=== PATIENT | male | born 1960 | race Caucasian/White ===

== ENCOUNTER 2018-04-01 23:35 | Inpatient (IN) | payer BC, SELFPAY ==
[2018-04-01 23:39] VITALS: BP 142/81; PULSE 90; RESP 32; TEMP 37.3; O2SAT 81; BMI 24.8
--- NOTE | 2018-04-01 23:46 | ED.SOB ---
HPI - SOB/Dyspnea General Chief Complaint: Shortness of Breath/Dyspnea Stated Complaint: CANT BREATHE Time Seen by Provider: 04/01/18 23:46 Source: patient and family Mode of arrival: ambulatory Limitations: no limitations History of Present Illness 57-year-old male with history of interstitial lung disease presents with a chief complaint of gradually worsening shortness of breath over the course of the day. Any activity makes him feel quite short of breath. He denies any fever chills but admits to ongoing cough. He denies any chest pain or recent travel, history of blood clots or recent injury or surgery. Patient does not use oxygen at home. On his arrival he was satting 81% with any exertion MD Complaint: shortness of breath and cough Onset (ago): hour(s) Severity: severe Consistency/Duration: constant Relieving factors: nothing Exacerbating factors: movement and coughing Known history of: other (Interstitial lung disease) Associated symptoms: cough Treatment prior to arrival: none Related Data Home Medications Medication Instructions Recorded Confirmed albuterol sulfate 2 puff INHALATION Q4-6H PRN 04/01/18 04/01/18 Allergies Allergy/AdvReac Type Severity Reaction Status Date / Time No Known Drug Allergies Allergy Verified 04/01/18 23:41 Review of Systems Review of Systems All systems reviewed & are unremarkable except as noted in HPI and below Constitutional Denies chills, Denies fever(s), Denies lethargy and Denies weakness Eyes Denies change in vision, Denies eye discharge, Denies irritation and Denies loss of vision ENT Ears, Nose, Mouth, and Throat: Denies change in voice, Denies neck pain and Denies sore throat Cardiovascular Denies chest pain, Denies irregular heart rhythm, Denies lightheadedness, Denies palpitations, Reports dyspnea, Reports dyspnea on exertion and Denies orthopnea Respiratory Reports cough, Reports dyspnea, Reports dyspnea on exertion and Denies wheezing Gastrointestinal Gastrointestinal: Denies abdominal pain, Denies change in bowel habits, Denies diarrhea, Denies nausea and Denies vomiting Genitourinary Denies hematuria, Denies flank pain, Denies urinary incontinence and Denies urinary urgency Musculoskeletal Denies neck pain Integumentary/Breasts Denies pruritus, Denies erythema, Denies rash and Denies wounds Neurologic Denies confusion, Denies loss of vision and Denies weakness Psychiatric Denies anxiety, Denies confusion, Denies depression, Denies homicidal ideation and Denies suicidal ideation Endocrine Denies palpitations Hematologic/Lymphatic Denies easy bruising Allergic/Immunologic Denies wheezing PFSH Social History Smoking Status: Former smoker Exam Narrative Exam Narrative: 57-year-old male in significant respiratory distress, patient working very hard to breathe on arrival Initial Vital Signs Initial Vital Signs: Vital Signs Temperature 99.1 F 04/01/18 23:39 Pulse Rate 90 04/01/18 23:39 Respiratory Rate 32 H 04/01/18 23:39 Blood Pressure 142/81 H 04/01/18 23:39 Pulse Oximetry 81 L 04/01/18 23:39 Const General: cooperative, well developed and acute distress Nutritional Appearance: thin Orientation: alert, awake, oriented x3 and not confused HENMT Head: normocephalic and atraumatic Ears: external ears normal and TM's normal bilaterally Nose: external nose normal and No nasal discharge Face and sinus: sinuses nontender, face symmetric, no sinus tenderness and No dry mucous membranes Mouth: oral mucosae normal and moist mucous membranes Teeth and gingiva: dentition normal Throat: tonsils normal and uvula midline Eyes General: appearance normal, both eyes and all related structures Eyelids: eyelids normal Conjunctivae: conjunctivae normal Sclera: sclerae normal Pupils: PERRL EOM: EOM intact bilaterally Neck Neck: normal visual inspection, trachea midline, No lymphadenopathy, No midline deformity and No JVD Lymphatic: No lymphedema Chest Chest: normal inspection of the chest Resp Effort & Inspection: normal respiratory effort, able to speak in complete sentences, respiratory distress, retractions, tachypneic and no use of accessory muscles Auscultation: crackles, diminished lung sounds, no rales, rhonchi and no wheezes Cardio Rate: regular rate Rhythm: regular rhythm Heart Sounds: no click, no gallops, no murmurs and no rubs Pulses: normal peripheral pulses GI Inspection: non-distended Palpation: soft, no hepatosplenomegaly, No guarding, No pulsatile mass and No tender Auscultation: normal bowel sounds Back/Spine/Pelvis Back: No CVA tenderness Cervical Spine: cervical ROM normal and No pain with cervical ROM Thoracic/Lumbar Spine: thoracic and lumbar spine normal to inspection Skin General: no rashes or lesions noted, No jaundice and No petechiae Neuro General: alert, oriented x3, gait normal and no focal motor deficits Speech: speech normal Extrem General: full ROM, no clubbing, cyanosis or edema, no pedal edema and no calf tenderness Psych Appearance: well kempt Mental Status: mental status grossly normal Attitude: cooperative Thought Content: normal and suicidality Judgment: judgment good Course Orders Ordered: ED Orders 04/02/18 00:05 Complete Blood Count AUTO DIFF Stat Comprehensive Metabolic Panel Stat Lactate (Lactic Acid) Stat 04/02/18 00:11 Consult to Respiratory Therapy Evaluate & Treat XR chest 2V Stat EKG-12 Lead Stat 04/02/18 00:35 Arterial Blood Gas Stat 04/02/18 01:43 Blood Culture Stat Levofloxacin (Levaquin) 750 mg in 150 mls @ 100 mls/hr IV NOW ONE Stop: 04/02/18 02:08 Last Admin: 04/02/18 01:05 Dose: 100 mls/hr Vital Signs - 8 hr 04/01/18 23:39 04/01/18 23:53 04/02/18 00:14 Temperature 99.1 F Pulse Rate 90 98 H 98 H Respiratory Rate 32 H 32 H 32 H Blood Pressure 142/81 H Blood Pressure [Left Arm] 134/81 H 128/80 H Pulse Oximetry 81 L 97 96 04/02/18 00:49 04/02/18 01:09 Temperature Pulse Rate 89 90 Respiratory Rate 32 H 32 H Blood Pressure Blood Pressure [Left Arm] 131/86 H 135/78 H Pulse Oximetry 96 96 MDM - SOB/Dyspnea Differential Diagnosis Likely acute exacerbation of chronic obstructive airways disease, congestive heart failure, community acquired pneumonia, asthma with exacerbation and pulmonary embolism Lab Data Attestation: I reviewed the patient's lab results. Result diagrams: 04/02/18 00:05 04/02/18 00:05 Lab Results 04/02/18 04/02/18 04/02/18 Range/Units 00:05 00:05 00:05 WBC 16.7 H (4.5-11.0) X10^3/uL RBC 6.35 H (4.5-5.9) X10^6/uL Hgb 12.3 L (13.5-17.5) g/dL Hct 38.6 L (41-53) % MCV 60.7 L (80-100) fL MCH 19.4 L (26-34) PG MCHC 31.9 (30-36) % RDW 15.9 H (11.6-14.8) % Plt Count 175 (150-400) X10^3/uL Neut % (Auto) 73.2 (50-75) % Lymph % (Auto) 15.9 L (25-40) % Meeker % (Auto) 9.6 (3-14) % Eos % (Auto) 0.7 L (2-4) % Baso % (Auto) 0.6 (0-2) % Neut # (Auto) 85601 H (1092-6631) /uL RBC Morphology Not Reportable Polychromasia 1+ H Hypochromasia 2+ H Microcytosis 2+ H Target Cells 1+ H ABG pH (7.35-7.45) ABG pCO2 (35-45) mmHg ABG pO2 (80-105) mmHg ABG HCO3 (23-27) mmol/L ABG Total CO2 (23-27) mmol/L ABG O2 Saturation (95-100) % ABG Base Excess (-2-3) mmol/L FiO2 Sodium 140 (137-145) mmol/L Potassium 3.7 (3.4-5.1) mmol/L Chloride 103 (98-107) mmol/L Carbon Dioxide 27 (22-32) mmol/L BUN 14 (9-20) mg/dL Creatinine 0.70 (0.66-1.25) mg/dL Estimated GFR > 60.0 (>60) mL/min BUN/Creatinine Ratio 20.0 (6-22) Glucose 120 H (70-100) mg/dL Lactate 0.9 (0.7-2.1) mmol/L Calcium 8.7 (8.4-10.2) mg/dL Total Bilirubin 2.1 H (0.2-1.3) mg/dL AST 91 H (17-59) IU/L ALT 100 H (21-72) IU/L Alkaline Phosphatase 67 (38-126) U/L Total Protein 8.1 (6.3-8.2) g/dL Albumin 3.9 (3.5-5.0) g/dL Globulin 4.2 H (1.7-4.1) g/dL Albumin/Globulin Ratio 0.9 L (1.0-2.8) 04/02/18 04/02/18 Range/Units 00:05 00:35 WBC (4.5-11.0) X10^3/uL RBC (4.5-5.9) X10^6/uL Hgb (13.5-17.5) g/dL Hct (41-53) % MCV (80-100) fL MCH (26-34) PG MCHC (30-36) % RDW (11.6-14.8) % Plt Count (150-400) X10^3/uL Neut % (Auto) (50-75) % Lymph % (Auto) (25-40) % Meeker % (Auto) (3-14) % Eos % (Auto) (2-4) % Baso % (Auto) (0-2) % Neut # (Auto) (4575-9597) /uL RBC Morphology Polychromasia Hypochromasia Microcytosis Target Cells ABG pH 7.44 (7.35-7.45) ABG pCO2 37.0 (35-45) mmHg ABG pO2 63 L (80-105) mmHg ABG HCO3 25 (23-27) mmol/L ABG Total CO2 26 (23-27) mmol/L ABG O2 Saturation 93 L (95-100) % ABG Base Excess 1.0 (-2-3) mmol/L FiO2 21 Sodium (137-145) mmol/L Potassium (3.4-5.1) mmol/L Chloride (98-107) mmol/L Carbon Dioxide (22-32) mmol/L BUN (9-20) mg/dL Creatinine (0.66-1.25) mg/dL Estimated GFR (>60) mL/min BUN/Creatinine Ratio (6-22) Glucose (70-100) mg/dL Lactate Cancelled (0.7-2.1) mmol/L Calcium (8.4-10.2) mg/dL Total Bilirubin (0.2-1.3) mg/dL AST (17-59) IU/L ALT (21-72) IU/L Alkaline Phosphatase (38-126) U/L Total Protein (6.3-8.2) g/dL Albumin (3.5-5.0) g/dL Globulin (1.7-4.1) g/dL Albumin/Globulin Ratio (1.0-2.8) Imaging Data Chest x-ray: Attestation: I personally reviewed and interpreted this imaging study as follows: Radiologist's impression: R side infiltrate Discharge Plan Departure Prescriptions: No Action albuterol sulfate 90 mcg/actuation Hfa Aerosol Inhaler 2 puff INHALATION Q4-6H PRN (Reason: Wheezing) RF: 0
[2018-04-01 23:53] VITALS: BP 134/81; PULSE 98; RESP 32; O2SAT 97
[2018-04-02] VITALS (14 sets, daily range): BP systolic 119–135; BP diastolic 52–86; PULSE 74–98; RESP 18–32; TEMP 36.4–37.3; O2SAT 90–98; BMI 24.8
--- NOTE | 2018-04-02 00:11 | DI.RAD.S_ITS ---
PROCEDURE: XR CHEST 2V INDICATIONS: shortness of breath TECHNIQUE: 2 views of the chest were acquired. COMPARISON: None. FINDINGS: Surgical changes and devices: None. Lungs and pleura: No pleural effusions or pneumothorax. Widespread upper and lower lobe bilateral areas of consolidation, right probably greater than left. Mediastinum: Mediastinal contours are normal. Heart size is normal. Bones and chest wall: No suspicious bony abnormalities. Soft tissues appear unremarkable. IMPRESSION: Bilateral widespread upper lower lobe areas of patchy consolidation and groundglass opacities. Findings raise possibility of pulmonary edema, although cannot exclude multifocal pneumonia and recommend clinical correlation to exclude infection. Some of these opacities may represent chronic interstitial disease and are technically age-indeterminate in the absence of prior studies. Given the absence of prior studies, recommend continued radiographic surveillance after treatment to document resolution or improvement, or long-term stability to exclude underlying pulmonary nodule/abnormal soft tissue. Dictated by: Kraig Barrera M.D. on 04/02/2018 at 9:47 Approved by: Kraig Barrera M.D. on 04/02/2018 at 9:49
[2018-04-02 00:21] LABS: Add Manual Diff / Slide Review NO; Basophils Percent Auto 0.6 % (0-2); Eosinophils Percent Auto 0.7 % (2-4); Hematocrit 38.6 % (41-53); Hemoglobin 12.3 g/dL (13.5-17.5); Lymphocytes Percent Auto 15.9 % (25-40); Mean Corpuscular HGB Conc 31.9 % (30-36); Mean Corpuscular Hemoglobin 19.4 PG (26-34); Mean Corpuscular Volume 60.7 fL (80-100); Monocytes Percent Auto 9.6 % (3-14); Neutrophils Absolute Auto 12200 /uL (3000-5900); Neutrophils Percent Auto 73.2 % (50-75); Platelet Count 175 X10^3/uL (150-400); Red Blood Cell Count 6.35 X10^6/uL (4.5-5.9); Red Cell Distribution Width 15.9 % (11.6-14.8); White Blood Cell Count 16.7 X10^3/uL (4.5-11.0)
--- NOTE | 2018-04-02 00:22 | RT ---
ABG ORDERED. WEANED SLOWLY TO ROOM AIR. LAURA. WELL. SPO2 92-94%
[2018-04-02 00:30] LABS: Lactate (Lactic Acid) 0.9 mmol/L (0.7-2.1)
[2018-04-02 00:31] LABS: Alanine Aminotransferase 100 IU/L (21-72); Albumin 3.9 g/dL (3.5-5.0); Albumin Globulin Ratio 0.9 (1.0-2.8); Alkaline Phosphatase 67 U/L (38-126); Aspartate Aminotransferase 91 IU/L (17-59); Bilirubin Total 2.1 mg/dL (0.2-1.3); Blood Urea Nitrogen 14 mg/dL (9-20); Calcium 8.7 mg/dL (8.4-10.2); Carbon Dioxide 27 mmol/L (22-32); Chloride 103 mmol/L (98-107); Estimated Glomerular Filt Rate > 60.0 mL/min (>60); Globulin 4.2 g/dL (1.7-4.1); Glucose 120 mg/dL (70-100); HEMOLYSIS < 15 (0-50); Potassium 3.7 mmol/L (3.4-5.1); Sodium 140 mmol/L (137-145); Total Protein 8.1 g/dL (6.3-8.2)
[2018-04-02 00:41] LABS: Hypochromasia 2+; Microcytosis 2+; Polychromasia 1+; Target Cells 1+
[2018-04-02 00:43] LABS: Fractionated Inspired Oxygen 21; HCO3 ABG 25 mmol/L (23-27); Oxygen Saturation ABG 93 % (95-100); PO2 ABG 63 mmHg (80-105); TCO2 ABG 26 mmol/L (23-27); pH ABG 7.44 (7.35-7.45)
--- NOTE | 2018-04-02 00:43 | PC.NURSE ---
Pt refused to urinal at bedside. Pt insisted on ambulating to br
[2018-04-02] MEDS: levoFLOXacin 750 MG/150 ML PIGGYBACK 100 MG IV (01:05)
--- NOTE | 2018-04-02 03:34 | PC.ADMIT ---
Admission Note: Gatito arrived to floor via stretcher from ED. ambulated to bed. oriented to hospital room and procedures. on 2L nc. O2 saturation 97% pt does have a cough. pt stated that he didn't know he had pneumonia. wbc elevated. admitted pt, will report off to [facility]. SBA to BR- refuses urinal/bsc.
--- NOTE | 2018-04-02 09:52 | P.HP_ITS ---
History of Present Illness Date Patient Seen: 04/02/18 Time Patient Seen: 09:40 Chief complaint: CANT BREATHE Narrative: 57-year-old man with a history of pulmonary fibrosis without local primary care provider, recently relocated from [place] with his to live near her parents, reports 2 days of significantly increased shortness of breath and cough without fevers, chills, sputum production, hemoptysis, chest pain, abdominal pain or other complaints. He states he has trouble walking up stairs at work at baseline and has to typically stop to rest, though has not needed oxygen, and is not on other treatments. 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 He states to be otherwise healthy without previous medical problems. Patient History Medical History Interstitial lung disease (Acute) Surgical History S/P appendectomy (Acute) Family & Social History Family History: Reviewed 04/02/18 by Terrance Turcios MD Social History: household members spouse Prior Living Arrangements RV Safety & Behavioral: Feels Safe in Current Yes Environment Been Physically Hurt or No Threatened By a Person Suicidal Ideation Description None Suicide Plan Description No Plan Tobacco & Substance use: Smoking Status Former smoker alcohol intake frequency 0-2 drinks per day Substance Use Type marijuana Meds Home Medications Medication Instructions Recorded Confirmed Type albuterol sulfate 2 puff INHALATION Q4-6H PRN 04/01/18 04/01/18 History Allergies Allergy/AdvReac Type Severity Reaction Status Date / Time No Known Drug Allergies Allergy Verified 04/01/18 23:41 Review of Systems Review of Systems All systems reviewed & are unremarkable except as noted in HPI and below Exam Vital Signs (past 8 hours): - 04/02/18 02:11 04/02/18 03:21 04/02/18 03:39 Temperature 98.1 F Pulse Rate 81 81 Respiratory Rate 27 H 18 Blood Pressure 122/52 H Blood Pressure [Left Arm] 122/76 H Pulse Oximetry 98 97 04/02/18 07:45 Temperature 97.5 F L Pulse Rate 86 Respiratory Rate 20 Blood Pressure 131/84 H Blood Pressure [Left Arm] Pulse Oximetry 96 Oxygen Delivery Method Nasal Cannula Oxygen Flow Rate 2 Narrative Exam Narrative: General: Alert, pleasant male, appears older than stated age, with mild dyspnea with minimal exertion of speaking HEENT: Pupils equal round reactive, extraocular movements intact, mucous membranes pink and moist Neck: Supple Lungs: Diffuse crackles lower lung gonsalez bilaterally, right greater than left with scattered rhonchi on the right, no wheezing Cardiac: Regular rate rhythm without appreciable murmur Abdomen: Soft, nontender Extremities: Without edema, clubbing of all fingers noted Neurologic: Alert, oriented, no focal neurologic deficits Dermatologic: No rash or skin lesions Objective Imaging Chest x-ray: My impression: Increased interstitial markings, with dense right-sided infiltrate noted, pending radiologic over-read ECG: Sinus rhythm at 87 beats per minute, no ischemic changes Labs Result Diagrams: 04/02/18 00:05 04/02/18 00:05 Labs: Laboratory Results - last 24 hr 04/02/18 04/02/18 04/02/18 00:05 00:05 00:05 WBC 16.7 H RBC 6.35 H Hgb 12.3 L Hct 38.6 L MCV 60.7 L MCH 19.4 L MCHC 31.9 RDW 15.9 H Plt Count 175 Neut % (Auto) 73.2 Lymph % (Auto) 15.9 L Atkinson % (Auto) 9.6 Eos % (Auto) 0.7 L Baso % (Auto) 0.6 Neut # (Auto) 63007 H RBC Morphology Not Reportable Polychromasia 1+ H Hypochromasia 2+ H Microcytosis 2+ H Target Cells 1+ H ABG pH ABG pCO2 ABG pO2 ABG HCO3 ABG Total CO2 ABG O2 Saturation ABG Base Excess FiO2 Sodium 140 Potassium 3.7 Chloride 103 Carbon Dioxide 27 BUN 14 Creatinine 0.70 Estimated GFR > 60.0 BUN/Creatinine Ratio 20.0 Glucose 120 H Lactate 0.9 Calcium 8.7 Total Bilirubin 2.1 H AST 91 H ALT 100 H Alkaline Phosphatase 67 Total Protein 8.1 Albumin 3.9 Globulin 4.2 H Albumin/Globulin Ratio 0.9 L 04/02/18 04/02/18 00:05 00:35 WBC RBC Hgb Hct MCV MCH MCHC RDW Plt Count Neut % (Auto) Lymph % (Auto) Atkinson % (Auto) Eos % (Auto) Baso % (Auto) Neut # (Auto) RBC Morphology Polychromasia Hypochromasia Microcytosis Target Cells ABG pH 7.44 ABG pCO2 37.0 ABG pO2 63 L ABG HCO3 25 ABG Total CO2 26 ABG O2 Saturation 93 L ABG Base Excess 1.0 FiO2 21 Sodium Potassium Chloride Carbon Dioxide BUN Creatinine Estimated GFR BUN/Creatinine Ratio Glucose Lactate Cancelled Calcium Total Bilirubin AST ALT Alkaline Phosphatase Total Protein Albumin Globulin Albumin/Globulin Ratio Assessment & Plan (1) Interstitial lung disease: Current visit: Yes Status: Chronic Plan: Assessment/Plan Narrative: 1. Community-acquired pneumonia, presumed bacterial. Continue IV Levaquin and follow cultures. 2. Interstitial lung disease. Chronic with significant dyspnea with exertion and clubbing, though not requiring oxygen to date. 3. Acute respiratory failure due to 1., with contributing interstitial lung disease. 4. DVT prophylaxis: Treat with Lovenox. 5. Code status: Full code. 6. Disposition: The patient require inpatient care for at least 2 nights. Consult physical therapy
[2018-04-02] MEDS: ENOXAPARIN 40 MG/0.4 ML SYRINGE SUBCUT (11:39)
--- NOTE | 2018-04-02 14:30 | PT.IIE ---
Current Diagnoses Interstitial pulmonary disease, unspecified (04/02/18) Surgical History (Last Reviewed 04/02/18 @ 09:47 by Terrance Turcios MD) S/P appendectomy (Acute) Medical History (Last Reviewed 04/02/18 @ 09:47 by Terrance Turcios MD) Interstitial lung disease (Chronic) Physical Therapy Inpatient Evaluation/Re-Eval M1 PT/OT-IP Prior Functional Status Start: 04/02/18 16:29 Freq: Status: Active Protocol: Document 04/02/18 14:30 [facility] (Rec: 04/02/18 16:37 [facility] [id number]) Medical Review Prior Functional Status Medical History Reviewed Yes Diet/Fluid Consistency Regular Communication WNL Mobility and Gait indep. community ambulator without device, fatigues with flight of stairs. Activities of Daily Living and IADL's indep. Social History Household Members spouse Living Arrangements RV Number of Floors (Floors) One Floor Number of Stairs To Enter/Railing? 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 No home O2. M2 PT-IP Current Condition Start: 04/02/18 16:29 Freq: Status: Active Protocol: Document 04/02/18 14:30 [facility] (Rec: 04/02/18 16:37 [facility] [id number]) Physical Therapy Current Condition Current Condition Evaluation Date 04/02/18 Treatment Diagnosis Pneumonia, impaired activity tolerance Precautions Other Precautions O2 saturation M3 PT-IP Subjective Start: 04/02/18 16:29 Freq: Status: Active Protocol: Document 04/02/18 14:30 [facility] (Rec: 04/02/18 16:37 [facility] [id number]) Subjective Physical Therapy Visit Type Type Initial Evaluation Visit Start Time 14:15 Visit Stop Time 14:30 Total Visit Minutes 15 Number of ACCOUNT MANAGER RELIEF Visits 0 Physical Therapy Visit Comments Patient Comments Pt reports that he gets fatigued when doing the stairs at work, but this SOB is much worse than what his norm is. M4 PT-IP Mobility and Gait Start: 04/02/18 16:29 Freq: Status: Active Protocol: Document 04/02/18 14:30 [facility] (Rec: 04/02/18 16:37 [facility] [id number]) PT-Bed Mobility Assessment Supine to Sit Supine to Sit Independent Sit to Supine Sit to Supine Independent Scooting Scooting to Edge of Bed Independent Scooting Up and Down in Bed Independent PT-Transfer Assessment Sit to and From Stand Sit to and from Stand Independent Equipment Transfer Assistive Device None Transfers Transfer Destination Bed Transfer Technique Stand Step Pivot Transfer Ability Level of Assist Independent Comments Mobility Comments Refused gait belt. Gait Assessment Gait Gait Assistance Required: Independent Distance (Feet) (feet) 500 Assistive Devices Assistive Device None Gait Deviations General Gait Pattern Within Normal Limits Factors Limiting Gait Function Factors Limiting Gait Function Decreased Activity Tolerance Comments Gait Comments O2 saturation 87-92% on 3-L O2 during session. Stair Climbing Assessment Evaluation Level of Assist On Stairs Independent Devices Stair Climbing Assistive Devices None Technique/Endurance Stair Climbing Direction Ascend and Descend Number of Steps Climbed 3 Query Text: Stair Climbing Set # Repetitions (reps) 2 PT-Balance Assessment Sitting Balance and Reactions Static Sitting Balance Ability Normal Dynamic Sitting Balance Ability Normal Standing Balance and Reactions Static Standing Balance Ability Normal Dynamic Standing Balance Ability Normal M5 PT-IP Objective Assessments Start: 04/02/18 16:29 Freq: Status: Active Protocol: Document 04/02/18 14:30 [facility] (Rec: 04/02/18 16:37 [facility] [id number]) Orientation Orientation/Cognition Level of Alertness Alert Orientation Name Age Birthday Month Date Year Day of Week Place Situation Language Function Ability No Deficits Noted Safety Awareness Understands Safety Issues Memory Description No Deficits Noted Strength Upper Extremity Strength Assessment Within Functional Limits Lower Extremity Strength Assessment Within Functional Limits Coordination Assessment Gross Coordination Gross Coordination WNL Muscle Tone Muscle Tone WNL Yes M6 PT-IP Treatment Start: 04/02/18 16:29 Freq: Status: Active Protocol: Document 04/02/18 14:30 [facility] (Rec: 04/02/18 16:37 [facility] [id number]) Physical Therapy Treatment Education Education Provided Safety M7 PT-IP Assessment and Plan Start: 04/02/18 16:29 Freq: Status: Active Protocol: Document 04/02/18 14:30 [facility] (Rec: 04/02/18 16:37 [facility] [id number]) PT Summary Assessment and Plan Potential Rehabilitation Potential Excellent Status of Condition at Evaluation Stable Summary Impairments Activity Tolerance Progress Towards Goals Safe For Discharge Assessment Summary Pt required 3-L O2 during session, normally does not use any supplemental O2. Respiratory Therapy would be beneficial for pt for trial O2 saturation testing with ambulation when appropriate. Pt is indep. with all mobility , no loss of balance noted and no assistive device used. Pt is cleared to ambulate in hallway with assistance of O2 line and tank management. No further acute physical therapy needs, encourage pt to ambulate in hallway multiple times per day with O2 line and tank management assistance ( family and/or staff). Pt will be d/c at this time from physical therapy, as no skilled services are required for his mobility. Goals Other Goals Indep. with all mobility (just required assist with O2 line and tank management). Frequency of Treatment Frequency Of Treatment Discharge Recommendations To Nursing Amount of Assist Needed 1 Person Assist Discharge Recommendations PT Discharge Recommendations Home with Assistance
--- NOTE | 2018-04-02 14:54 | CM.DANOTE ---
DCP/Assessment: Reviewed chart. Patient is a 57yr old male admitted to [facility] with SOB. Primary payor is 1)[facility] Out of [facility]. Patient currently without PCP. Met with patient explained CM/SW role. Patient alert and oriented resting in bed with [address] at time of visit. Patient ambulated today Independently today with therapy. Patient reports that he resides with spouse in [place]. Patient works full-time at [employer] in [place]. Patient plans to d/c home with supportive spouse when medically stable. Currently patient uses no DME at baseline. Patient on 02 but does not anticipate needing that at time of d/c. Patient reports that he is fairly new to the area and has not yet obtained a PCP. Patient with h/o lung disease therefore, CHANDNI encouraged patient to obtain PCP right away. Pt. plans to ask Dr. 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 P: No additional needs or concerns at this time. Anticipate home when medically stable. 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 CHANDNI Batista Discharge Planning/Care Management CM Discharge Assessment Start: 04/02/18 14:51 Freq: Status: Active Protocol: Document 04/02/18 14:53 [facility] (Rec: 04/02/18 14:54 [facility] [id number]) Discharge Planning Assessment Assigned Residential Life Director CHANDNI/Theresa History Provided By Patient Has Patient been admitted in last 30 No days? Prior Living Arrangements RV Household Members spouse Type of transporation used prior to Drives own vehicle admit Independent with ADL's Yes Is patient alert and oriented? Yes Caregiver for Another No Discharge Plan Home Review Status In Process Next Review Type Continued Stay Review
[2018-04-02] MEDS: levoFLOXacin 250 MG TABLET 750 MG PO (20:46)
[2018-04-02] MEDS: ZOLPIDEM 5 MG TABLET PO (20:46)
[2018-04-03] VITALS (16 sets, daily range): BP systolic 108–124; BP diastolic 58–76; PULSE 63–86; RESP 17–19; TEMP 36.6–37.1; O2SAT 80–98
[2018-04-03 06:05] LABS: Add Manual Diff / Slide Review NO; Basophils Percent Auto 0.7 % (0-2); Eosinophils Percent Auto 4.1 % (2-4); Hematocrit 38.3 % (41-53); Hemoglobin 12.1 g/dL (13.5-17.5); Lymphocytes Percent Auto 22.1 % (25-40); Mean Corpuscular HGB Conc 31.6 % (30-36); Mean Corpuscular Hemoglobin 19.4 PG (26-34); Mean Corpuscular Volume 61.2 fL (80-100); Monocytes Percent Auto 14.2 % (3-14); Neutrophils Absolute Auto 6800 /uL (3000-5900); Neutrophils Percent Auto 58.9 % (50-75); Platelet Count 152 X10^3/uL (150-400); Red Blood Cell Count 6.26 X10^6/uL (4.5-5.9); White Blood Cell Count 11.5 X10^3/uL (4.5-11.0)
[2018-04-03 06:14] LABS: Alanine Aminotransferase 88 IU/L (21-72); Albumin 3.7 g/dL (3.5-5.0); Albumin Globulin Ratio 0.9 (1.0-2.8); Alkaline Phosphatase 60 U/L (38-126); Aspartate Aminotransferase 85 IU/L (17-59); BUN Creatinine Ratio 18.6 (6-22); Bilirubin Total 1.9 mg/dL (0.2-1.3); Blood Urea Nitrogen 13 mg/dL (9-20); Calcium 8.7 mg/dL (8.4-10.2); Carbon Dioxide 27 mmol/L (22-32); Chloride 103 mmol/L (98-107); Estimated Glomerular Filt Rate > 60.0 mL/min (>60); Globulin 3.9 g/dL (1.7-4.1); Glucose 101 mg/dL (70-100); HEMOLYSIS < 15 (0-50); Potassium 4.1 mmol/L (3.4-5.1); Sodium 139 mmol/L (137-145); Total Protein 7.6 g/dL (6.3-8.2)
[2018-04-03 06:31] LABS: Hypochromasia 2+; Microcytosis 2+; Polychromasia 1+
[2018-04-03 06:32] LABS: Target Cells 1+
[2018-04-03] MEDS: ENOXAPARIN 40 MG/0.4 ML SYRINGE SUBCUT (09:15)
--- NOTE | 2018-04-03 10:51 | P.PN_ITS ---
Subjective Date Patient Seen: 04/03/18 Time Patient Seen: 10:30 Interval history: Patient reports feeling better, with dyspnea on exertion, and oxygen saturations falling to 80% on room air with walking across the room. Exam Vital Signs (past 8 hours): - 04/03/18 04:00 04/03/18 07:00 04/03/18 07:47 Temperature 97.9 F 98 F Pulse Rate 70 86 Respiratory Rate 18 18 Blood Pressure 108/66 124/76 H Pulse Oximetry 95 93 92 04/03/18 09:15 04/03/18 09:20 04/03/18 09:30 Temperature Pulse Rate Respiratory Rate Blood Pressure Pulse Oximetry 80 L 88 L 92 04/03/18 09:34 Temperature Pulse Rate Respiratory Rate Blood Pressure Pulse Oximetry 80 L Fraction of Inspired Oxygen 21 Oxygen Delivery Method Room Air Oxygen Flow Rate 0 Narrative Exam Narrative: General: Alert, pleasant male, appears older than stated age, with mild dyspnea with minimal exertion of speaking HEENT: Pupils equal round reactive, extraocular movements intact, mucous membranes pink and moist Neck: Supple Lungs: Diffuse crackles lower lung gonsalez bilaterally, right greater than left with scattered rhonchi on the right, no wheezing Cardiac: Regular rate rhythm without appreciable murmur Abdomen: Soft, nontender Extremities: Without edema, clubbing of all fingers noted Neurologic: Alert, oriented, no focal neurologic deficits Dermatologic: No rash or skin lesions Objective Labs Result Diagrams: 04/03/18 05:48 04/03/18 05:48 Labs: Laboratory Results - last 24 hr 04/03/18 04/03/18 05:48 05:48 WBC 11.5 H RBC 6.26 H Hgb 12.1 L Hct 38.3 L MCV 61.2 L MCH 19.4 L MCHC 31.6 RDW 16.0 H Plt Count 152 Neut % (Auto) 58.9 Lymph % (Auto) 22.1 L Foster % (Auto) 14.2 H Eos % (Auto) 4.1 H Baso % (Auto) 0.7 Neut # (Auto) 6800 H RBC Morphology Not Reportable Polychromasia 1+ H Hypochromasia 2+ H Microcytosis 2+ H Target Cells 1+ H Sodium 139 Potassium 4.1 Chloride 103 Carbon Dioxide 27 BUN 13 Creatinine 0.70 Estimated GFR > 60.0 BUN/Creatinine Ratio 18.6 Glucose 101 H Calcium 8.7 Total Bilirubin 1.9 H AST 85 H ALT 88 H Alkaline Phosphatase 60 Total Protein 7.6 Albumin 3.7 Globulin 3.9 Albumin/Globulin Ratio 0.9 L Assessment & Plan Plan: Assessment/Plan Narrative: 1. Community-acquired pneumonia, presumed bacterial. Continue IV Levaquin and follow cultures. 2. Interstitial lung disease. Chronic with significant dyspnea with exertion and clubbing, though not requiring oxygen to date. 3. Acute hypoxic respiratory failure due to 1., with contributing interstitial lung disease. 4. Abnormal liver function test. He states a history of hepatitis as a youth, with history of IV drug use. Check hepatitis B and C serologies. 5. DVT prophylaxis: Treat with Lovenox. 6. Code status: Full code. 7. Disposition: The patient require inpatient care for at least 2 nights. Continue physical therapy. Possible discharge home with home oxygen tomorrow if improved.
--- NOTE | 2018-04-03 17:26 | PC.NURSE ---
Addendum entered by Anaid Calero R.N. 04/03/18 20:09: 2000- SpO2 98% 1L nc, removed O2, will recheck in 30min. Admin zolpidem 5mg for sleep. Provided Q-tip and lub gel for dry nares. Original Note: [id number]- 98% 2L nc, weaned down to 1 L with SpO2 97% nc. Denies SOB, pain, and nausea. LS LLL wheezy, RLL crackles and wheezy, RML/RUL wheezy. Using I.S. and coughing intermittently. Indep in room and BRP. Call light in reach.
[2018-04-03] MEDS: levoFLOXacin 250 MG TABLET 750 MG PO (19:59)
[2018-04-03] MEDS: ZOLPIDEM 5 MG TABLET PO (20:02)
[2018-04-04] VITALS: BP 111/74; PULSE 77; RESP 18; TEMP 36.7; O2SAT 92
[2018-04-04 05:00] VITALS: BP 108/74; PULSE 70; RESP 22; TEMP 36.7; O2SAT 92
[2018-04-04 07:41] VITALS: BP 117/80; PULSE 77; RESP 18; TEMP 36.5; O2SAT 93
[2018-04-04 08:55] VITALS: O2SAT 93
--- NOTE | 2018-04-04 09:22 | P.DS_ITS ---
History of Present Illness Date Patient Seen: 04/04/18 Time Patient Seen: 09:09 Chief complaint: CANT BREATHE Narrative: 57-year-old man with a history of pulmonary fibrosis without local primary care provider, recently relocated from [place] with his to live near her parents, reports 2 days of significantly increased shortness of breath and cough without fevers, chills, sputum production, hemoptysis, chest pain, abdominal pain or other complaints. He states he has trouble walking up stairs at work at baseline and has to typically stop to rest, though has not needed oxygen, and is not on other treatments. He had a marble setter while living in [place] and was prescribed an inhaler which she says does not help his breathing at all. He states to be otherwise healthy without previous medical problems. Discharge Providers Date of admission: 04/02/18 02:26 Consults: 04/02/18 00:11 Consult to Respiratory Therapy Evaluate & Treat Comment: Physician Instructions: Evaluate and treat 04/02/18 09:53 Consult to Physical Therapy Evaluate & Treat Comment: weakness Physician Instructions: Evaluate and Treat 04/04/18 08:45 Consult to Respiratory Therapy Evaluate & Treat Comment: RT to teach patient to use spacer Physician Instructions: Evaluate and treat 04/04/18 09:07 Consult to Respiratory Therapy Evaluate & Treat Comment: evaluate for home oxygen needs Physician Instructions: Evaluate and treat Discharge provider: DORIE Doyle Summary Discharge Diagnosis: 1. Acute community-acquired pneumonia, presumed bacterial 2. Interstitial lung disease. Chronic 3. Acute hypoxic respiratory failure due to 1., with contributing interstitial lung disease 4. Abnormal liver function test, history of hepatitis Hospital Course: This is a summary of a 2 day hospitalization for this 57-year- old patient who was admitted with complaints of shortness of breath dyspnea. White count admission was 16.7, and an ABG PO2 of 63. His saturations on admission were in the low 80s with any type of exertion. He was admitted to the hospital placed on oral Levaquin q.day. T-max during this hospitalization was 99.2. Over the course of 2 days he has clinically improved and desires to go home at this point in time. He is on room air and at rest his saturations are in the mid to high 90s, he can speak in full sentences and is not short of breath at rest. Blood cultures x2 show no growth after 48 hr. He has not required any bronchodilator therapy during this admission. His abnormal liver studies will need to be followed as an outpatient basis. He currently has no primary care provider but has been given several options for pursuing one. Will be discharged on additional 8 days for total of a ten-day course of oral Levaquin. Status at Discharge Functional status at discharge: independent ambulation Overall status at discharge: patient is progressing back to baseline Time Spent with Patient Greater than 30 minutes Exam Vital Signs (past 8 hours): - 04/04/18 05:00 04/04/18 07:41 Temperature 98.1 F 97.7 F Pulse Rate 70 77 Respiratory Rate 22 18 Blood Pressure 108/74 117/80 Pulse Oximetry 92 93 Fraction of Inspired Oxygen 21 Oxygen Delivery Method Room Air Oxygen Flow Rate 0 Const General: cooperative, comfortable, well developed and well groomed Nutritional Appearance: average body habitus and well nourished Orientation: alert, awake and oriented x3 HENMT Head: normal to inspection, normocephalic and atraumatic Eyes General: appearance normal, both eyes and all related structures Pupils: PERRL and pupil size (2.0) bilaterally Neck Neck: normal visual inspection, trachea midline and supple Other: No JVD or lymphadenopathy Chest Chest: normal inspection of the chest Resp Effort & Inspection: normal respiratory effort, able to speak in complete sentences and cough Other: Crackles in bases right greater than left. No wheezes appreciated. Cardio Rate: regular rate Rhythm: regular rhythm Heart Sounds: S1 normal, S2 normal and normal, physiologic split S2 Other: No murmurs rubs or clicks GI Inspection: normal to inspection Palpation: soft Auscultation: normoactive bowel sounds Other: No masses. Other: Unremarkable Back/Spine/Pelvis Other: Unremarkable Skin General: no rashes or lesions noted, dry skin and warm Neuro General: alert, awake and oriented x3 Cranial Nerves: PERRL Cognition: normal cognition Speech: speech normal Gait: normal gait Motor: muscle tone normal throughout Sensory Exam: no sensory deficits noted Extrem General: normal to inspection and no pedal edema Psych Appearance: grossly normal Mental Status: mental status grossly normal Mood: congruent mood Affect: normal affect Attitude: cooperative Thought Process: normal Thought Content: normal Judgment: judgment good Objective Labs Result Diagrams: 04/03/18 05:48 04/03/18 05:48 Labs: PROCEDURE: XR CHEST 2V INDICATIONS: shortness of breath TECHNIQUE: 2 views of the chest were acquired. COMPARISON: None. FINDINGS: Surgical changes and devices: None. Lungs and pleura: No pleural effusions or pneumothorax. Widespread upper and lower lobe bilateral areas of consolidation, right probably greater than left. Mediastinum: Mediastinal contours are normal. Heart size is normal. Bones and chest wall: No suspicious bony abnormalities. Soft tissues appear unremarkable. IMPRESSION: Bilateral widespread upper lower lobe areas of patchy consolidation and groundglass opacities. Findings raise possibility of pulmonary edema, although cannot exclude multifocal pneumonia and recommend clinical correlation to exclude infection. Some of these opacities may represent chronic interstitial disease and are technically age-indeterminate in the absence of prior studies. Given the absence of prior studies, recommend continued radiographic surveillance after treatment to document resolution or improvement, or long-term stability to exclude underlying pulmonary nodule/ abnormal soft tissue. Dictated by: Kraig Barrera M.D. on 04/02/2018 at 9:47 Approved by: Kraig Barrera M.D. on 04/02/2018 at 9:49 Discharge Plan Discharge Plan Patient Disposition: Home, Self-Care Discharge comment: Patient needs to establish a PCP. Provider Discharge Instructions Diet: Diet as Tolerated and Regular Activity: As tolerated Oxygen: May need supplemental oxygen during periods of exertion at home or at work. Wound Care Report to your healthcare provider any signs of infection, such as:: chills, fever, night sweats and increased pain Discharge Data Attending Provider: Rama Zimmerman Admit Date/Time: 04/02/18 02:26 Discharges patient from system. Discharge Date/Time: 04/04/18 11:35
--- NOTE | 2018-04-04 11:39 | PC.NURSE ---
discharge pt evaluated for O2 and d/c with O2 tank set to 4L O2 with activity. d/c instructions provided to pt and . notified to contact MD if any issues and pt aware to establish care with PCP. pt provided Rx for abx. pt states he took all belongings with him. left with RN escort and while wearing home O2.
[2018-04-09 05:46] LABS: Hepatitis A Antibody IgM NONREACTIVE; Hepatitis B Core Antibody IgM NONREACTIVE; Hepatitis B Surface Antigen NONREACTIVE; Hepatitis C Antibody REACTIVE
== END 2018-04-04 11:35 | disposition home or self-care (01) | DRG 193 ==
LOC: ED 04-02 00:07 → AC 04-02 02:27
PROVIDERS: Internal Medicine; Admitting Provider Internal Medicine; Emergency Provider Emergency Medicine; Visit Provider Internal Medicine
DX: J15.9 Unspecified bacterial pneumonia (principal); J96.01 Acute respiratory failure with hypoxia; J84.9 Interstitial pulmonary disease, unspecified; Z87.891 Personal history of nicotine dependence; R77.0 Abnormality of albumin
CPT/HCPCS: 36415; 36591; 36600; 71046; 80053; 80074; 82805; 83605; 85025; 87040; 93005; 94618; 94760; 96365; 96366; 97161; 99284; 99285; J1650; J1956

== ENCOUNTER 2018-08-06 12:47 | Emergency (ER) | payer BC, SELFPAY ==
[2018-04-02 02:38] VITALS: BMI 24.8
[2018-08-06 13:00] VITALS: BP 121/77; PULSE 61; RESP 15; O2SAT 96
[2018-08-06 13:03] VITALS: BP 131/80; PULSE 65; RESP 21; TEMP 36.5; O2SAT 92
--- NOTE | 2018-08-06 13:27 | ED_ITS ---
HPI - Dizziness General Chief Complaint: Syncope Stated Complaint: BALANCE ISSUES Time Seen by Provider: 08/06/18 13:05 Source: patient Mode of arrival: ambulatory Limitations: no limitations History of Present Illness HPI Narrative: Patient is a 57-year-old male who presents with dizziness. He said he bent over to tie his shoe he got dizzy and lightheaded. He had some trouble walking when he stood up felt like he had to hold onto things. He did not pass out. No chest pain or heart palpitations. He is supposed to wear oxygen while active due to pulmonary fibrosis however at that time he was not wearing oxygen. He denies any fever or cough. He had no focal deficits. He now is feeling much better and his symptoms have completely resolved. MD complaint: dizziness Description: lightheadedness and difficulty walking History of similar episodes: No Severity: moderate Relieving factors: nothing Exacerbating factors: position Associated symptoms: denies other symptoms Related Data Home Medications Medication Instructions Recorded Confirmed albuterol sulfate 2 puff INHALATION Q4-6H PRN 04/01/18 04/01/18 Allergies Allergy/AdvReac Type Severity Reaction Status Date / Time No Known Drug Allergies Allergy Verified 04/01/18 23:41 Review of Systems Review of Systems All systems reviewed & are unremarkable except as noted in HPI and below Constitutional Denies chills, Denies fever(s), Denies lethargy and Denies weakness Cardiovascular Denies chest pain, Denies irregular heart rhythm, Reports lightheadedness, Denies palpitations, Denies dyspnea, Denies dyspnea on exertion and Denies orthopnea Respiratory Denies cough, Denies dyspnea, Denies dyspnea on exertion and Denies wheezing Gastrointestinal Gastrointestinal: Denies abdominal pain, Denies change in bowel habits, Denies diarrhea, Denies nausea and Denies vomiting Musculoskeletal Denies back pain, Denies muscle weakness, Denies numbness and Denies tingling Integumentary/Breasts Denies pruritus, Denies erythema, Denies rash and Denies wounds Neurologic Denies numbness, Denies tingling and Denies weakness Endocrine Denies palpitations Allergic/Immunologic Denies wheezing [facility] Medical History Interstitial lung disease (Chronic) Surgical History S/P appendectomy (Acute) Social History household members: spouse Smoking Status: Former smoker Exam Initial Vital Signs Initial Vital Signs: Vital Signs Pulse Rate 61 08/06/18 13:00 Respiratory Rate 15 08/06/18 13:00 Blood Pressure 121/77 08/06/18 13:00 Pulse Oximetry 96 08/06/18 13:00 GENERAL: Appears older than stated age no acute distress nontoxic HEENT: Head atraumatic,EOMI, pupils reactive, face symmetric CARDIOVASCULAR: Regular rate and rhythm without murmurs, rubs or gallops. RESPIRATORY: Breath sounds equal bilaterally, no wheezes rales or rhonchi. ABDOMEN: Soft, nontender. Normoactive bowel sounds all 4 quadrants. No guarding or rebound. EXTREMITIES: Normal range of motion, no clubbing or edema. Neurovascularly intact NEUROLOGICAL: Alert and oriented x4.Normal gait and speech. Cranial nerves II through XII grossly intact. SKIN: Warm, dry, no laceration, no petechiae, no rashes or lesions. Scores NIH Stroke Scale Level of Conciousness: Alert, keenly responsive Ask month/age: Answers both questions correctly. Open/close eyes, close hand: Performs both tasks correctly Best gaze horizontal: Normal Visual gonsalez: No visual loss Facial palsy: Normal symetrical movement Left arm drift: No drift for full 10 sec Right arm drift: No drift for full 10 sec Left leg drift: No drift for full 10 sec Right leg drift: No drift for full 10 sec Limb ataxia: Absent Sensory on face/arms/legs: Normal, no sensory loss Best language: No aphasia, normal Dysarthria: Normal Extinction or inattention: No abnormality Total NIH Stroke scale score: 0 Course Orders Ordered: ED Orders 08/06/18 13:07 EKG-12 Lead Stat 08/06/18 13:35 Basic Metabolic Panel Stat Complete Blood Count AUTO DIFF Stat Discontinued Medications Sodium Chloride (Normal Saline 0.9%) 1,000 mls @ 1,000 mls/hr IV BOLUS ONE Stop: 08/06/18 14:21 Last Infusion: 08/06/18 14:29 Dose: 0 mls/hr Admin: 08/06/18 13:35 Dose: 1,000 mls/hr Vital Signs - 8 hr 08/06/18 13:00 08/06/18 13:03 08/06/18 14:00 Temperature 97.7 F Pulse Rate 61 65 Respiratory Rate 15 21 Blood Pressure 131/80 Blood Pressure [Right Arm] 121/77 134/71 Pulse Oximetry 96 92 08/06/18 14:30 Temperature Pulse Rate 56 L Respiratory Rate 16 Blood Pressure 134/71 Blood Pressure [Right Arm] Pulse Oximetry 94 MDM - Dizziness Lab Data Attestation: I reviewed the patient's lab results. Result diagrams: 08/06/18 13:35 08/06/18 13:35 Lab Results 08/06/18 08/06/18 Range/Units 13:35 13:35 WBC 9.8 (4.5-11.0) X10^3/uL RBC 6.36 H (4.5-5.9) X10^6/uL Hgb 12.5 L (13.5-17.5) g/dL Hct 39.0 L (41-53) % MCV 61.4 L (80-100) fL MCH 19.7 L (26-34) PG MCHC 32.1 (30-36) % RDW 16.2 H (11.6-14.8) % Plt Count 169 (150-400) X10^3/uL Neut % (Auto) 57.6 (50-75) % Lymph % (Auto) 30.7 (25-40) % Metcalfe % (Auto) 8.5 (3-14) % Eos % (Auto) 2.4 (2-4) % Baso % (Auto) 0.8 (0-2) % Neut # (Auto) 5600 (0740-7886) /uL RBC Morphology See below Hypochromasia 2+ H Anisocytosis 3+ H Target Cells 1+ H Ovalocytes 1+ H Sodium 140 (137-145) mmol/L Potassium 4.8 (3.4-5.1) mmol/L Chloride 105 (98-107) mmol/L Carbon Dioxide 26 (22-32) mmol/L BUN 17 (9-20) mg/dL Creatinine 0.70 (0.66-1.25) mg/dL Estimated GFR > 60.0 (>60) mL/min BUN/Creatinine Ratio 24.3 H (6-22) Glucose 100 (70-100) mg/dL Calcium 8.5 (8.4-10.2) mg/dL Urine Dip Bedside Urine Glucose Negative Bedside Urine Bilirubin - Negative Bedside Urine Ketone - Negative Urine Specific [place] 1.015 Bedside Urine Occult Blood - Negative Bedside Urine pH 6.0 Bedside Urine Protein - Negative Bedside Urine Urobilinogen - Negative Bedside Urine Nitrite - Negative Bedside Urine Leukocytes - Negative Esterase ECG Data Attestation: I personally reviewed and interpreted this ECG as follows: Prior ECG tracings: not available for review Interpretation: Normal sinus rhythm rate [address] changes and T-wave MDM Narrative Medical decision making narrative: Creatinine is elevated 1.9 previous 2.1. This seems relatively stable. Electrolytes and other blood work reassuring. Patient's symptoms have resolved Discharge Plan Departure Patient Disposition: Home Clinical Impression: Vertigo, Acute dehydration Discharge Date/Time: 08/06/18 14:30 Interventions: ED Discharge Assessment Last Done: 08/06/18 14:30 Instructions: DI for Vertigo Activity Restrictions/Additional Instructions: *You have been diagnosed with vertigo, dehydration *What to do: Symptoms today likely from position and slightly dehydrated. Recommend continuing to drink your daily water. WEAR OXYGEN RECOMMENDED *Continue to take medications as directed *Follow up with your primary care provider in 2-3 days *Return to ER if you should have persistent dizziness, lightheadedness chest any new, worsening or concerning symptoms Prescriptions: No Action albuterol sulfate 90 mcg/actuation Hfa Aerosol Inhaler 2 puff INHALATION Q4-6H PRN (Reason: Wheezing) RF: 0 Stand Alone Forms: Work/School Restrictions
[2018-08-06] MEDS: SODIUM CHLORIDE 0.9% 1,000 ML 1000 ML IV (13:35)
[2018-08-06 14:00] VITALS: BP 134/71
[2018-08-06 14:03] LABS: BUN Creatinine Ratio 24.3 (6-22); Blood Urea Nitrogen 17 mg/dL (9-20); Calcium 8.5 mg/dL (8.4-10.2); Carbon Dioxide 26 mmol/L (22-32); Chloride 105 mmol/L (98-107); Estimated Glomerular Filt Rate > 60.0 mL/min (>60); Glucose 100 mg/dL (70-100); Potassium 4.8 mmol/L (3.4-5.1); Sodium 140 mmol/L (137-145)
[2018-08-06 14:08] LABS: HEMOLYSIS 97 (0-50)
--- NOTE | 2018-08-06 14:08 | PC.NURSE ---
pt reports, episode of dizziness , with changed of position, onset yesterday, approx 11am. also felt right ear under water. asymptomatic at this time. pt cooperative with great sense of humor, skin warm dry pink, neuro fast exam negative.
[2018-08-06 14:10] LABS: Add Manual Diff / Slide Review NO; Basophils Percent Auto 0.8 % (0-2); Eosinophils Percent Auto 2.4 % (2-4); Hemoglobin 12.5 g/dL (13.5-17.5); Lymphocytes Percent Auto 30.7 % (25-40); Mean Corpuscular HGB Conc 32.1 % (30-36); Mean Corpuscular Hemoglobin 19.7 PG (26-34); Mean Corpuscular Volume 61.4 fL (80-100); Monocytes Percent Auto 8.5 % (3-14); Neutrophils Absolute Auto 5600 /uL (3000-5900); Neutrophils Percent Auto 57.6 % (50-75); Platelet Count 169 X10^3/uL (150-400); Red Blood Cell Count 6.36 X10^6/uL (4.5-5.9); Red Cell Distribution Width 16.2 % (11.6-14.8); White Blood Cell Count 9.8 X10^3/uL (4.5-11.0)
[2018-08-06 14:30] VITALS: BP 134/71; PULSE 56; RESP 16; O2SAT 94
[2018-08-06 14:49] LABS: Anisocytosis 3+
[2018-08-06 14:50] LABS: Hypochromasia 2+; Ovalocytes 1+; Target Cells 1+
== END 2018-08-06 14:30 | disposition home or self-care (01) ==
PROVIDERS: Emergency Provider Emergency Medicine
DX: E86.0 Dehydration (principal); R42 Dizziness and giddiness
CPT/HCPCS: 36591; 80048; 81003; 85025; 93005; 96360; 99283; 99284

== ENCOUNTER → 2018-11-08 09:18 | Outpatient (CLI) | payer OTHER, SELFPAY ==
[2018-04-02 02:38] VITALS: BMI 24.8
--- NOTE | 2018-11-08 | DI.RAD.S_ITS ---
PROCEDURE: XR CHEST 2V INDICATIONS: SHORTNESS OF BREATH! TECHNIQUE: 2 views of the chest were acquired. COMPARISON: [facility], CR, XR CHEST 2V, 04/01/2018, 23:50. FINDINGS: Surgical changes and devices: None. Lungs and pleura: Widespread ill-defined patchy consolidative and reticular opacities are seen. There are also groundglass opacities scattered in both lungs. No definite superimposed focal consolidation. No pleural effusions or pneumothorax. Mediastinum: Mediastinal contours are normal. Heart size is normal. Bones and chest wall: No suspicious bony abnormalities. Soft tissues appear unremarkable. IMPRESSION: Unchanged appearance of severe widespread bilateral ill-defined and groundglass opacities, probably reflecting chronic interstitial disease since no definite interval change since 04/01/18. No definite superimposed focal consolidation however limited study sensitivity given the advanced changes therefore please correlate clinically. Mild bronchopneumonia and or developing early pulmonary edema cannot be excluded. If there is persistent clinical diagnostic uncertainty, continued surveillance with short interval chest radiographs after treatment is recommended. Dictated by: Kraig Barrera M.D. on 11/08/2018 at 10:59 Approved by: Kraig Brarera M.D. on 11/08/2018 at 11:01
== END ==
PROVIDERS: PCP Physician Assistant; Visit Provider Physician Assistant
DX: R06.02 Shortness of breath (principal)
CPT/HCPCS: 71046

== ENCOUNTER → 2018-12-09 09:30 | Outpatient (CLI) | payer OTHER, SELFPAY ==
[2018-04-02 02:38] VITALS: BMI 24.8
[2018-12-09 10:12] LABS: Add Manual Diff / Slide Review NO; Basophils Absolute Auto 100 /uL (0-100); Eosinophils Absolute Auto 400 /uL (0-450); Eosinophils Percent Auto 4.5 % (2-4); Hematocrit 40.2 % (41-53); Hemoglobin 12.5 g/dL (13.5-17.5); Lymphocytes Absolute Auto 2500 /uL (1100-4500); Lymphocytes Percent Auto 25.4 % (25-40); Mean Corpuscular HGB Conc 31.2 % (30-36); Mean Corpuscular Hemoglobin 19.3 PG (26-34); Mean Corpuscular Volume 61.9 fL (80-100); Monocytes Absolute Auto 1000 /uL (0-900); Monocytes Percent Auto 10.1 % (3-14); Neutrophils Absolute Auto 5800 /uL (1500-7000); Platelet Count 178 X10^3/uL (150-400); Red Cell Distribution Width 16.7 % (11.6-14.8); White Blood Cell Count 9.8 X10^3/uL (4.5-11.0)
[2018-12-09 10:34] LABS: Anisocytosis 2+; Microcytosis 1+
[2018-12-09 11:25] LABS: Alanine Aminotransferase 133 IU/L (21-72); Albumin 4.1 g/dL (3.5-5.0); Alkaline Phosphatase 67 U/L (38-126); Aspartate Aminotransferase 111 IU/L (17-59); BUN Creatinine Ratio 18.6 (6-22); Bilirubin Total 1.5 mg/dL (0.2-1.3); Blood Urea Nitrogen 13 mg/dL (9-20); Calcium 8.9 mg/dL (8.4-10.2); Carbon Dioxide 29 mmol/L (22-32); Chloride 100 mmol/L (98-107); Cholesterol 128 mg/dL (140-199); Estimated Glomerular Filt Rate > 60.0 mL/min (>60); Globulin 4.1 g/dL (1.7-4.1); Glucose 88 mg/dL (70-100); HDL Cholesterol 43 mg/dL (40-60); HEMOLYSIS < 15 (0-50); LDL Cholesterol Calculated 71 mg/dL (<100); Potassium 4.2 mmol/L (3.4-5.1); Sodium 139 mmol/L (137-145); Total Protein 8.2 g/dL (6.3-8.2); Triglycerides 69 mg/dL (35-150)
== END ==
PROVIDERS: PCP Physician Assistant; Visit Provider Physician Assistant
DX: E78.2 Mixed hyperlipidemia (principal)
CPT/HCPCS: 36415; 80053; 80061; 85025

== ENCOUNTER → 2018-12-30 08:17 | Outpatient (CLI) | payer OTHER, SELFPAY ==
[2018-04-02 02:38] VITALS: BMI 24.8
[2018-12-30 10:29] LABS: Add Manual Diff / Slide Review NO; Basophils Absolute Auto 100 /uL (0-100); Basophils Percent Auto 0.7 % (0-2); Eosinophils Absolute Auto 200 /uL (0-450); Eosinophils Percent Auto 2.9 % (2-4); Hematocrit 38.3 % (41-53); Hemoglobin 12.1 g/dL (13.5-17.5); Lymphocytes Absolute Auto 2300 /uL (1100-4500); Lymphocytes Percent Auto 27.2 % (25-40); Mean Corpuscular HGB Conc 31.7 % (30-36); Mean Corpuscular Hemoglobin 19.6 PG (26-34); Mean Corpuscular Volume 61.9 fL (80-100); Monocytes Absolute Auto 900 /uL (0-900); Monocytes Percent Auto 10.2 % (3-14); Neutrophils Absolute Auto 4900 /uL (1500-7000); Platelet Count 157 X10^3/uL (150-400); Red Blood Cell Count 6.19 X10^6/uL (4.5-5.9); Red Cell Distribution Width 16.3 % (11.6-14.8); White Blood Cell Count 8.3 X10^3/uL (4.5-11.0)
[2018-12-30 11:34] LABS: HEMOLYSIS < 15 (0-50); Iron 199 ug/dL (49-181)
[2018-12-30 11:40] LABS: Alanine Aminotransferase 107 IU/L (21-72); Albumin 3.7 g/dL (3.5-5.0); Albumin Globulin Ratio 0.9 (1.0-2.8); Alkaline Phosphatase 66 U/L (38-126); Aspartate Aminotransferase 91 IU/L (17-59); BUN Creatinine Ratio 15.7 (6-22); Bilirubin Total 1.3 mg/dL (0.2-1.3); Blood Urea Nitrogen 11 mg/dL (9-20); Calcium 8.9 mg/dL (8.4-10.2); Carbon Dioxide 28 mmol/L (22-32); Chloride 101 mmol/L (98-107); Estimated Glomerular Filt Rate > 60.0 mL/min (>60); Gamma Glutamyl Transpeptidase 63 U/L (15-73); Globulin 3.9 g/dL (1.7-4.1); Glucose 83 mg/dL (70-100); HEMOLYSIS < 15 (0-50); Potassium 4.2 mmol/L (3.4-5.1); Sodium 138 mmol/L (137-145); Total Protein 7.6 g/dL (6.3-8.2)
[2018-12-30 11:46] LABS: Percent Iron Saturation 67 % (20-50); Total Iron Binding Capacity 297 ug/dL (261-462); Transferrin 202 mg/dL (206-381)
[2018-12-30 12:30] LABS: Hep C Virus Ab w/Reflex Quant REACTIVE s/c (NEGATIVE)
[2018-12-30 12:31] LABS: Microcytosis 2+
[2018-12-30 12:32] LABS: Anisocytosis 1+
[2018-12-30 12:33] LABS: Poikilocytosis 2+; Target Cells 1+
[2018-12-30 12:34] LABS: Hypochromasia 2+
[2018-12-30 12:46] LABS: Folate 12.2 ng/mL (2.76-20.0); Vitamin B12 500 pg/mL (239-931)
== END ==
PROVIDERS: PCP Physician Assistant; Visit Provider Physician Assistant
DX: R74.8 Abnormal levels of other serum enzymes (principal); D64.9 Anemia, unspecified
CPT/HCPCS: 36415; 80053; 82607; 82746; 82977; 83540; 83550; 85025; 86803; 87522

== ENCOUNTER → 2019-04-21 09:43 | Outpatient (CLI) | payer OTHER, SELFPAY ==
[2019-03-06 15:21] VITALS: BMI 29.7
== END ==
PROVIDERS: PCP Physician Assistant; Visit Provider Internal Medicine Pulmonary Disease
DX: J44.9 Chronic obstructive pulmonary disease, unspecified (principal)
CPT/HCPCS: 94618

== ENCOUNTER → 2019-08-03 14:30 | Outpatient (CLI) | payer OTHER, SELFPAY ==
[2019-03-06 15:21] VITALS: BMI 29.7
--- NOTE | 2019-08-03 | DI.RAD.S_ITS ---
PROCEDURE: XR CHEST 2V INDICATIONS: SOB TECHNIQUE: 2 views of the chest were acquired. COMPARISON: [facility], CR, XR CHEST 2V, 04/01/2018, 23:50. [facility], CR, XR CHEST 2V, 11/08/2018, 9:23. FINDINGS: Surgical changes and devices: None. Lungs and pleura: There are bilateral interstitial and airspace infiltrates consistent with pneumonia. Compared with the last exam lung 11/08/2018, there is minimal change. No pleural effusions or pneumothorax. Mediastinum: Mediastinal contours are normal. Heart size is normal. Bones and chest wall: No suspicious bony abnormalities. Soft tissues appear unremarkable. IMPRESSION: Bilateral chronic interstitial and airspace infiltrate consistent is pneumonia or pneumonitis. Dictated by: Gilmar Gottlieb M.D. on 08/03/2019 at 15:55 Approved by: Gilmar Gottlieb M.D. on 08/03/2019 at 15:57
== END ==
PROVIDERS: PCP Physician Assistant; Visit Provider Physician Assistant
DX: R06.02 Shortness of breath (principal)
CPT/HCPCS: 71046

== ENCOUNTER → 2019-08-09 15:05 | Outpatient (CLI) | payer OTHER, SELFPAY ==
[2019-03-06 15:21] VITALS: BMI 29.7
--- NOTE | 2019-08-09 | DI.RAD.S_ITS ---
PROCEDURE: XR SHOULDER RT MIN 2V INDICATIONS: ACUTE PAIN OF RIGHT SHOULDER TECHNIQUE: 3 views of the shoulder were acquired. COMPARISON: , CR, XR CHEST 2V, 08/03/2019, 14:33. FINDINGS: Bones: No fractures or dislocations. No suspicious bony lesions. Visualized ribs appear intact. There are mild degenerative changes of the right acromioclavicular joint. Soft tissues: No suspicious soft tissue calcifications. Diffuse hazy and reticular pulmonary opacities are again demonstrated, similar in appearance to comparison chest radiographs of 08/03/19. There is a more prominent focal opacity in the right perihilar region, with increased lucency at the lung apex. No right pneumothorax identified in the imaged portions of the right lung. IMPRESSION: 1. Mild degenerative changes of the right acromioclavicular joint. 2. Redemonstrated diffuse hazy and reticular pulmonary opacities, which may represent pneumonia/pneumonitis, chronic lung disease, or pulmonary edema. 3. Focal right perihilar pulmonary opacity concerning for potential perihilar mass/malignancy versus focal lung disease. A CT of the chest with contrast is recommended to exclude a true pulmonary mass. Dictated by: Damián Armenta M.D. on 08/09/2019 at 17:42 Approved by: Damián Armenta M.D. on 08/09/2019 at 17:58
== END ==
PROVIDERS: PCP Physician Assistant; Visit Provider Physician Assistant
DX: M25.511 Pain in right shoulder (principal)
CPT/HCPCS: 73030

== ENCOUNTER 2019-11-16 11:30 | Outpatient (RCR) | payer OTHER, MEDICAID, SELFPAY ==
[2018-04-02 02:38] VITALS: BMI 24.8
[2019-03-06 15:21] VITALS: BP 120/80; BP 126/82; RESP 16; BMI 29.7
--- NOTE | 2019-03-07 15:16 | PR.IEVALNOTE ---
Current Diagnoses Other specified interstitial pulmonary diseases (03/07/19) Past Medical History (Last Reviewed 08/06/18 @ 14:12 by Sylvia Curtis DO) Interstitial lung disease (Chronic) Provider Team Visit Care Team Role Provider Type Ernestina Holland PA-C Attending Provider Advanced Fire Inspector Primary Care Provider Specialty: Internal Medicine Address: [address] [place] [address], [facility] Email: Pulmonary Rehab Initial Evaluation [place] Pulmonary Rehab Inital Assessment Start: 03/06/19 15:20 Freq: Status: Active Protocol: Document 03/06/19 15:21 EAMON (Rec: 03/06/19 15:25 EAMON [id number]) [place] Exercise Assessment Dx: Ideopathic Pulmonary Fibrosis Comment COPD-emphysema Primary Language [facility] Resident Required No Hearing Ability Normal Visual Impairment No Limitations Visual Assist Glasses Assistive Devices None Comment Patient states that his dyspnea prevents him from any form of exercise, in addition, he is employed full-time and he is very fatigued after work. CO Vital Signs Nasal Cannula Yes Oxygen Flow Rate (L/min) 6 O2 Sat: 98 Comment: pt uses Smart Dose O2 delivery on 6Lpm Respiratory Rate (12-24 breaths/min) 16 Respiratory Effort Accessory Muscle Use Labored Respiratory Depth Normal Respiratory Pattern Accessory Muscle Use Assessment crackles bilateral left Inferior lobe and Right Inferior and Middle Right Arm Blood Pressure (90/60-140/90 mmHg) 120/80 Blood Pressure Method Manual Cuff/Auscultation Blood Pressure Position Sitting Left Arm Blood Pressure (90/60-140/90 mmHg) 126/82 Blood Pressure Method Manual Cuff/Auscultation Blood Pressure Position Sitting CO Six Minute Walk Test Oxygen Delivery Method Nasal Cannula Oxygen Flow Rate (L) (L/min) 6 Respiratory Rate (breaths/min) 18 Pulse Rate (beats/min) 73 O2 Saturation by Pulse Oximetry (%) 98 Pulse Rate (beats/min) 82 Ambulation Distance (feet) 150 O2 Saturation by Pulse Oximetry (%) 92 Pulse Rate (beats/min) 85 Ambulation Distance (feet) 200 O2 Saturation by Pulse Oximetry (%) 88 Pulse Rate (beats/min) 81 Ambulatory Distance (feet) 200 O2 Saturation by Pulse Oximetry (%) 87 Pulse Rate (beats/min) 79 Ambulation Distance (feet) 150 O2 Saturation by Pulse Oximetry (%) 88 Pulse Rate (beats/min) 80 Ambulation Distance (feet) 200 O2 Saturation by Pulse Oximetry (%) 88 PUlse Rate (beats/min) 81 Ambulation Distance (feet) 210 O2 Saturation by Pulse Oximetry (%) 88 Respiratory Rate (breaths/min) 16 Pulse Rate (beats/min) 60 O2 Saturation by Pulse Oximetry (%) 98 Activity Tolerance Fair Adverse Reactions Anxiety Desaturation Increased Shortness of Breath Distance 1010 Sylvia RPE Scale 13 Oriented to RPE Scale Yes Dyspnea 4 Oriented to Dyspnea Scale Yes CO Exercise Goals Exercise Goals progression of exercise training volume will result form increases in time, intensity and frequency. Initial emphasis will be on increasing time Exercise Goals demonstrate proper technique with pursed lip breathing demonstrate paced breathing ( breath sequencing) with ADL's, stairs, and strength training demonstrate increased tolerance for physical activities including domestic activities DASI Number and Comment 4.61 Short Term learn how to breathe effectively, learn anxiety reduction techniques Alf improve strength and stamina to qualify for Lung transplant surgery [place] Pulmonary Rehab Orientation Complete Complete Yes CO Nutrition Assessment PFT Date 02/01/19 Forced Vital Capacity (FVC) 2.52 55% Forced Exp. Volume/Forced Vital Cap 80 Ratio (FEV1/FVC Ratio) Forced Expiratory Volume in 1 sec. 2.02 55% Admit Height 172.72 cm Admit Weight 88.904 kg Admit Body Mass Index (BMI) 29.7 Additional Comment discussed weight loss strategies, patient to keep food log Additional Comment initial step for consideration for lung transplant surgery is improved BMI Weight Goal 175-180 BMI Goal 26-27 Liters Per Minute at Rest 3-4 Liters per Minute with ADL's 6-8 Liters per Minute with Sleep 3 Liters per Minute with Exercise 6+ Oxygen Intervention/Education discussed O2 titration to maintain SpO2 >= 88% discussed operation of on demand O2 supply regulators Tolerates Activity Poor Signs and Symptoms Activity Intolerance Dyspnea on Exertion Fatigue on Exertion Weakness on Exertion Daytime Naps No CO Education Pre-Test Score 79% Tobacco Use Former, Quit >6 Months Tobacco Product Used cigarettes, marijuana Total Years Used 30 Packs Per Day 1 Environmental/Occupational Exposure no known exposures Additional Comment using edible marijuana products for anxiety, needs to quit lung transplant qualification methamphetamine use Use Yes Type [place] Ice Tea Frequency 1x/week Concerns None Education Topics Breathing Retraining Discussed Education Requirements on Yes Intake CO Psychosocial Initial Assess HADS Score 11 HADS Score 11 Marital Status Referral Needed Yes Counselling Refused patient will consider seeking counseling Physician Comment Ready for Pulmonary Rehabilitation Depressed/Withdrawn Anxiou Resistive/Hostile
[2019-05-11 15:58] VITALS: BMI 26.6
--- NOTE | 2019-05-11 16:15 | PR.REVALNOTE ---
Current Diagnoses Other specified interstitial pulmonary diseases (05/11/19) Past Medical History (Last Reviewed 08/06/18 @ 14:12 by Sylvia Curtis DO) Interstitial lung disease (Chronic) Provider Team Visit Care Team Role Provider Type Ernestina Holland PA-C Attending Provider Advanced Gear Inspector Primary Care Provider Specialty: Internal Medicine Address: [address] [place] [address], [facility] Email: [email or web address] Pulmonary Rehab Re-Evaluation [place] Pulmonary Rehab. Re-Assessment Start: 03/06/19 15:20 Freq: Status: Active Protocol: Document 05/11/19 15:58 JWS (Rec: 05/11/19 16:15 EAMON [id number]) [place] Exercise Re-Assessment New Session Number 1-12 Type Treadmill BioDex METs (resistance level) 3.29TM, 2.81 Strdr % Improvement 22% TM 59% Strdr Interval Training No Shortness of Breath with Exercise Yes Desaturation with Exercise Yes Free Weight Yes: 4# 12r2s Band Level Yes: #4 Toward Target Goals improved functional capacity with improved endurance and strength participates in aerobic exercise 30-60 min 2x week at appropriate intensity -showing progress [place] Nutrition Re-Assessment Height 180.34 cm Weight 86.636 kg Current BMI (BMI) 26.6 Progress to Weight Goal Yes Patient Discussion Yes Goals Pt will continue to learn tips Hypoxia Re-Assessment supplemental oxygen has been titrated to 6-12 lpm depending on mode and intensity of exercise to keep SpO2=>88-90% [place] Education Re-Assessment Topics Normal Anatomy and Physiology Breathing Retraining Bronchial Hygiene Benefits of Exercise Goals Pt will Master PLB and Diaphragmatic Breathing Pt will Master Energy Conserving Techniques Pt will learn exercise safety Pt will continue ED topics until completion Additonal Comments Pt has entered pre-lung transplant work up optimize and maintain function status while continuing close monitoring of underlying disease [place] Psychosocial Re-Assessment Patient in Class Regularly Yes Interventions Pt attending class regularly Referral Needed Yes Referral Counseling Refused Goals Pt will continue to attend classes 3x wk Participate in social and educational discussion Received emotional support from family/friends
[2019-06-21 15:58] VITALS: BMI 29.3
--- NOTE | 2019-06-21 16:24 | PR.REVALNOTE ---
Current Diagnoses Other specified interstitial pulmonary diseases (06/21/19) Past Medical History (Last Reviewed 08/06/18 @ 14:12 by Sylvia Curtis DO) Interstitial lung disease (Chronic) Visit Care Team Role Provider Type Ernestina Holland PA-C Attending Provider Advanced Pocket Setter Primary Care Provider Specialty: Internal Medicine Address: [address] [place] [address], [facility] Email: [email or web address] Pulmonary Rehab Re-Evaluation [place] Pulmonary Rehab. Re-Assessment Start: 03/06/19 15:20 Freq: Status: Active Protocol: Document 05/11/19 15:58 EAMON (Rec: 05/11/19 16:15 EAMON [id number]) [place] Exercise Re-Assessment New Session Number 1-12 Type Treadmill,Trusightex METs (resistance level) 3.29TM, 2.81 Strdr % Improvement 22% TM 59% Strdr Interval Training No Shortness of Breath with Exercise Yes Desaturation with Exercise Yes Free Weight Yes: 4# 12r2s Band Level Yes: #4 Toward Target Goals improved functional capacity with improved endurance and strength participates in aerobic exercise 30-60 min 2x week at approproate intensity -showing progress [place] Nutrition Re-Assessment Height 180.34 cm Weight 86.636 kg Current BMI (BMI) 26.6 Progress to Weight Goal Yes Patient Discussion Yes Goals Pt will continue to learn tips Hypoxia Re-Assessment supplemental oxygen has been titrated to 6-12 lpm depending on mode and intensity of exercise to keep SpO2=>88-90% [place] Education Re-Assessment Topics Normal Anatomy and Physiology, Breathing Retraining,Bronchial Hygiene,Benefits of Exercise Goals Pt will Master PLB and Diaphragmatic Breating,Pt will Master Energy Conserving Techniques,Pt will learn exercise safety,Pt will continue ED topics until completion Additonal Comments Pt has entered pre-lung transplant work up optimize and maintain function status while continuing close monitoring of underlying disease [place] Psychosocial Re-Assessment Patient in Class Regularly Yes Interventions Pt attending class regularly Referral Needed Yes Referral Counseling Refused Goals Pt will continue to attend classes 3x wk,Participate in social and educational discussion,Received emotional support from family/friends Document 06/21/19 15:58 EAMON (Rec: 06/21/19 16:24 EAMON [id number]) [place] Exercise Re-Assessment New Session Number 13-20 Type Treadmill,DERRICK,Bike METs (resistance level) SRB 6.31,3.47 Stdr,3.4TM % Improvement 4.8%TM, 23% Stdr Interval Training No Shortness of Breath with Exercise Yes Desaturation with Exercise Yes Free Weight Yes: 4# 12r 2s Band Level Yes: #4 Intervention Demonstrates proper PLB technique-Goal met Demonstrates pacing and breath sequencing-showing progress Toward Target Goals increased participation in physical activities-showing progress improved functional capacity with increased endurance and stamina-showing progress increase in METs tolerance- showing progress participates in independent exercise- Goal not met [place] Nutrition Re-Assessment Height 172.72 cm Weight 87.543 kg Current BMI (BMI) 29.3 Progress to Weight Goal Yes Diabetes/Dietitian Dietitian Consult Patient Discussion Yes Goals Pt will continue focusing on weight loss,Pt will continue to learn tips Hypoxia Re-Assessment current supplemental O2 requirement with CVEX 8-12 lpm varies with exercise titrate supplemental O2 depending on mode of exercise- showing progress [place] Psychosocial Re-Assessment Patient in Class Regularly Yes Interventions Pt attending class regularly Goals Participate in social and educational discussion, Received emotional support from family/friends
--- NOTE | 2019-07-20 16:07 | PR.REVALNOTE ---
Current Diagnoses Other specified interstitial pulmonary diseases (07/20/19) Past Medical History (Last Reviewed 08/06/18 @ 14:12 by Sylvia Curtis DO) Interstitial lung disease (Chronic) Visit Care Team Role Provider Type Ernestina Holland PA-C Attending Provider Advanced Leather Scrubber Primary Care Provider Specialty: Internal Medicine Address: [address] [place] [address], [facility] Email: [email or web address] Pulmonary Rehab Re-Evaluation [place] Pulmonary Rehab. Re-Assessment Start: 03/06/19 15:20 Freq: Status: Active Protocol: Document 05/11/19 15:58 EAMON (Rec: 05/11/19 16:15 EAMON [id number]) [place] Exercise Re-Assessment New Session Number 1-12 Type Treadmill,[employer] METs (resistance level) 3.29TM, 2.81 Strdr % Improvement 22% TM 59% Strdr Interval Training No Shortness of Breath with Exercise Yes Desaturation with Exercise Yes Free Weight Yes: 4# 12r2s Band Level Yes: #4 Toward Target Goals improved functional capacity with improved endurance and strength participates in aerobic exercise 30-60 min 2x week at approproate intensity -showing progress [place] Nutrition Re-Assessment Height 180.34 cm Weight 86.636 kg Current BMI (BMI) 26.6 Progress to Weight Goal Yes Patient Discussion Yes Goals Pt will continue to learn tips Hypoxia Re-Assessment supplemental oxygen has been titrated to 6-12 lpm depending on mode and intensity of exercise to keep SpO2=>88-90% [place] Education Re-Assessment Topics Normal Anatomy and Physiology, Breathing Retraining,Bronchial Hygiene,Benefits of Exercise Goals Pt will Master PLB and Diaphragmatic Breating,Pt will Master Energy Conserving Techniques,Pt will learn exercise safety,Pt will continue ED topics until completion Additonal Comments Pt has entered pre-lung transplant work up optimize and maintain function status while continuing close monitoring of underlying disease [place] Psychosocial Re-Assessment Patient in Class Regularly Yes Interventions Pt attending class regularly Referral Needed Yes Referral Counceling Refused Goals Pt will continue to attend classes 3x wk,Participate in social and educational discussion,Received emotional support from family/friends Document 06/21/19 15:58 EAMON (Rec: 06/21/19 16:24 EAMON [email or web address]) [place] Exercise Re-Assessment New Session Number 13-20 Type Treadmill,DERRICK,Bike METs (resistance level) SRB 6.31,3.47 Stdr,3.4TM % Improvement 4.8%TM, 23% Stdr Interval Training No Shortness of Breath with Exercise Yes Desaturation with Exercise Yes Free Weight Yes: 4# 12r 2s Band Level Yes: #4 Intervention Demonstrates proper PLB technique-Goal met Demonstrates pacing and breath sequencing-showing progress Toward Target Goals increased participation in physical activites-showing progress improved functional capacity with increased endurance and stamina-showing progress increase in METs tolerance- showing progress participates in independent exercise- Goal not met [place] Nutrition Re-Assessment Height 172.72 cm Weight 87.543 kg Current BMI (BMI) 29.3 Progress to Weight Goal Yes Diabetes/Dietitian Dietitian Consult Patient Discussion Yes Goals Pt will continue focusing on weight loss,Pt will continue to learn tips Hypoxia Re-Assessment current supplemental O2 requirement with CVEX 8-12 lpm varies with exercise titrate supplemental O2 depending on mode of exercise- showing progress [place] Psychosocial Re-Assessment Patient in Class Regularly Yes Interventions Pt attending class regularly Goals Participate in social and educational discussion, Received emotional support from family/friends Document 07/20/19 15:53 EAMON (Rec: 07/20/19 16:07 Ketan [id number]) [place] Exercise Re-Assessment New Session Number 20-29 Type Treadmill,BioDex,Bike METs (resistance level) 3.44TM 3.47STRDR 6.31BIKE Interval Training No Shortness of Breath with Exercise Yes Desaturation with Exercise Yes Free Weight Yes: 5# 12R 2S Band Level Yes: #4 Toward Target Goals Demonstrates proper technique with paced breathing with ADL' s stairs, etc-showing progress Demonstrates proper PLB technique-goal met will continue to reinforce Exercise intensity as tolerated by dyspnea, leg discomfort, and cardiorespiratory status- showing progress [place] Nutrition Re-Assessment Hypoxia Re-Assessment current supplemental oxygen requirements during exercise 10-15 lpm varies according to exercise station oxygen titrates to keep SpO2 >=88-90% [place] Education Re-Assessment Topics Chronic Lung Disease, Description and Interpretation Medical Tests,Breathing Retraining,Medication,Benefits of Exercise Goals Pt will Master PLB and Diaphragmatic Breathing,Pt will Master Energy Conserving Techniques,Pt will learn exercise safety,Pt will continue ED topics until completion [place] Psychosocial Re-Assessment Patient in Class Regularly Yes Goals Participate in social and educational discussion, Received emotional support from family/friends
[2019-09-07 16:16] VITALS: BMI 28.8
--- NOTE | 2019-09-07 16:31 | PR.REVALNOTE ---
Current Diagnoses Other specified interstitial pulmonary diseases (09/07/19) Past Medical History (Last Reviewed 08/06/18 @ 14:12 by Sylvia Curtis DO) Interstitial lung disease (Chronic) Visit Care Team Role Provider Type Ernestina Holland PA-C Attending Provider Advanced Last Model Department Supervisor Primary Care Provider Specialty: Internal Medicine Address: [address] [place] [address], [id number] Email: Pulmonary Rehab Re-Evaluation [place] Pulmonary Rehab. Re-Assessment Start: 03/06/19 15:20 Freq: Status: Active Protocol: Document 05/11/19 15:58 EAMON (Rec: 05/11/19 16:15 EAMON [id number]) [place] Exercise Re-Assessment New Session Number 1-12 Type Treadmill,Kaleioex METs (resistance level) 3.29TM, 2.81 Strdr % Improvement 22% TM 59% Strdr Interval Training No Shortness of Breath with Exercise Yes Desaturation with Exercise Yes Free Weight Yes: 4# 12r2s Band Level Yes: #4 Toward Target Goals improved functional capacity with improved endurance and strength participates in aerobic exercise 30-60 min 2x week at approproate intensity -showing progress [place] Nutrition Re-Assessment Height 180.34 cm Weight 86.636 kg Current BMI (BMI) 26.6 Progress to Weight Goal Yes Patient Discussion Yes Goals Pt will continue to learn tips Hypoxia Re-Assessment supplemental oxygen has been titrated to 6-12 lpm depending on mode and intensity of exercise to keep SpO2=>88-90% [place] Education Re-Assessment Topics Normal Anatomy and Physiology, Breathing Retraining,Bronchial Hygiene,Benefits of Exercise Goals Pt will Master PLB and Diaphragmatic Breating,Pt will Master Energy Conserving Techniques,Pt will learn exercise safety,Pt will continue ED topics until completion Additonal Comments Pt has entered pre-lung transplant work up optimize and maintain function status while continuing close monitoring of underlying disease [place] Psychosocial Re-Assessment Patient in Class Regularly Yes Interventions Pt attending class regularly Referral Needed Yes Referral Counceling Refused Goals Pt will continue to attend classes 3x wk,Participate in social and educational discussion,Received emotional support from family/friends Document 06/21/19 15:58 EAMON (Rec: 06/21/19 16:24 EAMON [email or web address]) [place] Exercise Re-Assessment New Session Number 13-20 Type Treadmill,DERRICK,Bike METs (resistance level) SRB 6.31,3.47 Stdr,3.4TM % Improvement 4.8%TM, 23% Stdr Interval Training No Shortness of Breath with Exercise Yes Desaturation with Exercise Yes Free Weight Yes: 4# 12r 2s Band Level Yes: #4 Intervention Demonstrates proper PLB technique-Goal met Demonstrates pacing and breath sequencing-showing progress Toward Target Goals increased participation in physical activites-showing progress improved functional capacity with increased endurance and stamina-showing progress increase in METs tolerance- showing progress participates in independent exercise- Goal not met [place] Nutrition Re-Assessment Height 172.72 cm Weight 87.543 kg Current BMI (BMI) 29.3 Progress to Weight Goal Yes Diabetes/Dietitian Dietitian Consult Patient Discussion Yes Goals Pt will continue focusing on weight loss,Pt will continue to learn tips Hypoxia Re-Assessment current supplemental O2 requirement with CVEX 8-12 lpm varies with exercise titrate supplemental O2 depending on mode of exercise- showing progress KS Psychosocial Re-Assessment Patient in Class Regularly Yes Interventions Pt attending class regularly Goals Participate in social and educational discussion, Received emotional support from family/friends Document 07/20/19 15:53 EAMON (Rec: 07/20/19 16:07 Ketan [id number]) [place] Exercise Re-Assessment New Session Number 20-29 Type Treadmill,BioDex,Bike METs (resistance level) 3.44TM 3.47STRDR 6.31BIKE Interval Training No Shortness of Breath with Exercise Yes Desaturation with Exercise Yes Free Weight Yes: 5# 12R 2S Band Level Yes: #4 Toward Target Goals Demonstrates proper technique with paced breathing with ADL' s stairs, etc-showing progress Demonstrates proper PLB techique-goal met will continue to reinforce Exercise intensity as tolerated by dyspnea, leg discomfort, and cardiorespiratory status- showing progress [place] Nutrition Re-Assessment Hypoxia Re-Assessment current supplemental oxygen requirements during exercise 10-15 lpm varies according to exercise station oxygen titrates to keep SpO2 >=88-90% [place] Education Re-Assessment Topics Chronic Lung Disease, Description and Interpretation Medical Tests,Breathing Retraining,Medication,Benefits of Exercise Goals Pt will Master PLB and Diaphragmatic Breating,Pt will Master Energy Conserving Techniques,Pt will learn exercise safety,Pt will continue ED topics until completion [place] Psychosocial Re-Assessment Patient in Class Regularly Yes Goals Participate in social and educational discussion, Received emotional support from family/friends Document 09/07/19 16:16 EAMON (Rec: 09/07/19 16:22 EAMON [email or web address]) [place] Exercise Re-Assessment New Session Number 29-36 Type Treadmill,BioDex,Bike METs (resistance level) 3.0STRDR 2.81TM 8.11SRB % Improvement 0%STRDR 0%TM 28%STRDR Interval Training No Shortness of Breath with Exercise Yes Desaturation with Exercise No Free Weight Yes: 4# 12R 2S Band Level Yes: #4 BAND [place] Nutrition Re-Assessment Height 172.72 cm Weight 86.183 kg Current BMI (BMI) 28.8 Progress to Weight Goal Yes Goals Pt will continue to learn tips Hypoxia Re-Assessment Pt continues to use oxygen with exercise and titrates supplemental oxygen to keep SpO2 >=88% depending on activity. Pt is requiring increased liter flow to maintain SpO2 with disease progression [place] Education Re-Assessment Topics Normal Anatomy and Physiology, Chronic Lung Disease, Description and Interpretation Medical Tests,Breathing Retraining,Bronchial Hygiene, Medication,Benefits of Exercise,Activities of daily living/Leisure Activities, Eating Right,Irritant Avoidance/Prevention of Respiratory Infections,Coping with Chronic Lung Disease, Oxygen: How and Why Goals Pt will Master PLB and Diaphragmatic Breathing,Pt will Master Energy Conserving Techniques,Pt will learn exercise safety,Pt will continue ED topics until completion Additonal Comments Patient has entered the pre- transplant program at . Cardiopulmonary Rehab will continue to work with pt through this period to maintain strength and stamina for optimal outcome [place] Psychosocial Re-Assessment Patient in Class Regularly Yes Interventions Pt attending class regularly Referral Needed Yes Referral Referred to Counseling Additional Comment counseling provided by transplant program Goals Pt will continue to attend classes 3x wk,Participate in social and educational discussion,Received emotional support from family/friends Additional Comment Pt will continue while in pre- transplant workup
[2019-11-02 15:17] VITALS: BMI 28.8
--- NOTE | 2019-11-02 15:31 | PR.REVALNOTE ---
Current Diagnoses Other specified interstitial pulmonary diseases (11/02/19) Past Medical History (Last Reviewed 08/06/18 @ 14:12 by Sylvia Curtis DO) Interstitial lung disease (Chronic) Visit Care Team Role Provider Type Ernestina Holland PA-C Attending Provider Advanced Application Helper Primary Care Provider Specialty: Internal Medicine Address: [address] [place] [address], [facility] Email: [email or web address] Pulmonary Rehab Re-Evaluation [place] Pulmonary Rehab. Re-Assessment Start: 03/06/19 15:20 Freq: Status: Active Protocol: Document 05/11/19 15:58 EAMON (Rec: 05/11/19 16:15 EAMON [id number]) [place] Exercise Re-Assessment New Session Number 1-12 Type Treadmill,BioDex METs (resistance level) 3.29TM, 2.81 Strdr % Improvement 22% TM 59% Strdr Interval Training No Shortness of Breath with Exercise Yes Desaturation with Exercise Yes Free Weight Yes: 4# 12r2s Band Level Yes: #4 Toward Target Goals improved functional capacity with improved endurance and strength participates in aerobic exercise 30-60 min 2x week at appropriate intensity -showing progress [place] Nutrition Re-Assessment Height 180.34 cm Weight 86.636 kg Current BMI (BMI) 26.6 Progress to Weight Goal Yes Patient Discussion Yes Goals Pt will continue to learn tips Hypoxia Re-Assessment supplemental oxygen has been titrated to 6-12 lpm depending on mode and intensity of exercise to keep SpO2=>88-90% [place] Education Re-Assessment Topics Normal Anatomy and Physiology, Breathing Retraining,Bronchial Hygiene,Benefits of Exercise Goals Pt will Master PLB and Diaphragmatic Breathing,Pt will Master Energy Conserving Techniques,Pt will learn exercise safety,Pt will continue ED topics until completion Additonal Comments Pt has entered pre-lung transplant work up optimize and maintain function status while continuing close monitoring of underlying disease [place] Psychosocial Re-Assessment Patient in Class Regularly Yes Interventions Pt attending class regularly Referral Needed Yes Referral Counseling Refused Goals Pt will continue to attend classes 3x wk,Participate in social and educational discussion,Received emotional support from family/friends Document 06/21/19 15:58 EAMON (Rec: 06/21/19 16:24 EAMON [email or web address]) [place] Exercise Re-Assessment New Session Number 13-20 Type Treadmill,DERRICK,Bike METs (resistance level) SRB 6.31,3.47 Stdr,3.4TM % Improvement 4.8%TM, 23% Stdr Interval Training No Shortness of Breath with Exercise Yes Desaturation with Exercise Yes Free Weight Yes: 4# 12r 2s Band Level Yes: #4 Intervention Demonstrates proper PLB technique-Goal met Demonstrates pacing and breath sequencing-showing progress Toward Target Goals increased participation in physical activities-showing progress improved functional capacity with increased endurance and stamina-showing progress increase in METs tolerance- showing progress participates in independent exercise- Goal not met [place] Nutrition Re-Assessment Height 172.72 cm Weight 87.543 kg Current BMI (BMI) 29.3 Progress to Weight Goal Yes Diabetes/Dietitian Dietitian Consult Patient Discussion Yes Goals Pt will continue focusing on weight loss,Pt will continue to learn tips Hypoxia Re-Assessment current supplemental O2 requirement with CVEX 8-12 lpm varies with exercise titrate supplemental O2 depending on mode of exercise- showing progress [place] Psychosocial Re-Assessment Patient in Class Regularly Yes Interventions Pt attending class regularly Goals Participate in social and educational discussion, Received emotional support from family/friends Document 07/20/19 15:53 Ketan (Rec: 07/20/19 16:07 [facility] [id number]) [place] Exercise Re-Assessment New Session Number 20-29 Type Treadmill,BioDex,Bike METs (resistance level) 3.44TM 3.47STRDR 6.31BIKE Interval Training No Shortness of Breath with Exercise Yes Desaturation with Exercise Yes Free Weight Yes: 5# 12R 2S Band Level Yes: #4 Toward Target Goals Demonstrates proper technique with paced breathing with ADL' s stairs, etc-showing progress Demonstrates proper PLB technique-goal met will continue to reinforce Exercise intensity as tolerated by dyspnea, leg discomfort, and cardiorespiratory status- showing progress [place] Nutrition Re-Assessment Hypoxia Re-Assessment current supplemental oxygen requirements during exercise 10-15 lpm varies according to exercise station oxygen titrates to keep SpO2 >=88-90% [place] Education Re-Assessment Topics Chronic Lung Disease, Description and Interpretation Medical Tests,Breathing Retraining,Medication,Benefits of Exercise Goals Pt will Master PLB and Diaphragmatic Breating,Pt will Master Energy Conserving Techniques,Pt will learn exercise safety,Pt will continue ED topics until completion [place] Psychosocial Re-Assessment Patient in Class Regularly Yes Goals Participate in social and educational discussion, Received emotional support from family/friends Document 09/07/19 16:16 VADIMKetan (Rec: 09/07/19 16:22 VADIMKetan [id number]) [place] Exercise Re-Assessment New Session Number 29-36 Type Treadmill,BioDex,Bike METs (resistance level) 3.0STRDR 2.81TM 8.11SRB % Improvement 0%STRDR 0%TM 28%STRDR Interval Training No Shortness of Breath with Exercise Yes Desaturation with Exercise No Free Weight Yes: 4# 12R 2S Band Level Yes: #4 BAND [place] Nutrition Re-Assessment Height 172.72 cm Weight 86.183 kg Current BMI (BMI) 28.8 Progress to Weight Goal Yes Goals Pt will continue to learn tips Hypoxia Re-Assessment Pt continues to use oxygen with exercise and titrates supplemental oxygen to keep SpO2 >=88% depending on activity. Pt is requiring increased liter flow to maintain SpO2 with disease progression [place] Education Re-Assessment Topics Normal Anatomy and Physiology, Chronic Lung Disease, Description and Interpretation Medical Tests,Breathing Retraining,Bronchial Hygiene, Medication,Benefits of Exercise,Activities of daily living/Leisure Activities, Eating Right,Irritant Avoidance/Prevention of Respiratory Infections,Coping with Chronic Lung Disease, Oxygen: How and Why Goals Pt will Master PLB and Diaphragmatic Breathing,Pt will Master Energy Conserving Techniques,Pt will learn exercise safety,Pt will continue ED topics until completion Additonal Comments Patient has entered the pre- transplant program at . Cardiopulmonary Rehab will continue to work with pt through this period to maintain strength and stamina for optimal outcome [place] Psychosocial Re-Assessment Patient in Class Regularly Yes Interventions Pt attending class regularly Referral Needed Yes Referral Referred to Counseling Additional Comment counseling provided by transplant program Goals Pt will continue to attend classes 3x wk,Participate in social and educational discussion,Received emotional support from family/friends Additional Comment Pt will continue while in pre- transplant workup Document 11/02/19 15:17 VADIMKetan (Rec: 11/02/19 15:30 EAMON [id number]) [place] Exercise Re-Assessment New Session Number 36-44 Type DERRICK,Bike METs (resistance level) 10.48BIKE 3.0 STRDR % Improvement 29% BIKE 0%STRDR Interval Training No Shortness of Breath with Exercise Yes Desaturation with Exercise No: D/T over extending without titrating O2 to support CVEX Free Weight Yes: 4# 12r 2s Band Level Yes: #4 band [place] Nutrition Re-Assessment Height 172.72 cm Weight 86.183 kg Current BMI (BMI) 28.8 Progress to Weight Goal Yes Patient Discussion Yes: pt under care of chief inspector w/ [facility] transplant team Hypoxia Re-Assessment Pt continues to require increased liter to maitain SpO2 >=88% Pt showing progress with titration to maintain appropriate saturation [place] Education Re-Assessment Topics Normal Anatomy and Physiology, Chronic Lung Disease, Description and Interpretation Medical Tests,Breathing Retraining,Bronchial Hygiene, Medication,Benefits of Exercise,Activities of daily living/Leisure Activities, Eating Right,Irritant Avoidance/Prevention of Respiratory Infections, Metabolic Syndrome,Coping with Chronic Lung Disease,Oxygen: How and Why,Asthma Goals Pt will Master PLB and Diaphragmatic Breathing,Pt will Master Energy Conserving Techniques,Pt will learn exercise safety,Pt will continue ED topics until completion [place] Psychosocial Re-Assessment Patient in Class Regularly Yes Interventions Pt talked to about attending class more often Additional Comment Pt is no longer working and is being encouraged to attend 3x week to maintain fitness level Goals Pt will continue to attend classes 3x wk,Participate in social and educational discussion,Received emotional support from family/friends Additional Comments Pt is under care of transplant team for bilateral lung transplant
== END 2019-11-16 12:30 ==
LOC: PUL 11:30
PROVIDERS: PCP Physician Assistant; Visit Provider Physician Assistant
DX: J84.89 Other specified interstitial pulmonary diseases (principal)
CPT/HCPCS: G0237; G0238

== ENCOUNTER → 2020-08-05 08:19 | Outpatient (CLI) | payer OTHER, SELFPAY ==
[2019-03-06 15:21] VITALS: BMI 29.7
[2020-08-05 12:38] LABS: COVID19 -Nasal RAPID Negative (Negative)
== END ==
PROVIDERS: PCP Physician Assistant; Visit Provider Physician Assistant
DX: Z11.59 Encounter for screening for other viral diseases (principal)
CPT/HCPCS: 87635

== ENCOUNTER → 2020-08-22 10:53 | Outpatient (CLI) | payer OTHER, SELFPAY ==
[2019-03-06 15:21] VITALS: BMI 29.7
[2020-08-22 11:51] LABS: COVID19 -Nasal RAPID Negative (Negative)
== END ==
PROVIDERS: PCP Internal Medicine; Referring Provider Internal Medicine; Visit Provider Internal Medicine
DX: Z11.59 Encounter for screening for other viral diseases (principal)
CPT/HCPCS: 87635; C9803

== ENCOUNTER → 2020-08-23 09:08 | Outpatient (CLI) | payer OTHER, SELFPAY ==
[2019-03-06 15:21] VITALS: BMI 29.7
[2020-08-22 11:31] VITALS: BMI 29.7
--- NOTE | 2020-08-30 11:11 | PM.PFT.1 ---
Pulmonary Function Test Referral & Results Date Patient Seen: 08/23/20 Requesting provider: Terrance Turcios Indication: Lung transplant Results: The spirometry demonstrates an FVC of 2.43 L which is 51% of predicted. The FEV1 was measured at 1.68 L which is 46% of predicted. The FEV1/FVC ratio was 69 which is 91% of predicted. Following the administration of bronchodilator there was a 24% improvement in FEV1 and a 76% improvement in FEF 25-75%. Lung volumes show an SVC of 2.41 L which is 50% of predicted. The diffusing capacity was measured at 17.07 which is 52% of predicted. The maximum voluntary ventilation was reduced Interpretation: This study demonstrates moderately severe obstructive lung disease based on reduction FEV1 although FEV1/FVC ratio is normal. There was also evidence of significant benefit following bronchodilator as above There is also moderate restrictive lung disease based on reduction in lung volume/SVC The diffusing capacity is also moderately affected suggesting element of disease at the capillary alveolar level
== END ==
PROVIDERS: PCP Internal Medicine; Referring Provider Internal Medicine; Visit Provider Internal Medicine
DX: J98.8 Other specified respiratory disorders (principal); Z94.2 Lung transplant status; Z87.891 Personal history of nicotine dependence
CPT/HCPCS: 94060; 94726; 94729

== ENCOUNTER → 2020-09-09 09:13 | Outpatient (CLI) | payer OTHER, SELFPAY ==
[2020-08-22 11:31] VITALS: BMI 29.7
[2020-09-09 10:53] LABS: COVID19 -Nasal RAPID Negative (Negative)
== END ==
PROVIDERS: PCP Internal Medicine; Visit Provider Nurse Practitioner
DX: Z20.828 Contact with and (suspected) exposure to other viral communicable diseases (principal)
CPT/HCPCS: 87635

== ENCOUNTER → 2020-09-27 08:57 | Outpatient (CLI) | payer OTHER, SELFPAY ==
[2020-08-22 11:31] VITALS: BMI 29.7
--- NOTE | 2020-09-27 | DI.US.S_ITS ---
PROCEDURE: US RENAL COMPLETE INDICATIONS: RENAL CALCULI TECHNIQUE: Real-time scanning was performed of the kidneys and bladder, with image documentation. COMPARISON: [facility], CR, XR T AND L SPINE 2 TO 3 VIEWS, 09/27/2020, 9:32. FINDINGS: Kidneys: Kidneys are normal in size. Right kidney measures 10.4 cm long; left kidney measures 12.1 cm long. Right renal cortical thickness is 1.1 cm; left renal cortical thickness is 1.7 cm. Renal cortical echotexture is normal. No hydronephrosis. No suspicious solid mass lesions. Within the left mid kidney, there is a 1 cm stone seen. At the inferior pole of the left kidney, there is a 7 mm stone seen. Simple appearing left-sided kidney cysts are seen that measure up to 1.3 cm. Bladder: Pre-void bladder volume is 108 mL. Post-void residual is 49 mL. Pre-void images demonstrate no intraluminal masses or stones. On pre-void images, both ureteral jets are noted with color Doppler interrogation. (Of note, ureteral jets may not be detectable in up to 25% of cases due to insufficient differences in specific gravity between ureteral and bladder urine). Miscellaneous: No free pelvic fluid. Incidental note is made of a hypoechoic a vascular lesion adjacent to the spleen superior to the left kidney that measures 1.3 x 1.6 x 1.3 cm. IMPRESSION: Left-sided renal stones are seen. No hydronephrosis can be seen. Moderate postvoid residual, 49 cc. Likely 1.6 cm splenule. Although no specific imaging follow-up is recommended, attention should be paid to this focus on any future follow-up studies. Dictated by: Mike North M.D. on 09/27/2020 at 8:56 Approved by: Mike North M.D. on 09/27/2020 at 8:59
--- NOTE | 2020-09-27 | DI.RAD.S_ITS ---
PROCEDURE: XR T AND L SPINE 2 TO 3 VIEWS INDICATIONS: RIGHT SIDED LOW BACK PAIN TECHNIQUE: 2 views acquired of the thoracolumbar spine. COMPARISON: [facility], CR, XR CHEST 2V, 08/03/2019, 14:33. FINDINGS: Bones: No fracture. Multilevel degenerative endplate sclerosis and spurring. Diffuse facet arthropathy. Soft tissues: Scattered vascular calcifications seen in the aorta. Calcified right upper quadrant gallstones. Calcification projecting in the region of the left kidney could represent nephrolithiasis although technically nonspecific IMPRESSION: No fracture Scattered discogenic changes and facet arthropathy Additional chronic and incidental findings as above. Dictated by: Kraig Barrera M.D. on 09/27/2020 at 10:12 Approved by: Kraig Barrera M.D. on 09/27/2020 at 10:22
== END ==
PROVIDERS: PCP Internal Medicine; Referring Provider Internal Medicine; Visit Provider Internal Medicine
DX: N20.0 Calculus of kidney (principal); M54.5 Low back pain; M47.815 Spondylosis without myelopathy or radiculopathy, thoracolumbar region
CPT/HCPCS: 72082; 76770

== ENCOUNTER → 2020-11-09 09:14 | Outpatient (CLI) | payer OTHER, SELFPAY ==
[2020-08-22 11:31] VITALS: BMI 29.7
[2020-11-09 12:07] LABS: COVID19 -Nasal RAPID Negative (Negative)
== END ==
PROVIDERS: PCP Internal Medicine; Visit Provider Nurse Practitioner Family
DX: Z20.822 Contact with and (suspected) exposure to COVID-19 (principal)
CPT/HCPCS: 87635

== ENCOUNTER → 2020-11-27 10:54 | Outpatient (CLI) | payer OTHER, SELFPAY ==
[2020-08-22 11:31] VITALS: BMI 29.7
[2020-11-27 11:43] LABS: COVID19 -Nasal RAPID Negative (Negative)
== END ==
PROVIDERS: PCP Internal Medicine; Referring Provider Internal Medicine; Visit Provider Internal Medicine
DX: Z20.822 Contact with and (suspected) exposure to COVID-19 (principal)
CPT/HCPCS: 87635; C9803

== ENCOUNTER → 2020-11-28 09:07 | Outpatient (CLI) | payer OTHER, SELFPAY ==
[2020-08-22 11:31] VITALS: BMI 29.7
--- NOTE | 2020-12-05 11:24 | PM.PFT.1 ---
Pulmonary Function Test Referral & Results Date Patient Seen: 11/28/20 Requesting provider: Phan Valentin Results: The spirometry demonstrates an FVC of 2.86 L which is 60% of predicted. The FEV1 was measured at 1.90 L which is 52% of predicted. The FEV1/FVC ratio was 67 which is 87% of predicted. Interpretation: This study demonstrates reduced FEV1 which is suggestive of moderate obstructive lung disease although FEV1/FVC ratio is preserved. Compared to PFTs performed in August 2020, the above numbers are essentially unchanged
== END ==
PROVIDERS: PCP Internal Medicine; Referring Provider Internal Medicine Pulmonary Disease; Visit Provider Internal Medicine Pulmonary Disease
DX: Z94.2 Lung transplant status (principal)
CPT/HCPCS: 94010

== ENCOUNTER 2022-01-20 23:45 | Observation (INO) | payer OTHER, MEDICAID, SELFPAY ==
[2020-08-22 11:31] VITALS: BMI 29.7
[2022-01-20 23:56] VITALS: BP 166/81; PULSE 73; RESP 22; TEMP 37; O2SAT 99; BMI 28.7
[2022-01-21] VITALS (17 sets, daily range): BP systolic 105–130; BP diastolic 66–73; PULSE 69–84; RESP 16–18; TEMP 37.2–37.7; O2SAT 93–98; BMI 28.8
[2022-01-21] MEDS: ONDANSETRON 4 MG/2 ML INJ IV ×2 (00:24→01:17)
[2022-01-21 00:45] LABS: Alanine Aminotransferase 15 IU/L (<50); Albumin 4.7 g/dL (3.5-5.0); Albumin Globulin Ratio 1.6 (1.0-2.8); Alkaline Phosphatase 54 U/L (38-126); Aspartate Aminotransferase 34 IU/L (17-59); BUN Creatinine Ratio 26.9 (6-22); Bilirubin Total 1.4 mg/dL (0.2-1.3); Blood Urea Nitrogen 29 mg/dL (9-20); Carbon Dioxide 21 mmol/L (22-32); Chloride 104 mmol/L (98-107); Estimated Glomerular Filt Rate > 60 mL/min (>60); Globulin 2.9 g/dL (1.7-4.1); Glucose 150 mg/dL (80-110); HEMOLYSIS < 15 (0-50); Lipase 47 U/L (23-300); Potassium 3.4 mmol/L (3.4-5.1); Sodium 140 mmol/L (137-145); Total Protein 7.6 g/dL (6.3-8.2)
[2022-01-21 00:49] LABS: Hematocrit 34.7 % (41-53); Hemoglobin 10.9 g/dL (13.5-17.5); Mean Corpuscular HGB Conc 31.3 % (30-36); Mean Corpuscular Hemoglobin 18.4 PG (26-34); Mean Corpuscular Volume 58.6 fL (80-100); Platelet Count 153 X10^3/uL (150-400); Red Blood Cell Count 5.92 X10^6/uL (4.5-5.9); Red Cell Distribution Width 16.7 % (11.6-14.8); White Blood Cell Count 6.8 X10^3/uL (4.5-11.0)
[2022-01-21 00:52] LABS: Add Manual Diff / Slide Review YES
[2022-01-21 01:02] LABS: Lactate (Lactic Acid) 2.3 mmol/L (0.7-2.1)
--- NOTE | 2022-01-21 01:12 | DI.CT.S_ITS ---
PROCEDURE: CT ABDOMEN PELVIS W CON INDICATIONS: abd pain, vomiting TECHNIQUE: After the administration of IV contrast, axial sections were acquired from the lung bases to the pubic symphysis. Coronal and sagittal reformats were performed. For radiation dose reduction, the following was used: automated exposure control, adjustment of mA and/or kV according to patient size. COMPARISON: None. FINDINGS: Image quality: Excellent. Lung bases: There is mild scarring and atelectasis in the lung bases. Heart: Heart size is mildly enlarged. ABDOMEN: Liver: The liver appears nodular in contour suggestive of cirrhosis. Gallbladder: The gallbladder is distended with 2 dependent calcified gallstones. No associated gallbladder wall thickening or pericholecystic fat stranding. Biliary ducts: No biliary ductal dilatation. Pancreas: There are 3 small cystic lesions adjacent to the pancreatic tail, with the largest measuring up to 1.8 x 1.9 cm on series 2, image 30. Smaller adjacent oval lesions measure up to 1.8 x 0.8 cm and 1.2 x 1.1 cm. Spleen: Normal in size. Adrenal Glands: No adrenal nodules. Kidneys and Ureters: No hydronephrosis. A few left renal cysts are demonstrated. There are 2 nonobstructing stones within the left kidney, with the largest stone measuring up to 1 cm in dimension and demonstrating attenuation values of approximately 600-700 Hounsfield units. A smaller cyst in the inferior pole measures up to 0.6 cm with similar attenuation values. The ureters are nondistended. Stomach and Bowel: Postsurgical changes are demonstrated consistent with prior partial small bowel resection in the right lower quadrant. There is a patulous appearance of the small bowel adjacent to the anastomosis in the right lower quadrant. A few segments of mild small bowel wall thickening are demonstrated throughout the small bowel suggestive of nonspecific enteritis. There is also mild fluid distention within multiple small bowel loops with air-fluid levels. Air-fluid levels are also demonstrated within the ascending and transverse colon. The findings are suggestive of an ileus without definite obstruction. Colonic diverticulosis is present without acute diverticulitis. Peritoneum: There is a small amount of intraperitoneal free fluid. No free air. Ventral Wall: There are 3 fat-containing ventral abdominal hernias. No evidence of bowel herniation. Abdominal Nodes: No retroperitoneal or mesenteric adenopathy by size criteria. Vessels: Aorta and inferior vena cava are normal in size. PELVIS: Pelvic Organs: Unremarkable. Bladder: Unremarkable. Pelvic Nodes: No enlarged lymph nodes. Miscellaneous: No inguinal hernias are seen. Bones: Visualized osseous structures demonstrate no suspicious focal lesions. IMPRESSION: 1. Scattered segments of mild small bowel wall thickening compatible with a nonspecific infectious or inflammatory enteritis including possible inflammatory bowel disease. 2. Mild fluid distention with scattered air-fluid levels within multiple small bowel loops as well as within the ascending and transverse colon. The findings are suggestive of a gastroenteritis or ileus. No focal transition point to suggest obstruction. 3. Small amount of intra-abdominal free fluid. Findings are nonspecific and likely reactive. 3. Small clustered cystic lesions along the pancreatic tail. The findings are nonspecific but are suggestive of cystic pancreatic lesions such as mucinous cystic neoplasms or side branch IPMNs. The differential also includes areas of omental infarct. 4. Cholelithiasis without definite CT evidence of cholecystitis. Dictated by: Conner Knott M.D. on 01/21/2022 at 1:55 Approved by: Conner Knott M.D. on 01/21/2022 at 2:06
[2022-01-21 01:16] LABS: Anisocytosis 2+; Neutrophils Absolute Manual 5372 /uL (3000-5900); Total Cells Counted 100
[2022-01-21 01:17] LABS: Poikilocytosis 2+; Target Cells 1+; Tear Drop Cells 1+
[2022-01-21] MEDS: MORPHINE 4 MG/ML INJ IV (01:17)
[2022-01-21 01:18] LABS: Acanthocytes 1+; Hypochromasia 2+
--- NOTE | 2022-01-21 01:24 | ED.ABDPAIN ---
HPI - Abdominal Pain General Chief Complaint: Abdominal Pain Stated Complaint: abd pains, throwing up Time Seen by Provider: 01/20/22 23:48 Source: patient Mode of arrival: Ambulatory Limitations: no limitations History of Present Illness HPI narrative: This is a 61-year-old male who comes in with complaint of acute onset of lower abdominal pain about 3:00 p.m. this afternoon patient shortly afterwards developed nausea and vomiting. He states he has not had a bowel movement since yesterday. States he has not been passing gas. He denies fevers or chills. Denies any chest pain or shortness of breath. Patient denies any back or flank pain. He states he has been urinating. He denies any testicular pain. He has a history significant for double lung transplant for idiopathic pulmonary fibrosis. He did not take his anti rejection medications this evening because he was vomiting but has not missed any other doses. He denies any other daily medications. No known drug allergies. Former smoker, occasional alcohol, denies illicit but has THC in his chart. Related Data Home Medications Medication Instructions Recorded Confirmed albuterol sulfate 90 mcg/actuation 2 puff INHALATION Q4-6H PRN 04/01/18 04/01/18 aerosol inhaler Allergies Allergy/AdvReac Type Severity Reaction Status Date / Time No Known Drug Allergies Allergy Verified 04/01/18 23:41 Review of Systems Review of Systems ROS Unobtainable: All systems reviewed & are unremarkable except as noted in HPI and below Patient History Medical History (Updated 01/21/22 @ 03:22 by Ml Zabala DO) Interstitial lung disease Surgical History S/P appendectomy Social History household members: spouse Smoking Status: Former smoker Tobacco: How many years used: 30 Smoking Status: Former smoker alcohol intake frequency: holidays/special occasions only Substance Use Type: marijuana Exam Narrative Exam Narrative: GENERAL: Alert and oriented x three, elderly male in moderate distress. HEENT: Head normocephalic, atraumatic, EOMI, pupils reactive, face symmetric, moist mucous membranes NECK: Supple, full range of motion CARDIOVASCULAR: Regular rate and rhythm without murmurs, rubs or gallops. RESPIRATORY: Breath sounds equal bilaterally, no wheezes rales or rhonchi. ABDOMEN: Soft, tender, mildly distended. Hypoactive bowel sounds all 4 quadrants. No guarding or rebound, rigidity, no mass : No CVA tenderness EXTREMITIES: Normal range of motion, no clubbing or edema. Neurovascularly intact NEUROLOGICAL: Cranial nerves II through XII grossly intact. Moving all extremities SKIN: Warm, dry, no petechiae, no rashes or lesions. Initial Vital Signs Initial Vital Signs: Vital Signs Temperature 98.6 F 01/20/22 23:56 Pulse Rate 73 01/20/22 23:56 Respiratory Rate 22 01/20/22 23:56 Blood Pressure 166/81 H 01/20/22 23:56 Pulse Oximetry 99 01/20/22 23:56 Course Orders Ordered: ED Orders 01/20/22 23:59 Complete Blood Count AUTO DIFF Stat Comprehensive Metabolic Panel Stat Lipase Stat EKG-12 Lead Stat 01/21/22 00:21 Blood Culture Stat Lactate (Lactic Acid) Stat 01/21/22 01:12 CT abdomen pelvis w con Stat Sodium Chloride (Normal Saline 0.9%) 2,721.54 mls @ 907.18 mls/hr 30 ml/kg infuse over 3 hr (2721.54 ml) IV NOW ONE Stop: 01/21/22 04:25 Last Admin: 01/21/22 01:33 Dose: 907.18 mls/hr Documented by: MYRIAM Lactated Ringer's (Lactated Ringers) 1,000 mls @ 75 mls/hr IV CONT AAKASH Morphine Sulfate (Morphine 2 Mg/Ml Inj) 2 mg IV Q3H PRN PRN Reason: Breakthrough pain only (8-10) Naloxone HCl (Naloxone 0.4 Mg/Ml Vial) 0.2 mg IV Q2MIN PRN PRN Reason: Opiate Reversal Ondansetron HCl (Ondansetron 4 Mg/2 Ml Inj) 4 mg IV Q6HR PRN PRN Reason: Nausea And Vomiting Discontinued Medications Piperacillin Sod/Tazobactam (Sod 4.5 gm/ Sodium Chloride) 100 mls @ 200 mls/hr IV NOW ONE Stop: 01/21/22 02:13 Last Infusion: 01/21/22 03:13 Dose: 0 mls/hr Documented by: Admin: 01/21/22 02:32 Dose: 200 mls/hr Documented by: MYRIAM Morphine Sulfate (Morphine 4 Mg/Ml Inj) 4 mg IV NOW ONE Stop: 01/21/22 01:13 Last Admin: 01/21/22 01:17 Dose: 4 mg Documented by: MYRIAM Morphine Sulfate (Morphine 2 Mg/Ml Inj) 2 mg IV Q4H PRN PRN Reason: Breakthrough pain only (8-10) Ondansetron HCl (Ondansetron 4 Mg/2 Ml Inj) 4 mg IV NOW ONE Stop: 01/21/22 00:02 Last Admin: 01/21/22 00:24 Dose: 4 mg Documented by: MYRIAM Ondansetron HCl (Ondansetron 4 Mg/2 Ml Inj) 4 mg IV NOW ONE Stop: 01/21/22 01:13 Last Admin: 01/21/22 01:17 Dose: 4 mg Documented by: MYRIAM Reevaluation(s) Reevaluation #1: Patient updated on findings, plan for observation/admission for ileus vs early bowel obstruction. Time: 02:20 Consultations Consultation #1: GARFIELD Barrera, accepts for ileus vs sbo but with concern for infection in setting of patient with prior lung transplant for admission but asks that we consult with general surgery. Time: 02:21 Consultation #2: Dr. Dorado with general surgery. Will see patient later this morning. Agrees with current plan. Can hold of on NG tube unless actively vomiting. Time: 02:25 Vital Signs Vital signs: Vital Signs - 8 hr 01/20/22 23:56 01/21/22 01:55 01/21/22 02:00 Temperature 98.6 F Pulse Rate 73 74 74 Respiratory Rate 22 Blood Pressure 166/81 H Pulse Oximetry 99 96 97 01/21/22 02:30 Temperature Pulse Rate 76 Respiratory Rate Blood Pressure Pulse Oximetry 98 MDM - Abdominal Pain Lab Data Result diagrams: 01/21/22 00:21 01/21/22 00:21 Labs: Lab Results 01/21/22 01/21/22 01/21/22 Range/Units 00:21 00:21 00:21 WBC 6.8 (4.5-11.0) X10^3/uL RBC 5.92 H (4.5-5.9) X10^6/uL Hgb 10.9 L (13.5-17.5) g/dL Hct 34.7 L (41-53) % MCV 58.6 L (80-100) fL MCH 18.4 L (26-34) PG MCHC 31.3 (30-36) % RDW 16.7 H (11.6-14.8) % Plt Count 153 (150-400) X10^3/uL Neut % (Auto) Not Reportable Lymph % (Auto) Not Reportable [place] % (Auto) Not Reportable Eos % (Auto) Not Reportable Baso % (Auto) Not Reportable Lymph # (Auto) Not Reportable [place] # (Auto) Not Reportable Baso # (Auto) Not Reportable Total Counted 100 Seg Neutrophils % 71.0 H (38-70) % Band Neutrophils % 8.0 H (3-7) % Lymphocytes % (Manual) 13.0 L (25-45) % Monocytes % (Manual) 8.0 (2-11) % Neutrophils # (Manual) 5372 (4190-1940) /uL RBC Morphology See below Hypochromasia 2+ H Poikilocytosis 2+ H Anisocytosis 2+ H Target Cells 1+ H Tear Drop Cells 1+ H Acanthocytes (Spur) 1+ Sodium 140 (137-145) mmol/L Potassium 3.4 (3.4-5.1) mmol/L Chloride 104 (98-107) mmol/L Carbon Dioxide 21 L (22-32) mmol/L BUN 29 H (9-20) mg/dL Creatinine 1.08 (0.66-1.25) mg/dL Estimated GFR > 60 (>60) mL/min BUN/Creatinine Ratio 26.9 H (6-22) Glucose 150 H (80-110) mg/dL Lactate 2.3 H (0.7-2.1) mmol/L Calcium 9.0 (8.4-10.2) mg/dL Total Bilirubin 1.4 H (0.2-1.3) mg/dL AST 34 (17-59) IU/L ALT 15 (<50) IU/L Alkaline Phosphatase 54 (38-126) U/L Total Protein 7.6 (6.3-8.2) g/dL Albumin 4.7 (3.5-5.0) g/dL Globulin 2.9 (1.7-4.1) g/dL Albumin/Globulin Ratio 1.6 (1.0-2.8) Lipase 47 (23-300) U/L Imaging Data CT scan - abdomen/pelvis: Radiologist's Impression: [address] [address] [address] Scan Report Signed Patient: Gatito Randolph MR#: [id number] : 1960 Acct:[id number] Age/Sex: 61 / M Date of Service: 01/21/22 Loc: ED Accession Number: [id number] ?? Procedure: CT abdomen pelvis w con Ordering Provider: Ml Zabala D.O. PROCEDURE:? CT ABDOMEN PELVIS W CON ? INDICATIONS:? abd pain, vomiting ? TECHNIQUE:? After the administration of IV contrast, axial sections were acquired from the lung bases to the pubic symphysis.? Coronal and sagittal reformats were performed.? For radiation dose reduction, the following was used:? automated exposure control, adjustment of mA and/or kV according to patient size. ? COMPARISON:? None. ? FINDINGS:? Image quality:? Excellent.? ? Lung bases:? There is mild scarring and atelectasis in the lung bases.? ? Heart:? Heart size is mildly enlarged. ? ? ABDOMEN: Liver:? The liver appears nodular in contour suggestive of cirrhosis. Gallbladder:? The gallbladder is distended with 2 dependent calcified gallstones.? No associated gallbladder wall thickening or pericholecystic fat stranding.? Biliary ducts:? No biliary ductal dilatation.? ? Pancreas:? There are 3 small cystic lesions adjacent to the pancreatic tail, with the largest measuring up to 1.8 x 1.9 cm on series 2, image 30. Smaller adjacent oval lesions measure up to 1.8 x 0.8 cm and 1.2 x 1.1 cm. Spleen:? Normal in size.? ? Adrenal Glands:? No adrenal nodules.? ? Kidneys and Ureters:? No hydronephrosis.? A few left renal cysts are demonstrated.? There are 2 nonobstructing stones within the left kidney, with the largest stone measuring up to 1 cm in dimension and demonstrating attenuation values of approximately 600-700 Hounsfield units.? A smaller cyst in the inferior pole measures up to 0.6 cm with similar attenuation values.? The ureters are nondistended. ? Stomach and Bowel:? Postsurgical changes are demonstrated consistent with prior partial small bowel resection in the right lower quadrant.? There is a patulous appearance of the small bowel adjacent to the anastomosis in the right lower quadrant.? A few segments of mild small bowel wall thickening are demonstrated throughout the small bowel suggestive of nonspecific enteritis.? There is also mild fluid distention within multiple small bowel loops with air-fluid levels.? Air-fluid levels are also demonstrated within the ascending and transverse colon.? The findings are suggestive of an ileus without definite obstruction.? Colonic diverticulosis is present without acute diverticulitis. Peritoneum:? There is a small amount of intraperitoneal free fluid.? No free air.? ? Ventral Wall: ? There are 3 fat-containing ventral abdominal hernias.? No evidence of bowel herniation. Abdominal Nodes:? No retroperitoneal or mesenteric adenopathy by size criteria.? Vessels:? Aorta and inferior vena cava are normal in size.? ? PELVIS: Pelvic Organs:? Unremarkable.? ? Bladder:? Unremarkable.? ? Pelvic Nodes: No enlarged lymph nodes.? Miscellaneous: No inguinal hernias are seen. ? ? ? Bones:? Visualized osseous structures demonstrate no suspicious focal lesions. ? IMPRESSION:? ? 1. Scattered segments of mild small bowel wall thickening compatible with a nonspecific infectious or inflammatory enteritis including possible inflammatory bowel disease. ? 2. Mild fluid distention with scattered air-fluid levels within multiple small bowel loops as well as within the ascending and transverse colon.? The findings are suggestive of a gastroenteritis or ileus.? No focal transition point to suggest obstruction. ? 3. Small amount of intra-abdominal free fluid.? Findings are nonspecific and likely reactive. ? 3. Small clustered cystic lesions along the pancreatic tail.? The findings are nonspecific but are suggestive of cystic pancreatic lesions such as mucinous cystic neoplasms or side branch IPMNs.? The differential also includes areas of omental infarct. ? 4. Cholelithiasis without definite CT evidence of cholecystitis.? ? ? Dictated by: Conner Knott M.D. on 01/21/2022 at 1:55 ? ? Approved by: Conner Knott M.D. on 01/21/2022 at 2:06?? MDM Narrative Medical decision making narrative: This is a 61-year-old male who comes to the emergency department with acute onset of lower abdominal pain vomiting and describes no flatus or bowel movements for the past 24 hours. Patient's labs showed normal white count but leftward shift with 8% bandemia, anemia, elevated lactate at 2.3. Patient's renal function is appropriate CO2 is 21, glucose 150 with otherwise normal electrolytes. Bilirubin 1.4, normal AST ALT and lipase. Blood cultures were obtained as well as COVID swab which is negative. CT imaging was obtained and shows possible ileus verses early small-bowel obstruction but no focal transition point, changes consisting possible enteritis and multiple loops with air-fluid levels. Patient was covered with antibiotics. General surgery consultation and will see patient and a 30 cc/kilos fluid bolus. Patient admitted to medicine. Discharge Plan Departure Patient Disposition: Admitted As Inpatient Clinical Impression: Ileus, Bandemia Admit Date/Time: 01/21/22 02:34 Admit Provider: Sanna Barrera
[2022-01-21] MEDS: SODIUM CHLORIDE 0.9% 2,721.54 ML 907.18 ML IV (01:33)
[2022-01-21] MEDS: PIPERACILLIN/TAZO 4.5 GM in SODIUM CHLORIDE 0.9% 100 ML 200 ML IV (02:32)
[2022-01-21 02:48] LABS: Reflexed Lactate in 2 Hours Y
[2022-01-21 03:07] LABS: Lactate 2HR (Lactic Acid Rflx) 1.2 mmol/L (0.7-2.1)
--- NOTE | 2022-01-21 03:11 | P.HP_ITS ---
History of Present Illness History of Present Illness Date Patient Seen: 01/21/22 Time Patient Seen: 04:09 Chief complaint: abd pain, throwing up, ileus vs bowel obstruction Narrative: Gatito Daley is a 61 y.o. male status post double lung transplant and a prior history of a ruptured colon presented today with nausea, dry heaves and productive vomiting initially on presentation to the ED. He has not had a bowel movement for the past 24 hours. States due to a portion of his colon being removed, he normally has fecal urgency about 30 minutes after each meal. He complains of abdominal cramping in his lower abdomen. Denies fever, sweats, or chills, shortness of breath, chest pain, dysurea, or diarrhea. He does take antirejection medications for the double lung transplant and receives his care at the [facility]. CT of the abdomen and pelvis reported post surgical changes of a prior small bowel resection in the right lower quadrant. Also noted mild fluid distension with air-fluid levels within multiple small bowel loops, suspect ileus or enteritis. He is afebrile, blood pressure 130/68, heart rate 84, respiratory rate 22, oxygen saturation 97% room air he weighs 90.7 kg with a BMI of 297. He does not have a white count, platelet count is 153, he is mildly anemic with a hemoglobin hematocrit of 10.934.7 respectively, he does have 8% bands and has the abnormal manual smear, bicarb was 21, BUN 29, normal creatinine, glucose 150 , lactate initially was 2.3 and it is now 1.4, lipase 47, COVID-19 PCR is negative. Patient History Medical History (Updated 01/21/22 @ 04:16 by DORIE Juarez) Interstitial lung disease Ruptured appendix Short gut syndrome Surgical History (Updated 01/21/22 @ 04:33 by DORIE Juarez) History of transplantation, lung S/P appendectomy Family & Social History Family History (Updated 01/21/22 @ 04:26 by DORIE Juarez) Mother Head injury due to trauma Father Medical history unknown Brother Lung disease Sister Lung disease Social History: household members spouse Safety & Behavioral: Feels Safe in Current Yes Environment Tobacco & Substance use: Smoking Status Former smoker alcohol intake frequency holiday/special occasion Substance Use Type marijuana Meds Home Medications and Allergies Home Medications Medication Instructions Recorded Confirmed Type albuterol sulfate 90 mcg/actuation 2 puff INHALATION Q4-6H PRN 04/01/18 04/01/18 History aerosol inhaler Allergies Allergy/AdvReac Type Severity Reaction Status Date / Time No Known Drug Allergies Allergy Verified 04/01/18 23:41 Review of Systems Review of Systems ROS: Yes All systems reviewed with the patient and are negative except as otherwise documented Exam Vital Signs (past 8 hours): - 01/20/22 23:56 01/21/22 01:55 01/21/22 02:00 Temperature 98.6 F Pulse Rate 73 74 74 Respiratory Rate 22 Blood Pressure 166/81 H Pulse Oximetry 99 96 97 01/21/22 02:30 01/21/22 02:35 01/21/22 02:36 Temperature Pulse Rate 76 77 77 Respiratory Rate Blood Pressure 129/66 127/67 Pulse Oximetry 98 98 98 Oxygen Delivery Method Room Air Narrative Exam Narrative: Gen: Alert, oriented, well-developed 61 y.o. male, asleep when I entered the room HEENT: normocephalic, atraumatic, conjunctiva clear, sclera non-icteric, oral mucosa pink and moist Neck: supple, full ROM, no JVD, trachea is midline Resp: Lungs CTA, non-labored breathing CV: RRR, no murmur or rubs Abd: distended but soft, hypoactive BTs Skin: no lesions or rashes, dry and intact Neuro: Alert and oriented X 4 w/no focal deficits. Speech clear and coherent. Extremities: moves all 4 extremities, is ambulatory, negative Donna?s sign Psyche: normal mood and affect. Objective Labs Result Diagrams: 01/21/22 00:21 01/21/22 00:21 Labs: Laboratory Results - last 24 hr 01/21/22 01/21/22 01/21/22 00:21 00:21 00:21 WBC 6.8 RBC 5.92 H Hgb 10.9 L Hct 34.7 L MCV 58.6 L MCH 18.4 L MCHC 31.3 RDW 16.7 H Plt Count 153 Neut % (Auto) Not Reportable Lymph % (Auto) Not Reportable [place] % (Auto) Not Reportable Eos % (Auto) Not Reportable Baso % (Auto) Not Reportable Lymph # (Auto) Not Reportable [place] # (Auto) Not Reportable Baso # (Auto) Not Reportable Total Counted 100 Seg Neutrophils % 71.0 H Band Neutrophils % 8.0 H Lymphocytes % (Manual) 13.0 L Monocytes % (Manual) 8.0 Neutrophils # (Manual) 5372 RBC Morphology See below Hypochromasia 2+ H Poikilocytosis 2+ H Anisocytosis 2+ H Target Cells 1+ H Tear Drop Cells 1+ H Acanthocytes (Spur) 1+ Sodium 140 Potassium 3.4 Chloride 104 Carbon Dioxide 21 L BUN 29 H Creatinine 1.08 Estimated GFR > 60 BUN/Creatinine Ratio 26.9 H Glucose 150 H Lactate 2.3 H Calcium 9.0 Total Bilirubin 1.4 H AST 34 ALT 15 Alkaline Phosphatase 54 Total Protein 7.6 Albumin 4.7 Globulin 2.9 Albumin/Globulin Ratio 1.6 Lipase 47 01/21/22 02:47 WBC RBC Hgb Hct MCV MCH MCHC RDW Plt Count Neut % (Auto) Lymph % (Auto) [place] % (Auto) Eos % (Auto) Baso % (Auto) Lymph # (Auto) [place] # (Auto) Baso # (Auto) Total Counted Seg Neutrophils % Band Neutrophils % Lymphocytes % (Manual) Monocytes % (Manual) Neutrophils # (Manual) RBC Morphology Hypochromasia Poikilocytosis Anisocytosis Target Cells Tear Drop Cells Acanthocytes (Spur) Sodium Potassium Chloride Carbon Dioxide BUN Creatinine Estimated GFR BUN/Creatinine Ratio Glucose Lactate 1.2 Calcium Total Bilirubin AST ALT Alkaline Phosphatase Total Protein Albumin Globulin Albumin/Globulin Ratio Lipase Assessment & Plan Assessment & Plan narrative: Gatito Daley is admitted for a suspected ileus versus small bowel obstruction. 1. Ileus versus small bowel obstruction * He is NPO * Pain and nausea control * Consult with General Surgery 2. History of a double lung transplant on antirejectin medications * He takes tacrimilus and mycophenolate, but do not know doses. His will be contacted to bring in his medications * Records from requested VTE Prophylaxis: Wells risk score 0 X Bilateral SCDs Pharmacological VTE prevention contraindicated if he is to undergo surgery Patient is admitted to the inpatient service due to the severity of disease, risks of further disease progression and this stay is expected to exceed 2 midnights. FEN: IV fluids: LR at 75 ml/hour, diet: NPO, labs: CBC, C/BMP, liver enzymes, Mag, PT/INR Consultants Dr. Dorado, General Surgery, care and involvement in the patient?s care is appreciated. Dispo: unknown at this time Code status: Full Code as discussed with the patient who identifies his , Yue as his surrogate and POA. [X] I have utilized all available immediate resources to obtain, update, or review of the patient's current medications COVID-19 COVID-19 status: Negative Result date/Date tested (Pos, Neg/Pending): 01/21/22 Scores Wells' Criteria for PE Clinical signs and symptoms of DVT: No PE is #1 Dx or equally likely: No Heart rate > 100: No Immobilization at least 3 days or surg in previous 4 weeks: No History of PE or DVT: No Hemoptysis: No Malignancy w/Treatment within 6 months or palliative: No Wells' PE Score total: 0 Quality VTE Deep Vein Thrombosis/Pulmonary Embolism Present on Admission: No MIPS - Admit I confirm the patient?s Advance Care Plan is present, Code status is documented, Surrogate decision maker is in patient?s record [If Yes, STOP here]: Yes MIPS - DC The patient has current or prior documentation of left ventricular ejection fraction (LVEF) less than 40%, or moderate or severely depressed left ventr icular systolic function.: No
[2022-01-21 03:20] LABS: COVID19 -Nasal RAPID Negative (Negative)
[2022-01-21] MEDS: MORPHINE 2 MG/ML INJ IV (04:12)
[2022-01-21] MEDS: LACTATED RINGERS 1,000 ML 75 ML IV (05:12)
[2022-01-21 06:04] LABS: Hematocrit 29.2 % (41-53); Hemoglobin 9.4 g/dL (13.5-17.5); Mean Corpuscular HGB Conc 32.2 % (30-36); Mean Corpuscular Hemoglobin 18.6 PG (26-34); Mean Corpuscular Volume 57.9 fL (80-100); Platelet Count 134 X10^3/uL (150-400); Red Blood Cell Count 5.04 X10^6/uL (4.5-5.9); Red Cell Distribution Width 16.5 % (11.6-14.8); White Blood Cell Count 6.2 X10^3/uL (4.5-11.0)
[2022-01-21 06:05] LABS: Add Manual Diff / Slide Review YES
[2022-01-21 06:07] LABS: BUN Creatinine Ratio 26.7 (6-22); Blood Urea Nitrogen 24 mg/dL (9-20); Calcium 7.4 mg/dL (8.4-10.2); Carbon Dioxide 25 mmol/L (22-32); Chloride 111 mmol/L (98-107); Estimated Glomerular Filt Rate > 60 mL/min (>60); Glucose 122 mg/dL (80-110); HEMOLYSIS < 15 (0-50); Magnesium 1.5 mg/dL (1.6-2.3); Potassium 3.9 mmol/L (3.4-5.1); Sodium 141 mmol/L (137-145)
[2022-01-21 06:37] LABS: Neutrophils Absolute Manual 4712 /uL (3000-5900); Total Cells Counted 100
[2022-01-21 06:42] LABS: Hypochromasia 2+
[2022-01-21 06:43] LABS: Acanthocytes 1+; Anisocytosis 1+; Microcytosis 2+; Schistocytes 1+
[2022-01-21 06:44] LABS: Poikilocytosis 2+; Tear Drop Cells 1+
--- NOTE | 2022-01-21 07:37 | PC.NURSE ---
Pt took home dose of tacrolimus, mycophenalate and prednisone. Pt's antirejection medications.
--- NOTE | 2022-01-21 10:42 | PC.NURSE ---
Pt arrived on stretcher from ED at 0810. A&Ox4, no c/o pain, no c/o N/V. VSS, lung sounds cta, CMS intact. Bowel sounds present, pt states he is passing gas. Pt oriented to room and call light. Will continue to monitor.
--- NOTE | 2022-01-21 13:31 | CM.DANOTE ---
Patient is a 61 yo male who was admitted on 01/21/22 today for Possible Ileus. Pt has [employer]ISON [employer] and [employer] for insurance and his PCP is Dr. Turcios. EMR was reviewed. Per MD, pt admitted for possible ileus vs SBO but symptoms seem to have resolved and asymptomatic now and advancing diet and seems to be tolerating diet and likely d/c home today with no needs. Pt resides with spouse and is independent at baseline and drives and was last admitted in 2018. No bedside assessment completed at this time due to triage needs and no identified barriers to discharge. Plan: SW to follow for likely pt d/c to home today if remains stable and continues to tolerate diet and any further identified discharge planning needs, especially if pt remains admitted. CHANDNI Pinto Discharge Planning/Care Management Advanced directive, confirm from FAMILY Start: 01/21/22 10:26 Freq: Q24H Status: Active Protocol: Document 01/21/22 10:26 KL (Rec: 01/21/22 10:39 KL [id number]) Advance Directive, confirm on record Time 10:39 Person contacted patient Copy received No CM Discharge Assessment Start: 01/21/22 13:29 Freq: Status: Active Protocol: Document 01/21/22 13:29 BF (Rec: 01/21/22 13:30 BF [id number]) Discharge Planning Assessment Assigned Enrollment Management Director CHANDNI Dubois DPOA/Assigned Designee Name spouse Yue Advance Directives? No Advance Directives on File No History Provided By Patient,Medical Record Has Patient been admitted in last 30 No days? Prior Living Arrangements Mobile home Household Members spouse Type of transporation used prior to Drives own vehicle admit Independent with ADL's Yes Is patient alert and oriented? Yes Caregiver for Another No Barriers to Discharge No Discharge Plan Home Transportation Arrangement spouse Referrals Initiated None needed Whiteboard Updated in Patient Room with Yes name and ext. # of Enrollment Management Director Review Status In Process Please Provide Date Initial DC 01/21/22 Assessment Was Performed Next Review Type Continued Stay Review
--- NOTE | 2022-01-21 14:17 | PM.DS.1 ---
History of Present Illness History of Present Illness Date Patient Seen: 01/21/22 Time Patient Seen: 14:24 Chief complaint: abd pain, throwing up, ileus vs bowel obstruction Narrative: Per DORIE Juarez: Gatito Jones is a 61 y.o. male status post double lung transplant and a prior history of a ruptured colon presented today with nausea, dry heaves and productive vomiting initially on presentation to the ED. He has not had a bowel movement for the past 24 hours. States due to a portion of his colon being removed, he normally has fecal urgency about 30 minutes after each meal. He complains of abdominal cramping in his lower abdomen. Denies fever, sweats, or chills, shortness of breath, chest pain, dysurea, or diarrhea.? He does take antirejection medications for the double lung transplant and receives his care at the [facility]. CT of the abdomen and pelvis reported post surgical changes of a prior small bowel resection in the right lower quadrant. Also noted mild fluid distension with air-fluid levels within multiple small bowel loops, suspect ileus or enteritis.? He is afebrile, blood pressure 130/68, heart rate 84, respiratory rate 22, oxygen saturation 97% room air he weighs 90.7 kg with a BMI of 297.? He does not have a white count, platelet count is 153, he is mildly anemic with a hemoglobin hematocrit of 10.934.7 respectively, he does have 8% bands and has the abnormal manual smear, bicarb was 21, BUN 29, normal creatinine, glucose 150, lactate initially was 2.3 and it is now 1.4, lipase 47, COVID-19 PCR is negative. Discharge Providers Provider Date of admission: 01/21/22 02:34 Discharge Date: 01/21/22 Primary care physician: Terrance Turcios MD Consults: 01/21/22 02:59 Consult to Physician Routine Comment: Consulting Provider: Javier Dorado Reason for consultation: Ileus vs obstruction Has provider been notified: Yes Discharge provider: Ori Torres DO Summary Hospital Course Discharge Diagnosis: 1. Abdominal pain, ileus, acute, present on admission 2. History of a double lung transplant on antirejection medication 3. mild intermittent asthma, chronic 4. HLD 5. History of COVID-19 infection Hospital Course: This is a 61 year old male who has a history of lung transplantation who was admitted with abrupt onset of abdominal pain after CT imaging showed probable ileus.Shortly after arrival to the hospital floor, the patient had complete resolution of his symptoms and his diet was quickly advanced and he tolerated this without nausea or pain. He was passing gas but did not have a bowel movement prior to discharge. Given marked improvement, he was discharged home the same day of admission after observation. General surgery was initially consulted, but given quick and marked improvement consultation was not needed. Exam Vital Signs (past 8 hours): - 01/21/22 06:30 01/21/22 07:31 01/21/22 08:50 Temperature 99.9 F H Pulse Rate 78 79 Respiratory Rate 16 18 Blood Pressure 117/69 Pulse Oximetry 93 98 01/21/22 08:53 01/21/22 12:10 Temperature 98.9 F Pulse Rate 69 Respiratory Rate 18 Blood Pressure 121/73 Pulse Oximetry 98 97 Oxygen Delivery Method Room Air Oxygen Flow Rate 0 Narrative Exam Narrative: Gen: Alert, oriented, well-developed male in no acute distress HEENT: normocephalic, atraumatic, conjunctiva clear, sclera non-icteric, oral mucosa pink and moist Neck: supple, full ROM, no JVD, trachea is midline Resp: Lungs CTA b/l, non-labored breathing CV: RRR, no murmur or rubs Abd: S NT ND Skin: no lesions or rashes, dry and intact Neuro: Alert and oriented X 4 w/no focal deficits. Speech clear and coherent. Extremities: no edema or joint effusions Psyche: normal mood and affect. Objective Labs Result Diagrams: 01/21/22 05:50 01/21/22 05:50 Labs: Laboratory Results - last 24 hr 01/21/22 01/21/22 01/21/22 00:21 00:21 00:21 WBC 6.8 RBC 5.92 H Hgb 10.9 L Hct 34.7 L MCV 58.6 L MCH 18.4 L MCHC 31.3 RDW 16.7 H Plt Count 153 Neut % (Auto) Not Reportable Lymph % (Auto) Not Reportable [place] % (Auto) Not Reportable Eos % (Auto) Not Reportable Baso % (Auto) Not Reportable Lymph # (Auto) Not Reportable [place] # (Auto) Not Reportable Baso # (Auto) Not Reportable Total Counted 100 Seg Neutrophils % 71.0 H Band Neutrophils % 8.0 H Lymphocytes % (Manual) 13.0 L Monocytes % (Manual) 8.0 Neutrophils # (Manual) 5372 RBC Morphology See below Hypochromasia 2+ H Poikilocytosis 2+ H Anisocytosis 2+ H Microcytosis Target Cells 1+ H Tear Drop Cells 1+ H Acanthocytes (Spur) 1+ Schistocytes Sodium 140 Potassium 3.4 Chloride 104 Carbon Dioxide 21 L BUN 29 H Creatinine 1.08 Estimated GFR > 60 BUN/Creatinine Ratio 26.9 H Glucose 150 H Lactate 2.3 H Calcium 9.0 Magnesium Total Bilirubin 1.4 H AST 34 ALT 15 Alkaline Phosphatase 54 Total Protein 7.6 Albumin 4.7 Globulin 2.9 Albumin/Globulin Ratio 1.6 Lipase 47 SARS-CoV-2 (PCR) 01/21/22 01/21/22 01/21/22 02:47 02:52 05:50 WBC 6.2 RBC 5.04 Hgb 9.4 L Hct 29.2 L MCV 57.9 L MCH 18.6 L MCHC 32.2 RDW 16.5 H Plt Count 134 L Neut % (Auto) Not Reportable Lymph % (Auto) Not Reportable [place] % (Auto) Not Reportable Eos % (Auto) Not Reportable Baso % (Auto) Not Reportable Lymph # (Auto) Not Reportable [place] # (Auto) Not Reportable Baso # (Auto) Not Reportable Total Counted 100 Seg Neutrophils % 63.0 Band Neutrophils % 13.0 H Lymphocytes % (Manual) 16.0 L Monocytes % (Manual) 8.0 Neutrophils # (Manual) 4712 RBC Morphology See below Hypochromasia 2+ H Poikilocytosis 2+ H Anisocytosis 1+ H Microcytosis 2+ H Target Cells Tear Drop Cells 1+ H Acanthocytes (Spur) 1+ Schistocytes 1+ H Sodium Potassium Chloride Carbon Dioxide BUN Creatinine Estimated GFR BUN/Creatinine Ratio Glucose Lactate 1.2 Calcium Magnesium Total Bilirubin AST ALT Alkaline Phosphatase Total Protein Albumin Globulin Albumin/Globulin Ratio Lipase SARS-CoV-2 (PCR) Negative 01/21/22 05:50 WBC RBC Hgb Hct MCV MCH MCHC RDW Plt Count Neut % (Auto) Lymph % (Auto) [place] % (Auto) Eos % (Auto) Baso % (Auto) Lymph # (Auto) [place] # (Auto) Baso # (Auto) Total Counted Seg Neutrophils % Band Neutrophils % Lymphocytes % (Manual) Monocytes % (Manual) Neutrophils # (Manual) RBC Morphology Hypochromasia Poikilocytosis Anisocytosis Microcytosis Target Cells Tear Drop Cells Acanthocytes (Spur) Schistocytes Sodium 141 Potassium 3.9 Chloride 111 H Carbon Dioxide 25 BUN 24 H Creatinine 0.90 Estimated GFR > 60 BUN/Creatinine Ratio 26.7 H Glucose 122 H Lactate Calcium 7.4 L Magnesium 1.5 L Total Bilirubin AST ALT Alkaline Phosphatase Total Protein Albumin Globulin Albumin/Globulin Ratio Lipase SARS-CoV-2 (PCR) [facility] Medical History (Updated 01/21/22 @ 04:16 by DORIE Juarez) Interstitial lung disease Ruptured appendix Short gut syndrome Surgical History (Updated 01/21/22 @ 04:33 by DORIE Juarez) History of transplantation, lung S/P appendectomy Family History (Updated 01/21/22 @ 04:26 by DORIE Juarez) Mother Head injury due to trauma Father Medical history unknown Brother Lung disease Sister Lung disease Social History household members: spouse Smoking Status: Former smoker Tobacco: How many years used: 30 Discharge Plan Discharge Plan Patient Disposition: Home Provider Discharge Comment: You were admitted to the hospital with an ileus. This quickly resolved on its own. Please do not hesitate to return for evaluation if symptoms return as if this happens again it may not resolve on its own. Discharge orders & Medications Prescriptions: Continued albuterol sulfate 90 mcg/actuation Hfa Aerosol Inhaler 2 puff INHALATION Q4-6H PRN (Reason: Wheezing) 0RF prednisone 5 mg Tablet 5 mg PO DAILY 0RF Follow up/Referrals: Terrance Turcios MD [Primary Care Provider] - Diet/Activity/Treatments Diet: Diet as Tolerated Activity: As tolerated Discharge Data Primary Care Provider: Terrance Turcios V Attending Provider: Sanna Barrera VTE Deep Vein Thrombosis/Pulmonary Embolism Present on Admission: No
--- NOTE | 2022-01-21 15:27 | PC.NURSE ---
Pt discharged at 1450, escorted off floor in wheelchair, accompanied by hospital staff. IV removed, discharge teaching complete including importance of following up with PCP and what to do if symptoms worsen. Questions and concerns answered. Pt left floor with all belongings.
== END 2022-01-21 15:00 | disposition home or self-care (01) ==
LOC: ED 01-21 02:21 → AC 01-21 03:16
PROVIDERS: Admitting Provider Nurse Practitioner Family; Emergency Provider Emergency Medicine; PCP Internal Medicine; Referring Provider Emergency Medicine; Visit Provider Nurse Practitioner Family
DX: R10.30 Lower abdominal pain, unspecified (principal); R11.2 Nausea with vomiting, unspecified; Z94.2 Lung transplant status; E78.5 Hyperlipidemia, unspecified; J45.20 Mild intermittent asthma, uncomplicated; Z86.16 Personal history of COVID-19; Z20.822 Contact with and (suspected) exposure to COVID-19
CPT/HCPCS: 36415; 74177; 80048; 80053; 81003; 83605; 83690; 83735; 85007; 85025; 87040; 87635; 96361; 96365; 96375; 96376; 99284; C9803; G0378; J2270; J2405; J2543; Q9967

== ENCOUNTER → 2022-05-05 10:36 | Outpatient (CLI) | payer MEDICARE, MEDICAID, SELFPAY ==
[2022-01-21 09:00] VITALS: BMI 28.8
--- NOTE | 2022-05-05 | DI.RAD.S_ITS ---
PROCEDURE: XR SHOULDER RT MIN 2V INDICATIONS: Pain in right shoulder TECHNIQUE: 3 views of the shoulder were acquired. COMPARISON: [facility], , XR SHOULDER RT MIN 2V, 08/09/2019, 15:07. FINDINGS: Bones: Mild glenohumeral and moderate acromioclavicular osteoarthritic changes characterized by joint space narrowing with marginal osteophytosis. No fractures or dislocations. No suspicious bony lesions. Visualized ribs appear intact. Soft tissues: No suspicious soft tissue calcifications. IMPRESSION: Mild glenohumeral and moderate acromioclavicular degenerative changes. Findings not significantly changed from comparison study Dictated by: Giancarlo Rodriguez M.D. on 05/05/2022 at 13:44 Approved by: Giancarlo Rodriguez M.D. on 05/05/2022 at 13:45
== END ==
PROVIDERS: PCP Internal Medicine; Referring Provider Internal Medicine; Visit Provider Internal Medicine
DX: M25.511 Pain in right shoulder (principal)
CPT/HCPCS: 73030

== ENCOUNTER 2023-02-06 14:30 | Inpatient (IN) | payer MEDICARE, SELFPAY ==
[2022-01-21 09:00] VITALS: BMI 28.8
[2023-02-06] VITALS (23 sets, daily range): BP systolic 118–144; BP diastolic 62–77; PULSE 80–93; RESP 18–37; TEMP 37.7–38.4; O2SAT 94–98; BMI 28.7
--- NOTE | 2023-02-06 14:41 | ED_ITS ---
HPI - General Adult General Chief complaint: Shortness of Breath/Dyspnea Stated complaint: double lung transplant recipient/post covid/SOB Time Seen by Provider: 02/06/23 14:40 History of Present Illness HPI narrative: 62-year-old male non smoker with history of double lung transplant in 2019 secondary to interstitial lung disease on multiple anti rejection medications, recently had COVID presents with his in the chief complaint of central abdominal pain over the past few days decreased bowel movements, nausea, poor appetite and no flatus. Over that time line he has become short of breath but denies any specific pattern to his shortness of breath. It is not profound, he denies any worsening with exertion or lying flat. He is had low-grade fever but denies any chills. He denies any dysuria, frequency or urgency. Related Data Home Medications Medication Instructions Recorded Confirmed prednisone 5 mg tablet 5 mg PO QAM 01/21/22 02/06/23 atorvastatin 20 mg tablet 20 mg PO DAILY 02/06/23 02/06/23 multivitamin 1 tab PO DAILY 02/06/23 02/06/23 mycophenolate mofetil 500 mg tablet 1,000 mg PO BID 02/06/23 02/06/23 sulfamethoxazole 400 1 tab PO BEDTIME 02/06/23 02/06/23 mg-trimethoprim 80 mg tablet tacrolimus 0.5 mg capsule, 0.5 mg PO BID 02/06/23 02/06/23 immediate-release tacrolimus 1 mg capsule, 2 mg PO BID 02/06/23 02/06/23 immediate-release zolpidem 10 mg tablet 15 mg PO BEDTIME PRN Insomnia 02/06/23 02/06/23 Allergies Allergy/AdvReac Type Severity Reaction Status Date / Time No Known Drug Allergies Allergy Verified 02/06/23 14:41 Review of Systems Review of Systems Narrative: GENERAL: See HPI HEENT: Denies sinus pain, ear pain, sore throat, difficulty swallowing, dizziness. RESPIRATORY: see HPI CARDIOVASCULAR: Denies chest pain, palpitations, orthopnea, edema, GASTROINTESTINAL: see HPI : Denies dysuria, frequency, incontinence, hematuria, urinary retention. MUSCULOSKELETAL: denies weakness, joint pain, or bony pain SKIN: Denies rash, skin lesions, or other NEUROLOGIC: Denies weakness, headache, numbness, change in speech, confusion, seizures, incoordination. PSYCHIATRIC: No concerning psychosocial issues. 12 point review of systems is negative except for those stated above Patient History Medical History Interstitial lung disease Ruptured appendix Short gut syndrome Surgical History History of transplantation, lung S/P appendectomy Family History Mother Head injury due to trauma Father Medical history unknown Brother Lung disease Sister Lung disease Social History household members: spouse Smoking Status: Former smoker Tobacco: How many years used: 30 alcohol intake: current Smoking Status: Former smoker alcohol intake frequency: holidays/special occasions only Substance Use Type: marijuana Exam Narrative Exam Narrative: GENERAL: [62] year old patient appears stated age. Well-developed patient, in mild distress. HEAD: Atraumatic. Normocephalic. EYES: Pupils equal round and reactive. Extraocular motions intact. No scleral icterus. No injection or drainage. ENT: Nose without bleeding, purulent drainage. Throat without erythema, tonsillar hypertrophy or exudate. Airway patent. NECK: Trachea midline. Non tender CARDIOVASCULAR: Regular rate and rhythm without murmurs, gallops, or rubs. RESPIRATORY: Clear to auscultation. Breath sounds equal bilaterally. No wheezes, rales, or rhonchi. GASTROINTESTINAL: Abdomen soft, non-tender, nondistended. EXTREMITIES: No edema or joint tenderness. BACK: Nontender without deformity or crepitance. No flank tenderness. NEURO: AOx3. SKIN: No rash or erythema of visible areas Initial Vital Signs Initial Vital Signs: Vital Signs Pulse Rate 90 02/06/23 14:41 Respiratory Rate 29 H 02/06/23 14:41 Pulse Oximetry 96 02/06/23 14:41 Course Orders Ordered: Acetaminophen (Acetaminophen 325 Mg Tablet) 650 mg PO Q6H PRN PRN Reason: Fever/Mild Pain (1-3) Last Admin: 02/07/23 04:18 Dose: 650 mg Documented By: Admin: 02/06/23 20:47 Dose: 650 mg Documented By: MONA Atorvastatin Calcium (Atorvastatin 20 Mg Tablet) 20 mg PO DAILY AAKASH Enoxaparin Sodium (Enoxaparin 40 Mg/0.4 Ml Syringe) 40 mg SUBCUT DAILY [facility] Ceftriaxone Sodium 1,000 mg/ (Sodium Chloride) 100 mls @ 200 mls/hr IV Q24H [facility] Azithromycin 500 mg/ Dextrose 250 mls @ 250 mls/hr IV Q24H [facility] Mycophenolate Mofetil (Mycophenolate Mofetil 500 Mg Tablet) 1,000 mg PO BID [facility] Naloxone HCl (Naloxone 0.4 Mg/Ml Vial) 0.2 mg IV Q2MIN PRN PRN Reason: Opiate Reversal Non-Formulary Medication (Sulfamethoxazole-Trimethoprim) 1 tab PO BEDTIME [facility] Ondansetron HCl (Ondansetron 4 Mg/2 Ml Inj) 4 mg IV Q8HR PRN PRN Reason: Nausea And Vomiting Last Admin: 02/06/23 20:47 Dose: 4 mg Documented By: MONA Prednisone (Prednisone 5 Mg Tablet) 5 mg PO DAILY [facility] Last Admin: 02/06/23 22:32 Dose: 5 mg Documented By: NILESH Tacrolimus (Tacrolimus 0.5 Mg Capsule) 2 mg PO BID [facility] Tacrolimus (Tacrolimus 0.5 Mg Capsule) 0.5 mg PO BID AAKASH Discontinued Medications Ceftriaxone Sodium 2,000 mg/ (Sodium Chloride) 100 mls @ 200 mls/hr IV NOW ONE Stop: 02/06/23 17:09 Last Infusion: 02/06/23 18:07 Dose: 0 mls/hr Documented By: Admin: 02/06/23 17:33 Dose: 200 mls/hr Documented By: NR Azithromycin 500 mg/ Dextrose 250 mls @ 250 mls/hr IV NOW ONE Stop: 02/06/23 17:09 Last Infusion: 02/06/23 20:20 Dose: 0 mls/hr Documented By: Admin: 02/06/23 18:35 Dose: 250 mls/hr Documented By: JEROME Remdesivir 200 mg/ Sodium (Chloride) 250 mls @ 250 mls/hr IV NOW ONE Stop: 02/06/23 19:22 Last Admin: 02/06/23 20:45 Dose: Not Given Documented By: RL Consultations Consultation #1: 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 Recommends admission here at our facility and is comfortable with the combination of Rocephin and azithromycin. He does recommend treating with remdesivir as he is still posi tive for COVID and was symptomatic 2 weeks ago and it is unclear if this is a continuation of COVID or bacterial superinfection. He recommends sending tacrolimus trough level in the morning and a CMV PCR if possible Consultation #2: Hospitalist Dr. Torres happy to accept this patient, recommends inpatient status. Vital Signs Vital signs: Vital Signs - 8 hr 02/06/23 14:43 02/06/23 14:41 02/06/23 15:00 Temperature 100.0 F H Pulse Rate 93 H 90 Respiratory Rate 22 29 H Blood Pressure 139/72 134/68 Pulse Oximetry 97 96 Oxygen Delivery Method Room Air 02/06/23 15:00 02/06/23 15:30 02/06/23 15:30 Temperature Pulse Rate 87 86 Respiratory Rate 28 H 26 H Blood Pressure 138/73 Pulse Oximetry 95 96 Oxygen Delivery Method 02/06/23 15:59 02/06/23 15:59 02/06/23 16:00 Temperature Pulse Rate 84 Respiratory Rate 28 H Blood Pressure 129/70 137/70 Pulse Oximetry 96 Oxygen Delivery Method 02/06/23 16:00 Temperature Pulse Rate 82 Respiratory Rate 33 H Blood Pressure Pulse Oximetry 98 Oxygen Delivery Method Room Air Medical Decision Making Lab Data 02/07/23 04:28 02/07/23 04:28 Labs: Lab Results 02/06/23 02/06/23 02/06/23 Range/Units 14:55 14:55 14:55 WBC 5.1 (4.5-11.0) X10^3/uL RBC 4.37 L (4.5-5.9) X10^6/uL Hgb 8.2 L (13.5-17.5) g/dL Hct 25.3 L (41-53) % MCV 58.0 L (80-100) fL MCH 18.8 L (26-34) PG MCHC 32.4 (30-36) % RDW 16.1 H (11.6-14.8) % Plt Count 97 L (150-400) X10^3/uL Neut % (Auto) 78.5 H (50-75) % Lymph % (Auto) 5.3 L (25-40) % [place] % (Auto) 15.5 H (3-14) % Eos % (Auto) 0.2 L (2-4) % Baso % (Auto) 0.5 (0-2) % Neut # (Auto) 4000 (7641-2236) /uL Lymph # (Auto) 300 L (9902-7931) /uL [place] # (Auto) 800 (0-900) /uL Eos # (Auto) 0 (0-450) /uL Baso # (Auto) 0 (0-100) /uL Platelet Estimate Decreased on smear RBC Morphology See below Polychromasia 1+ H Hypochromasia 1+ H Microcytosis 3+ H Schistocytes 2+ H PT 15.2 H (10.1-12.7) SECONDS INR 1.3 (0.9-1.3) D-Dimer (<500) ng/ml Sodium 134 L (137-145) mmol/L Potassium 3.9 (3.4-5.1) mmol/L Chloride 100 (98-107) mmol/L Carbon Dioxide 27 (22-32) mmol/L BUN 29 H (9-20) mg/dL Creatinine 1.14 (0.66-1.25) mg/dL Estimated GFR > 60 (>60) mL/min BUN/Creatinine Ratio 25.4 H (6-22) Glucose 123 H (80-110) mg/dL Lactate (0.7-2.1) mmol/L Calcium 9.1 (8.4-10.2) mg/dL Total Bilirubin 1.9 H (0.2-1.3) mg/dL AST 32 (17-59) IU/L ALT 19 (<50) IU/L Alkaline Phosphatase 37 L (38-126) U/L Troponin I 0.013 (0.01-0.034) ng/mL NT-Pro-B Natriuret Pep 2080 H (<125) pg/mL Total Protein 6.9 (6.3-8.2) g/dL Albumin 4.3 (3.5-5.0) g/dL Globulin 2.6 (1.7-4.1) g/dL Albumin/Globulin Ratio 1.7 (1.0-2.8) Chlamy pneumoniae PCR (Not Detect) Adenovirus (PCR) (Not Detect) B. pertussis DNA (PCR) (Not Detecte) B.parapertussis DNA PCR (Not Detecte) Coronavirus OC43 (PCR) (Not Detect) Coronavirus HKU1 (PCR) (Not Detect) Coronavirus 229E (PCR) (Not Detect) SARS-CoV-2 (PCR) (Not Detecte) Coronavirus NL63 (PCR) (Not Detect) Human Metapneumovir PCR (Not Detect) Influenza Type A (PCR) (Not Detect) Influenza Type B (PCR) (Not Detect) M. pneumoniae (PCR) (Not Detect) Parainfluenza 1 (PCR) (Not Detect) Parainfluenza 2 (PCR) (Not Detect) Parainfluenza 3 (PCR) (Not Detect) Parainfluenza 4 (PCR) (Not Detect) RSV (PCR) (Not Detect) Entero/Rhino (PCR) (Not Detect) 02/06/23 02/06/23 02/06/23 Range/Units 14:55 14:55 15:00 WBC (4.5-11.0) X10^3/uL RBC (4.5-5.9) X10^6/uL Hgb (13.5-17.5) g/dL Hct (41-53) % MCV (80-100) fL MCH (26-34) PG MCHC (30-36) % RDW (11.6-14.8) % Plt Count (150-400) X10^3/uL Neut % (Auto) (50-75) % Lymph % (Auto) (25-40) % [place] % (Auto) (3-14) % Eos % (Auto) (2-4) % Baso % (Auto) (0-2) % Neut # (Auto) (3625-9363) /uL Lymph # (Auto) (8463-5738) /uL [place] # (Auto) (0-900) /uL Eos # (Auto) (0-450) /uL Baso # (Auto) (0-100) /uL Platelet Estimate RBC Morphology Polychromasia Hypochromasia Microcytosis Schistocytes PT (10.1-12.7) SECONDS INR (0.9-1.3) D-Dimer 347 (<500) ng/ml Sodium (137-145) mmol/L Potassium (3.4-5.1) mmol/L Chloride (98-107) mmol/L Carbon Dioxide (22-32) mmol/L BUN (9-20) mg/dL Creatinine (0.66-1.25) mg/dL Estimated GFR (>60) mL/min BUN/Creatinine Ratio (6-22) Glucose (80-110) mg/dL Lactate 0.9 (0.7-2.1) mmol/L Calcium (8.4-10.2) mg/dL Total Bilirubin (0.2-1.3) mg/dL AST (17-59) IU/L ALT (<50) IU/L Alkaline Phosphatase (38-126) U/L Troponin I (0.01-0.034) ng/mL NT-Pro-B Natriuret Pep (<125) pg/mL Total Protein (6.3-8.2) g/dL Albumin (3.5-5.0) g/dL Globulin (1.7-4.1) g/dL Albumin/Globulin Ratio (1.0-2.8) Chlamy pneumoniae PCR Not detected (Not Detect) Adenovirus (PCR) Not detected (Not Detect) B. pertussis DNA (PCR) Not detected (Not Detecte) B.parapertussis DNA PCR Not detected (Not Detecte) Coronavirus OC43 (PCR) Not detected (Not Detect) Coronavirus HKU1 (PCR) Not detected (Not Detect) Coronavirus 229E (PCR) Not detected (Not Detect) SARS-CoV-2 (PCR) Detected H (Not Detecte) Coronavirus NL63 (PCR) Not detected (Not Detect) Human Metapneumovir PCR Not detected (Not Detect) Influenza Type A (PCR) Not detected (Not Detect) Influenza Type B (PCR) Not detected (Not Detect) M. pneumoniae (PCR) Not detected (Not Detect) Parainfluenza 1 (PCR) Not detected (Not Detect) Parainfluenza 2 (PCR) Not detected (Not Detect) Parainfluenza 3 (PCR) Not detected (Not Detect) Parainfluenza 4 (PCR) Not detected (Not Detect) RSV (PCR) Not detected (Not Detect) Entero/Rhino (PCR) Not detected (Not Detect) MDM Narrative Medical decision making narrative: 62-year-old high-risk patient presents with shortness of breath and abdominal pain. Thankfully the imaging of his abdomen is largely unremarkable. CT of his chest demonstrates right lower lobe pneumonia. Labs reviewed and addressed as needed. Imaging noted. Please see the details of my consultation with [facility] pulmonary transplant and their recommendations. Additionally, I have spoken with Dr. Torres who will admit to his service. Recommends inpatient status Critical Care Time Critical Care Time Critical Care Time: Yes Total Critical Care Time: 30 Attestation: The high probability of a clinically significant, sudden or life threatening deterioration of the [CV] system(s) required my full and direct attention, intervention and personal management. The aggregate critical care time was [30] minutes. This time is in addition to time spent performing reported procedures but includes the following: [x] Data Review and interpretation [x] Patient assessment and monitoring of vital signs [x] Documentation [x] Medication orders and management Discharge Plan Departure Patient Disposition: Admitted As Inpatient Clinical Impression: Right lower lobe pneumonia, Acquired immunocompromised state, COVID-19 Admit Date/Time: 02/06/23 18:27 Admit Provider: Ori Torres
--- NOTE | 2023-02-06 14:42 | DI.RAD.S_ITS ---
PROCEDURE: XR CHEST 1V INDICATIONS: Shortness of breath TECHNIQUE: One view of the chest was acquired. COMPARISON: [facility], CR, XR CHEST 2V, 08/03/2019, 14:33. FINDINGS: Surgical changes and devices: None. Lungs and pleura: Lungs are clear. No pleural effusions or pneumothorax. Mediastinum: Mediastinal contours appear normal. Heart size is normal. Bones and chest wall: No suspicious bony lesions. Overlying soft tissues appear unremarkable. IMPRESSION: No acute process. Dictated by: Kiki Batista M.D. on 02/06/2023 at 14:13 Approved by: Kiki Batista M.D. on 02/06/2023 at 14:13
[2023-02-06 15:11] LABS: INR 1.3 (0.9-1.3); Prothrombin Time 15.2 SECONDS (10.1-12.7)
[2023-02-06 15:12] LABS: Add Manual Diff / Slide Review NO; Basophils Absolute Auto 0 /uL (0-100); Basophils Percent Auto 0.5 % (0-2); Eosinophils Absolute Auto 0 /uL (0-450); Eosinophils Percent Auto 0.2 % (2-4); Hematocrit 25.3 % (41-53); Hemoglobin 8.2 g/dL (13.5-17.5); Lymphocytes Absolute Auto 300 /uL (1100-4500); Lymphocytes Percent Auto 5.3 % (25-40); Mean Corpuscular HGB Conc 32.4 % (30-36); Mean Corpuscular Hemoglobin 18.8 PG (26-34); Monocytes Absolute Auto 800 /uL (0-900); Monocytes Percent Auto 15.5 % (3-14); Neutrophils Absolute Auto 4000 /uL (1500-7000); Neutrophils Percent Auto 78.5 % (50-75); Platelet Count 97 X10^3/uL (150-400); Red Blood Cell Count 4.37 X10^6/uL (4.5-5.9); Red Cell Distribution Width 16.1 % (11.6-14.8); White Blood Cell Count 5.1 X10^3/uL (4.5-11.0)
[2023-02-06 15:15] LABS: Lactate (Lactic Acid) 0.9 mmol/L (0.7-2.1)
[2023-02-06 15:16] LABS: Alanine Aminotransferase 19 IU/L (<50); Albumin 4.3 g/dL (3.5-5.0); Albumin Globulin Ratio 1.7 (1.0-2.8); Alkaline Phosphatase 37 U/L (38-126); Aspartate Aminotransferase 32 IU/L (17-59); BUN Creatinine Ratio 25.4 (6-22); Bilirubin Total 1.9 mg/dL (0.2-1.3); Blood Urea Nitrogen 29 mg/dL (9-20); Calcium 9.1 mg/dL (8.4-10.2); Carbon Dioxide 27 mmol/L (22-32); Chloride 100 mmol/L (98-107); Estimated Glomerular Filt Rate > 60 mL/min (>60); Globulin 2.6 g/dL (1.7-4.1); Glucose 123 mg/dL (80-110); HEMOLYSIS < 15 (0-50); Potassium 3.9 mmol/L (3.4-5.1); Sodium 134 mmol/L (137-145); Total Protein 6.9 g/dL (6.3-8.2)
[2023-02-06 15:28] LABS: NT-proBNP (BNP-Adult 18+) 2080 pg/mL (<125); Troponin I 0.013 ng/mL (0.01-0.034)
[2023-02-06 15:31] LABS: D Dimer 347 ng/ml (<500)
--- NOTE | 2023-02-06 15:41 | DI.CT.S_ITS ---
PROCEDURE: CT CHEST ABD PEL W CON INDICATIONS: abd pain, nausea, no BM, SOB, lung transplant TECHNIQUE: After the administration of intravenous contrast, 5 mm thick sections acquired from the lung apices to the symphysis. 2.5 mm thick coronal and sagittal reformats were acquired. Additional 7 mm thick coronal maximum intensity projection (MIP) reformats acquired through the lungs. Optional 10-minute delayed imaging may be performed from the kidneys to the bladder. For radiation dose reduction, the following was used: automated exposure control, adjustment of mA and/or kV according to patient size. COMPARISON: None. FINDINGS: Image quality: Excellent. CHEST: Lungs: There is moderate airspace opacity within the right lower lobe. Superimposed rounded focus of opacity within the right medial lung base measuring 33 mm. Scarring within the left medial lung base and lateral lingula. No acute airspace opacities. No pneumothorax . Small loculated right pleural effusion.. Central and peripheral airways appear patent and normal in caliber. Mediastinum: No mediastinal hematomas. Heart size is normal. Calcification of the coronary vasculature. No pericardial effusion. Thoracic aorta and pulmonary arteries demonstrate normal size and enhancement. No mediastinal or hilar adenopathy. Esophagus is normal in caliber. No hiatal hernia. Chest wall: No rib fractures. No subcutaneous emphysema. No axillary or supraclavicular adenopathy. Thyroid gland is within normal limits. ABDOMEN: Solid organs: Liver is normal in size and enhancement, without lacerations. Gallbladder demonstrates multiple calculi within its lumen without evidence of wall thickening.. Biliary system is non-dilated. Pancreas enhances normally, without transection. Spleen is normal in size and enhancement, without lacerations. No adrenal hematomas. Both kidneys enhance normally, without hydronephrosis or lacerations. Multiple nonobstructing calcifications within the left interpolar and inferior pole kidney measuring roughly 11 mm maximum within the left interpolar kidney. Peritoneum and bowel: Limited evaluation secondary to omission of oral contrast. No free fluid or air. Unenhanced bowel loops demonstrate normal wall thickness . Fluid-filled small bowel loops within the left hemiabdomen and pelvis. Nodes and vessels: No retroperitoneal or mesenteric adenopathy. Aorta and inferior vena cava are normal in size and enhancement. Miscellaneous: 17 mm fat containing umbilical hernia with mild internal fat stranding. PELVIS: Genitourinary: Bladder wall thickness is normal. Miscellaneous: No inguinal hernias or adenopathy. Bones: Pelvic ring and hip joints appear intact. No vertebral compression fractures. IMPRESSION: 1. Right lower lobe pneumonia. Small adjacent loculated right pleural effusion. Secondary to rounded density within the right lower lobe, follow-up chest CT with intravenous contrast in 1 month is recommended to ensure resolution, and to exclude underlying malignancy. 2. Cholelithiasis. 3. Nonobstructing left renal calculi. 4. Small fat containing umbilical hernia which contains internal fat stranding which may indicate incarceration. Clinical correlation recommended. 5. Mildly distended fluid-filled small bowel loops which could indicate gastroenteritis. 6. Coronary artery disease. Dictated by: Kiki Batista M.D. on 02/06/2023 at 15:07 Approved by: Kiki Batista M.D. on 02/06/2023 at 15:10
[2023-02-06 15:54] LABS: Hypochromasia 1+
[2023-02-06 15:55] LABS: Microcytosis 3+; Platelet Estimate Decreased on smear; Polychromasia 1+; Schistocytes 2+
[2023-02-06 16:12] LABS: Adenovirus Not Detected (Not Detect); B. parapertussis Not Detected (Not Detecte); Bordetella pertussis Not Detected (Not Detecte); Chlamydophila pneumoniae Not Detected (Not Detect); Coronavirus 229E Not Detected (Not Detect); Coronavirus HKU1 Not Detected (Not Detect); Coronavirus NL 63 Not Detected (Not Detect); Coronavirus OC43 Not Detected (Not Detect); Human Metapneumovirus Not Detected (Not Detect); Human Rhinovirus/Enterovirus Not Detected (Not Detect); Influenza A Not Detected (Not Detect); Influenza B Not Detected (Not Detect); Mycoplasma pneumoniae Not Detected (Not Detect); Parainfluenza Virus 1 Not Detected (Not Detect); Parainfluenza Virus 2 Not Detected (Not Detect); Parainfluenza Virus 3 Not Detected (Not Detect); Parainfluenza Virus 4 Not Detected (Not Detect); Respiratory Syncytial Virus Not Detected (Not Detect); SARS- CoV-2 Detected (Not Detecte)
[2023-02-06] MEDS: cefTRIAXone 2,000 MG in SODIUM CHLORIDE 0.9% 100 ML 200 MG IV (17:33)
[2023-02-06] MEDS: AZITHROMYCIN 500 MG in DEXTROSE 5% IN WATER 250 ML 250 MG IV (18:35)
[2023-02-06] MEDS: ONDANSETRON 4 MG/2 ML INJ IV (20:47)
[2023-02-06] MEDS: ACETAMINOPHEN 325 MG TABLET 650 MG PO (20:47)
[2023-02-06] MEDS: predniSONE 5 MG TABLET PO (22:32)
[2023-02-07] VITALS (8 sets, daily range): BP systolic 105–126; BP diastolic 51–71; PULSE 73–77; RESP 16–20; TEMP 36.6–37.7; O2SAT 95–98
[2023-02-07] MEDS: ACETAMINOPHEN 325 MG TABLET 650 MG PO ×2 (04:18→10:54)
[2023-02-07 05:26] LABS: Hematocrit 25.4 % (41-53); Hemoglobin 8.3 g/dL (13.5-17.5); Mean Corpuscular HGB Conc 32.7 % (30-36); Mean Corpuscular Hemoglobin 18.8 PG (26-34); Mean Corpuscular Volume 57.4 fL (80-100); Red Blood Cell Count 4.42 X10^6/uL (4.5-5.9); White Blood Cell Count 3.9 X10^3/uL (4.5-11.0)
[2023-02-07 05:29] LABS: BUN Creatinine Ratio 23.1 (6-22); Blood Urea Nitrogen 24 mg/dL (9-20); Calcium 8.2 mg/dL (8.4-10.2); Carbon Dioxide 27 mmol/L (22-32); Chloride 100 mmol/L (98-107); Estimated Glomerular Filt Rate > 60 mL/min (>60); Glucose 114 mg/dL (80-110); HEMOLYSIS < 15 (0-50); Potassium 4.1 mmol/L (3.4-5.1); Sodium 134 mmol/L (137-145)
[2023-02-07 05:30] LABS: Add Manual Diff / Slide Review YES
--- NOTE | 2023-02-07 05:38 | PM.HP.1 ---
History of Present Illness History of Present Illness Date Patient Seen: 02/06/23 Time Patient Seen: 23:30 Chief complaint: double lung transplant recipient/post covid/SOB Narrative: Mr. Randolph is a 62M with PMH ILD s/p bilateral lung transplant, recently diagnosed COVID infection who presents to the hospital with abdominal pain, and nausea. He actually has also noted some shortness of breath, and possibly he has fevers. He has not noted exacerbating factors. No chest pain. No vomiting. In the ED workup was done, vitals notable for temp 100.0, heart rate 90s, respiratory rate 20s, blood pressure 130s/70s, sats 97% on room air. Labs reviewed by me and notable for WBC 5.1, hgb 8.2, plts 97. Na 134, creatinine 1.14. Bili 1.9. BNP 2080. Lactate 0.9. COVID positive. Chest xray reviewed by me and notable for no acute process. CT chest reviewed by me and notable for right lower lobe pneumonia with small loculate right pleural effusion, and rounded density. CT abdomen noted for gallstones, left renal stone, umbilical hernia with internal fat stranding, slightly distended small bowel loops. His transplant team was notified and said he could be admitted here for treatment of pneumonia. He was ordered for antibiotics and admitted for further treatment. FORMERLY [facility] Medical History Interstitial lung disease Ruptured appendix Short gut syndrome Surgical History History of transplantation, lung S/P appendectomy Family History Mother Head injury due to trauma Father Medical history unknown Brother Lung disease Sister Lung disease Social History household members: spouse Smoking Status: Former smoker Tobacco: How many years used: 30 alcohol intake: current Meds Home Medications and Allergies Home Medications Medication Instructions Recorded Confirmed Type prednisone 5 mg tablet 5 mg PO QAM 01/21/22 02/06/23 History atorvastatin 20 mg tablet 20 mg PO DAILY 02/06/23 02/06/23 History multivitamin 1 tab PO DAILY 02/06/23 02/06/23 History mycophenolate mofetil 500 mg tablet 1,000 mg PO BID 02/06/23 02/06/23 History sulfamethoxazole 400 1 tab PO BEDTIME 02/06/23 02/06/23 History mg-trimethoprim 80 mg tablet tacrolimus 0.5 mg capsule, 0.5 mg PO BID 02/06/23 02/06/23 History immediate-release tacrolimus 1 mg capsule, 2 mg PO BID 02/06/23 02/06/23 History immediate-release zolpidem 10 mg tablet 15 mg PO BEDTIME PRN Insomnia 02/06/23 02/06/23 History Allergies Allergy/AdvReac Type Severity Reaction Status Date / Time No Known Drug Allergies Allergy Verified 02/06/23 14:41 Review of Systems Review of Systems Narrative: 14 systems reviewed and negative aside from what is noted in HPI Exam Vital Signs (past 8 hours): - 02/06/23 22:15 02/07/23 01:00 02/06/23 22:45 Temperature 99.8 F H Pulse Rate 85 Respiratory Rate 18 Blood Pressure 125/68 Pulse Oximetry 95 95 Oxygen Delivery Method Room Air Room Air Oxygen Flow Rate 0 02/07/23 02:00 02/07/23 04:18 Temperature 99.8 F H 99.9 F H Pulse Rate 76 Respiratory Rate 20 Blood Pressure 126/66 Pulse Oximetry 95 Oxygen Delivery Method Oxygen Flow Rate Oxygen Delivery Method Room Air Oxygen Flow Rate 0 Narrative Exam Narrative: GEN: no acute distress CV: regular rate and rhythm PULM: coarse breath sounds on right ABD: soft, nontender EXT: warm and well perfused Objective Labs 02/07/23 04:28 02/06/23 14:55 Labs: Laboratory Results - last 24 hr 02/06/23 02/06/23 02/06/23 14:55 14:55 14:55 WBC 5.1 RBC 4.37 L Hgb 8.2 L Hct 25.3 L MCV 58.0 L MCH 18.8 L MCHC 32.4 RDW 16.1 H Plt Count 97 L Neut % (Auto) 78.5 H Lymph % (Auto) 5.3 L [place] % (Auto) 15.5 H Eos % (Auto) 0.2 L Baso % (Auto) 0.5 Neut # (Auto) 4000 Lymph # (Auto) 300 L [place] # (Auto) 800 Eos # (Auto) 0 Baso # (Auto) 0 Platelet Estimate Decreased on smear RBC Morphology See below Polychromasia 1+ H Hypochromasia 1+ H Microcytosis 3+ H Schistocytes 2+ H PT 15.2 H INR 1.3 D-Dimer Sodium 134 L Potassium 3.9 Chloride 100 Carbon Dioxide 27 BUN 29 H Creatinine 1.14 Estimated GFR > 60 BUN/Creatinine Ratio 25.4 H Glucose 123 H Lactate Calcium 9.1 Total Bilirubin 1.9 H AST 32 ALT 19 Alkaline Phosphatase 37 L Troponin I 0.013 NT-Pro-B Natriuret Pep 2080 H Total Protein 6.9 Albumin 4.3 Globulin 2.6 Albumin/Globulin Ratio 1.7 Chlamy pneumoniae PCR Adenovirus (PCR) B. pertussis DNA (PCR) B.parapertussis DNA PCR Coronavirus OC43 (PCR) Coronavirus HKU1 (PCR) Coronavirus 229E (PCR) SARS-CoV-2 (PCR) Coronavirus NL63 (PCR) Human Metapneumovir PCR Influenza Type A (PCR) Influenza Type B (PCR) M. pneumoniae (PCR) Parainfluenza 1 (PCR) Parainfluenza 2 (PCR) Parainfluenza 3 (PCR) Parainfluenza 4 (PCR) RSV (PCR) Entero/Rhino (PCR) 02/06/23 02/06/23 02/06/23 14:55 14:55 15:00 WBC RBC Hgb Hct MCV MCH MCHC RDW Plt Count Neut % (Auto) Lymph % (Auto) [place] % (Auto) Eos % (Auto) Baso % (Auto) Neut # (Auto) Lymph # (Auto) [place] # (Auto) Eos # (Auto) Baso # (Auto) Platelet Estimate RBC Morphology Polychromasia Hypochromasia Microcytosis Schistocytes PT INR D-Dimer 347 Sodium Potassium Chloride Carbon Dioxide BUN Creatinine Estimated GFR BUN/Creatinine Ratio Glucose Lactate 0.9 Calcium Total Bilirubin AST ALT Alkaline Phosphatase Troponin I NT-Pro-B Natriuret Pep Total Protein Albumin Globulin Albumin/Globulin Ratio Chlamy pneumoniae PCR Not detected Adenovirus (PCR) Not detected B. pertussis DNA (PCR) Not detected B.parapertussis DNA PCR Not detected Coronavirus OC43 (PCR) Not detected Coronavirus HKU1 (PCR) Not detected Coronavirus 229E (PCR) Not detected SARS-CoV-2 (PCR) Detected H Coronavirus NL63 (PCR) Not detected Human Metapneumovir PCR Not detected Influenza Type A (PCR) Not detected Influenza Type B (PCR) Not detected M. pneumoniae (PCR) Not detected Parainfluenza 1 (PCR) Not detected Parainfluenza 2 (PCR) Not detected Parainfluenza 3 (PCR) Not detected Parainfluenza 4 (PCR) Not detected RSV (PCR) Not detected Entero/Rhino (PCR) Not detected 02/07/23 04:28 WBC 3.9 L RBC 4.42 L Hgb 8.3 L Hct 25.4 L MCV 57.4 L MCH 18.8 L MCHC 32.7 RDW 16.0 H Plt Count Neut % (Auto) Not Reportable Lymph % (Auto) Not Reportable [place] % (Auto) Not Reportable Eos % (Auto) Not Reportable Baso % (Auto) Not Reportable Neut # (Auto) Lymph # (Auto) Not Reportable [place] # (Auto) Not Reportable Eos # (Auto) Baso # (Auto) Not Reportable Platelet Estimate RBC Morphology Polychromasia Hypochromasia Microcytosis Schistocytes PT INR D-Dimer Sodium Potassium Chloride Carbon Dioxide BUN Creatinine Estimated GFR BUN/Creatinine Ratio Glucose Lactate Calcium Total Bilirubin AST ALT Alkaline Phosphatase Troponin I NT-Pro-B Natriuret Pep Total Protein Albumin Globulin Albumin/Globulin Ratio Chlamy pneumoniae PCR Adenovirus (PCR) B. pertussis DNA (PCR) B.parapertussis DNA PCR Coronavirus OC43 (PCR) Coronavirus HKU1 (PCR) Coronavirus 229E (PCR) SARS-CoV-2 (PCR) Coronavirus NL63 (PCR) Human Metapneumovir PCR Influenza Type A (PCR) Influenza Type B (PCR) M. pneumoniae (PCR) Parainfluenza 1 (PCR) Parainfluenza 2 (PCR) Parainfluenza 3 (PCR) Parainfluenza 4 (PCR) RSV (PCR) Entero/Rhino (PCR) Assessment & Plan Assessment & Plan narrative: 1. Acute pneumonia -suspect bacterial pneumonia, superimposed on recent COVID infection -not currently on oxygen, will hold off on remdesivir for COVID -continue home dose of steroids -ordered for ceftriaxone, azithromycin -CT imaging shows loculate pleural effusion, too small to tap, may need surgical referral if not improving -CT also noted rounded density with follow up CT recommended in one month 2. History of lung transplant, ILD -continue tacro, MMF, prednisone -continue bactrim for prophylaxis -receives care at 3. Abdominal discomfort -appears improved -order for stool studies if has diarrhea -CT abdomen notes: --gallstones, doubt this as source of pain --nonobstructing kidney stone, unlikely source of pain --question of incarcerated hernia, patient does not clinically appear to have incacerated hernia and symptoms are improved, but low threshold to consult surgery if continues to have abdominal complaints 4. Thrombocytopenia -chronic -no indication for transfusion currently -trend daily 5. Anemia -chronic -trend daily -transfusion for hemogobin <7 I have discussed plan of care with ED physician and bedside nurse. I have reviewed labs, imaging. CODE: Full Proxy: Yuesinai Randolph, [facility] - Meds 'Current medications' to include all prescriptions, [id number] products, herbals, cannabis/cannabidiol products, and vitamin/mineral/dietary (nutritional) supplements. I have utilized all available resources to obtain, update, or review the patient?s current medications. [If Yes, STOP here]: Yes
[2023-02-07 06:44] LABS: Neutrophils Absolute Manual 2769 /uL (3000-5900); Total Cells Counted 100
[2023-02-07 06:45] LABS: Anisocytosis 1+; Microcytosis 3+; Platelet Estimate Decr; Poikilocytosis 1+; Schistocytes 1+
[2023-02-07 06:48] LABS: Hypochromasia 1+
[2023-02-07 07:17] LABS: Platelet Count 112 X10^3/uL (150-400)
--- NOTE | 2023-02-07 09:30 | P.DS_ITS ---
History of Present Illness History of Present Illness Date Patient Seen: 02/07/23 Time Patient Seen: 09:31 Chief complaint: double lung transplant recipient/post covid/SOB Narrative: Mr. Randolph is a 62M with PMH ILD s/p bilateral lung transplant, recently diagnosed COVID infection who presents to the hospital with abdominal pain, and nausea. He actually has also noted some shortness of breath, and possibly he has fevers. He has not noted exacerbating factors. No chest pain. No vomiting. In the ED workup was done, vitals notable for temp 100.0, heart rate 90s, respiratory rate 20s, blood pressure 130s/70s, sats 97% on room air. Labs reviewed by me and notable for WBC 5.1, hgb 8.2, plts 97. Na 134, creatinine 1.14. Bili 1.9. BNP 2080. Lactate 0.9. COVID positive. Chest xray reviewed by me and notable for no acute process. CT chest reviewed by me and notable for right lower lobe pneumonia with small loculate right pleural effusion, and rounded density. CT abdomen noted for gallstones, left renal stone, umbilical hernia with internal fat stranding, slightly distended small bowel loops. His transplant team was notified and said he could be admitted here for treatment of pneumonia. He was ordered for antibiotics and admitted for further treatment. Discharge Providers Provider Date of admission: 02/06/23 18:27 Discharge Date: 02/07/23 Primary care physician: Edgardo Olmedo MD Discharge provider: Ori Torres DO Summary Hospital Course Discharge Diagnosis: 1. Acute bacterial pneumonia 2. History of lung transplant, ILD 3. Umbilical hernia 4. Thrombocytopenia 5. Anemia Hospital Course: Mr. Randolph is a 62M with PMH ILD s/p bilateral lung transplant, recently di agnosed COVID infection who presents to the hospital with abdominal pain, and nausea. He actually has also noted some shortness of breath, and possibly he has fevers. He further reported now bowel movements for the past [address] showed question of incarcerated hernia, but had resolution of abdominal pain, nausea, and had a bowel movement shortly after admission. CT scan also showed possible loculated pleural effusion and a rounded density with probable pneumonia as well. He was started on ceftriaxone and azithromycin and admitted for further management. His home transplant medications were ordered to continue. The following day, patient had no complaints and felt well and he improved much more quickly than expected. He was not hypoxic or short of breath though did report a cough. For possible pneumonia he was discharged on one week of cefpodoxime and azithromycin. Given clinical improvement, lack of abdominal symptoms, as well as current COVID and pneumonia, hernia repair was not recommended. This was discussed with the patient and he will attempt to reach out to his surgical team to see if they recommend a general surgeon at for repair. No other changes to his home medications are reocmmended at the time of discharge, he should resume his bactrim prophylaxis once antibiotic treatments are completed. He should follow up with his transplant team as well given his pleural effusion, though no interventions recommended at this time due to his well appearance. Time Spent with Patient Time spent: Greater than 30 minutes Exam Vital Signs (past 8 hours): - 02/07/23 02:00 02/07/23 04:18 02/07/23 06:00 Temperature 99.8 F H 99.9 F H 98.8 F Pulse Rate 76 74 Respiratory Rate 20 16 Blood Pressure 126/66 105/51 L Pulse Oximetry 95 96 Oxygen Delivery Method 02/07/23 05:00 02/07/23 08:04 Temperature 98.1 F Pulse Rate 77 Respiratory Rate 17 Blood Pressure 110/60 Pulse Oximetry 95 97 Oxygen Delivery Method Room Air Oxygen Delivery Method Room Air Oxygen Flow Rate 0 Narrative Exam Narrative: GEN: no acute distress CV: regular rate and rhythm PULM: coarse breath sounds on right ABD: soft, nontender, easily reducible umbilical / incisional hernia with well healed midline scar. EXT: warm and well perfused Objective Labs 02/07/23 04:28 02/07/23 04:28 Labs: Laboratory Results - last 24 hr 02/06/23 02/06/23 02/06/23 14:55 14:55 14:55 WBC 5.1 RBC 4.37 L Hgb 8.2 L Hct 25.3 L MCV 58.0 L MCH 18.8 L MCHC 32.4 RDW 16.1 H Plt Count 97 L Neut % (Auto) 78.5 H Lymph % (Auto) 5.3 L [place] % (Auto) 15.5 H Eos % (Auto) 0.2 L Baso % (Auto) 0.5 Neut # (Auto) 4000 Lymph # (Auto) 300 L [place] # (Auto) 800 Eos # (Auto) 0 Baso # (Auto) 0 Total Counted Seg Neutrophils % Band Neutrophils % Lymphocytes % (Manual) Monocytes % (Manual) Neutrophils # (Manual) Platelet Estimate Decreased on smear RBC Morphology See below Polychromasia 1+ H Hypochromasia 1+ H Poikilocytosis Anisocytosis Microcytosis 3+ H Schistocytes 2+ H PT 15.2 H INR 1.3 D-Dimer Sodium 134 L Potassium 3.9 Chloride 100 Carbon Dioxide 27 BUN 29 H Creatinine 1.14 Estimated GFR > 60 BUN/Creatinine Ratio 25.4 H Glucose 123 H Lactate Calcium 9.1 Total Bilirubin 1.9 H AST 32 ALT 19 Alkaline Phosphatase 37 L Troponin I 0.013 NT-Pro-B Natriuret Pep 2080 H Total Protein 6.9 Albumin 4.3 Globulin 2.6 Albumin/Globulin Ratio 1.7 Chlamy pneumoniae PCR Adenovirus (PCR) B. pertussis DNA (PCR) B.parapertussis DNA PCR C. difficile Tox (PCR) Coronavirus OC43 (PCR) Coronavirus HKU1 (PCR) Coronavirus 229E (PCR) SARS-CoV-2 (PCR) Coronavirus NL63 (PCR) Human Metapneumovir PCR Influenza Type A (PCR) Influenza Type B (PCR) M. pneumoniae (PCR) Parainfluenza 1 (PCR) Parainfluenza 2 (PCR) Parainfluenza 3 (PCR) Parainfluenza 4 (PCR) RSV (PCR) Entero/Rhino (PCR) 02/06/23 02/06/23 02/06/23 14:55 14:55 15:00 WBC RBC Hgb Hct MCV MCH MCHC RDW Plt Count Neut % (Auto) Lymph % (Auto) [place] % (Auto) Eos % (Auto) Baso % (Auto) Neut # (Auto) Lymph # (Auto) [place] # (Auto) Eos # (Auto) Baso # (Auto) Total Counted Seg Neutrophils % Band Neutrophils % Lymphocytes % (Manual) Monocytes % (Manual) Neutrophils # (Manual) Platelet Estimate RBC Morphology Polychromasia Hypochromasia Poikilocytosis Anisocytosis Microcytosis Schistocytes PT INR D-Dimer 347 Sodium Potassium Chloride Carbon Dioxide BUN Creatinine Estimated GFR BUN/Creatinine Ratio Glucose Lactate 0.9 Calcium Total Bilirubin AST ALT Alkaline Phosphatase Troponin I NT-Pro-B Natriuret Pep Total Protein Albumin Globulin Albumin/Globulin Ratio Chlamy pneumoniae PCR Not detected Adenovirus (PCR) Not detected B. pertussis DNA (PCR) Not detected B.parapertussis DNA PCR Not detected C. difficile Tox (PCR) Coronavirus OC43 (PCR) Not detected Coronavirus HKU1 (PCR) Not detected Coronavirus 229E (PCR) Not detected SARS-CoV-2 (PCR) Detected H Coronavirus NL63 (PCR) Not detected Human Metapneumovir PCR Not detected Influenza Type A (PCR) Not detected Influenza Type B (PCR) Not detected M. pneumoniae (PCR) Not detected Parainfluenza 1 (PCR) Not detected Parainfluenza 2 (PCR) Not detected Parainfluenza 3 (PCR) Not detected Parainfluenza 4 (PCR) Not detected RSV (PCR) Not detected Entero/Rhino (PCR) Not detected 02/07/23 02/07/23 02/07/23 04:28 04:28 08:44 WBC 3.9 L RBC 4.42 L Hgb 8.3 L Hct 25.4 L MCV 57.4 L MCH 18.8 L MCHC 32.7 RDW 16.0 H Plt Count 112 L Neut % (Auto) Not Reportable Lymph % (Auto) Not Reportable [place] % (Auto) Not Reportable Eos % (Auto) Not Reportable Baso % (Auto) Not Reportable Neut # (Auto) Lymph # (Auto) Not Reportable [place] # (Auto) Not Reportable Eos # (Auto) Baso # (Auto) Not Reportable Total Counted 100 Seg Neutrophils % 64.0 Band Neutrophils % 7.0 Lymphocytes % (Manual) 9.0 L Monocytes % (Manual) 20.0 H Neutrophils # (Manual) 2769 L Platelet Estimate Decr RBC Morphology See below Polychromasia Hypochromasia 1+ H Poikilocytosis 1+ H Anisocytosis 1+ H Microcytosis 3+ H Schistocytes 1+ H PT INR D-Dimer Sodium 134 L Potassium 4.1 Chloride 100 Carbon Dioxide 27 BUN 24 H Creatinine 1.04 Estimated GFR > 60 BUN/Creatinine Ratio 23.1 H Glucose 114 H Lactate Calcium 8.2 L Total Bilirubin AST ALT Alkaline Phosphatase Troponin I NT-Pro-B Natriuret Pep Total Protein Albumin Globulin Albumin/Globulin Ratio Chlamy pneumoniae PCR Adenovirus (PCR) B. pertussis DNA (PCR) B.parapertussis DNA PCR C. difficile Tox (PCR) Cancelled Coronavirus OC43 (PCR) Coronavirus HKU1 (PCR) Coronavirus 229E (PCR) SARS-CoV-2 (PCR) Coronavirus NL63 (PCR) Human Metapneumovir PCR Influenza Type A (PCR) Influenza Type B (PCR) M. pneumoniae (PCR) Parainfluenza 1 (PCR) Parainfluenza 2 (PCR) Parainfluenza 3 (PCR) Parainfluenza 4 (PCR) RSV (PCR) Entero/Rhino (PCR) [facility] [place] Medical History Interstitial lung disease Ruptured appendix Short gut syndrome Surgical History History of transplantation, lung S/P appendectomy Family History Mother Head injury due to trauma Father Medical history unknown Brother Lung disease Sister Lung disease Social History household members: spouse Smoking Status: Former smoker Tobacco: How many years used: 30 alcohol intake: current Discharge Plan Discharge Plan Patient Disposition: Home Provider Discharge Comment: You were admitted to the hospital with abdominal pain. On imaging you were noted to have an umbilical hernia with fat stuck inside, this may have been causing your symptoms. Since this resolved, and you continue to test positive for COVID and had a pneumonia on imaging as well no interventions are recommended at this time, but you should follow up with a general surgeon to see about possible hernia repair given presentation. No changes to your home medications are recommended. For the pneumonia please continue 1 week of antibiotics at home. Discharge orders & Medications Prescriptions: New cefpodoxime 100 mg tablet 200 mg PO Q12H 7 Days Qty: 28 0RF Rx Instructions: must administer with a meal/food azithromycin 500 mg tablet 500 mg PO DAILY 7 Days Qty: 7 0RF Continued prednisone 5 mg Tablet 5 mg PO QAM multivitamin Tablet 1 tab PO DAILY Rx Instructions: takes at 12 noon atorvastatin 20 mg tablet 20 mg PO DAILY Rx Instructions: takes at 5:30pm sulfamethoxazole-trimethoprim 400-80 mg tablet 1 tab PO BEDTIME mycophenolate mofetil 500 mg tablet 1,000 mg PO BID zolpidem 10 mg tablet 15 mg PO BEDTIME PRN (Reason: Insomnia) tacrolimus 1 mg capsule 2 mg PO BID tacrolimus 0.5 mg capsule 0.5 mg PO BID Follow up/Referrals: Edgardo Olmedo MD [Primary Care Provider] - Diet/Activity/Treatments Diet: Diet as Tolerated Activity: As tolerated Visit Report/Discharge Packet Instructions: Abdominal Hernia, Azithromycin, Cefpodoxime Stand Alone Forms: Patient Portal/API, Stroke Signs & Symptoms Discharge Data Primary Care Provider: Edgardo Olmedo Discharges patient from system. Discharge Date/Time: 02/07/23 14:33
[2023-02-07] MEDS: guaiFENesin Solution 100 MG/5 ML UDC 200 MG PO (12:38)
--- NOTE | 2023-02-07 13:46 | CM.DANOTE ---
Patient is a 62 yo male who was admitted on 02/06/23 for SOB/COVID. Pt has MCR for insurance and his PCP is Dr. Edgardo Olmedo. EMR was reviewed. Per MD, pt with hx of bilateral lung transplant and recently had COVID and admitted for pneumonia, abd pain, and getting IV-Abx. Per MD, pt has made improvements and on room air and initially tested COVID+ 2 weeks ago and progress with IV-Abx and likely has hernia. Due to pt's current pneumonia and COVID, plan is to d/c home on oral abx with outpt f/u with pt's [facility] surgeons for possible outpt hernia repair after discharge. Pt last admission was in January 2022 about a year ago and pt was able to safely d/c home with spouse. Pt lives in an in [place] with his spouse and is independent with ADLs at baseline and spouse is supportive and assists as needed. Pt does not anticipate any needs and comfortable with outpt f/u with his established [facility] team. Plan: SW to follow for plan of likely d/c home today via spouse POV and outpt f/u and any further identified discharge planning needs. CHANDNI Pinto Discharge Planning/Care Management Advanced directive, confirm from FAMILY Start: 02/07/23 01:53 Freq: Q24H Status: Active Protocol: Document 02/07/23 01:53 MW (Rec: 02/07/23 01:55 MW [id number]) Advance Directive, confirm on record Time 01:55 Person contacted pt Copy received No CM Discharge Assessment Start: 02/07/23 13:44 Freq: Status: Active Protocol: Document 02/07/23 13:45 BF (Rec: 02/07/23 13:46 BF [id number]) Discharge Planning Assessment Assigned Driver License Reviewing Officer CHANDNI Dubois DPOA/Assigned Designee Name spouse Yue Contact Information [phone] Advance Directives? No Advance Directives on File No History Provided By Patient,Medical Record Has Patient been admitted in last 30 No days? Prior Living Arrangements Apartment/Condo Household Members spouse Type of transporation used prior to Drives own vehicle admit Independent with ADL's Yes Is patient alert and oriented? Yes Caregiver for Another No Comment Established with [facility] transplant team Barriers to Discharge No Discharge Plan Home Transportation Arrangement spouse Referrals Initiated None needed Review Status In Process Please Provide Date Initial DC 02/07/23 Assessment Was Performed Next Review Type Continued Stay Review
== END 2023-02-07 14:33 | disposition home or self-care (01) | DRG 177 ==
LOC: ED 18:27 → AC 18:28
PROVIDERS: Internal Medicine; Admitting Provider Internal Medicine; Emergency Provider Emergency Medicine; PCP Internal Medicine; Referring Provider Emergency Medicine; Visit Provider Internal Medicine
DX: U07.1 COVID-19 (principal); J12.82 Pneumonia due to coronavirus disease 2019; J90 Pleural effusion, not elsewhere classified; Z94.2 Lung transplant status; D84.821 Immunodeficiency due to drugs; D69.6 Thrombocytopenia, unspecified; K42.9 Umbilical hernia without obstruction or gangrene; Z87.891 Personal history of nicotine dependence; Z79.621 Long term (current) use of calcineurin inhibitor
CPT/HCPCS: 36415; 71045; 71260; 74177; 80048; 80053; 83605; 83880; 84484; 85007; 85025; 85379; 85610; 87040; 87045; 87633; 87899; 93005; 96365; 96366; 96367; 96375; 99284; 99291; J0696; J2405; Q9967

== ENCOUNTER 2023-03-18 05:49 | Emergency (ER) | payer MEDICARE, SELFPAY ==
[2023-02-10 16:57] VITALS: BMI 28.7
[2023-03-18 05:55] VITALS: BP 150/70; PULSE 78; RESP 17; TEMP 36.7; O2SAT 99; BMI 29.4
--- NOTE | 2023-03-18 06:08 | ED.EYEPROB ---
HPI - Eye Problem General Chief complaint: Eye Problems Stated complaint: blood in left eye Time Seen by Provider: 03/18/23 05:50 Source: patient Mode of arrival: Ambulatory History of Present Illness HPI Narrative: 62-year-old male former smoker with history of atrial fibrillation on Eliquis presents with his in the chief complaint of blood in his left eye. He states that he went to bed in a normal state of health and awoke with a rather impressive amount of blood covering the ?entire white part of his left eye ?. He denies any specific trauma or injury but states that he was at work yesterday and thought he felt a metal flake strike his eye but he did not have any significant pain and certainly no bleeding at the time. 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 He has minimal pain and denies any significant vision change. His tetanus is at least 10 years old. He does not use contacts. Related Data Home Medications Medication Instructions Recorded Confirmed prednisone 5 mg tablet 5 mg PO QAM 01/21/22 02/25/23 multivitamin 1 tab PO DAILY 02/06/23 02/25/23 mycophenolate mofetil 500 mg tablet 1,000 mg PO BID 02/06/23 02/25/23 sulfamethoxazole 400 1 tab PO BEDTIME 02/06/23 02/25/23 mg-trimethoprim 80 mg tablet tacrolimus 0.5 mg capsule, 0.5 mg PO BID 02/06/23 02/25/23 immediate-release tacrolimus 1 mg capsule, 2 mg PO BID 02/06/23 02/25/23 immediate-release azithromycin 250 mg tablet 250 mg PO DAILY 02/25/23 02/25/23 Previous Rx's Medication Instructions Recorded apixaban 5 mg tablet (Eliquis) 5 mg PO BID #180 tabs 02/25/23 atorvastatin 20 mg tablet 20 mg PO DAILY #90 tabs 02/25/23 methocarbamol 750 mg tablet 750 mg PO TID PRN back pain #30 02/25/23 tabs metoprolol succinate 25 mg 25 mg PO DAILY #90 tabs 02/25/23 tablet,extended release 24 hr zolpidem 10 mg tablet 15 mg PO BEDTIME PRN Insomnia #30 03/05/23 tabs Allergies Allergy/AdvReac Type Severity Reaction Status Date / Time tramadol AdvReac Intermediate dysphoria Verified 02/25/23 16:57 Review of Systems Review of Systems Narrative: GENERAL: Denies chills, fatigue, malaise, fever, sweats. HEENT: See HPI RESPIRATORY: Denies dyspnea, cough, wheezing, hemoptysis, sputum. CARDIOVASCULAR: Denies chest pain, palpitations, orthopnea, edema, GASTROINTESTINAL: Denies nausea, vomiting, abdominal pain, diarrhea, constipation, melena. : Denies dysuria, frequency, incontinence, hematuria, urinary retention. MUSCULOSKELETAL: denies weakness, joint pain, or bony pain SKIN: Denies rash, skin lesions, or other NEUROLOGIC: Denies weakness, headache, numbness, change in speech, confusion, seizures, incoordination. PSYCHIATRIC: No concerning psychosocial issues. 12 point review of systems is negative except for those stated above Patient History Medical History Anxiety Chicken pox Chronic anticoagulation Chronic insomnia Chronic low back pain Colon polyps Depression, major, recurrent Generalized anxiety disorder Hearing loss Hepatitis C (~2019) Herpes History of colonic polyps History of lung cancer History of nonmelanoma skin cancer History of pulmonary fibrosis Immunosuppression due to drug therapy Impaired fasting glucose Lung cancer Measles Mixed hyperlipidemia Mumps Pancreatic mass Paroxysmal atrial fibrillation Polio Primary osteoarthritis involving multiple joints Rubella Ruptured appendix Skin cancer Substance abuse Umbilical hernia without mention of obstruction or gangrene Venous (peripheral) insufficiency Wears glasses Surgical History Anesthesia History of colonoscopy History of knee surgery (~2009) History of rhinoplasty (~1981) History of transplantation, lung S/P appendectomy Family History Mother Head injury due to trauma Father Medical history unknown Brother Lung disease Sister Lung disease 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 Well-developed patient, in mild distress. HEAD: Atraumatic. Normocephalic. EYES: Pupils equal round and reactive. Extraocular motions intact. Left eye with impressive subconjunctival hemorrhage resulting in some swelling. There is no hyphema. Visual acuity OS 20/30, OD 20/30, OU 20/25. Left eye viewed with slit lamp, no obvious foreign body. Upper lid everted and no foreign body noted. No fluorescein uptake when viewed with UV. ENT: Nose without bleeding, purulent drainage. Throat without erythema, tonsillar hypertrophy or exudate. Airway patent. NECK: Trachea midline. Non tender CARDIOVASCULAR: Regular rate and rhythm without murmurs, gallops, or rubs. RESPIRATORY: Clear to auscultation. Breath sounds equal bilaterally. No wheezes, rales, or rhonchi. GASTROINTESTINAL: Abdomen soft, non-tender, nondistended. EXTREMITIES: No edema or joint tenderness. BACK: Nontender without deformity or crepitance. No flank tenderness. NEURO: AOx3. SKIN: No rash or erythema of visible areas Initial Vital Signs Initial Vital Signs: Vital Signs Temperature 98.1 F 03/18/23 05:55 Pulse Rate 78 03/18/23 05:55 Respiratory Rate 17 03/18/23 05:55 Blood Pressure 150/70 H 03/18/23 05:55 Pulse Oximetry 99 03/18/23 05:55 Oxygen Delivery Method Room Air 03/18/23 05:55 Course Orders Ordered: Discontinued Medications Diphtheria/Tetanus/Acell Pertussis (Tet,Diph,Pertuss(Acell),Vac/Pf 0.5 Ml Syringe) 0.5 ml IM .ONCE ONE Stop: 03/18/23 06:43 Last Admin: 03/18/23 06:45 Dose: 0.5 ml Documented By: CE Fluorescein Sodium (Fluorescein 1 Mg Strip) 1 mg EYE-LEFT NOW ONE Stop: 03/18/23 06:03 Last Admin: 03/18/23 06:49 Dose: 1 mg Documented By: CE Proparacaine HCl (Proparacaine 0.5% Ophth Rosaura) 1 drops EYE-LEFT NOW ONE Stop: 03/18/23 06:03 Last Admin: 03/18/23 06:49 Dose: 1 drop Documented By: CE Vital Signs Vital signs: Vital Signs - 8 hr 03/18/23 05:55 Temperature 98.1 F Pulse Rate 78 Respiratory Rate 17 Blood Pressure 150/70 H Pulse Oximetry 99 Oxygen Delivery Method Room Air MDM - Eye Problem MDM Narrative Medical decision making narrative: [62] year old patient presents with left eye subconjunctival hemorrhage Multiple etiologies for patient's symptoms considered including, but not limited to: [Subconjunctival hemorrhage with corneal abrasion versus foreign body versus hyphema versus globe rupture versus other] Prior Charts reviewed in our EMR Primary Historian: patient Patient's history and physical exam are reassuring. He questions the possibility of an eye injury yesterday but there is no evidence of foreign body or corneal abrasion. His vision is unaffected and acuity is noted as above. Tetanus is updated. Due to increased risk secondary to anticoagulation patient is encouraged to follow closely with local ophthalmology. Note has been transmitted to their office. Findings and discharge diagnosis discussed with patient/family followed by verbalization of understanding Return precautions discussed with patient/family whom verbalize understanding of diagnosis and plan Discharge Plan Departure Patient Disposition: Home Clinical Impression: Subconjunctival hemorrhage of left eye Instructions: DI for Subconjunctival Hemorrhage Activity Restrictions/Additional Instructions: *You have been diagnosed with [left eye subconjunctival hemorrhage. As we discussed your visual acuity is unaffected, there is no evidence of corneal abrasion, obvious foreign body or other abnormality that requires a specific or immediate intervention.] *What to do: *Please continue to take your regular medications as directed. *Please follow up with Dr. Tyler or Dr. Cerrato at [facility] today. You may call for an appointment or even just present to their office. Let them know you were seen in the Emergency Department and that we ask that you be seen in follow up. We will electronically transmit a record of today's note *Return to Emergency Department if you should have any new, worsening or concerning symptoms, such as [fever greater than 101 F, shaking chills, worsening pain, persistent vomiting or other bothersome symptoms] Prescriptions: No Action zolpidem 10 mg tablet 15 mg PO BEDTIME PRN (Reason: Insomnia) Qty: 30 1RF azithromycin 250 mg tablet 250 mg PO DAILY Rx Instructions: start on day 2 of therapy metoprolol succinate 25 mg tablet extended release 24 hr 25 mg PO DAILY Qty: 90 3RF Eliquis 5 mg tablet 5 mg PO BID Qty: 180 3RF atorvastatin 20 mg tablet 20 mg PO DAILY Qty: 90 3RF Rx Instructions: takes at 5:30pm methocarbamol 750 mg tablet 750 mg PO TID PRN (Reason: back pain) Qty: 30 3RF prednisone 5 mg Tablet 5 mg PO QAM multivitamin Tablet 1 tab PO DAILY Rx Instructions: takes at 12 noon sulfamethoxazole-trimethoprim 400-80 mg tablet 1 tab PO BEDTIME mycophenolate mofetil 500 mg tablet 1,000 mg PO BID tacrolimus 1 mg capsule 2 mg PO BID tacrolimus 0.5 mg capsule 0.5 mg PO BID Referrals: Vin Tyler MD [Physician] - Terrance Turcios MD [Primary Care Provider] - Stand Alone Forms: Patient Portal/API
[2023-03-18] MEDS: TET,DIPH,PERTUSS(ACELL),VAC/PF 0.5 ML SYRINGE IM (06:45)
[2023-03-18] MEDS: FLUORESCEIN 1 MG STRIP EYE-LEFT (06:49)
[2023-03-18] MEDS: PROPARACAINE 0.5% OPHTH SOL 1 DROPS EYE-LEFT (06:49)
== END 2023-03-18 06:52 | disposition home or self-care (01) ==
PROVIDERS: Emergency Provider Emergency Medicine; PCP Internal Medicine
DX: H11.32 Conjunctival hemorrhage, left eye (principal); Z79.01 Long term (current) use of anticoagulants; Z23 Encounter for immunization
CPT/HCPCS: 90471; 99283; 90715

== ENCOUNTER → 2023-06-09 11:28 | Outpatient (CLI) | payer OTHER, SELFPAY ==
[2023-02-10 16:57] VITALS: BMI 28.7
[2023-06-09 13:05] LABS: Hematocrit 30.5 % (41-53); Hemoglobin 9.8 g/dL (13.5-17.5); Mean Corpuscular HGB Conc 32.1 % (30-36); Mean Corpuscular Volume 59.2 fL (80-100); Platelet Count 156 X10^3/uL (150-400); Red Blood Cell Count 5.15 X10^6/uL (4.5-5.9); Red Cell Distribution Width 16.5 % (11.6-14.8); White Blood Cell Count 4.5 X10^3/uL (4.5-11.0)
[2023-06-09 13:07] LABS: HEMOLYSIS < 15 (0-50); Iron 103 ug/dL (49-181)
[2023-06-09 13:18] LABS: Alanine Aminotransferase 18 IU/L (<50); Albumin 4.6 g/dL (3.5-5.0); Albumin Globulin Ratio 1.7 (1.0-2.8); Alkaline Phosphatase 42 U/L (38-126); Aspartate Aminotransferase 32 IU/L (17-59); BUN Creatinine Ratio 21.3 (6-22); Bilirubin Total 1.3 mg/dL (0.2-1.3); Blood Urea Nitrogen 27 mg/dL (9-20); Calcium 9.9 mg/dL (8.4-10.2); Carbon Dioxide 29 mmol/L (22-32); Chloride 101 mmol/L (98-107); Estimated Glomerular Filt Rate > 60 mL/min (>60); Globulin 2.7 g/dL (1.7-4.1); Glucose 102 mg/dL (80-110); HEMOLYSIS < 15 (0-50); Percent Iron Saturation 32 % (20-50); Sodium 139 mmol/L (137-145); Total Iron Binding Capacity 318 ug/dL (261-462); Total Protein 7.3 g/dL (6.3-8.2); Transferrin 206 mg/dL (206-381)
[2023-06-09 13:43] LABS: Ferritin 179 ng/mL (18-464)
[2023-06-09 13:58] LABS: Vitamin B12 986 pg/mL (239-931)
== END ==
PROVIDERS: PCP Internal Medicine; Referring Provider Internal Medicine; Visit Provider Internal Medicine
DX: D50.9 Iron deficiency anemia, unspecified (principal); I48.0 Paroxysmal atrial fibrillation
CPT/HCPCS: 36415; 80053; 82607; 82728; 83540; 83550; 85027

== ENCOUNTER → 2023-08-30 07:51 | Outpatient (CLI) | payer OTHER, SELFPAY ==
[2023-02-10 16:57] VITALS: BMI 28.7
--- NOTE | 2023-08-30 07:55 | DI.CT.S_ITS ---
PROCEDURE: CT CHEST W CON INDICATIONS: Lung cancer TECHNIQUE: After the administration of intravenous contrast, 5 mm thick sections acquired from the pulmonary apices to the posterior costophrenic angles. 1 mm axial lung, 5 mm thick coronal and sagittal reformats and 7 mm axial MIP were acquired. For radiation dose reduction, the following was used: automated exposure control, adjustment of mA and/or kV according to patient size. COMPARISON: [facility], CT, CT CHEST ABD PEL W CON, 02/06/2023, 15:46. FINDINGS: Image quality: Diagnostic. Lungs and pleura: Significant interval improvement in the appearance of the right lower lobe. Basilar consolidation has resolved. There is minimal posterior medial right pleural thickening with calcifications, possibly indicating the presence of a chronic hemothorax or fibrothorax. This is unchanged. No suspicious pulmonary nodules. Left lung is clear. Central and peripheral airways are patent and normal in caliber. Mediastinum: Heart size is normal. No pericardial effusion. No mediastinal or hilar adenopathy by size criteria. Thoracic aorta and central pulmonary arteries are normal in size. Esophagus is normal in caliber. No hiatal hernia. Bones and chest wall: No suspicious bony lesions. No vertebral body compression fractures. No axillary or supraclavicular adenopathy by size criteria. The history abdominal process he 6-she she species cephalic the pole Upper Abdomen: There are large calcified gallstones in the gallbladder. No gallbladder wall thickening. IMPRESSION: 1. Resolution of right basilar pneumonia. No acute pulmonary process. No pulmonary findings suspicious for malignancy. 2. Cholelithiasis. Dictated by: Wyatt Serrano M.D. on 08/30/2023 at 13:55 Approved by: Wyatt Serrano M.D. on 08/30/2023 at 14:09
[2023-08-30 08:30] LABS: Estimated Glomerular Filt Rate > 60 mL/min (>60)
== END ==
PROVIDERS: Radiology Diagnostic Radiology; PCP Internal Medicine; Referring Provider Internal Medicine Hematology & Oncology; Visit Provider Internal Medicine Hematology & Oncology
DX: C34.90 Malignant neoplasm of unspecified part of unspecified bronchus or lung (principal); K80.20 Calculus of gallbladder without cholecystitis without obstruction
CPT/HCPCS: 36415; 71260; 82565; Q9967

== ENCOUNTER 2024-05-27 22:53 | Emergency (ER) | payer OTHER, SELFPAY ==
[2023-02-10 16:57] VITALS: BMI 28.7
[2024-05-27 22:55] VITALS: BP 135/83; PULSE 116; RESP 18; TEMP 37; O2SAT 97; BMI 27.2
--- NOTE | 2024-05-27 22:59 | DI.RAD.S_ITS ---
PROCEDURE: XR CHEST 1V INDICATIONS: Shortness of breath TECHNIQUE: One view of the chest was acquired. COMPARISON: [facility], CR, XR CHEST 1V, 02/06/2023, 14:58. FINDINGS: Surgical changes and devices: Mediastinal clips and wires. Lungs and pleura: Mild bibasilar streaky opacities favored to represent atelectasis.. No pleural effusions or pneumothorax. Mediastinum: Mediastinal contours appear normal. Heart size is normal. Bones and chest wall: No suspicious bony lesions. Overlying soft tissues appear unremarkable. IMPRESSION: Mild bibasilar streaky opacities favored to represent atelectasis. No dense focal airspace consolidation. Approved by: Lesvia Alvarez M.D.,Ph.D. on 05/28/2024 at 0:00
--- NOTE | 2024-05-27 23:09 | EKG_ITS ---
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
[2024-05-27 23:11] VITALS: PULSE 145; RESP 28
[2024-05-27 23:23] LABS: Add Manual Diff / Slide Review NO; Basophils Absolute Auto 100 /uL (0-100); Basophils Percent Auto 0.9 % (0-2); Eosinophils Absolute Auto 100 /uL (0-450); Eosinophils Percent Auto 1.4 % (2-4); Hematocrit 32.6 % (41-53); Hemoglobin 10.4 g/dL (13.5-17.5); Lymphocytes Absolute Auto 1700 /uL (1100-4500); Lymphocytes Percent Auto 30.3 % (25-40); Mean Corpuscular HGB Conc 31.9 % (30-36); Mean Corpuscular Hemoglobin 18.9 PG (26-34); Mean Corpuscular Volume 59.2 fL (80-100); Monocytes Absolute Auto 1100 /uL (0-900); Neutrophils Absolute Auto 2700 /uL (1500-7000); Neutrophils Percent Auto 48.4 % (50-75); Platelet Count 116 X10^3/uL (150-400); Red Blood Cell Count 5.51 X10^6/uL (4.5-5.9); Red Cell Distribution Width 16.9 % (11.6-14.8); White Blood Cell Count 5.6 X10^3/uL (4.5-11.0)
--- NOTE | 2024-05-27 23:23 | PC.NURSE ---
Pt sitting up in bed, moaning intermittently. Reports sharp stabbing pain with inspiration. VSS. Pt is in AFlutter.
[2024-05-27 23:24] LABS: INR 1.2 (0.9-1.3); Prothrombin Time 13.2 SECONDS (9.4-12.5)
[2024-05-27 23:30] VITALS: BP 144/92; PULSE 118; RESP 32; O2SAT 99
[2024-05-27 23:31] LABS: Alanine Aminotransferase 15 IU/L (<50); Albumin 4.4 g/dL (3.5-5.0); Albumin Globulin Ratio 1.8 (1.0-2.8); Alkaline Phosphatase 40 U/L (38-126); Aspartate Aminotransferase 34 IU/L (17-59); Bilirubin Total 1.4 mg/dL (0.2-1.3); Blood Urea Nitrogen 31 mg/dL (9-20); Calcium 9.4 mg/dL (8.4-10.2); Carbon Dioxide 22 mmol/L (22-32); Chloride 104 mmol/L (98-107); Estimated Glomerular Filt Rate > 60 mL/min (>60); Globulin 2.4 g/dL (1.7-4.1); Glucose 115 mg/dL (80-110); HEMOLYSIS < 15 (0-50); Potassium 4.1 mmol/L (3.4-5.1); Sodium 135 mmol/L (137-145); Total Protein 6.8 g/dL (6.3-8.2)
--- NOTE | 2024-05-27 23:39 | ED_ITS ---
HPI - SOB/Dyspnea General Chief Complaint: Shortness of Breath/Dyspnea Stated Complaint: SOB, had lung transplant Time Seen by Provider: 05/27/24 23:39 Source: patient and family Mode of arrival: Ambulatory History of Present Illness HPI Narrative: Patient is a 63-year-old male history of by lateral lung transplant secondary to lung cancer pulmonary fibrosis paroxysmal atrial fibrillation not on anticoagulation pancreatic mass presenting today with a variety of symptoms. He is reporting increasing shortness of breath it sounds as though it started around 2 or 3 this afternoon. He denies any fluttering or chest pain. He thinks his shortness of breath is due to left lower quadrant pain in his abdomen. He gets sharp shooting pain in the abdomen and then he feels like he can not breathe. He denies any significant swelling denies fever although he did develop a temperature here in the ED 100.5. And he is noted to be in atrial flutter with heart rate in the 140s. He has no sore throat nausea vomiting. Related Data Home Medications Medication Instructions Recorded Confirmed prednisone 5 mg tablet 5 mg PO QAM 01/21/22 04/12/24 mycophenolate mofetil 500 mg tablet 1,000 mg PO BID 02/06/23 04/12/24 sulfamethoxazole 400 1 tab PO BEDTIME 02/06/23 04/12/24 mg-trimethoprim 80 mg tablet tacrolimus 0.5 mg capsule, 0.5 mg PO BID 02/06/23 04/12/24 immediate-release tacrolimus 1 mg capsule, 2 mg PO BID 02/06/23 04/12/24 immediate-release azithromycin 250 mg tablet 250 mg PO DAILY 02/25/23 04/12/24 cefpodoxime 100 mg tablet 100 mg PO BID 06/09/23 04/12/24 Previous Rx's Medication Instructions Recorded zolpidem 10 mg tablet 15 mg (1.5 x 10 mg) PO BEDTIME PRN 09/08/23 Insomnia #30 tabs atorvastatin 20 mg tablet 20 mg PO DAILY #90 tabs 12/16/23 ketoconazole 2 % topical cream 1 applic topical DAILY #30 grams 04/12/24 diltiazem HCl 120 mg 120 mg PO QAM #30 caps 05/28/24 capsule,extended release 24 hr, controlled (DILT-XR) Allergies Allergy/AdvReac Type Severity Reaction Status Date / Time tramadol AdvReac Intermediate dysphoria Verified 05/27/24 22:55 Patient History Medical History (Updated 05/28/24 @ 02:15 by Sylvia Curtis DO) Laceration of ring finger History of substance abuse Microcytic anemia BPPV (benign paroxysmal positional vertigo) Wears glasses Hearing loss Anxiety Rubella Polio Mumps Measles Herpes Chicken pox Hepatitis C (~2019) Colon polyps Skin cancer Lung cancer History of nonmelanoma skin cancer Chronic low back pain Chronic anticoagulation Paroxysmal atrial fibrillation Pancreatic mass Umbilical hernia without mention of obstruction or gangrene Venous (peripheral) insufficiency Chronic insomnia History of colonic polyps Generalized anxiety disorder Primary osteoarthritis involving multiple joints Impaired fasting glucose Mixed hyperlipidemia Immunosuppression due to drug therapy History of lung cancer History of pulmonary fibrosis Ruptured appendix Surgical History Anesthesia History of knee surgery (~2009) History of rhinoplasty (~1981) History of colonoscopy History of transplantation, lung S/P appendectomy Family History Mother Head injury due to trauma Father Medical history unknown Brother Lung disease Sister Lung disease 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), 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: spouse Smoking Status: Former smoker Tobacco: How many years used: 30 alcohol intake: current Smoking Status: Former smoker tobacco type: cigarettes alcohol intake frequency: holidays/special occasions only Substance Use Type: does not use Exam Initial Vital Signs Initial Vital Signs: Vital Signs Temperature 98.6 F 05/27/24 22:55 Pulse Rate 116 H 05/27/24 22:55 Respiratory Rate 18 05/27/24 22:55 Blood Pressure 135/83 05/27/24 22:55 Pulse Oximetry 97 05/27/24 22:55 Oxygen Delivery Method Room Air 05/27/24 22:55 GENERAL: Alert chronically ill 63-year-old male HEENT: Head atraumatic,EOMI, pupils reactive, face symmetric, moist mucous membranes CARDIOVASCULAR: Irregularly irregular no murmurs RESPIRATORY: Breath sounds equal bilaterally, no wheezes rales or rhonchi. ABDOMEN: Soft, mild tenderness left lower quadrant no guarding or rebound normal bowel sounds he is noted have multiple scar EXTREMITIES: Normal range of motion, no clubbing or edema. Neurovascularly intact NEUROLOGICAL: Alert and oriented x4.Normal gait and speech. Cranial nerves II through XII grossly intact. SKIN: Warm, dry, no laceration, no petechiae, no rashes or lesions. Course Orders Ordered: ED Orders 05/27/24 22:59 XR chest 1V Stat EKG-12 Lead Stat Measure peak expiratory flow ONCE RT Consult Eval and Treat NOW 05/27/24 23:10 Complete Blood Count AUTO DIFF Stat Comprehensive Metabolic Panel Stat Lactate (Lactic Acid) Stat NT-proBNP (BNP-Adult 18+) Stat Prothrombin Time INR Stat Troponin I Stat 05/28/24 00:34 CT chest abd pel w con Stat Procalcitonin Stat 05/28/24 00:40 Respiratory Panel (Film Array) Stat 05/28/24 01:01 Blood Culture Stat 05/28/24 02:14 UA Complete [Urinalysis and Microscopic] Stat Discontinued Medications Aspirin (Aspirin Ec 81 Mg Tablet) 81 mg PO NOW ONE Stop: 05/28/24 02:09 Last Admin: 05/28/24 02:23 Dose: 81 mg Documented By: Diltiazem HCl (Diltiazem 25 Mg/5 Ml Sdv) 10 mg IV NOW ONE Stop: 05/27/24 23:40 Last Admin: 05/27/24 23:47 Dose: 10 mg Documented By: Diltiazem HCl (Diltiazem Cd 120 Mg Cap) 120 mg PO NOW ONE Stop: 05/28/24 02:09 Last Admin: 05/28/24 02:23 Dose: 120 mg Documented By: Furosemide (Furosemide 40 Mg/4 Ml Vial) 20 mg IV NOW ONE Stop: 05/28/24 00:13 Last Admin: 05/28/24 00:28 Dose: 20 mg Documented By: Acetaminophen (Ofirmev) 1,000 mg in 100 mls @ 400 mls/hr IV NOW ONE Stop: 05/28/24 00:50 Last Infusion: 05/28/24 01:17 Dose: Infused Documented By: Admin: 05/28/24 00:45 Dose: 400 mls/hr Documented By: Vital Signs Vital signs: Vital Signs - 8 hr 05/27/24 22:55 05/27/24 23:11 05/27/24 23:30 Temperature 98.6 F Pulse Rate 116 H 145 H Respiratory Rate 18 28 H Blood Pressure 135/83 144/92 H Pulse Oximetry 97 Oxygen Delivery Method Room Air 05/27/24 23:30 05/27/24 23:47 05/27/24 23:51 Temperature Pulse Rate 118 H 144 H Respiratory Rate 32 H Blood Pressure 147/92 H 120/67 Pulse Oximetry 99 Oxygen Delivery Method 05/27/24 23:51 05/28/24 00:00 05/28/24 00:00 Temperature Pulse Rate 101 H 112 H Respiratory Rate 32 H 30 H Blood Pressure 132/81 Pulse Oximetry 98 98 Oxygen Delivery Method 05/28/24 00:10 05/28/24 00:10 05/28/24 00:20 Temperature Pulse Rate 110 H Respiratory Rate 30 H Blood Pressure 143/75 H 134/75 Pulse Oximetry 98 Oxygen Delivery Method 05/28/24 00:20 05/28/24 00:30 05/28/24 00:30 Temperature 100.5 F H Pulse Rate 104 H 101 H Respiratory Rate 30 H 21 Blood Pressure 133/91 H Pulse Oximetry 99 99 Oxygen Delivery Method 05/28/24 00:40 05/28/24 00:40 05/28/24 00:50 Temperature Pulse Rate 103 H 111 H Respiratory Rate 31 H 35 H Blood Pressure 132/88 Pulse Oximetry 99 99 Oxygen Delivery Method 05/28/24 00:50 05/28/24 01:00 05/28/24 01:01 Temperature Pulse Rate 99 H Respiratory Rate 31 H Blood Pressure 138/80 132/81 Pulse Oximetry 99 Oxygen Delivery Method 05/28/24 01:01 05/28/24 01:26 05/28/24 01:26 Temperature Pulse Rate 93 H 116 H Respiratory Rate 29 H 29 H Blood Pressure 141/73 H Pulse Oximetry 100 99 Oxygen Delivery Method 05/28/24 01:30 05/28/24 01:30 05/28/24 01:40 Temperature Pulse Rate 108 H Respiratory Rate 30 H Blood Pressure 118/72 132/77 Pulse Oximetry 100 Oxygen Delivery Method 05/28/24 01:40 05/28/24 01:50 05/28/24 01:50 Temperature Pulse Rate 108 H 106 H Respiratory Rate 29 H 29 H Blood Pressure 118/69 Pulse Oximetry 100 100 Oxygen Delivery Method 05/28/24 02:00 05/28/24 02:00 05/28/24 02:10 Temperature Pulse Rate 105 H Respiratory Rate 30 H Blood Pressure 128/78 139/98 H Pulse Oximetry 100 Oxygen Delivery Method 05/28/24 02:10 05/28/24 02:20 05/28/24 02:20 Temperature Pulse Rate 109 H 108 H Respiratory Rate 30 H 31 H Blood Pressure 135/78 Pulse Oximetry 100 100 Oxygen Delivery Method MDM - SOB/Dyspnea Lab Data 05/27/24 23:10 05/27/24 23:10 Labs: Lab Results 05/27/24 05/28/24 Range/Units 23:10 00:40 WBC 5.6 (4.5-11.0) X10^3/uL RBC 5.51 (4.5-5.9) X10^6/uL Hgb 10.4 L (13.5-17.5) g/dL Hct 32.6 L (41-53) % MCV 59.2 L (80-100) fL MCH 18.9 L (26-34) PG MCHC 31.9 (30-36) % RDW 16.9 H (11.6-14.8) % Plt Count 116 L (150-400) X10^3/uL Neut % (Auto) 48.4 L (50-75) % Lymph % (Auto) 30.3 (25-40) % Dixon % (Auto) 19.0 H (3-14) % Eos % (Auto) 1.4 L (2-4) % Baso % (Auto) 0.9 (0-2) % Neut # (Auto) 2700 (9382-9132) /uL Lymph # (Auto) 1700 (1481-7551) /uL Dixon # (Auto) 1100 H (0-900) /uL Eos # (Auto) 100 (0-450) /uL Baso # (Auto) 100 (0-100) /uL Platelet Estimate Decreased on smear RBC Morphology See below Anisocytosis 1+ H Microcytosis 1+ H PT 13.2 H (9.4-12.5) SECONDS INR 1.2 (0.9-1.3) Sodium 135 L (137-145) mmol/L Potassium 4.1 (3.4-5.1) mmol/L Chloride 104 (98-107) mmol/L Carbon Dioxide 22 (22-32) mmol/L BUN 31 H (9-20) mg/dL Creatinine 1.15 (0.66-1.25) mg/dL Estimated GFR > 60 (>60) mL/min BUN/Creatinine Ratio 27.0 H (6-22) Glucose 115 H (80-110) mg/dL Lactate 1.0 (0.7-2.1) mmol/L Calcium 9.4 (8.4-10.2) mg/dL Total Bilirubin 1.4 H (0.2-1.3) mg/dL AST 34 (17-59) IU/L ALT 15 (<50) IU/L Alkaline Phosphatase 40 (38-126) U/L Troponin I < 0.012 (0.01-0.034) ng/mL NT-Pro-B Natriuret Pep 3150 H (<125) pg/mL Total Protein 6.8 (6.3-8.2) g/dL Albumin 4.4 (3.5-5.0) g/dL Globulin 2.4 (1.7-4.1) g/dL Albumin/Globulin Ratio 1.8 (1.0-2.8) Procalcitonin 0.068 (<0.5) ng/mL Chlamy pneumoniae PCR Not detected (Not Detect) Adenovirus (PCR) Not detected (Not Detect) B.parapertussis DNA PCR Not detected (Not Detecte) Coronavirus OC43 (PCR) Not detected (Not Detect) Coronavirus HKU1 (PCR) Not detected (Not Detect) Coronavirus 229E (PCR) Not detected (Not Detect) SARS-CoV-2 (PCR) Not detected (Not Detecte) Coronavirus NL63 (PCR) Not detected (Not Detect) Human Metapneumovir PCR Not detected (Not Detect) Influenza Type A (PCR) Not detected (Not Detect) Influenza Type B (PCR) Not detected (Not Detect) M. pneumoniae (PCR) Not detected (Not Detect) Parainfluenza 1 (PCR) Not detected (Not Detect) Parainfluenza 2 (PCR) Not detected (Not Detect) Parainfluenza 3 (PCR) Not detected (Not Detect) Parainfluenza 4 (PCR) Not detected (Not Detect) RSV (PCR) Not detected (Not Detect) Entero/Rhino (PCR) Not detected (Not Detect) Urine Dip Bedside Urine Glucose Negative Bedside Urine Bilirubin - Negative Bedside Urine Ketone - Negative Urine Specific [place] 1.01 Bedside Urine Occult Blood - Negative Bedside Urine pH 6.0 Bedside Urine Protein - Negative Bedside Urine Urobilinogen - Negative Bedside Urine Nitrite - Negative Bedside Urine Leukocytes - Negative Esterase Imaging Data Chest x-ray: Radiologist's Impression: PROCEDURE: XR CHEST 1V INDICATIONS: Shortness of breath TECHNIQUE: One view of the chest was acquired. COMPARISON: [facility], CR, XR CHEST 1V, 02/06/2023, 14:58. FINDINGS: Surgical changes and devices: Mediastinal clips and wires. Lungs and pleura: Mild bibasilar streaky opacities favored to represent atelectasis.. No pleural effusions or pneumothorax. Mediastinum: Mediastinal contours appear normal. Heart size is normal. Bones and chest wall: No suspicious bony lesions. Overlying soft tissues appear unremarkable. IMPRESSION: Mild bibasilar streaky opacities favored to represent atelectasis. No dense focal airspace consolidation. Approved by: Lesvia Alvarez M.D.,Ph.D. on 05/28/2024 at 0:00 CT scan - abdomen/pelvis: Radiologist's Impression: PROCEDURE: CT CHEST ABD PEL W CON INDICATIONS: short of breath, left lower quad pain TECHNIQUE: After the administration of intravenous contrast, 5 mm thick sections acquired from the lung apices to the symphysis. 5 mm coronal and sagittal reformats were performed, with additional 7 mm MIP reformats through the lungs. For radiation dose reduction, the following was used: automated exposure control, adjustment of mA and/or kV according to patient size. COMPARISON: [facility], CT, CT CHEST ABD PEL W CON, 02/06/2023, 15:46. FINDINGS: Image quality: Diagnostic. CHEST: Lower Neck: No enlarged lymph nodes. Thyroid: No thyroid nodules which require sonographic follow up, per consensus guidelines. Axillae: No enlarged lymph nodes. Chest Wall: Unremarkable. Lungs and Pleura: No pneumothorax. Small left pleural effusion with subjacent atelectasis. Heart: Heart size is normal. No pericardial effusion. Thoracic Vessels: The aorta and pulmonary arteries demonstrate normal size. Mediastinum and Umu: No enlarged lymph nodes. Esophagus: No wall thickening. No hiatal hernia. ABDOMEN: Liver: No solid mass. Gallbladder: Cholelithiasis without wall thickening or pericholecystic fluid. Biliary ducts: No biliary dilation. Pancreas: No ductal dilation. Spleen: Size is within normal limits. Adrenal Glands: No adrenal nodules. Kidneys and Ureters: 2 nonobstructing calculi in the left kidney measuring up to 9 millimeters in the superior pole (HU 623). No hydronephrosis. No solid mass. No complex renal cystic lesion which requires follow up. Stomach and Bowel: Normal colonic caliber, without significant wall thickening. Scattered colonic diverticulosis without acute inflammation. Peritoneum: No abnormal intraperitoneal fluid. No free air. Ventral Wall: Multiple (at least 3) fat containing periumbilical hernia. Abdominal Nodes: No retroperitoneal or mesenteric adenopathy by size criteria. Vessels: Aorta and inferior vena cava are normal in size. Aorto bi iliac atherosclerotic calcifications. PELVIS: Pelvic Organs: Unremarkable. Bladder: No bladder wall thickening, accounting for underdistention. Pelvic Nodes: No enlarged lymph nodes. Miscellaneous: No inguinal hernias are seen. Bones: No aggressive osseous abnormality. IMPRESSION: Small left pleural effusion with subjacent atelectasis. Cholelithiasis without CT evidence of acute cholecystitis. Non-obstructing left renal calculi. No hydroureteronephrosis. Approved by: Lesvia Alvarez M.D.,Ph.D. on 05/28/2024 at 1:53 ECG Data Attestation: I personally reviewed and interpreted this ECG as follows: Interpretation: Atrial flutter rate 118 no ischemia previous EKG in 2022 showed a sinus rhythm as to the other EKGs in 2018 MDM Narrative Medical decision making narrative: [facility] CC: Shortness of breath Complicating co-morbidities: Lung transplant, paroxysmal atrial fibrillation Medical records reviewed: Prior ED visits Differential considered: Atrial flutter with RVR congestive heart failure pneumonia pulmonary Exam documented above, pertinent findings include: Chronically ill 63 year no significant conversational dyspnea or tachypnea. He does have your regular heart rate. He does not appear significantly fluid overloaded he has no pitting edema. He has no right upper quadrant pain some mild left lower quadrant pain but not an acute abdomen and no peritoneal sign Lab Test results independently reviewed as above. Pertinent findings: WBC 5.6 hemoglobin 10.4 hematocrit 32.6 platelets 116, INR 1.2, sodium 135 potassium 4.1 chloride 104 carbon dioxide 22 BUN 31 creatinine 1.1 glucose 115, T bili 1.4 AST 34 ALT 15, BNP is 3150 previously 2080 troponin negative Independently reviewed EKG as above atrial flutter Imaging studies independently reviewed: Chest x-ray mild bibasilar streaky opacities most likely atelectasis CT chest abdomen pelvis small left pleural effusion, cholelithiasis without acute cholecystitis left renal calculi Consultations: [ ] Treatments: Lasix aspirin diltiazem Re-evaluations: Patient responded to 10 mg of diltiazem pretty quickly is heart rate slowed did remain controlled and till the end towards discharge when he did receive p.o. medication Discussion: Patient 63-year-old male presenting today with increasing shortness of breath. He is found to be in a flutter with RVR heart rate in the 140s. His heart rate did respond well to Cardizem and he no longer feels short of breath. He denies absolutely any chest pain or palpitations. Patient does have a history of paroxysmal atrial fibrillation he has not on anticoagulation. I do not think patient is a candidate for cardioversion. However he did respond to diltiazem. I discussed at length with him about anticoagulation risks and benefits. He is quite adamant that he does not want anticoagulation he understands risk of stroke. He is given aspirin he is agreeable to take aspirin and rate controlling medication. While patient is in the ED does develop a fever of 100.5. No source of infection is found. He does have cholelithiasis without evidence of cholecystitis she is very mild elevation of bilirubin 1.4 normal liver enzymes. He also has no right upper quadrant pain. Urinalysis is negative viral panel is negative. Not having cough. No evidence of pneumonia on CT. Blood cultures are pending At this time I do not think need for antibiotics though he is immunocompromised with his rejection medication he has not neutropenic. At this time patient is feeling much better he has urinated a number of times and would like to go. Discharge Plan Departure Patient Disposition: Home Clinical Impression: Atrial flutter, Fever Instructions: DI for Atrial Flutter Activity Restrictions/Additional Instructions: *You have been diagnosed with atrial flutter, fever *What to do: At this time I do not have cause of your fever. Please follow closely with your transplant team. At this time no need for antibiotics. Atrial flutter does put you at risk for stroke. It is recommended that you get on anticoagulation such as Eliquis. Please discuss this with your physicians. Until then please be sure to take aspirin daily *Continue to take medications as directed Aspirin 81 mg daily Diltiazem 120 mg daily *Follow up with your primary care provider in 2-3 days or call [phone] *Return to ER if you should have increasing shortness of breath ongoing fever abdominal pain palpitations dizziness passing out or any new, worsening or concerning symptoms Prescriptions: New diltiazem HCl [DILT-XR] 120 mg capsule,ext.rel 24h degradable 120 mg PO QAM Qty: 30 0RF No Action atorvastatin 20 mg tablet 20 mg PO DAILY Qty: 90 3RF Rx Instructions: takes at 5:30pm azithromycin 250 mg tablet 250 mg PO DAILY Rx Instructions: start on day 2 of therapy cefpodoxime 100 mg tablet 100 mg PO BID Patient Comments: TAKE 2 TABLETS BY MOUTH EVERY 12 HOURS WITH FOOD FOR 7 DAYS zolpidem 10 mg tablet 15 mg PO BEDTIME PRN (Reason: Insomnia) Qty: 30 5RF ketoconazole 2 % cream 1 applic topical DAILY Qty: 30 0RF prednisone 5 mg Tablet 5 mg PO QAM sulfamethoxazole-trimethoprim 400-80 mg tablet 1 tab PO BEDTIME mycophenolate mofetil 500 mg tablet 1,000 mg PO BID tacrolimus 1 mg capsule 2 mg PO BID tacrolimus 0.5 mg capsule 0.5 mg PO BID Referrals: Ely Bob DO [Primary Care Provider] - Stand Alone Forms: Patient Portal/API
[2024-05-27 23:43] LABS: NT-proBNP (BNP-Adult 18+) 3150 pg/mL (<125); Troponin I < 0.012 ng/mL (0.01-0.034)
[2024-05-27 23:46] LABS: Anisocytosis 1+; Microcytosis 1+; Platelet Estimate Decreased on smear
[2024-05-27 23:47] VITALS: BP 147/92; PULSE 144
[2024-05-27] MEDS: dilTIAZem 25 MG/5 ML SDV 10 MG IV (23:47)
[2024-05-27 23:51] VITALS: BP 120/67; PULSE 101; RESP 32; O2SAT 98
[2024-05-28] VITALS (15 sets, daily range): BP systolic 118–143; BP diastolic 69–98; PULSE 93–116; RESP 21–35; TEMP 38.1; O2SAT 98–100
[2024-05-28] MEDS: FUROSEMIDE 40 MG/4 ML VIAL 20 MG IV (00:28)
--- NOTE | 2024-05-28 00:34 | DI.CT.S_ITS ---
PROCEDURE: CT CHEST ABD PEL W CON INDICATIONS: short of breath, left lower quad pain TECHNIQUE: After the administration of intravenous contrast, 5 mm thick sections acquired from the lung apices to the symphysis. 5 mm coronal and sagittal reformats were performed, with additional 7 mm MIP reformats through the lungs. For radiation dose reduction, the following was used: automated exposure control, adjustment of mA and/or kV according to patient size. COMPARISON: [facility], CT, CT CHEST ABD PEL W CON, 02/06/2023, 15:46. FINDINGS: Image quality: Diagnostic. CHEST: Lower Neck: No enlarged lymph nodes. Thyroid: No thyroid nodules which require sonographic follow up, per consensus guidelines. Axillae: No enlarged lymph nodes. Chest Wall: Unremarkable. Lungs and Pleura: No pneumothorax. Small left pleural effusion with subjacent atelectasis. Heart: Heart size is normal. No pericardial effusion. Thoracic Vessels: The aorta and pulmonary arteries demonstrate normal size. Mediastinum and Umu: No enlarged lymph nodes. Esophagus: No wall thickening. No hiatal hernia. ABDOMEN: Liver: No solid mass. Gallbladder: Cholelithiasis without wall thickening or pericholecystic fluid. Biliary ducts: No biliary dilation. Pancreas: No ductal dilation. Spleen: Size is within normal limits. Adrenal Glands: No adrenal nodules. Kidneys and Ureters: 2 nonobstructing calculi in the left kidney measuring up to 9 millimeters in the superior pole (HU 623). No hydronephrosis. No solid mass. No complex renal cystic lesion which requires follow up. Stomach and Bowel: Normal colonic caliber, without significant wall thickening. Scattered colonic diverticulosis without acute inflammation. Peritoneum: No abnormal intraperitoneal fluid. No free air. Ventral Wall: Multiple (at least 3) fat containing periumbilical hernia. Abdominal Nodes: No retroperitoneal or mesenteric adenopathy by size criteria. Vessels: Aorta and inferior vena cava are normal in size. Aorto bi iliac atherosclerotic calcifications. PELVIS: Pelvic Organs: Unremarkable. Bladder: No bladder wall thickening, accounting for underdistention. Pelvic Nodes: No enlarged lymph nodes. Miscellaneous: No inguinal hernias are seen. Bones: No aggressive osseous abnormality. IMPRESSION: Small left pleural effusion with subjacent atelectasis. Cholelithiasis without CT evidence of acute cholecystitis. Non-obstructing left renal calculi. No hydroureteronephrosis. Approved by: Lesvia Alvarez M.D.,Ph.D. on 05/28/2024 at 1:53
[2024-05-28] MEDS: ACETAMINOPHEN IV 1,000 MG/100 ML VIAL 400 MG IV (00:45)
[2024-05-28 01:12] LABS: Procalcitonin 0.068 ng/mL (<0.5)
[2024-05-28 01:35] LABS: Adenovirus Not Detected (Not Detect); B. parapertussis Not Detected (Not Detecte); Bordetella pertussis Not Detected (Not Detect); Chlamydophila pneumoniae Not Detected (Not Detect); Coronavirus 229E Not Detected (Not Detect); Coronavirus HKU1 Not Detected (Not Detect); Coronavirus NL 63 Not Detected (Not Detect); Coronavirus OC43 Not Detected (Not Detect); Human Metapneumovirus Not Detected (Not Detect); Human Rhinovirus/Enterovirus Not Detected (Not Detect); Influenza A Not Detected (Not Detect); Influenza B Not Detected (Not Detect); Mycoplasma pneumoniae Not Detected (Not Detect); Parainfluenza Virus 1 Not Detected (Not Detect); Parainfluenza Virus 2 Not Detected (Not Detect); Parainfluenza Virus 3 Not Detected (Not Detect); Parainfluenza Virus 4 Not Detected (Not Detect); Respiratory Syncytial Virus Not Detected (Not Detect); SARS- CoV-2 Not Detected (Not Detecte)
[2024-05-28] MEDS: ASPIRIN EC 81 MG TABLET PO (02:23)
[2024-05-28] MEDS: dilTIAZem CD 120 MG CAP PO (02:23)
== END 2024-05-28 02:31 | disposition home or self-care (01) ==
PROVIDERS: Emergency Provider Emergency Medicine; PCP Family Medicine
DX: I48.92 Unspecified atrial flutter (principal); I48.0 Paroxysmal atrial fibrillation; Z79.01 Long term (current) use of anticoagulants; R10.32 Left lower quadrant pain; R50.9 Fever, unspecified; Z11.52 Encounter for screening for COVID-19; Z94.2 Lung transplant status; Z85.118 Personal history of other malignant neoplasm of bronchus and lung; Z87.09 Personal history of other diseases of the respiratory system
CPT/HCPCS: 36415; 71045; 71260; 74177; 80053; 81003; 83605; 83880; 84145; 84484; 85025; 85610; 87040; 87633; 93005; 96365; 96375; 99284; J0136; J1940; Q9967

== ENCOUNTER 2024-09-06 07:32 | Day surgery (SDC) | payer MEDICARE, SELFPAY ==
[2023-02-10 16:57] VITALS: BMI 28.7
--- NOTE | 2024-09-06 | PATH_ITS ---
[facility] Accession Number: [id number] No. of containers..02 Tissue . 01 Material submitted: . PART A: colon - ASCENDING COLON POLYP PART B: colon - TRANSVERSE COLON POLYP . 01 Diagnosis: Part A: ASCENDING COLON POLYP: Tubular adenoma. . Part B: TRANSVERSE COLON POLYP: Tubular adenoma. [facility] 09/08/2024 1539 Local . 01 Electronically signed: . Conner Noel MD, Pathologist NPI- [id number] . 01 Gross description: . A. Received in formalin with two patient identifiers and polyp ascending colon, are two pascal soft tissue fragments, 0.4 to 0.6 cm in greatest dimension, submitted in A1. . B. Received in formalin with two patient identifiers and polyp transverse colon, is a single pascal soft tissue fragment, 0.6 cm in greatest dimension, submitted in B1. ([id number]) /MRV 09/08/2024 1539 Local . 01 Pathologist provided ICD-10: D12.2, D12.3 . 01 CPT . 790452, 984250 Specimen Comment: A courtesy copy of this report has been sent to [facility] Pathology Performed at: [address] [address], [place], [place] [id number] MD Conner Noel MD Phone: [phone]
[2024-09-06 08:25] VITALS: BP 137/85; PULSE 113; RESP 16; TEMP 37.1; O2SAT 97
--- NOTE | 2024-09-06 09:02 | P.HP_ITS ---
History of Present Illness History of Present Illness Date Patient Seen: 09/06/24 Time Patient Seen: 09:02 Date of Onset of Symptoms: 09/06/24 Chief complaint: SDC Narrative: 64-year-old white male had a colonoscopy with 3 polyps performed in 2019, 1 of them per the report was 20 mm in size in the ascending colon. No symptoms. [facility] Medical History Laceration of ring finger History of substance abuse Microcytic anemia BPPV (benign paroxysmal positional vertigo) Wears glasses Hearing loss Anxiety Rubella Polio Mumps Measles Herpes Chicken pox Hepatitis C (~2019) Colon polyps Skin cancer Lung cancer History of nonmelanoma skin cancer Chronic low back pain Chronic anticoagulation Paroxysmal atrial fibrillation Pancreatic mass Umbilical hernia without mention of obstruction or gangrene Venous (peripheral) insufficiency Chronic insomnia History of colonic polyps Generalized anxiety disorder Primary osteoarthritis involving multiple joints Impaired fasting glucose Mixed hyperlipidemia Immunosuppression due to drug therapy History of lung cancer History of pulmonary fibrosis Ruptured appendix Surgical History Anesthesia History of knee surgery (~2009) History of rhinoplasty (~1981) History of colonoscopy History of transplantation, lung S/P appendectomy Family History Mother Head injury due to trauma Father Medical history unknown Brother Lung disease Sister Lung disease 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), 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: spouse Smoking Status: Former smoker Tobacco: How many years used: 30 alcohol intake: current Meds Home Medications and Allergies Home Medications Medication Instructions Recorded Confirmed Type prednisone 5 mg tablet 5 mg PO QAM 01/21/22 09/06/24 History mycophenolate mofetil 500 mg tablet 1,000 mg PO BID 02/06/23 09/06/24 History sulfamethoxazole 400 1 tab PO BEDTIME 02/06/23 09/06/24 History mg-trimethoprim 80 mg tablet tacrolimus 0.5 mg capsule, 0.5 mg PO BID 02/06/23 09/06/24 History immediate-release tacrolimus 1 mg capsule, 2 mg PO BID 02/06/23 09/06/24 History immediate-release azithromycin 250 mg tablet 250 mg PO DAILY 02/25/23 09/06/24 History atorvastatin 20 mg tablet 20 mg PO DAILY #90 tabs 12/16/23 09/06/24 Rx ketoconazole 2 % topical cream 1 applic topical DAILY #30 grams 04/12/24 08/09/24 Rx zolpidem 10 mg tablet 15 mg (1.5 x 10 mg) PO BEDTIME PRN 06/26/24 09/06/24 Rx Insomnia #30 tabs sodium,potassium,mag sulfates 17.5 See Rx Instructions PO .COMPLEX 08/10/24 Rx gram-3.13 gram-1.6 gram oral soln #354 mL (Suprep Bowel Prep Kit) Allergies Allergy/AdvReac Type Severity Reaction Status Date / Time tramadol AdvReac Intermediate dysphoria Verified 08/09/24 10:46 Review of Systems Review of Systems ROS: Yes All systems reviewed with the patient and are negative except as otherwise documented Exam Vital Signs (past 8 hours): - 09/06/24 08:25 Temperature 98.7 F Pulse Rate 113 H Respiratory Rate 16 Blood Pressure 137/85 Pulse Oximetry 97 Oxygen Delivery Method Room Air Oxygen Delivery Method Room Air Narrative Exam Narrative: Gen: NAD, sitting comfortably in bed, appears well HEENT: Sclera are anicteric, head is normocephalic and atraumatic, trachea is midline. CV: RRR, no JVD Resp: clear to auscultation bilaterally, equal chest wall movement bilaterally Abd: soft, nontender, normoactive bowel sounds Ext: no edema, full range of motion Neuro: Cranial nerves II-XII grossly intact, no focal deficits Skin: No erythema or ecchymosis Assessment & Plan Assessment and plan (1) History of colonic polyps: Status: Acute Assessment & Plan narrative: Patient presents for initial screening colonoscopy Risks, benefits, alternatives to colonoscopy explained, including but not limited to bowel perforation or other serious complication requiring surgery at less than 1 in 5000 colonoscopies, abdominal pain, cramping or bleeding and less than 1% of colonoscopies, and the chances that we find a diagnosis that would require further intervention of about 2%. Patient agrees to proceed. Time-Based Coding :: [TOTAL MINUTES] spent with patient and on the chart (including review of chart, obtaining history, exam, reviewing outside data, placing orders, documenting exam and treatment plan, and counseling patient) on [DATE].
--- NOTE | 2024-09-06 09:35 | PM.OP.COLON ---
Operative Date/Time/Diagnoses Date of procedure: 09/06/24 Time of procedure: 09:35 Pre-op diagnosis: Personal history of colon polyps Post-op diagnosis: same (Ascending colon polyp, transverse colon polyp) Procedure & Clinicians Study performed: Colonoscopy with cold snare polypectomy x2 Same procedure as scheduled: Yes Indications: Personal history of polyps Surgeon: Javier Chopra Procedure Notes SCOAP/Timeout: Performed Procedure in detail: Time-out was performed. Mac was induced. Patient was placed in left lateral decubitus position. The perineum was inspected without any gross abnormality. Lubricated pediatric colonoscope was inserted and advanced to the cecum. The terminal ileum was intubated. The colonoscope was withdrawn slowly inspecting the circumference of the colon. Cold snare polypectomy was performed in the ascending colon on a 12 mm polyp, and the transverse colon on an 8 mm polyp. Both were retrieved completely. Very small polyps may have been missed, prep quality was adequate. Retroflexed view of the rectum showed small, non prolapsed nonbleeding internal hemorrhoids. The scope was withdrawn the patient was taken to PACU in good condition. Scope withdrawal time: 8 Sedation minutes: 13 Findings: polyp(s) Specimen(s): other (1. Ascending colon polyp 2. Transverse colon polyp) Complications: none Impression: Benign-appearing adenomatous polyps Post-procedure Recommendations: Colonoscopy in 3 years Follow up: as needed Disposition: PACU
[2024-09-06 09:38] VITALS: BP 108/79; PULSE 107; RESP 20; TEMP 37; O2SAT 97
[2024-09-06 09:43] VITALS: BP 93/60; PULSE 91; RESP 20; O2SAT 98
[2024-09-06 09:50] VITALS: BP 91/67; PULSE 109; RESP 21; O2SAT 99
[2024-09-06 10:01] VITALS: BP 115/59; PULSE 110; RESP 18; O2SAT 120
== END 2024-09-06 10:07 | disposition home or self-care (01) ==
PROVIDERS: PCP Family Medicine; Referring Provider Surgery; Visit Provider Surgery
PROC: 0DJD8ZZ Inspection of Lower Intestinal Tract, Via Natural or Artificial Opening Endoscopic (ICD-10-PCS; CPT 45378; principal; 2024-09-06 09:00)
DX: Z12.11 Encounter for screening for malignant neoplasm of colon (principal); Z86.0100 Personal history of colon polyps, unspecified; D12.3 Benign neoplasm of transverse colon; D12.2 Benign neoplasm of ascending colon
CPT/HCPCS: 45385; J2704

== ENCOUNTER → 2024-10-04 07:56 | Outpatient (CLI) | payer MEDICARE, SELFPAY ==
[2023-02-10 16:57] VITALS: BMI 28.7
--- NOTE | 2024-10-04 07:58 | DI.ECHO.S_ITS ---
[place] [facility]---------+ [facility] : : [address] : : [place] : : [id number] : : Phone: [phone] Echocardiogram Report + + :Name: BALDOMERO PERRY Study Date: 10/04/2024 Height: 70 in : :Hospital ReadingLocation: Weight: 200 lb : : Gender: Male BSA: 2.1 m2 : :: 1960 Age: 64 yrs BP: 137/91 mmHg: :Reason For Study: MALIGNANT NEOPLASM OF LUNG/ HEART FAILURE : :Ordering Physician: MIGUEALNGEL, : :KUSUM Performed By: Jackie Marie : :Referring: KUSUM MEANS : + + Interpretation Summary Afib wtih controlled rate. Normal LV size and mild LVH; normal wall motion and LV systolic function. EF is 55-60%. Severe LA enlargement; otherwise normal chamber sizes. Aortic sclerosis with mild associated aortic regurgitation. Otherwise no significant valvular abnormalities. No prior echo available for comparison. Procedure: A two-dimensional transthoracic echocardiogram with color flow and Doppler was performed. The study quality was technically adequate. There is no prior echocardiogram noted for this patient. The patient was in atrial fibrillation with heart rates between 56-115 bpm during the exam. Left Ventricle: The left ventricle is normal in size. Left ventricular wall thickness is mildly increased. The ejection fraction is estimated to be 55- 60%. Diastolic function could not be accurately assessed due to atrial fibrillation. Right Ventricle: The right ventricle is mildly dilated. The right ventricular systolic function is normal. Atria: The left atrium is severely dilated. Right atrial size is normal. There is no Doppler evidence for an interatrial shunt. Mitral Valve: The mitral valve chordae are thickened and/or calcified. The mitral valve leaflets appear mildly thickened, but open well. There is mild mitral regurgitation. Aortic Valve: The aortic valve is trileaflet. The aortic valve is mildly calcified. There is mild aortic valve sclerosis. There is no aortic valve stenosis. The peak aortic velocity is 1.8 m/sec. The aortic valve mean gradient is 7 mmHg. The calculated aortic valve area is 2.2 cm2. There is mild to moderate aortic regurgitation. Tricuspid Valve: The tricuspid valve leaflets are thin and pliable. No tricuspid regurgitation. Pulmonary artery pressures cannot be estimated because of the lack of a measurable TR jet velocity. Pulmonic Valve: The pulmonic valve leaflets are thin and pliable; valve motion is normal. There is mild pulmonic regurgitation. Great Vessels: The aortic root is normal size. The dimensions of the ascending aorta are normal. The IVC is of normal diameter and collapses greater than 50% with a sniff. This suggests a low right atrial pressure of 3 mm Hg. Pericardium/ Pleura There is no pericardial effusion. There is no pleural effusion. MMode/2D Measurements & Calculations LVIDd: 4.9 cm LVOT diam: 2.3 cm LVIDs: 3.3 cm Ao root diam: 3.7 cm FS: 31.9 % asc Aorta Diam: 3.5 cm IVSd: 1.0 cm Ao Arch Diam (Prox Trans): 3.2 cm LVPWd: 1.1 cm LV anderson. diameter/BSA (cm/m^2): 2.3 LV sys. diameter/BSA (cm/m^2): 1.6 LA A2 area: 26.3 cm2 RA long axis: 5.8 cm LA A4 area: 30.6 cm2 RA area: 20.8 cm2 LA length (vol): 6.8 cm RA vol: 63.3 ml LA vol: 99.7 ml RA : 30.3 ml/m2 LA vol index: 47.8 ml/m2 IVC diam: 1.6 cm RVD1 (basal): 4.3 cm RVD2 (mid): 3.0 cm TAPSE: 1.9 cm Doppler Measurements & Calculations Ao V2 max: 181.7 cm/sec LVOT Max Willy: 93.4 cm/sec Ao V2 mean: 120.8 cm/sec LV V1 max P.5 mmHg Ao max P.0 mmHg LV V1 VTI: 15.2 cm Ao mean P.1 mmHg DIPIKA(I,D): 2.2 cm2 Ao V2 VTI: 28.8 cm DIPIKA(V,D): 2.2 cm2 sev ratio: 0.53 DIPIKA indexed to BSA (cm^2/m^2): 1.1 AI P1/2t: 593.2 msec AI dec slope: 228.2 cm/sec2 MV E max willy: 88.0 cm/sec PA V2 max: 72.5 cm/sec MV A max willy: 1.4 cm/sec PA V2 mean: 52.7 cm/sec MV E/A: 60.7 PA mean P.2 mmHg Med Peak E' Willy: 10.5 cm/sec PA pr(Accel): 39.6 mmHg E/E' med: 8.3 Lat Peak E' Willy: 17.1 cm/sec E/E' lat: 5.1 E/e' average: 6.7 MV dec time: 0.13 sec SV(LVOT): 63.7 ml Electronically signed by: Alka Lopez M.D. on Judy Physician:10/05/2024 03:22 AM
--- NOTE | 2024-10-04 08:07 | DI.CT.S_ITS ---
PROCEDURE: CT CHEST WO CON INDICATIONS: Malignant neoplasm of lung/heart failure TECHNIQUE: Noncontrast 5 mm thick sections acquired from the pulmonary apices to the posterior costophrenic angles. 1 mm lung window, 5 mm thick coronal and sagittal and 7 mm axial MIP reformats were then acquired. For radiation dose reduction, the following was used: automated exposure control, adjustment of mA and/or kV according to patient size. COMPARISON: [facility], CT, CT ABDOMEN PELVIS W CON, 01/21/2022, 1:24. [facility], CT, CT CHEST ABD PEL W CON, 05/28/2024, 0:44. [facility], CT, CT CHEST W CON, 08/30/2023, 8:58. FINDINGS: Image quality: Diagnostic. Lower Neck: No enlarged lymph nodes. Thyroid: No thyroid nodules which require sonographic follow up, per consensus guidelines. Axillae: No enlarged lymph nodes. Chest Wall: Unremarkable. Bones: Lower sternum wire. No suspicious osseous lesion. Lungs and Pleura: Minuscule pleural fluid. Mild calcified pleural plaque at the right lung base, unchanged. No pneumothorax. No consolidation. No mass or significant pulmonary nodules. No bronchiectasis. Central airways are clear. Prior lung transplants. Heart: Heart size is normal. No pericardial effusion. Thoracic Vessels: Ascending aorta measures 3.8 cm, (34), unchanged. Mediastinum and Umu: No enlarged lymph nodes. Esophagus: No wall thickening. No hiatal hernia. Upper Abdomen: Gallstones. No free fluid. IMPRESSION: 1. Minuscule pleural fluid. No acute airspace opacity. 2. Mild calcified pleural plaque at the right lower thorax, unchanged. 3. No mass or adenopathy. Dictated by: Leonid Goncalves M.D. on 10/04/2024 at 8:32 Approved by: Leonid Goncalves M.D. on 10/04/2024 at 9:10
== END ==
PROVIDERS: PCP Family Medicine; Referring Provider Family Medicine; Visit Provider Family Medicine
DX: I08.0 Rheumatic disorders of both mitral and aortic valves (principal); C34.90 Malignant neoplasm of unspecified part of unspecified bronchus or lung; I48.91 Unspecified atrial fibrillation; I25.10 Atherosclerotic heart disease of native coronary artery without angina pectoris; E78.2 Mixed hyperlipidemia; I50.9 Heart failure, unspecified; Z94.2 Lung transplant status; Z79.01 Long term (current) use of anticoagulants
CPT/HCPCS: 71250; 93306

== ENCOUNTER → 2024-11-09 08:51 | Outpatient (CLI) | payer MEDICARE, SELFPAY ==
[2023-02-10 16:57] VITALS: BMI 28.7
== END ==
PROVIDERS: PCP Family Medicine; Visit Provider Urology
DX: R35.1 Nocturia (principal); N40.1 Benign prostatic hyperplasia with lower urinary tract symptoms
CPT/HCPCS: 51798; 81002; 87086; 99214

== ENCOUNTER 2024-12-28 12:33 | Emergency (ER) | payer MEDICARE, SELFPAY ==
[2024-11-29 10:59] VITALS: BMI 28.7
[2024-12-28 12:37] VITALS: BP 145/83; PULSE 107; RESP 14; TEMP 37; O2SAT 99; BMI 27.9
--- NOTE | 2024-12-28 12:50 | EKG_ITS ---
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
[2024-12-28 13:34] LABS: Add Manual Diff / Slide Review NO; Basophils Absolute Auto 0 /uL (0-100); Basophils Percent Auto 0.7 % (0-2); Eosinophils Absolute Auto 100 /uL (0-450); Eosinophils Percent Auto 2.8 % (2-4); Hematocrit 28.6 % (41-53); Lymphocytes Absolute Auto 1000 /uL (1100-4500); Lymphocytes Percent Auto 24.3 % (25-40); Mean Corpuscular HGB Conc 31.5 % (30-36); Mean Corpuscular Volume 60.3 fL (80-100); Monocytes Absolute Auto 700 /uL (0-900); Monocytes Percent Auto 16.9 % (3-14); Neutrophils Absolute Auto 2200 /uL (1500-7000); Neutrophils Percent Auto 55.3 % (50-75); Platelet Count 134 X10^3/uL (150-400); Red Blood Cell Count 4.74 X10^6/uL (4.5-5.9); Red Cell Distribution Width 17.2 % (11.6-14.8); White Blood Cell Count 3.9 X10^3/uL (4.5-11.0)
[2024-12-28 13:46] LABS: Alanine Aminotransferase 19 IU/L (<50); Albumin 4.3 g/dL (3.5-5.0); Alkaline Phosphatase 35 U/L (38-126); Aspartate Aminotransferase 33 IU/L (17-59); BUN Creatinine Ratio 26.3 (6-22); Bilirubin Total 1.5 mg/dL (0.2-1.3); Blood Urea Nitrogen 42 mg/dL (9-20); Calcium 9.1 mg/dL (8.4-10.2); Carbon Dioxide 24 mmol/L (22-32); Chloride 105 mmol/L (98-107); Estimated Glomerular Filt Rate 48 mL/min (>60); Globulin 2.1 g/dL (1.7-4.1); Glucose 104 mg/dL (80-110); HEMOLYSIS < 15 (0-50); Hypochromasia 1+; Lipase 232 U/L (23-300); Potassium 3.9 mmol/L (3.4-5.1); Sodium 138 mmol/L (137-145); Total Protein 6.4 g/dL (6.3-8.2)
[2024-12-28 13:47] LABS: Anisocytosis 2+; Microcytosis 1+; Tear Drop Cells 1+
[2024-12-28 13:48] LABS: Schistocytes 1+
--- NOTE | 2024-12-28 14:50 | DI.CT.S_ITS ---
PROCEDURE: CT ABDOMEN PELVIS WO CON INDICATIONS: abd pain TECHNIQUE: Axial sections were acquired from the lung bases to the pubic symphysis. Coronal and sagittal reformats were performed. For radiation dose reduction, the following was used: automated exposure control, adjustment of mA and/or kV according to patient size. COMPARISON: [facility], CT, CT CHEST ABD PEL W CON, 05/28/2024, 0:44. FINDINGS: Image quality: Diagnostic. Lower Chest: Sternotomy wires. Cardiomegaly. Calcified pleural plaques of the right lung base. Trace pleural effusions. URINARY: Kidneys and ureters: 9 mm calculus at the interpolar region of the left kidney (990 Hounsfield units) 9 mm calculus at the inferior pole of the left kidney (1200 Hounsfield units). 4 mm calculus at the interpolar region of the left kidney. No right renal calculus. No ureteral calculus or hydronephrosis. Bladder: Normal wall thickness. No stones. ABDOMEN: Liver: No contour-deforming solid mass. Gallbladder: Moderately sized calcified gallstones. Trace pericholecystic fluid. Gallbladder is nondilated. Biliary ducts: No biliary dilation. Pancreas: No ductal dilation. Spleen: Size is within normal limits. Adrenal Glands: No adrenal nodules. Stomach and Bowel: Few scattered diverticula are seen in the colon without focal inflammatory changes. Status post appendectomy. Surgical anastomosis is seen in the right lower quadrant. Small bowel loops are nondilated. Peritoneum: No abnormal intraperitoneal fluid. No free air. Ventral Wall: Small to moderate fat containing periumbilical hernia and distal fat containing supraumbilical hernias.. Abdominal Nodes: No enlarged retroperitoneal or mesenteric lymph nodes. Vessels: Aorta and inferior vena cava are normal in size. Moderate to severe aortic atherosclerotic calcifications. PELVIS: Pelvic Organs: Unremarkable. Pelvic Nodes: Unremarkable. Miscellaneous: Small fat containing left inguinal hernia.. Bones: Unremarkable. IMPRESSION: 1. Multiple nonobstructing left renal calculi. No hydronephrosis or ureteral calculus. 2. Cholelithiasis with mild pericholecystic fat stranding. Recommend correlation to exclude acute cholecystitis. Gallbladder ultrasound could be performed for further evaluation if indicated clinically. Approved by: Jhoan Dotson M.D. on 12/28/2024 at 15:26
--- NOTE | 2024-12-28 16:19 | ED.ABDPAIN ---
HPI - Abdominal Pain General Chief Complaint: Abdominal Pain Stated Complaint: r/o ruptured hernia Time Seen by Provider: 12/28/24 14:50 Mode of arrival: Ambulatory Related Data Home Medications Medication Instructions Recorded Confirmed prednisone 5 mg tablet 5 mg PO QAM 01/21/22 12/22/24 mycophenolate mofetil 500 mg tablet 1,000 mg PO BID 02/06/23 12/22/24 tacrolimus 0.5 mg capsule, 0.5 mg PO BID 02/06/23 12/22/24 immediate-release tacrolimus 1 mg capsule, 2 mg PO BID 02/06/23 12/22/24 immediate-release azithromycin 250 mg tablet 250 mg PO DAILY 02/25/23 12/22/24 Previous Rx's Medication Instructions Recorded atorvastatin 20 mg tablet 20 mg PO DAILY #90 tabs 12/16/23 lorazepam 0.5 mg tablet 0.5 mg PO ONCE PRN claustrophobia 09/27/24 #1 tab tamsulosin 0.4 mg capsule 0.8 mg (2 x 0.4 mg) PO DAILY #180 11/09/24 caps metoprolol tartrate 25 mg tablet 25 mg PO BID #60 tabs 12/05/24 zolpidem 10 mg tablet 15 mg (1.5 x 10 mg) PO BEDTIME PRN 12/27/24 Insomnia #30 tabs Allergies Allergy/AdvReac Type Severity Reaction Status Date / Time sildenafil AdvReac Severe Palpitation Verified 12/22/24 06:51 s tramadol AdvReac Intermediate dysphoria Verified 12/22/24 06:51 Patient History Medical History Laceration of ring finger History of substance abuse Microcytic anemia BPPV (benign paroxysmal positional vertigo) Wears glasses Hearing loss Anxiety Rubella Polio Mumps Measles Herpes Chicken pox Hepatitis C (~2019) Colon polyps Skin cancer Lung cancer History of nonmelanoma skin cancer Chronic low back pain Chronic anticoagulation Paroxysmal atrial fibrillation Pancreatic mass Umbilical hernia without mention of obstruction or gangrene Venous (peripheral) insufficiency Chronic insomnia History of colonic polyps Generalized anxiety disorder Primary osteoarthritis involving multiple joints Impaired fasting glucose Mixed hyperlipidemia Immunosuppression due to drug therapy History of lung cancer History of pulmonary fibrosis Ruptured appendix Surgical History Anesthesia History of knee surgery (~2009) History of rhinoplasty (~1981) History of colonoscopy History of transplantation, lung S/P appendectomy Family History Mother Head injury due to trauma Father Medical history unknown Brother Lung disease Sister Lung disease 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 HEAD: Atraumatic. Normocephalic. EYES: Pupils equal round and reactive. Extraocular motions intact. No scleral icterus. No injection or drainage. ENT: Nose without bleeding, purulent drainage. Throat without erythema, tonsillar hypertrophy or exudate. Airway patent. NECK: Trachea midline. Non tender CARDIOVASCULAR: Regular rate and rhythm without murmurs, gallops, or rubs. RESPIRATORY: Clear to auscultation. Breath sounds equal bilaterally. No wheezes, rales, or rhonchi. GASTROINTESTINAL: Abdomen soft, non-tender, nondistended. EXTREMITIES: No edema or joint tenderness. BACK: Nontender without deformity or crepitance. No flank tenderness. NEURO: AOx3. Motor functions grossly nonfocal SKIN: No rash or erythema of visible areas Initial Vital Signs Initial Vital Signs: Vital Signs Temperature 98.6 F 12/28/24 12:37 Pulse Rate 107 H 12/28/24 12:37 Respiratory Rate 14 12/28/24 12:37 Blood Pressure 145/83 H 12/28/24 12:37 Pulse Oximetry 99 12/28/24 12:37 Oxygen Delivery Method Room Air 12/28/24 12:37 Course Orders Ordered: ED Orders 12/28/24 12:40 EKG-12 Lead Stat 12/28/24 13:15 Complete Blood Count AUTO DIFF Stat Comprehensive Metabolic Panel Stat Lipase Stat 12/28/24 14:50 CT abdomen pelvis wo con Stat Ondansetron HCl (Ondansetron 4 Mg/2 Ml Inj) 4 mg IV NOW PRN PRN Reason: Nausea And Vomiting Ondansetron HCl (Ondansetron 4 Mg Odt) 4 mg PO NOW PRN PRN Reason: Nausea And Vomiting Vital Signs Vital signs: Vital Signs - 8 hr 12/28/24 12:37 Temperature 98.6 F Pulse Rate 107 H Respiratory Rate 14 Blood Pressure 145/83 H Pulse Oximetry 99 Oxygen Delivery Method Room Air MDM - Abdominal Pain Lab Data Attestation: I reviewed the patient's lab results. Lab results narrative: White blood cell count 3900, hemoglobin 9.0, platelets 134,000. BUN 42 with creatinine 1.6. Glucose 104. Remainder of basic metabolic panel unremarkable. T bili 1.5, transaminases normal, alkaline phosphatase slight elevation. Lipase 232 normal. 12/28/24 13:15 12/28/24 13:15 Labs: Lab Results 12/28/24 Range/Units 13:15 WBC 3.9 L (4.5-11.0) X10^3/uL RBC 4.74 (4.5-5.9) X10^6/uL Hgb 9.0 L (13.5-17.5) g/dL Hct 28.6 L (41-53) % MCV 60.3 L (80-100) fL MCH 19.0 L (26-34) PG MCHC 31.5 (30-36) % RDW 17.2 H (11.6-14.8) % Plt Count 134 L (150-400) X10^3/uL Neut % (Auto) 55.3 (50-75) % Lymph % (Auto) 24.3 L (25-40) % [place] % (Auto) 16.9 H (3-14) % Eos % (Auto) 2.8 (2-4) % Baso % (Auto) 0.7 (0-2) % Neut # (Auto) 2200 (1552-5398) /uL Lymph # (Auto) 1000 L (8421-1898) /uL [place] # (Auto) 700 (0-900) /uL Eos # (Auto) 100 (0-450) /uL Baso # (Auto) 0 (0-100) /uL RBC Morphology Not Reportable Hypochromasia 1+ H Anisocytosis 2+ H Microcytosis 1+ H Tear Drop Cells 1+ H Schistocytes 1+ H Sodium 138 (137-145) mmol/L Potassium 3.9 (3.4-5.1) mmol/L Chloride 105 (98-107) mmol/L Carbon Dioxide 24 (22-32) mmol/L BUN 42 H (9-20) mg/dL Creatinine 1.60 H (0.66-1.25) mg/dL Estimated GFR 48 L (>60) mL/min BUN/Creatinine Ratio 26.3 H (6-22) Glucose 104 (80-110) mg/dL Calcium 9.1 (8.4-10.2) mg/dL Total Bilirubin 1.5 H (0.2-1.3) mg/dL AST 33 (17-59) IU/L ALT 19 (<50) IU/L Alkaline Phosphatase 35 L (38-126) U/L Total Protein 6.4 (6.3-8.2) g/dL Albumin 4.3 (3.5-5.0) g/dL Globulin 2.1 (1.7-4.1) g/dL Albumin/Globulin Ratio 2.0 (1.0-2.8) Lipase 232 (23-300) U/L Point of care testing: Urine Dip Bedside Urine Glucose Negative Bedside Urine Bilirubin - Negative Bedside Urine Ketone - Negative Urine Specific [place] 1.020 Bedside Urine Occult Blood - Negative Bedside Urine pH 6.0 Bedside Urine Protein - Negative Bedside Urine Urobilinogen - Negative Bedside Urine Nitrite - Negative Bedside Urine Leukocytes - Negative Esterase Discharge Plan Departure Prescriptions: No Action atorvastatin 20 mg tablet 20 mg PO DAILY Qty: 90 3RF Rx Instructions: takes at 5:30pm lorazepam 0.5 mg tablet 0.5 mg PO ONCE PRN (Reason: claustrophobia) Qty: 1 0RF zolpidem 10 mg tablet 15 mg PO BEDTIME PRN (Reason: Insomnia) Qty: 30 5RF azithromycin 250 mg tablet 250 mg PO DAILY Rx Instructions: start on day 2 of therapy metoprolol tartrate 25 mg tablet 25 mg PO BID Qty: 60 3RF prednisone 5 mg Tablet 5 mg PO QAM mycophenolate mofetil 500 mg tablet 1,000 mg PO BID tacrolimus 1 mg capsule 2 mg PO BID tacrolimus 0.5 mg capsule 0.5 mg PO BID tamsulosin 0.4 mg capsule 0.8 mg PO DAILY Qty: 180 3RF Referrals: Ely Bob DO [Primary Care Provider] -
[2024-12-28] MEDS: SODIUM CHLORIDE 0.9% 1,000 ML 1000 ML IV (16:27)
--- NOTE | 2024-12-28 17:10 | PC.NURSE ---
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 needs to go.... this is crap... I need to get out of here... I've been here for hours and no one has seen me! Tried to reassure the patient that we are a busy ED and we are trying to see patients as quickly as feasible. Multiple times patient came out saying he needs to go. I tried to tell patient to please be patient ... I need to get out of here 10 minutes ago! Get this thing out of me! pointing to the IV in his arm. Patient said he needed a note to say he could go back to work. I said let me get a nurse to help. Patient walked out saying I'm just going to blast this place from here to [facility] online. I tried to ask patient about where he worked and get him reasons to stay. Patient kept reiterating it's crap, when talking about work and life. Patient then said he was going to take out his IV. That's when I got KMI Carrion to help.
--- NOTE | 2024-12-28 18:39 | ED_ITS ---
HPI - Abdominal Pain General Chief Complaint: Abdominal Pain Stated Complaint: r/o ruptured hernia Time Seen by Provider: 12/28/24 14:50 Mode of arrival: Ambulatory History of Present Illness HPI narrative: Patient was triaged and placed in room during multiple other emergencies in the department, including a code, labs were sent, CT abdomen and pelvis was obtained, patient apparently eloped before being seen by any provider. CT report looks like it is suspicious for possible acute cholecystitis changes. Copy of the CT report provided to the ED charge nurse to try to contact the patient to be seen for further evaluation. Related Data Home Medications Medication Instructions Recorded Confirmed prednisone 5 mg tablet 5 mg PO QAM 01/21/22 12/22/24 mycophenolate mofetil 500 mg tablet 1,000 mg PO BID 02/06/23 12/22/24 tacrolimus 0.5 mg capsule, 0.5 mg PO BID 02/06/23 12/22/24 immediate-release tacrolimus 1 mg capsule, 2 mg PO BID 02/06/23 12/22/24 immediate-release azithromycin 250 mg tablet 250 mg PO DAILY 02/25/23 12/22/24 Previous Rx's Medication Instructions Recorded atorvastatin 20 mg tablet 20 mg PO DAILY #90 tabs 12/16/23 lorazepam 0.5 mg tablet 0.5 mg PO ONCE PRN claustrophobia 09/27/24 #1 tab tamsulosin 0.4 mg capsule 0.8 mg (2 x 0.4 mg) PO DAILY #180 11/09/24 caps metoprolol tartrate 25 mg tablet 25 mg PO BID #60 tabs 12/05/24 zolpidem 10 mg tablet 15 mg (1.5 x 10 mg) PO BEDTIME PRN 12/27/24 Insomnia #30 tabs Allergies Allergy/AdvReac Type Severity Reaction Status Date / Time sildenafil AdvReac Severe Palpitation Verified 12/22/24 06:51 s tramadol AdvReac Intermediate dysphoria Verified 12/22/24 06:51 Patient History Medical History Laceration of ring finger History of substance abuse Microcytic anemia BPPV (benign paroxysmal positional vertigo) Wears glasses Hearing loss Anxiety Rubella Polio Mumps Measles Herpes Chicken pox Hepatitis C (~2019) Colon polyps Skin cancer Lung cancer History of nonmelanoma skin cancer Chronic low back pain Chronic anticoagulation Paroxysmal atrial fibrillation Pancreatic mass Umbilical hernia without mention of obstruction or gangrene Venous (peripheral) insufficiency Chronic insomnia History of colonic polyps Generalized anxiety disorder Primary osteoarthritis involving multiple joints Impaired fasting glucose Mixed hyperlipidemia Immunosuppression due to drug therapy History of lung cancer History of pulmonary fibrosis Ruptured appendix Surgical History Anesthesia History of knee surgery (~2009) History of rhinoplasty (~1981) History of colonoscopy History of transplantation, lung S/P appendectomy Family History Mother Head injury due to trauma Father Medical history unknown Brother Lung disease Sister Lung disease 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), 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 household members: spouse Tobacco: How many years used: 30 alcohol intake: former Type(s) of exercise: none Smoking Status: Unknown if ever smoked tobacco type: cigarettes alcohol intake frequency: holidays/special occasions only Exam Initial Vital Signs Initial Vital Signs: Vital Signs Temperature 98.6 F 12/28/24 12:37 Pulse Rate 107 H 12/28/24 12:37 Respiratory Rate 14 12/28/24 12:37 Blood Pressure 145/83 H 12/28/24 12:37 Pulse Oximetry 99 12/28/24 12:37 Oxygen Delivery Method Room Air 12/28/24 12:37 Course Orders Ordered: ED Orders 12/28/24 12:40 EKG-12 Lead Stat 12/28/24 13:15 Complete Blood Count AUTO DIFF Stat Comprehensive Metabolic Panel Stat Lipase Stat 12/28/24 14:50 CT abdomen pelvis wo con Stat Discontinued Medications Sodium Chloride (Normal Saline 0.9%) 1,000 mls @ 1,000 mls/hr IV BOLUS ONE Stop: 12/28/24 17:21 Last Infusion: 12/28/24 16:27 Dose: 1,000 mls/hr Documented By: Admin: 12/28/24 16:27 Dose: 1,000 mls/hr Documented By: KENNY Ondansetron HCl (Ondansetron 4 Mg/2 Ml Inj) 4 mg IV NOW PRN PRN Reason: Nausea And Vomiting Ondansetron HCl (Ondansetron 4 Mg Odt) 4 mg PO NOW PRN PRN Reason: Nausea And Vomiting Vital Signs Vital signs: Vital Signs - 8 hr 12/28/24 12:37 Temperature 98.6 F Pulse Rate 107 H Respiratory Rate 14 Blood Pressure 145/83 H Pulse Oximetry 99 Oxygen Delivery Method Room Air MDM - Abdominal Pain Lab Data 12/28/24 13:15 12/28/24 13:15 Labs: Lab Results 12/28/24 Range/Units 13:15 WBC 3.9 L (4.5-11.0) X10^3/uL RBC 4.74 (4.5-5.9) X10^6/uL Hgb 9.0 L (13.5-17.5) g/dL Hct 28.6 L (41-53) % MCV 60.3 L (80-100) fL MCH 19.0 L (26-34) PG MCHC 31.5 (30-36) % RDW 17.2 H (11.6-14.8) % Plt Count 134 L (150-400) X10^3/uL Neut % (Auto) 55.3 (50-75) % Lymph % (Auto) 24.3 L (25-40) % [place] % (Auto) 16.9 H (3-14) % Eos % (Auto) 2.8 (2-4) % Baso % (Auto) 0.7 (0-2) % Neut # (Auto) 2200 (1310-8542) /uL Lymph # (Auto) 1000 L (4331-2271) /uL [place] # (Auto) 700 (0-900) /uL Eos # (Auto) 100 (0-450) /uL Baso # (Auto) 0 (0-100) /uL RBC Morphology Not Reportable Hypochromasia 1+ H Anisocytosis 2+ H Microcytosis 1+ H Tear Drop Cells 1+ H Schistocytes 1+ H Sodium 138 (137-145) mmol/L Potassium 3.9 (3.4-5.1) mmol/L Chloride 105 (98-107) mmol/L Carbon Dioxide 24 (22-32) mmol/L BUN 42 H (9-20) mg/dL Creatinine 1.60 H (0.66-1.25) mg/dL Estimated GFR 48 L (>60) mL/min BUN/Creatinine Ratio 26.3 H (6-22) Glucose 104 (80-110) mg/dL Calcium 9.1 (8.4-10.2) mg/dL Total Bilirubin 1.5 H (0.2-1.3) mg/dL AST 33 (17-59) IU/L ALT 19 (<50) IU/L Alkaline Phosphatase 35 L (38-126) U/L Total Protein 6.4 (6.3-8.2) g/dL Albumin 4.3 (3.5-5.0) g/dL Globulin 2.1 (1.7-4.1) g/dL Albumin/Globulin Ratio 2.0 (1.0-2.8) Lipase 232 (23-300) U/L Point of care testing: Urine Dip Bedside Urine Glucose Negative Bedside Urine Bilirubin - Negative Bedside Urine Ketone - Negative Urine Specific Robbins 1.020 Bedside Urine Occult Blood - Negative Bedside Urine pH 6.0 Bedside Urine Protein - Negative Bedside Urine Urobilinogen - Negative Bedside Urine Nitrite - Negative Bedside Urine Leukocytes - Negative Esterase Discharge Plan Departure Patient Disposition: Left Without Being Seen Clinical Impression: Patient left before evaluation by physician Prescriptions: No Action atorvastatin 20 mg tablet 20 mg PO DAILY Qty: 90 3RF Rx Instructions: takes at 5:30pm lorazepam 0.5 mg tablet 0.5 mg PO ONCE PRN (Reason: claustrophobia) Qty: 1 0RF zolpidem 10 mg tablet 15 mg PO BEDTIME PRN (Reason: Insomnia) Qty: 30 5RF azithromycin 250 mg tablet 250 mg PO DAILY Rx Instructions: start on day 2 of therapy metoprolol tartrate 25 mg tablet 25 mg PO BID Qty: 60 3RF prednisone 5 mg Tablet 5 mg PO QAM mycophenolate mofetil 500 mg tablet 1,000 mg PO BID tacrolimus 1 mg capsule 2 mg PO BID tacrolimus 0.5 mg capsule 0.5 mg PO BID tamsulosin 0.4 mg capsule 0.8 mg PO DAILY Qty: 180 3RF
--- NOTE | 2024-12-28 18:58 | PC.NURSE ---
Dr. Klein asked me to call patient and ask him to come back reagrding his acute cholecystitis results. He suggested that patient come back in to be evaluated. Pt states he will return to the ER after he finishes his meal. Dr. Klein aware. He is going to notify dr. Santana.
== END 2024-12-28 17:11 | disposition left against medical advice (07) ==
PROVIDERS: Emergency Provider Emergency Medicine; PCP Family Medicine
CPT/HCPCS: 36415; 74176; 80053; 81003; 83690; 85025; 93005

== ENCOUNTER 2024-12-28 19:18 | Observation (INO) | payer MEDICARE, SELFPAY ==
[2024-11-29 10:59] VITALS: BMI 28.7
--- NOTE | 2024-12-28 19:45 | DI.US.S_ITS ---
PROCEDURE: US ABDOMEN LIMITED INDICATIONS: Right upper quadrant, CT showing possible cholecystitis TECHNIQUE: Real-time scanning was performed of the abdominal and retroperitoneal organs, with image documentation. COMPARISON: None. FINDINGS: Liver: Liver is normal in size and homogeneous in echotexture. Gallbladder: Multiple nonmobile stones are noted in dependent portion of gallbladder lumen with through acoustic shadowing. There is suggestion of gallbladder wall thickening. No definite pericholecystic fluid. No definite sonographic James sign. Biliary ducts: Intrahepatic bile ducts are non-dilated. Extrahepatic bile duct is not well seen due to overlying bowel gas and shadowing through the gallbladder. Pancreas: Visualized portions of the pancreas are sonographically normal. Miscellaneous: No free abdominal fluid. IMPRESSION: 1. Cholelithiasis with gallbladder wall thickening. Finding is concerning for developing acute cholecystitis. 2. No gross intrahepatic biliary ductal dilatation. Common bile duct is not well seen due to shadowing from overlying gallstones. Dictated by: Rohit Vasquez M.D. on 12/28/2024 at 21:41 Approved by: Rohit Vasquez M.D. on 12/28/2024 at 21:42
[2024-12-28 19:50] VITALS: BP 148/79; PULSE 112; RESP 16; TEMP 37.4; O2SAT 99; BMI 27.9
[2024-12-28 23:28] VITALS: PULSE 90; RESP 18; O2SAT 98
[2024-12-28 23:29] VITALS: BP 146/87; PULSE 95; O2SAT 97
[2024-12-28 23:30] VITALS: BP 138/91; PULSE 96; RESP 16; O2SAT 98
[2024-12-28 23:42] LABS: Hematocrit 30.4 % (41-53); Hemoglobin 9.6 g/dL (13.5-17.5); Mean Corpuscular HGB Conc 31.6 % (30-36); Mean Corpuscular Hemoglobin 18.8 PG (26-34); Mean Corpuscular Volume 59.6 fL (80-100); Platelet Count 149 X10^3/uL (150-400); Red Cell Distribution Width 17.2 % (11.6-14.8); White Blood Cell Count 3.4 X10^3/uL (4.5-11.0)
[2024-12-28 23:47] LABS: Alanine Aminotransferase 20 IU/L (<50); Albumin 4.6 g/dL (3.5-5.0); Albumin Globulin Ratio 1.9 (1.0-2.8); Alkaline Phosphatase 39 U/L (38-126); Aspartate Aminotransferase 34 IU/L (17-59); BUN Creatinine Ratio 27.2 (6-22); Bilirubin Total 1.5 mg/dL (0.2-1.3); Blood Urea Nitrogen 37 mg/dL (9-20); Calcium 9.6 mg/dL (8.4-10.2); Carbon Dioxide 26 mmol/L (22-32); Chloride 104 mmol/L (98-107); Estimated Glomerular Filt Rate 58 mL/min (>60); Globulin 2.4 g/dL (1.7-4.1); Glucose 139 mg/dL (80-110); HEMOLYSIS < 15 (0-50); Potassium 4.4 mmol/L (3.4-5.1); Sodium 139 mmol/L (137-145)
[2024-12-28 23:48] LABS: Lactate (Lactic Acid) 0.9 mmol/L (0.7-2.1); Lipase 39 U/L (23-300); Magnesium 1.4 mg/dL (1.6-2.3)
[2024-12-28 23:55] LABS: Add Manual Diff / Slide Review YES
[2024-12-29] VITALS (15 sets, daily range): BP systolic 124–147; BP diastolic 67–93; PULSE 81–120; RESP 14–18; TEMP 35.9–36.6; O2SAT 96–99; BMI 28.0
--- NOTE | 2024-12-29 | PATH_ITS ---
[facility] Accession Number: [id number] No. of containers..01 Tissue . 01 Material submitted: . gallbladder - GALLBLADDER . 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 Benign, reactive lymph node of cystic duct. Negative for dysplasia and malignancy. [facility] 01/01/2025 1528 Local . 01 Electronically signed: . Aj Schwartz MD, Pathologist NPI- [id number] . 01 Gross description: . Received in formalin with two identifiers and gallbladder, is an intact gallbladder 9.1 x 4.7 x 2.8 cm. The cystic duct margin is inked blue, and a pascal lymph node candidate is identifed 0.8 cm in greatest dimension. The lumen contains multiple black faceted calculi up to 1.5 cm in greatest dimension admixed with dark green viscous bile. The mucosa is green and velvety with no yellow areas of discoloration, polyps, or lesions identified. The naranjo average 0.[address] Crossing Guard sections to include the cystic duct margin, intact lymph candidate, and full thickness sections are submitted in cassette A1. ([id number]) /THEODORE 12/30/2024 2147 Local . 01 Pathologist provided ICD-10: K80.10 . 01 CPT . 797035 Specimen Comment: A courtesy copy of this report has been sent to [facility] Performed at: [address] [address], [place], [place] [id number] MD Conner Noel MD Phone: [phone]
--- NOTE | 2024-12-29 | DI.RAD.S_ITS ---
PROCEDURE: XR CHOLANGIOGRAM OPERATIVE INDICATIONS: CHOL COMPARISON: [facility], US, US ABDOMEN LIMITED, 12/28/2024, 20:42. FINDINGS: Biliary ducts: The surgeon injected contrast into the biliary ducts after cannulation of the cystic duct stump. Visualized intra- and extrahepatic bile ducts are normal in caliber, without strictures. No intraluminal filling defects to suggest retained ductal stones or sludge. No evidence for iatrogenic ductal injury. At time of imaging the gallbladder appears in place containing large internal gallstones. Duodenum: Contrast flows promptly through the sphincter of Oddi into the duodenum, which appears normal in caliber. IMPRESSION: Normal single-view operative cholangiogram with gallbladder remaining at time of imaging (single-view) containing moderately large gallstones as was seen on ultrasound imaging 1 day ago. Dictated by: Brian Kaplan M.D. on 12/29/2024 at 16:18 Approved by: Brian Kaplan M.D. on 12/29/2024 at 16:20
--- NOTE | 2024-12-29 00:05 | ED_ITS ---
HPI - Recheck/Abnormal Lab/Rx General Chief Complaint: Recheck/Abnormal Lab/Rx Stated Complaint: called to return by Dr Klein Time Seen by Provider: 12/28/24 19:45 Source: patient Mode of arrival: Ambulatory History of Present Illness HPI narrative: 64-year-old male with a past medical history of lateral lung transplant secondary to lung cancer on tacrolimus steroids, pulmonary fibrosis, paroxysmal AFib not on any anticoagulation due to the fact that patient states that he refuses to take this, hyperlipidemia, pancreatic mass, comes into the ED from home for evaluation of abdominal pain nausea and vomiting ongoing persistent for the past few days, patient states that he reached out to his primary care doctor and we instructed come into the ED for further evaluation treatment. He states that symptoms do get worse with eating, otherwise not complaining of any headache visual disturbances chest pain shortness breath fever chills or any other GI/ symptoms time. Patient was seen here earlier today but left before being seen he did have a CT scan that showed abnormalities and was called by previous provider to come in. Related Data Home Medications Medication Instructions Recorded Confirmed prednisone 5 mg tablet 5 mg PO QAM 01/21/22 12/22/24 mycophenolate mofetil 500 mg tablet 1,000 mg PO BID 02/06/23 12/22/24 tacrolimus 0.5 mg capsule, 0.5 mg PO BID 02/06/23 12/22/24 immediate-release tacrolimus 1 mg capsule, 2 mg PO BID 02/06/23 12/22/24 immediate-release azithromycin 250 mg tablet 250 mg PO DAILY 02/25/23 12/22/24 Previous Rx's Medication Instructions Recorded atorvastatin 20 mg tablet 20 mg PO DAILY #90 tabs 12/16/23 lorazepam 0.5 mg tablet 0.5 mg PO ONCE PRN claustrophobia 09/27/24 #1 tab tamsulosin 0.4 mg capsule 0.8 mg (2 x 0.4 mg) PO DAILY #180 11/09/24 caps metoprolol tartrate 25 mg tablet 25 mg PO BID #60 tabs 12/05/24 zolpidem 10 mg tablet 15 mg (1.5 x 10 mg) PO BEDTIME PRN 12/27/24 Insomnia #30 tabs Allergies Allergy/AdvReac Type Severity Reaction Status Date / Time sildenafil AdvReac Severe Palpitation Verified 12/22/24 06:51 s tramadol AdvReac Intermediate dysphoria Verified 12/22/24 06:51 Review of Systems Review of Systems Narrative: General: Denies fever, chills, weight loss HEENT: Denies headache, eye drainage, eye irritation, head trauma, sore throat, voice change Cardiovascular: Denies any chest pain, palpitations, tachycardia Respiratory: Denies any shortness of breath, cough, wheeze, stridor GI/: Positive abdominal pain, nausea, vomiting, Denies diarrhea, bright red blood per rectum, melanotic stools, urinary frequency, urinary retention, dysuria, hematuria MSK: Denies any joint pain, muscle pains, swelling Skin: Denies any rashes, lesions, discoloration Neuro: Denies any headache, lightheadedness, dizziness, fainting, weakness Psych: Denies SI/HI Patient History Medical History Laceration of ring finger History of substance abuse Microcytic anemia BPPV (benign paroxysmal positional vertigo) Wears glasses Hearing loss Anxiety Rubella Polio Mumps Measles Herpes Chicken pox Hepatitis C (~2019) Colon polyps Skin cancer Lung cancer History of nonmelanoma skin cancer Chronic low back pain Chronic anticoagulation Paroxysmal atrial fibrillation Pancreatic mass Umbilical hernia without mention of obstruction or gangrene Venous (peripheral) insufficiency Chronic insomnia History of colonic polyps Generalized anxiety disorder Primary osteoarthritis involving multiple joints Impaired fasting glucose Mixed hyperlipidemia Immunosuppression due to drug therapy History of lung cancer History of pulmonary fibrosis Ruptured appendix Surgical History Anesthesia History of knee surgery (~2009) History of rhinoplasty (~1981) History of colonoscopy History of transplantation, lung S/P appendectomy Family History Mother Head injury due to trauma Father Medical history unknown Brother Lung disease Sister Lung disease 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), 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 household members: spouse Tobacco: How many years used: 30 alcohol intake: former Type(s) of exercise: none tobacco type: cigarettes alcohol intake frequency: holidays/special occasions only Exam Narrative Exam Narrative: General: Cooperative, well-developed, not in acute distress HEENT: Normocephalic, atraumatic, PERRLA, normal sclera, eyelids normal Neck: Active full range of motion, atraumatic Chest: Normal to inspection, negative crepitus, no overlying erythema ecchymosis Respiratory: Normal respiratory effort, not in acute respiratory distress, clear to auscultation bilaterally negative cough, wheeze, tachypnea, rhonchi, rales Cardiology: Regular rate rhythm negative gallop, murmur, rubs GI/: Mild tenderness to palpation diffusely, worse to the upper abdomen, soft, non rigid, normal to inspection, exam deferred MSK: Full active range of motion in all 4 extremities, atraumatic, no tenderness to palpation of any bony prominences Skin: No rashes or lesions noted Neuro: Alert awake oriented x3, moves all 4 extremities spontaneously, cranial nerves intact, able to answer all questions appropriately follows commands appropriately Psych: Cooperative, negative suicidal or homicidal ideations Initial Vital Signs Initial Vital Signs: Vital Signs Temperature 99.4 F 12/28/24 19:50 Pulse Rate 112 H 12/28/24 19:50 Respiratory Rate 16 12/28/24 19:50 Blood Pressure 148/79 H 12/28/24 19:50 Pulse Oximetry 99 12/28/24 19:50 Oxygen Delivery Method Room Air 12/28/24 19:50 Course Orders Ordered: ED Orders 12/28/24 19:45 US abdomen limited Stat 12/28/24 23:25 CBC Auto Diff [Complete Blood Count AUTO DIFF] Stat CMP [Comprehensive Metabolic Panel] Stat Lactate (Lactic Acid) Stat Lipase Stat MAG [Magnesium] Stat Sodium Chloride (Normal Saline 0.9%) 1,000 mls @ 1,000 mls/hr IV BOLUS ONE Stop: 12/29/24 01:06 Last Admin: 12/29/24 00:15 Dose: 1,000 mls/hr Discontinued Medications Magnesium Sulfate (Magnesium Sulfate) 2 gm in 50 mls @ 150 mls/hr IV NOW ONE Stop: 12/29/24 00:26 Last Admin: 12/29/24 00:16 Dose: 150 mls/hr Piperacillin Sod/Tazobactam (Sod 4.5 gm/ Sodium Chloride) 100 mls @ 200 mls/hr IV NOW ONE Stop: 12/29/24 00:08 Vital Signs Vital signs: Vital Signs - 8 hr 12/28/24 19:50 12/28/24 23:28 12/28/24 23:29 Temperature 99.4 F Pulse Rate 112 H 90 Respiratory Rate 16 18 Blood Pressure 148/79 H 146/87 H Pulse Oximetry 99 98 Oxygen Delivery Method Room Air Room Air 12/28/24 23:29 12/28/24 23:30 12/28/24 23:30 Temperature Pulse Rate 95 H 96 H Respiratory Rate 16 Blood Pressure 138/91 H Pulse Oximetry 97 98 Oxygen Delivery Method Room Air MDM - Recheck/Abnormal Lab/Rx Differential Diagnosis Differential diagnosis: Likely other (Acute cholecystitis, electrolyte abnormality) Lab Data 12/28/24 23:25 12/28/24 23:25 Labs: Lab Results 12/28/24 Range/Units 23:25 WBC 3.4 L (4.5-11.0) X10^3/uL RBC 5.10 (4.5-5.9) X10^6/uL Hgb 9.6 L (13.5-17.5) g/dL Hct 30.4 L (41-53) % MCV 59.6 L (80-100) fL MCH 18.8 L (26-34) PG MCHC 31.6 (30-36) % RDW 17.2 H (11.6-14.8) % Plt Count 149 L (150-400) X10^3/uL Neut % (Auto) Not Reportable Lymph % (Auto) Not Reportable [place] % (Auto) Not Reportable Eos % (Auto) Not Reportable Baso % (Auto) Not Reportable Lymph # (Auto) Not Reportable [place] # (Auto) Not Reportable Baso # (Auto) Not Reportable Total Counted 100 Seg Neutrophils % 64.0 (38-70) % Lymphocytes % (Manual) 22.0 L (25-45) % Monocytes % (Manual) 12.0 H (2-11) % Eosinophils % (Manual) 1.0 L (2-4) % Basophils % (Manual) 1.0 (0-1) % Neutrophils # (Manual) 2176 L (2093-2371) /uL RBC Morphology See below Hypochromasia 2+ H Anisocytosis 1+ H Target Cells 1+ H Schistocytes 2+ H Sodium 139 (137-145) mmol/L Potassium 4.4 (3.4-5.1) mmol/L Chloride 104 (98-107) mmol/L Carbon Dioxide 26 (22-32) mmol/L BUN 37 H (9-20) mg/dL Creatinine 1.36 H (0.66-1.25) mg/dL Estimated GFR 58 L (>60) mL/min BUN/Creatinine Ratio 27.2 H (6-22) Glucose 139 H (80-110) mg/dL Lactate 0.9 (0.7-2.1) mmol/L Calcium 9.6 (8.4-10.2) mg/dL Magnesium 1.4 L (1.6-2.3) mg/dL Total Bilirubin 1.5 H (0.2-1.3) mg/dL AST 34 (17-59) IU/L ALT 20 (<50) IU/L Alkaline Phosphatase 39 (38-126) U/L Total Protein 7.0 (6.3-8.2) g/dL Albumin 4.6 (3.5-5.0) g/dL Globulin 2.4 (1.7-4.1) g/dL Albumin/Globulin Ratio 1.9 (1.0-2.8) Lipase 39 D (23-300) U/L Imaging Data CT scan - abdomen/pelvis: Radiologist's Impression: [place] [address] CT Scan Report Signed Patient: Gatito Randolph MR#: [id number] : 1960 Acct:[id number] Age/Sex: 64 / M Date of Service: 12/28/24 Loc: ED Accession Number: [id number] Procedure: CT abdomen pelvis wo con Ordering Provider: Ceasar Klein MD PROCEDURE: CT ABDOMEN PELVIS WO CON INDICATIONS: abd pain TECHNIQUE: Axial sections were acquired from the lung bases to the pubic symphysis. Coronal and sagittal reformats were performed. For radiation dose reduction, the following was used: automated exposure control, adjustment of mA and/or kV according to patient size. COMPARISON: [facility], CT, CT CHEST ABD PEL W CON, 05/28/2024, 0:44. FINDINGS: Image quality: Diagnostic. Lower Chest: Sternotomy wires. Cardiomegaly. Calcified pleural plaques of the right lung base. Trace pleural effusions. URINARY: Kidneys and ureters: 9 mm calculus at the interpolar region of the left kidney (990 Hounsfield units) 9 mm calculus at the inferior pole of the left kidney (1200 Hounsfield units). 4 mm calculus at the interpolar region of the left kidney. No right renal calculus. No ureteral calculus or hydronephrosis. Bladder: Normal wall thickness. No stones. ABDOMEN: Liver: No contour-deforming solid mass. Gallbladder: Moderately sized calcified gallstones. Trace pericholecystic fluid. Gallbladder is nondilated. Biliary ducts: No biliary dilation. Pancreas: No ductal dilation. Spleen: Size is within normal limits. Adrenal Glands: No adrenal nodules. Stomach and Bowel: Few scattered diverticula are seen in the colon without focal inflammatory changes. Status post appendectomy. Surgical anastomosis is seen in the right lower quadrant. Small bowel loops are nondilated. Peritoneum: No abnormal intraperitoneal fluid. No free air. Ventral Wall: Small to moderate fat containing periumbilical hernia and distal fat containing supraumbilical hernias.. Abdominal Nodes: No enlarged retroperitoneal or mesenteric lymph nodes. Vessels: Aorta and inferior vena cava are normal in size. Moderate to severe aortic atherosclerotic calcifications. PELVIS: Pelvic Organs: Unremarkable. Pelvic Nodes: Unremarkable. Miscellaneous: Small fat containing left inguinal hernia.. Bones: Unremarkable. IMPRESSION: 1. Multiple nonobstructing left renal calculi. No hydronephrosis or ureteral calculus. 2. Cholelithiasis with mild pericholecystic fat stranding. Recommend correlation to exclude acute cholecystitis. Gallbladder ultrasound could be performed for further evaluation if indicated clinically. US - abdomen: Radiologist's Impression: [place] [address] Ultrasound Report Signed Patient: Gatito Randolph MR#: [id number] : 1960 Acct:[id number] Age/Sex: 64 / M Date of Service: 12/28/24 Loc: ED Accession Number: [id number] Procedure: US abdomen limited Ordering Provider: Ori Santana D.O. PROCEDURE: US ABDOMEN LIMITED INDICATIONS: Right upper quadrant, CT showing possible cholecystitis TECHNIQUE: Real-time scanning was performed of the abdominal and retroperitoneal organs, with image documentation. COMPARISON: None. FINDINGS: Liver: Liver is normal in size and homogeneous in echotexture. Gallbladder: Multiple nonmobile stones are noted in dependent portion of gallbladder lumen with through acoustic shadowing. There is suggestion of gallbladder wall thickening. No definite pericholecystic fluid. No definite sonographic James sign. Biliary ducts: Intrahepatic bile ducts are non-dilated. Extrahepatic bile duct is not well seen due to overlying bowel gas and shadowing through the gallbladder. Pancreas: Visualized portions of the pancreas are sonographically normal. Miscellaneous: No free abdominal fluid. IMPRESSION: 1. Cholelithiasis with gallbladder wall thickening. Finding is concerning for developing acute cholecystitis. 2. No gross intrahepatic biliary ductal dilatation. Common bile duct is not well seen due to shadowing from overlying gallstones. MDM Narrative Medical decision making narrative: Patient is a 64-year-old male history of by lateral lung transplant secondary to lung cancer on tacrolimus pulmonary fibrosis paroxysmal atrial fibrillation not on anticoagulation (due to the fact that he states that he refuses to take it) pancreatic mass presents for abdominal pain nausea and vomiting on going and persistent for the past week, was told by PCP to come to ER for evaluation. Patient was here earlier today but was unable to be seen given high acuity of other patients, however he did have a CT scan done that showed possible acute cholecystitis therefore he was called to return. Here patient had repeat lab work and an ultrasound showing acute cholecystitis, IV Zosyn fluids are ordered. Patient lab work is at baseline given history of lung transplant on tacrolimus and steroids. 0004: Discussed case with Dr. Chopra of general surgery, states patient should be admitted however given patient complexity with history of lung transplant on immunosuppressive is requesting admission to hospitalist with consult, states keep patient NPO at this time. The patient's management plan was discussed Dr. Beach, who agrees to admit the patient to their service and assumes care of this patient at this time. Full admission orders will be placed by the primary team. Discharge Plan Departure Patient Disposition: Admitted as Observation Clinical Impression: Acute cholecystitis Prescriptions: No Action atorvastatin 20 mg tablet 20 mg PO DAILY Qty: 90 3RF Rx Instructions: takes at 5:30pm lorazepam 0.5 mg tablet 0.5 mg PO ONCE PRN (Reason: claustrophobia) Qty: 1 0RF zolpidem 10 mg tablet 15 mg PO BEDTIME PRN (Reason: Insomnia) Qty: 30 5RF azithromycin 250 mg tablet 250 mg PO DAILY Rx Instructions: start on day 2 of therapy metoprolol tartrate 25 mg tablet 25 mg PO BID Qty: 60 3RF prednisone 5 mg Tablet 5 mg PO QAM mycophenolate mofetil 500 mg tablet 1,000 mg PO BID tacrolimus 1 mg capsule 2 mg PO BID tacrolimus 0.5 mg capsule 0.5 mg PO BID tamsulosin 0.4 mg capsule 0.8 mg PO DAILY Qty: 180 3RF Referrals: Ely Bob DO [Primary Care Provider] -
[2024-12-29] MEDS: SODIUM CHLORIDE 0.9% 1,000 ML 1000 ML IV (00:15)
[2024-12-29] MEDS: MAGNESIUM SULFATE 2 GM/50 ML PIGGYBACK IV (00:16)
[2024-12-29 00:19] LABS: Anisocytosis 1+; Hypochromasia 2+; Neutrophils Absolute Manual 2176 /uL (3000-5900); Schistocytes 2+; Target Cells 1+; Total Cells Counted 100
--- NOTE | 2024-12-29 00:20 | PC.NURSE ---
Pt ambulatory to restroom without difficulty or assistance.
[2024-12-29] MEDS: PIPERACILLIN/TAZO 4.5 GM in SODIUM CHLORIDE 0.9% 100 ML IV ×3 (00:56→12:08)
--- NOTE | 2024-12-29 00:59 | PC.NURSE ---
Ambulatory to restroom without difficulty or assistance. Currently speaking with hospitalist via video phone. ED stretcher removed from room and inpatient hospital bed placed at this time.
--- NOTE | 2024-12-29 01:07 | PM.HP.1 ---
History of Present Illness History of Present Illness Chief complaint: called to return by Dr Klein Narrative: A 64M with PMH of lung cancer s/p bilateral lung transplant in 2019 with transplant follow up at and on steroids, Cellcept, tacrolimus, pulmonary fibrosis, PAF not on anti-coagulation, hyperlipidemia, sent to ED by PCP for evaluation of abdominal pain, nausea, and vomiting x few days without other symptoms. CT showed gallstones with possible acute cholecystitis confirmed by CT. Surgery requested hospitalist admission with them as consult for possible cholecystectomy. Patient has controlled pain with no other symptoms. On RA oxygen breathing fairly normally. [facility] Medical History Laceration of ring finger History of substance abuse Microcytic anemia BPPV (benign paroxysmal positional vertigo) Wears glasses Hearing loss Anxiety Rubella Polio Mumps Measles Herpes Chicken pox Hepatitis C (~2019) Colon polyps Skin cancer Lung cancer History of nonmelanoma skin cancer Chronic low back pain Chronic anticoagulation Paroxysmal atrial fibrillation Pancreatic mass Umbilical hernia without mention of obstruction or gangrene Venous (peripheral) insufficiency Chronic insomnia History of colonic polyps Generalized anxiety disorder Primary osteoarthritis involving multiple joints Impaired fasting glucose Mixed hyperlipidemia Immunosuppression due to drug therapy History of lung cancer History of pulmonary fibrosis Ruptured appendix Surgical History Anesthesia History of knee surgery (~2009) History of rhinoplasty (~1981) History of colonoscopy History of transplantation, lung S/P appendectomy Family History Mother Head injury due to trauma Father Medical history unknown Brother Lung disease Sister Lung disease 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), 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 household members: spouse Tobacco: How many years used: 30 alcohol intake: former Type(s) of exercise: none Meds Home Medications and Allergies Home Medications Medication Instructions Recorded Confirmed Type prednisone 5 mg tablet 5 mg PO QAM 01/21/22 12/22/24 History mycophenolate mofetil 500 mg tablet 1,000 mg PO BID 02/06/23 12/22/24 History tacrolimus 0.5 mg capsule, 0.5 mg PO BID 02/06/23 12/22/24 History immediate-release tacrolimus 1 mg capsule, 2 mg PO BID 02/06/23 12/22/24 History immediate-release azithromycin 250 mg tablet 250 mg PO DAILY 02/25/23 12/22/24 History atorvastatin 20 mg tablet 20 mg PO DAILY #90 tabs 12/16/23 12/22/24 Rx lorazepam 0.5 mg tablet 0.5 mg PO ONCE PRN claustrophobia 09/27/24 12/22/24 Rx #1 tab tamsulosin 0.4 mg capsule 0.8 mg (2 x 0.4 mg) PO DAILY #180 11/09/24 12/22/24 Rx caps metoprolol tartrate 25 mg tablet 25 mg PO BID #60 tabs 12/05/24 12/22/24 Rx zolpidem 10 mg tablet 15 mg (1.5 x 10 mg) PO BEDTIME PRN 12/27/24 Rx Insomnia #30 tabs Allergies Allergy/AdvReac Type Severity Reaction Status Date / Time sildenafil AdvReac Severe Palpitation Verified 12/22/24 06:51 s tramadol AdvReac Intermediate dysphoria Verified 12/22/24 06:51 Review of Systems Review of Systems Narrative: As per HPI, rest of 10-system review negative. Exam Vital Signs (past 8 hours): - 12/28/24 19:50 12/28/24 23:28 12/28/24 23:29 Temperature 99.4 F Pulse Rate 112 H 90 Respiratory Rate 16 18 Blood Pressure 148/79 H 146/87 H Pulse Oximetry 99 98 Oxygen Delivery Method Room Air Room Air 12/28/24 23:29 12/28/24 23:30 12/28/24 23:30 Temperature Pulse Rate 95 H 96 H Respiratory Rate 16 Blood Pressure 138/91 H Pulse Oximetry 97 98 Oxygen Delivery Method Room Air Oxygen Delivery Method Room Air Narrative Exam Narrative: Exam performed by telemedicine, video, digital stethoscope with help of RN. Const Other: AA, NAD, pleasant, calm, appropriate, ambulatory, WDWN HENMT Other: NC/AT, nares patent, OP clear Eyes Other: aniceteric, non-injected, good eye contact Neck Other: FROM Resp Other: CTA-B Cardio Other: RRR GI Other: S/NT/ND/+BS Skin Other: no rashes/lesions noted Neuro Other: normal speech, ambulation, movements Extrem Other: no edema BLE Psych Other: normal mood, appropriate affect Objective Imaging CT scan - abdomen: Radiologist's impression: 1. Multiple nonobstructing left renal calculi. No hydronephrosis or ureteral calculus. 2. Cholelithiasis with mild pericholecystic fat stranding. Recommend correlation to exclude acute cholecystitis. Gallbladder ultrasound could be performed for further evaluation if indicated clinically. US - abdomen: Radiologist's impression: 1. Cholelithiasis with gallbladder wall thickening. Finding is concerning for developing acute cholecystitis. 2. No gross intrahepatic biliary ductal dilatation. Common bile duct is not well seen due to shadowing from overlying gallstones. Labs 12/28/24 23:25 12/28/24 23:25 Labs: Laboratory Results - last 24 hr 12/28/24 23:25 WBC 3.4 L RBC 5.10 Hgb 9.6 L Hct 30.4 L MCV 59.6 L MCH 18.8 L MCHC 31.6 RDW 17.2 H Plt Count 149 L Neut % (Auto) Not Reportable Lymph % (Auto) Not Reportable [place] % (Auto) Not Reportable Eos % (Auto) Not Reportable Baso % (Auto) Not Reportable Lymph # (Auto) Not Reportable [place] # (Auto) Not Reportable Baso # (Auto) Not Reportable Total Counted 100 Seg Neutrophils % 64.0 Lymphocytes % (Manual) 22.0 L Monocytes % (Manual) 12.0 H Eosinophils % (Manual) 1.0 L Basophils % (Manual) 1.0 Neutrophils # (Manual) 2176 L RBC Morphology See below Hypochromasia 2+ H Anisocytosis 1+ H Target Cells 1+ H Schistocytes 2+ H Sodium 139 Potassium 4.4 Chloride 104 Carbon Dioxide 26 BUN 37 H Creatinine 1.36 H Estimated GFR 58 L BUN/Creatinine Ratio 27.2 H Glucose 139 H Lactate 0.9 Calcium 9.6 Magnesium 1.4 L Total Bilirubin 1.5 H AST 34 ALT 20 Alkaline Phosphatase 39 Total Protein 7.0 Albumin 4.6 Globulin 2.4 Albumin/Globulin Ratio 1.9 Lipase 39 D Assessment & Plan Assessment and plan (1) Acute cholecystitis: Status: Acute (2) BPH loc w urin obs/LUTS: Status: Acute (3) History of transplantation, lung: Problem details: 2020 Status: Acute (4) Paroxysmal atrial fibrillation: Status: Acute (5) Mixed hyperlipidemia: Status: Acute (6) History of pulmonary fibrosis: Status: Acute (7) History of lung cancer: Status: Acute (8) Immunosuppression due to drug therapy: Status: Acute Assessment & Plan narrative: 1. Acute cholecystitis with cholelithiasis without sepsis, POA 2. h/o lung cancer and pulmonary fibrosis s/p lung transplant on chronic immunosuppressive therapy 3. PAF not on anti-coagulation 4. HTN, hyperlipidemia 5. BPH Plan: 1. Admit observation, med-surg 2. NPO 3. Surgery to see for formal consult and evaluation 4. Check Cellcept and tacrolimus levels 5. Day team to obtain records from PCP and transplant doctor's office 6. Day team to notify transplant service of admission, cholecystitis, and obtain guidance for librado-operative care 7. Continue BB 8. Continue prednisone, tacrolimus, mycophenolate 9. Closely monitor vitals and labs 10. Once transplant team notified and recommendations obtained, can do formal preoperative evaluation and risk assessment. 11. Empiric Zosyn Code: Full DVT prophylaxis: SCDs Diet/FEN: NPO. hold on IV fluids for now unless prolonged period of NPO status Dispo: home once primary issue addressed and condition stable. Time-Based Coding :: [TOTAL MINUTES] spent with patient and on the chart (including review of chart, obtaining history, exam, reviewing outside data, placing orders, documenting exam and treatment plan, and counseling patient) on [DATE].
[2024-12-29 06:21] LABS: INR 1.2 (0.9-1.3); Prothrombin Time 13.7 SECONDS (9.4-12.5)
[2024-12-29 06:24] LABS: PTT Partial Thromboplastin Tim 32 SECONDS (25.1-36.5)
[2024-12-29 06:26] LABS: Hematocrit 28.9 % (41-53); Hemoglobin 9.2 g/dL (13.5-17.5); Mean Corpuscular Hemoglobin 19.2 PG (26-34); Mean Corpuscular Volume 59.8 fL (80-100); Platelet Count 152 X10^3/uL (150-400); Red Blood Cell Count 4.82 X10^6/uL (4.5-5.9); Red Cell Distribution Width 16.9 % (11.6-14.8); White Blood Cell Count 3.2 X10^3/uL (4.5-11.0)
[2024-12-29 06:27] LABS: BUN Creatinine Ratio 26.2 (6-22); Blood Urea Nitrogen 32 mg/dL (9-20); Calcium 8.9 mg/dL (8.4-10.2); Carbon Dioxide 23 mmol/L (22-32); Chloride 107 mmol/L (98-107); Estimated Glomerular Filt Rate > 60 mL/min (>60); Glucose 98 mg/dL (80-110); HEMOLYSIS < 15 (0-50); Magnesium 1.7 mg/dL (1.6-2.3); Potassium 4.1 mmol/L (3.4-5.1); Sodium 138 mmol/L (137-145)
[2024-12-29 06:28] LABS: Add Manual Diff / Slide Review YES
[2024-12-29 06:53] LABS: Neutrophils Absolute Manual 1536 /uL (3000-5900); Total Cells Counted 100
[2024-12-29 06:54] LABS: Anisocytosis 2+; Hypochromasia 2+; Microcytosis 2+; Ovalocytes 1+; Schistocytes 2+; Target Cells 1+; Tear Drop Cells 1+
[2024-12-29] MEDS: TAMSULOSIN 0.4 MG CAPSULE 0.8 MG PO (08:46)
[2024-12-29] MEDS: TACROLIMUS 0.5 MG CAPSULE 2 MG PO ×2 (08:46→20:09)
[2024-12-29] MEDS: predniSONE 5 MG TABLET PO (08:46)
[2024-12-29] MEDS: MYCOPHENOLATE MOFETIL 500 MG TABLET 1000 MG PO ×2 (08:46→20:09)
--- NOTE | 2024-12-29 09:13 | PM.PN.1 ---
Subjective Subjective Date Patient Seen: 12/29/24 Interval history: Chief complaint: Right upper quadrant pain nausea vomiting with signs of acute cholecystitis in a patient status post lung transplant on immunosuppression History of present illness: A 64M with PMH of lung cancer s/p bilateral lung transplant in 2019 with transplant follow up at and on steroids, Cellcept, tacrolimus, pulmonary fibrosis, PAF not on anti-coagulation, hyperlipidemia, sent to ED by PCP for evaluation of abdominal pain, nausea, and vomiting x few days without other symptoms. CT showed gallstones with possible acute cholecystitis confirmed by CT. Surgery requested hospitalist admission with them as consult for possible cholecystectomy. Patient has controlled pain with no other symptoms. On RA oxygen breathing fairly normally. Hospital course: 12/29: No fevers chills overnight no systemic symptom Review of systems: No fever or chills No chest pains No shortness a breath No cough Objective: Physical exam: Alert and cheerful No acute distress HEENT unremarkable Heart rate and rhythm regular no murmurs Lungs clear to bases Abdomen right upper quadrant tenderness with palpation Extremities no edema Neuro nonfocal Assessment and plan: Highly suspected acute cholecystitis in a patient status post lung transplant on immunosuppression: Benefits of surgery outweigh risks risks are not prohibitive recommend proceeding Blood cultures and IV Zosyn Consult with General surgery Reach out to transplant team for recommendations Continue all immunosuppressant NPO except meds Gentle IV fluids Paroxysmal atrial fibrillation not on anticoagulation Continue beta-scotty DVT prophylaxis SCDs Code status: Full code Exam Vital Signs (past 8 hours): - 12/29/24 01:23 12/29/24 01:23 12/29/24 03:05 Temperature 97.8 F Pulse Rate 88 88 Respiratory Rate 18 18 Blood Pressure 131/88 144/82 H Pulse Oximetry 97 98 Oxygen Delivery Method Room Air Oxygen Flow Rate 0 12/29/24 08:00 Temperature 96.9 F L Pulse Rate 81 Respiratory Rate 15 Blood Pressure 135/86 Pulse Oximetry 98 Oxygen Delivery Method Oxygen Flow Rate 0 Oxygen Delivery Method Room Air Oxygen Flow Rate 0 Objective Labs 12/29/24 05:45 12/29/24 05:45 Labs: Laboratory Results - last 24 hr 12/28/24 12/29/24 23:25 05:45 WBC 3.4 L 3.2 L RBC 5.10 4.82 Hgb 9.6 L 9.2 L Hct 30.4 L 28.9 L MCV 59.6 L 59.8 L MCH 18.8 L 19.2 L MCHC 31.6 32.0 RDW 17.2 H 16.9 H Plt Count 149 L 152 Neut % (Auto) Not Reportable Not Reportable Lymph % (Auto) Not Reportable Not Reportable [place] % (Auto) Not Reportable Not Reportable Eos % (Auto) Not Reportable Not Reportable Baso % (Auto) Not Reportable Not Reportable Lymph # (Auto) Not Reportable Not Reportable [place] # (Auto) Not Reportable Not Reportable Baso # (Auto) Not Reportable Not Reportable Total Counted 100 100 Seg Neutrophils % 64.0 48.0 Lymphocytes % (Manual) 22.0 L 34.0 Monocytes % (Manual) 12.0 H 16.0 H Eosinophils % (Manual) 1.0 L 1.0 L Basophils % (Manual) 1.0 1.0 Neutrophils # (Manual) 2176 L 1536 L RBC Morphology See below See below Hypochromasia 2+ H 2+ H Anisocytosis 1+ H 2+ H Microcytosis 2+ H Target Cells 1+ H 1+ H Tear Drop Cells 1+ H Ovalocytes 1+ H Schistocytes 2+ H 2+ H PT 13.7 H INR 1.2 APTT 32 Sodium 139 138 Potassium 4.4 4.1 Chloride 104 107 Carbon Dioxide 26 23 BUN 37 H 32 H Creatinine 1.36 H 1.22 Estimated GFR 58 L > 60 BUN/Creatinine Ratio 27.2 H 26.2 H Glucose 139 H 98 Lactate 0.9 Calcium 9.6 8.9 Magnesium 1.4 L 1.7 Total Bilirubin 1.5 H AST 34 ALT 20 Alkaline Phosphatase 39 Total Protein 7.0 Albumin 4.6 Globulin 2.4 Albumin/Globulin Ratio 1.9 Lipase 39 D [facility] Medical History Laceration of ring finger History of substance abuse Microcytic anemia BPPV (benign paroxysmal positional vertigo) Wears glasses Hearing loss Anxiety Rubella Polio Mumps Measles Herpes Chicken pox Hepatitis C (~2019) Colon polyps Skin cancer Lung cancer History of nonmelanoma skin cancer Chronic low back pain Chronic anticoagulation Paroxysmal atrial fibrillation Pancreatic mass Umbilical hernia without mention of obstruction or gangrene Venous (peripheral) insufficiency Chronic insomnia History of colonic polyps Generalized anxiety disorder Primary osteoarthritis involving multiple joints Impaired fasting glucose Mixed hyperlipidemia Immunosuppression due to drug therapy History of lung cancer History of pulmonary fibrosis Ruptured appendix Surgical History Anesthesia History of knee surgery (~2009) History of rhinoplasty (~1981) History of colonoscopy History of transplantation, lung S/P appendectomy Family History Mother Head injury due to trauma Father Medical history unknown Brother Lung disease Sister Lung disease 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
--- NOTE | 2024-12-29 09:23 | PM.CN.IH.1 ---
History of Present Illness Consult details Date Patient Seen: 12/29/24 Time Patient Seen: 09:23 Chief complaint: called to return by Dr Klein Reason for consult: Acute cholecystitis Requesting provider: Javier Chopra Narrative: This 64-year-old white male a known history of gallstones who has had intermittent symptoms over years, but have been persistent over the last 2 weeks. He presented to the ER where a CT scan was performed which showed cholelithiasis with gallbladder wall thickening. His bilirubin is elevated, but it is at the same level for a few years. He had a lung transplant 5 years ago, on immunosuppressants. His performance status is very good. He had a colonoscopy performed here in July without any issues. Meds Home Medications and Allergies Home Medications Medication Instructions Recorded Confirmed Type prednisone 5 mg tablet 5 mg PO QAM 01/21/22 12/29/24 History mycophenolate mofetil 500 mg tablet 1,000 mg PO BID 02/06/23 12/29/24 History tacrolimus 0.5 mg capsule, 0.5 mg PO BID 02/06/23 12/29/24 History immediate-release tacrolimus 1 mg capsule, 2 mg PO BID 02/06/23 12/29/24 History immediate-release azithromycin 250 mg tablet 250 mg PO DAILY 02/25/23 12/29/24 History atorvastatin 20 mg tablet 20 mg PO DAILY #90 tabs 12/16/23 12/29/24 Rx tamsulosin 0.4 mg capsule 0.8 mg (2 x 0.4 mg) PO DAILY #180 11/09/24 12/29/24 Rx caps metoprolol tartrate 25 mg tablet 25 mg PO BID #60 tabs 12/05/24 12/29/24 Rx zolpidem 10 mg tablet 15 mg (1.5 x 10 mg) PO BEDTIME PRN 12/27/24 12/29/24 Rx Insomnia #30 tabs Allergies Allergy/AdvReac Type Severity Reaction Status Date / Time sildenafil AdvReac Severe Palpitation Verified 12/22/24 06:51 s tramadol AdvReac Intermediate dysphoria Verified 12/22/24 06:51 Exam Vital Signs (past 8 hours): - 12/29/24 03:05 12/29/24 08:00 Temperature 97.8 F 96.9 F L Pulse Rate 88 81 Respiratory Rate 18 15 Blood Pressure 144/82 H 135/86 Pulse Oximetry 98 98 Oxygen Flow Rate 0 0 Oxygen Delivery Method Room Air Oxygen Flow Rate 0 Narrative Exam Narrative: Gen: NAD, sitting comfortably in bed, appears well HEENT: Sclera are anicteric, head is normocephalic and atraumatic, trachea is midline. CV: RRR, no JVD Resp: clear to auscultation bilaterally, equal chest wall movement bilaterally Abd: soft, nontender, normoactive bowel sounds Ext: no edema, full range of motion Neuro: Cranial nerves II-XII grossly intact, no focal deficits Skin: No erythema or ecchymosis Objective Labs 12/29/24 05:45 12/29/24 05:45 Labs: Laboratory Results - last 24 hr 12/28/24 12/29/24 23:25 05:45 WBC 3.4 L 3.2 L RBC 5.10 4.82 Hgb 9.6 L 9.2 L Hct 30.4 L 28.9 L MCV 59.6 L 59.8 L MCH 18.8 L 19.2 L MCHC 31.6 32.0 RDW 17.2 H 16.9 H Plt Count 149 L 152 Neut % (Auto) Not Reportable Not Reportable Lymph % (Auto) Not Reportable Not Reportable [place] % (Auto) Not Reportable Not Reportable Eos % (Auto) Not Reportable Not Reportable Baso % (Auto) Not Reportable Not Reportable Lymph # (Auto) Not Reportable Not Reportable [place] # (Auto) Not Reportable Not Reportable Baso # (Auto) Not Reportable Not Reportable Total Counted 100 100 Seg Neutrophils % 64.0 48.0 Lymphocytes % (Manual) 22.0 L 34.0 Monocytes % (Manual) 12.0 H 16.0 H Eosinophils % (Manual) 1.0 L 1.0 L Basophils % (Manual) 1.0 1.0 Neutrophils # (Manual) 2176 L 1536 L RBC Morphology See below See below Hypochromasia 2+ H 2+ H Anisocytosis 1+ H 2+ H Microcytosis 2+ H Target Cells 1+ H 1+ H Tear Drop Cells 1+ H Ovalocytes 1+ H Schistocytes 2+ H 2+ H PT 13.7 H INR 1.2 APTT 32 Sodium 139 138 Potassium 4.4 4.1 Chloride 104 107 Carbon Dioxide 26 23 BUN 37 H 32 H Creatinine 1.36 H 1.22 Estimated GFR 58 L > 60 BUN/Creatinine Ratio 27.2 H 26.2 H Glucose 139 H 98 Lactate 0.9 Calcium 9.6 8.9 Magnesium 1.4 L 1.7 Total Bilirubin 1.5 H AST 34 ALT 20 Alkaline Phosphatase 39 Total Protein 7.0 Albumin 4.6 Globulin 2.4 Albumin/Globulin Ratio 1.9 Lipase 39 D PFSH Medical History Laceration of ring finger History of substance abuse Microcytic anemia BPPV (benign paroxysmal positional vertigo) Wears glasses Hearing loss Anxiety Rubella Polio Mumps Measles Herpes Chicken pox Hepatitis C (~2019) Colon polyps Skin cancer Lung cancer History of nonmelanoma skin cancer Chronic low back pain Chronic anticoagulation Paroxysmal atrial fibrillation Pancreatic mass Umbilical hernia without mention of obstruction or gangrene Venous (peripheral) insufficiency Chronic insomnia History of colonic polyps Generalized anxiety disorder Primary osteoarthritis involving multiple joints Impaired fasting glucose Mixed hyperlipidemia Immunosuppression due to drug therapy History of lung cancer History of pulmonary fibrosis Ruptured appendix Surgical History Anesthesia History of knee surgery (~2009) History of rhinoplasty (~1981) History of colonoscopy History of transplantation, lung S/P appendectomy Family History Mother Head injury due to trauma Father Medical history unknown Brother Lung disease Sister Lung disease 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 Risks of nonoperative management including jaundice, pancreatitis and worsening cholecystitis were all explained to the patient. Risks of surgery include bleeding, infection, bile leaks, retained stones, need for ERCP, incisional hernia, injury to related structures, failure to relieve symptoms and worsening reflux were all explained to the patient. Patient agrees to proceed with laparoscopic cholecystectomy with cholangiography. Increased risk of poor wound healing due to immunosuppression. Time-Based Coding :: [TOTAL MINUTES] spent with patient and on the chart (including review of chart, obtaining history, exam, reviewing outside data, placing orders, documenting exam and treatment plan, and counseling patient) on [DATE]. PROFEE Charge Codes Inpatient or Observation consultation: [id number]
--- NOTE | 2024-12-29 11:57 | CM.DANOTE ---
DCP Assessment Note: Pt is a 64yo male, resident of [place], is admitted for acute cholecystitis. Pt lives in a house with his , Yue. Pt's Primary Care Provider is Dr. Ely Garcia and insurance is [employer]. Reviewed chart and discussed with multidisciplinary team pt's medical status and initial discharge needs. Per RN, pt is scheduled for surgery today, 12/29 at 1215. Plan: Pending recommendations post-surgery for evolving plan of care, anticipating dc home when medically cleared with spouse. CM team will follow closely for coordination of discharge plans. ANABELL Gallego Discharge Planning/Care Management CM Discharge Assessment Start: 12/29/24 11:55 Freq: Status: Active Protocol: Document 12/29/24 11:55 MW (Rec: 12/29/24 11:57 MW [id number]) Discharge Planning Assessment Assigned Electrical Prospector CHANDNI Damian DPOA/Assigned Designee Name Frankie Turner Contact Information [phone] Advance Directives? No Advance Directives on File No History Provided By Patient,Medical Record Has Patient been admitted in last 30 No days? Prior Living Arrangements House Comment [place] Household Members spouse Type of transporation used prior to Drives own vehicle admit Independent with ADL's Yes Is patient alert and oriented? Yes Caregiver for Another No Discharge Plan Home Transportation Arrangement spouse Additional Comment Pending results post-surgery. Review Status In Process Please Provide Date Initial DC 12/29/24 Assessment Was Performed Next Review Type Continued Stay Review
[2024-12-29] MEDS: METOPROLOL IR 25 MG TABLET PO ×2 (12:04→20:08)
[2024-12-29] MEDS: LACTATED RINGERS 1,000 ML 100 ML IV (12:52)
--- NOTE | 2024-12-29 13:37 | PC.NURSE ---
Patient transported via bed to pre-op area at approximately 1225 pm
--- NOTE | 2024-12-29 14:51 | SUR.HOLD ---
UPPER AND LOWER DENTURES REMOVED AND PLACED IN DENTURE CUP. PLACED IN RECOVERY ROOM AWAITING PT'S TRANSFER TO 217
--- NOTE | 2024-12-29 15:00 | SUR.OPER ---
Supine on padded OR bed, head on pillow, safety belt at thigh, right arm padded and tucked at side. Left arm secured on padded arm board <90 degrees abduction. Legs uncrossed. Padded footboard in place. Tape over blanket to secure lower legs.
[2024-12-29] MEDS: BUPIVACAINE 0.5% W/ EPI (PF) 30 ML VIAL INJ (15:04)
[2024-12-29] MEDS: iopamidoL 30 ML VIAL INJ (15:05)
--- NOTE | 2024-12-29 16:09 | PM.OP.1 ---
Operative Date/Time/Diagnoses Date of procedure: 12/29/24 Time of procedure: 16:09 Pre-op diagnosis: Acute cholecystitis Post-op diagnosis: same Procedure & Clinicians Procedure: Laparoscopic cholecystectomy with intraoperative cholangiography Same procedure as scheduled: Yes Indications: Acute cholecystitis Surgeon: Javier Chopra Click Yes if Unassisted: Yes Anesthesia Type: General Operative Notes Findings: Normal cholangiography Closure Type: primary Specimen(s): other (Gallbladder) Estimated Blood Loss (mL): 50 Procedure in detail: Consent was obtained. Patient was brought into the operating room suite. Patient was placed in the supine position with the arms out. General anesthesia was induced. Time-out was performed. The abdomen was prepped and draped in the usual fashion. Total of 30 mL of 0.5% Marcaine were infiltrated in all trocar sites. 5 mm optical trocar was placed in the left upper quadrant. Pneumoperitoneum was achieved. The abdomen was inspected. Abnormalities noted included adhesions to the gallbladder. 11 mm trocar placed in superior to the umbilicus, as he had extensive adhesions from prior open appendectomy through a lower midline incision. Two additional 5 mm trocars were placed in the right upper quadrant. The gallbladder was grasped, retracted laterally and cephalad. The medial and lateral attachments of the gallbladder were opened revealing a critical view of the single cystic duct and single cystic artery. The artery was doubly clipped and divided. The duct was clipped at the junction of the infundibulum. A cystic ductotomy was made through which a cholangiogram was performed. Cholangiogram showed prompt emptying into the duodenal with bilateral intrahepatic ductal filling and no evidence of strictures or stones. Thus completed the cholangiography and the catheter was removed. Three clips were then applied to the cystic duct stump. Bovie electrocautery was used to remove the gallbladder from the liver bed. Hemostasis was achieved. The gallbladder was placed in an endo-pouch and brought out through the umbilical trocar. The umbilical trocar was closed with an 0 Vicryl on a Enrike-Efrain suture Passer. Pneumoperitoneum was relieved. Skin was closed with 4-0 Monocryl and Dermabond. Patient tolerated procedure well was transferred to PACU in stable condition for anticipated same-day discharge. Complications: none Post-operative Condition: stable Disposition: PACU Plan for aftercare: hospital stay
[2024-12-29] MEDS: MORPHINE 4 MG/ML INJ IV (18:37)
[2024-12-29] MEDS: ATORVASTATIN 20 MG TABLET PO (18:40)
--- NOTE | 2024-12-29 18:43 | PC.NURSE ---
Patient returns from PACU this afternoon at 1650. VSS, HR tachy per baseline. X4 lap sites sealed with dermabond MARGARET CASTRO. He is able to tolerate dinner well. C/o 9/10 to abdomen this evening, medicated with PRN morphine. Continuous monitoring.
[2024-12-29] MEDS: OXYCODONE IR 5 MG TABLET PO (20:09)
[2024-12-29] MEDS: ACETAMINOPHEN 325 MG TABLET 650 MG PO (20:10)
[2024-12-30 04:00] VITALS: BP 118/81; PULSE 99; RESP 17; TEMP 36.2; O2SAT 99
[2024-12-30] MEDS: ACETAMINOPHEN 325 MG TABLET 650 MG PO (07:41)
[2024-12-30] MEDS: OXYCODONE IR 5 MG TABLET PO (07:42)
[2024-12-30 08:00] VITALS: BP 114/85; PULSE 86; RESP 19; TEMP 36.3; O2SAT 98
--- NOTE | 2024-12-30 08:07 | PM.DS.1 ---
History of Present Illness History of Present Illness Date Patient Seen: 12/30/24 Chief complaint: Right upper quadrant pain acute cholecystitis Narrative: Chief complaint: Right upper quadrant pain nausea vomiting with signs of acute cholecystitis in a patient status post lung transplant on immunosuppression History of present illness: A 64M with PMH of lung cancer s/p bilateral lung transplant in 2019 with transplant follow up at and on steroids, Cellcept, tacrolimus, pulmonary fibrosis, PAF not on anti-coagulation, hyperlipidemia, sent to ED by PCP for evaluation of abdominal pain, nausea, and vomiting x few days without other symptoms. CT showed gallstones with possible acute cholecystitis confirmed by CT. Surgery requested hospitalist admission with them as consult for possible cholecystectomy. Patient has controlled pain with no other symptoms. On RA oxygen breathing fairly normally. Hospital course: 12/29: No fevers chills overnight no systemic symptom Underwent laparoscopic cholecystectomy by Dr. Chopra No perioperative or postoperative complications patient tolerating regular diet postoperatively 12/30: Patient having no complications, minor surgical soreness tolerating diet Review of systems: No fever or chills No chest pains No shortness a breath No cough No nausea vomiting No diarrhea No focal weakness Objective: Physical exam: Alert and cheerful No acute distress HEENT unremarkable Heart rate and rhythm regular no murmurs Lungs clear to bases Abdomen nondistended bowel sounds present Extremities no edema Neuro nonfocal Assessment and plan: Highly suspected acute cholecystitis in a patient status post lung transplant on immunosuppression: Underwent laparoscopic cholecystectomy without complications perioperatively or postoperatively Continue immunosuppressants Discharge if okay with surgery Paroxysmal atrial fibrillation not on anticoagulation Continue beta-scotty Code status:Full code Discharge Providers Provider Date of admission: 12/29/24 00:42 Discharge Date: 12/30/24 Primary care physician: Ely Bob DO Discharge provider: Brian Argueta MD Exam Vital Signs (past 8 hours): - 12/30/24 04:00 Temperature 97.1 F L Pulse Rate 99 H Respiratory Rate 17 Blood Pressure 118/81 Pulse Oximetry 99 Oxygen Delivery Method Room Air Oxygen Flow Rate 0 Objective Labs 12/29/24 05:45 12/29/24 05:45 [facility] Medical History Laceration of ring finger History of substance abuse Microcytic anemia BPPV (benign paroxysmal positional vertigo) Wears glasses Hearing loss Anxiety Rubella Polio Mumps Measles Herpes Chicken pox Hepatitis C (~2019) Colon polyps Skin cancer Lung cancer History of nonmelanoma skin cancer Chronic low back pain Chronic anticoagulation Paroxysmal atrial fibrillation Pancreatic mass Umbilical hernia without mention of obstruction or gangrene Venous (peripheral) insufficiency Chronic insomnia History of colonic polyps Generalized anxiety disorder Primary osteoarthritis involving multiple joints Impaired fasting glucose Mixed hyperlipidemia Immunosuppression due to drug therapy History of lung cancer History of pulmonary fibrosis Ruptured appendix Surgical History Anesthesia History of knee surgery (~2009) History of rhinoplasty (~1981) History of colonoscopy History of transplantation, lung S/P appendectomy Family History Mother Head injury due to trauma Father Medical history unknown Brother Lung disease Sister Lung disease 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), 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 household members: spouse Smoking Status: Current every day smoker Tobacco: How many years used: 30 alcohol intake: former Type(s) of exercise: none Discharge Plan Discharge Plan Patient Disposition: Home Discharge orders & Medications Prescriptions: New oxycodone 5 mg Tablet 5 mg PO Q4HR PRN (Reason: Pain, Moderate (4-6)) Qty: 12 0RF tizanidine 2 mg capsule 2 mg PO Q8H PRN (Reason: muscle spasticity, pain) Qty: 90 0RF oxycodone 10 mg tablet 10 mg PO Q8H PRN (Reason: pain) Qty: 7 0RF Continued atorvastatin 20 mg tablet 20 mg PO DAILY Qty: 90 3RF Rx Instructions: takes at 5:30pm zolpidem 10 mg tablet 15 mg PO BEDTIME PRN (Reason: Insomnia) Qty: 30 5RF azithromycin 250 mg tablet 250 mg PO DAILY Rx Instructions: start on day 2 of therapy metoprolol tartrate 25 mg tablet 25 mg PO BID Qty: 60 3RF prednisone 5 mg Tablet 5 mg PO QAM mycophenolate mofetil 500 mg tablet 1,000 mg PO BID tacrolimus 1 mg capsule 2 mg PO BID tacrolimus 0.5 mg capsule 0.5 mg PO BID tamsulosin 0.4 mg capsule 0.8 mg PO DAILY Qty: 180 3RF Follow up/Referrals: Ely Bob DO [Primary Care Provider] - Diet/Activity/Treatments Diet: Regular Activity: No lifting, pushing, or pulling over 20 pounds for 2 weeks Cold/Heat Therapy: Apply heat or ice, 20 minutes on/20 minutes off to the abdomen Other treatments: Take Acetaminophen 500 mg (Tylenol Extra Strength) every 4 hours Skin/Wound/Dressing Care Skin care: You may shower, but no soaking in tubs or pools for 2 weeks Report to your healthcare provider any signs of infection, such as:: chills, fever, night sweats, increased pain, unusual drainage and unusual redness Dressing: Glue will dry and fall off in 2-3 weeks Other wound treatment: You may place Lidocaine patches around the incisions, but not directly over the incision. You may cut the lidocaine patches. Visit Report/Discharge Packet Instructions: DI for Laparoscopy, DI for Prescription Opioid Use, DI for Laparoscopic Cholecystectomy, [facility]: Wound Care Stand Alone Forms: Patient Portal/API, Stroke Signs & Symptoms, Surgery Discharge Discharge Data Primary Care Provider: Ely Bob Attending Provider: [place] Admit Date/Time: 12/29/24 00:42
[2024-12-30] MEDS: MORPHINE 4 MG/ML INJ IV (08:48)
[2024-12-30] MEDS: AZITHROMYCIN 250 MG TABLET PO (08:52)
[2024-12-30] MEDS: METOPROLOL IR 25 MG TABLET PO (08:52)
[2024-12-30] MEDS: MYCOPHENOLATE MOFETIL 500 MG TABLET 1000 MG PO (08:52)
[2024-12-30] MEDS: TAMSULOSIN 0.4 MG CAPSULE 0.8 MG PO (08:52)
[2024-12-30] MEDS: predniSONE 5 MG TABLET PO (08:52)
[2024-12-30] MEDS: TACROLIMUS 0.5 MG CAPSULE 2 MG PO (08:54)
--- NOTE | 2024-12-30 10:13 | PM.PNPO.1 ---
Subjective Subjective Date Patient Seen: 12/30/24 Time Patient Seen: 10:13 Interval history: Patient feels well. Discussed his lower pain tolerance from his experience with lung transplant -- he insists on taking 10 mg percocet. I explained the nausea and constipation concerns, and reassured him that he will feel better tomorrow than he does today. Exam Vital Signs (past 8 hours): - 12/30/24 04:00 12/30/24 08:00 Temperature 97.1 F L 97.4 F L Pulse Rate 99 H 86 Respiratory Rate 17 19 Blood Pressure 118/81 114/85 Pulse Oximetry 99 98 Oxygen Delivery Method Room Air Oxygen Flow Rate 0 Narrative Exam Narrative: incisions are clean, dry, intact Const General: comfortable Objective Labs 12/29/24 05:45 12/29/24 05:45 [facility] Medical History Laceration of ring finger History of substance abuse Microcytic anemia BPPV (benign paroxysmal positional vertigo) Wears glasses Hearing loss Anxiety Rubella Polio Mumps Measles Herpes Chicken pox Hepatitis C (~2019) Colon polyps Skin cancer Lung cancer History of nonmelanoma skin cancer Chronic low back pain Chronic anticoagulation Paroxysmal atrial fibrillation Pancreatic mass Umbilical hernia without mention of obstruction or gangrene Venous (peripheral) insufficiency Chronic insomnia History of colonic polyps Generalized anxiety disorder Primary osteoarthritis involving multiple joints Impaired fasting glucose Mixed hyperlipidemia Immunosuppression due to drug therapy History of lung cancer History of pulmonary fibrosis Ruptured appendix Surgical History Anesthesia History of knee surgery (~2009) History of rhinoplasty (~1981) History of colonoscopy History of transplantation, lung S/P appendectomy Family History Mother Head injury due to trauma Father Medical history unknown Brother Lung disease Sister Lung disease 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), 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 household members: spouse Smoking Status: Current every day smoker Tobacco: How many years used: 30 alcohol intake: former Type(s) of exercise: none Assessment & Plan Post-op Postoperative Procedures: Procedures Operation Date: 12/29/24 14:00 Actual Procedure Side Surgeon p Laparoscopic Cholecystectomy with IOC Javier Chopra MD Postoperative day: 1 Postoperative status: doing well Postoperative plan: discharge
[2024-12-30 11:00] VITALS: BP 125/82; PULSE 103; RESP 20; TEMP 36.1; O2SAT 96
[2024-12-30] MEDS: OXYCODONE IR 10 MG TABLET PO (11:54)
[2024-12-30 12:00] VITALS: BP 118/81; PULSE 117; RESP 18; TEMP 36.4; O2SAT 98
[2024-12-30 12:10] LABS: Tacrolimus 19.8 ng/mL (5.0-20.0)
--- NOTE | 2024-12-30 13:48 | PC.NURSE ---
Day shift: Left unit via WC at approx 1345. PCT Branden took him out. Pt's Spouse outside waiting and will drive him home. Has all personal belongings. Paperwork signed and all questions answered. New MD scripts sent to Pt's pharmacy electronic. Pain well controlled today per MAR.
== END 2024-12-30 13:51 | disposition home or self-care (01) ==
LOC: ED 12-29 00:42 → AC 12-29 00:43
PROVIDERS: Surgery; Admitting Provider Internal Medicine; Emergency Provider Student in an Organized Health Care Education/Training Program; PCP Family Medicine; Referring Provider Student in an Organized Health Care Education/Training Program; Visit Provider Internal Medicine
PROC: 0FT44ZZ Resection of Gallbladder, Percutaneous Endoscopic Approach (ICD-10-PCS; CPT 47563; principal; 2024-12-29 14:00)
DX: K81.0 Acute cholecystitis (principal); K82.8 Other specified diseases of gallbladder; I48.0 Paroxysmal atrial fibrillation; N40.1 Benign prostatic hyperplasia with lower urinary tract symptoms; Z94.2 Lung transplant status; D84.821 Immunodeficiency due to drugs; Z79.899 Other long term (current) drug therapy; Z87.09 Personal history of other diseases of the respiratory system; Z85.118 Personal history of other malignant neoplasm of bronchus and lung; Z87.891 Personal history of nicotine dependence
CPT/HCPCS: 47563; 36415; 74176; 74300; 76705; 80048; 80053; 80180; 80197; 81003; 83605; 83690; 83735; 85007; 85025; 85610; 85730; 93005; 96365; 96366; 96367; 96375; 96376; 99284; G0378; J1100; J2250; J2270; J2405; J2543; J2704; J3010; J3475; J3490; J7507; Q9967

== ENCOUNTER 2025-01-10 15:48 | Observation (INO) | payer MEDICARE, SELFPAY ==
[2025-01-09 10:01] VITALS: BMI 28.0
[2025-01-10] VITALS (14 sets, daily range): BP systolic 116–145; BP diastolic 59–83; PULSE 67–114; RESP 16–24; TEMP 36.2–37.2; O2SAT 95–100; BMI 27.9; BMI 25.0
--- NOTE | 2025-01-10 15:58 | EKG_ITS ---
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
[2025-01-10 16:34] LABS: Hematocrit 32.1 % (41-53); Hemoglobin 10.1 g/dL (13.5-17.5); Mean Corpuscular HGB Conc 31.3 % (30-36); Mean Corpuscular Hemoglobin 18.8 PG (26-34); Mean Corpuscular Volume 60.2 fL (80-100); Platelet Count 160 X10^3/uL (150-400); Red Blood Cell Count 5.34 X10^6/uL (4.5-5.9); Red Cell Distribution Width 17.4 % (11.6-14.8); White Blood Cell Count 4.2 X10^3/uL (4.5-11.0)
[2025-01-10 16:35] LABS: Add Manual Diff / Slide Review YES
[2025-01-10] MEDS: MORPHINE 2 MG/ML INJ IV (16:37)
[2025-01-10 16:40] LABS: Alanine Aminotransferase 28 IU/L (<50); Albumin 4.6 g/dL (3.5-5.0); Albumin Globulin Ratio 1.8 (1.0-2.8); Alkaline Phosphatase 63 U/L (38-126); Aspartate Aminotransferase 43 IU/L (17-59); BUN Creatinine Ratio 24.9 (6-22); Bilirubin Total 1.9 mg/dL (0.2-1.3); Blood Urea Nitrogen 43 mg/dL (9-20); Calcium 9.6 mg/dL (8.4-10.2); Carbon Dioxide 21 mmol/L (22-32); Chloride 102 mmol/L (98-107); Estimated Glomerular Filt Rate 44 mL/min (>60); Globulin 2.5 g/dL (1.7-4.1); Glucose 145 mg/dL (70-99); HEMOLYSIS < 15 (0-50); Lipase 30 U/L (23-300); Sodium 135 mmol/L (137-145); Total Protein 7.1 g/dL (6.3-8.2)
[2025-01-10] MEDS: ONDANSETRON 4 MG/2 ML INJ IV (16:42)
--- NOTE | 2025-01-10 16:43 | ED.ABDPAIN ---
HPI - Abdominal Pain <Leo Dexter MD - Last Filed: 02/16/25 00:09> General Chief Complaint: Abdominal Pain Stated Complaint: shoulder pain.s/p gallbladder removal Time Seen by Provider: 01/10/25 16:14 Mode of arrival: Ambulatory History of Present Illness HPI narrative: Patient is a male with a history of atrial fibrillation and recent cholecystectomy performed approximately 10 days ago at [facility], presenting with persistent abdominal pain and new onset right shoulder pain. The abdominal pain has been ongoing since the surgery and worsens significantly after eating or drinking, with associated symptoms of regurgitation. He denies fever, chills, vomiting, hematemesis, chest pain, shortness of breath, or any trauma to the shoulder. He reports bruising over the surgical site but attributes it to the procedure. The shoulder pain began after the surgery and is exacerbated by certain positions, such as lying on the shoulder or prolonged sitting. He describes the abdominal pain as intermittent but increasingly frequent, with a severe episode today prompting his visit to the hospital. Pertinent ROS: Positive for abdominal pain, regurgitation, and bruising over the surgical site. Negative for fever, chills, vomiting, hematemesis, chest pain, shortness of breath, and trauma to the shoulder. Medications: Metoprolol. Past Medical History: Atrial fibrillation. Surgical History: Cholecystectomy 10 days ago. Related Data Home Medications Medication Instructions Recorded Confirmed prednisone 5 mg tablet 5 mg PO QAM 01/21/22 01/12/25 mycophenolate mofetil 500 mg tablet 1,000 mg PO BID Lung transplant 02/06/23 01/12/25 tacrolimus 0.5 mg capsule, 0.5 mg PO BID 02/06/23 01/12/25 immediate-release tacrolimus 1 mg capsule, 2 mg PO BID 02/06/23 01/12/25 immediate-release sulfamethoxazole 400 1 tab PO DAILY 01/05/25 01/12/25 mg-trimethoprim 80 mg tablet tamsulosin 0.4 mg capsule 0.8 mg PO BID BPH 01/10/25 01/12/25 Previous Rx's Medication Instructions Recorded atorvastatin 20 mg tablet 20 mg PO DAILY #90 tabs 12/16/23 zolpidem 10 mg tablet 15 mg (1.5 x 10 mg) PO BEDTIME PRN 12/27/24 Insomnia #30 tabs oxycodone 10 mg tablet 10 mg PO Q8H PRN pain #7 tabs 12/30/24 tizanidine 2 mg capsule 2 mg PO Q8H PRN muscle spasticity, 12/30/24 pain #90 caps metoprolol succinate 50 mg 50 mg PO DAILY #30 tabs 01/12/25 tablet,extended release 24 hr Allergies Allergy/AdvReac Type Severity Reaction Status Date / Time sildenafil AdvReac Severe Palpitation Verified 01/12/25 10:57 s tramadol AdvReac Intermediate dysphoria Verified 01/12/25 10:57 Review of Systems <Leo Dexter MD - Last Filed: 02/16/25 00:09> Review of Systems ROS Unobtainable: All systems reviewed & are unremarkable except as noted in HPI and below Patient History <Leo Dexter MD - Last Filed: 02/16/25 00:09> Medical History Laceration of ring finger History of substance abuse Microcytic anemia BPPV (benign paroxysmal positional vertigo) Wears glasses Hearing loss Anxiety Rubella Polio Mumps Measles Herpes Chicken pox Hepatitis C (~2019) Colon polyps Skin cancer Lung cancer History of nonmelanoma skin cancer Chronic low back pain Chronic anticoagulation Paroxysmal atrial fibrillation Pancreatic mass Umbilical hernia without mention of obstruction or gangrene Venous (peripheral) insufficiency Chronic insomnia History of colonic polyps Generalized anxiety disorder Primary osteoarthritis involving multiple joints Impaired fasting glucose Mixed hyperlipidemia Immunosuppression due to drug therapy History of lung cancer History of pulmonary fibrosis Ruptured appendix Surgical History Anesthesia History of knee surgery (~2009) History of rhinoplasty (~1981) History of colonoscopy History of transplantation, lung S/P appendectomy Family History Mother Head injury due to trauma Father Medical history unknown Brother Lung disease Sister Lung disease 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), 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 Well-nourished. Skin: Good turgor, bruising and ecchymosis overlying surgical incision sites. No rash or unusual lesions. Head: Normocephalic, atraumatic. HEENT: Conjunctiva clear, EOM intact, PERRL, mucous membranes moist. Neck: Supple, normal range of motion. Heart: Regular rate and rhythm, no murmur, gallop, or rubs. Lungs: Clear to auscultation bilaterally. No rales, rhonchi, or wheezes. Abdomen: Soft, non-distended, with tenderness to palpation in the right upper quadrant and epigastric region. Well-healing surgical scars noted, with bruising and ecchymosis overlying the incision sites. Back: Spine normal without deformity or tenderness, no CVA tenderness. Extremities: No deformities or edema. Peripheral pulses intact. Neurologic: CN 2-12 normal. Normal sensation and motor exam. Psychiatric: Oriented ?3, normal mood and affect. Initial Vital Signs Initial Vital Signs: Vital Signs Temperature 99 F 01/10/25 15:52 Pulse Rate 114 H 01/10/25 15:52 Respiratory Rate 20 01/10/25 15:52 Blood Pressure 142/80 H 01/10/25 15:52 Pulse Oximetry 99 01/10/25 15:52 Oxygen Delivery Method Room Air 01/10/25 15:52 <Flaquito Martin DO - Last Filed: 01/10/25 19:17> Initial Vital Signs Initial Vital Signs: Vital Signs Temperature 99 F 01/10/25 15:52 Pulse Rate 114 H 01/10/25 15:52 Respiratory Rate 20 01/10/25 15:52 Blood Pressure 142/80 H 01/10/25 15:52 Pulse Oximetry 99 01/10/25 15:52 Oxygen Delivery Method Room Air 01/10/25 15:52 Course <Leo Dexter MD - Last Filed: 02/16/25 00:09> Orders Ordered: Discontinued Medications Acetaminophen (Acetaminophen 325 Mg Tablet) 650 mg PO Q6H PRN PRN Reason: Fever/Mild Pain (1-3) Hydrocodone Bitart/Acetaminophen (Hydrocodone/Acet 5/325 Tablet) 1 tab PO Q4H PRN PRN Reason: Pain, Moderate (4-6) Last Admin: 01/10/25 22:55 Dose: 1 tab Documented By: JOVON Hydrocodone Bitart/Acetaminophen (Hydrocodone/Acet 5/325 Tablet) 2 tab PO Q4H PRN PRN Reason: Pain, Severe (7-10) Atorvastatin Calcium (Atorvastatin 20 Mg Tablet) 20 mg PO DAILY AAKASH Atorvastatin Calcium (Atorvastatin 20 Mg Tablet) 20 mg PO 1230 AAKASH Last Admin: 01/11/25 12:55 Dose: 20 mg Documented By: Bisacodyl (Bisacodyl 10 Mg Supp) 10 mg TN NOW ONE Stop: 01/11/25 10:57 Last Admin: 01/11/25 11:16 Dose: 10 mg Documented By: Docusate Sodium (Docusate 100 Mg Capsule) 100 mg PO BID PRN PRN Reason: Constipation Docusate Sodium (Docusate 100 Mg Capsule) 100 mg PO NOW ONE Stop: 01/11/25 15:12 Last Admin: 01/11/25 15:24 Dose: 100 mg Documented By: Hydromorphone HCl (Hydromorphone 1 Mg Inj) 1 mg IV NOW ONE Stop: 01/10/25 19:16 Last Admin: 01/10/25 19:19 Dose: 1 mg Documented By: CE Hydromorphone HCl (Hydromorphone 0.5 Mg Inj) 0.5 mg IV Q2H PRN PRN Reason: Pain, Severe (7-10) Last Admin: 01/11/25 06:54 Dose: 0.5 mg Documented By: KORI Hydromorphone HCl (Hydromorphone 1 Mg Inj) 1 mg IV Q2H PRN PRN Reason: Pain, Severe (7-10) Last Admin: 01/11/25 08:10 Dose: 1 mg Documented By: Lactated Ringer's (Lactated Ringers) 1,000 mls @ 500 mls/hr IV BOLUS ONE Stop: 01/10/25 19:43 Last Infusion: 01/10/25 20:11 Dose: Infused Documented By: Admin: 01/10/25 17:54 Dose: 500 mls/hr Documented By: JOSEPH Lactated Ringer's (Lactated Ringers) 1,000 mls @ 120 mls/hr IV CONT AAKASH Last Admin: 01/11/25 13:25 Dose: 120 mls/hr Documented By: Infusion: 01/11/25 13:25 Dose: Infused Documented By: Admin: 01/11/25 05:35 Dose: 120 mls/hr Documented By: Infusion: 01/11/25 05:35 Dose: Infused Documented By: Admin: 01/10/25 21:15 Dose: 120 mls/hr Documented By: DEON Ibuprofen (Ibuprofen 600 Mg Tablet) 600 mg PO Q6H PRN PRN Reason: Fever/Mild Pain (1-3) Last Admin: 01/10/25 22:56 Dose: 600 mg Documented By: JOVON Metoclopramide HCl (Metoclopramide 10 Mg/2 Ml Inj) 10 mg IV Q6HR PRN PRN Reason: Nausea And Vomiting Last Admin: 01/11/25 06:08 Dose: 10 mg Documented By: KORI Metoprolol Tartrate (Metoprolol Ir 25 Mg Tablet) 25 mg PO BID [facility] Last Admin: 01/11/25 08:10 Dose: 25 mg Documented By: Admin: 01/10/25 22:56 Dose: 25 mg Documented By: JOVON Morphine Sulfate (Morphine 2 Mg/Ml Inj) 2 mg IV NOW ONE Stop: 01/10/25 16:31 Last Admin: 01/10/25 16:37 Dose: 2 mg Documented By: JOSEPH Mycophenolate Mofetil (Mycophenolate Mofetil 500 Mg Tablet) 1,000 mg PO BID [facility] Last Admin: 01/11/25 08:09 Dose: 1,000 mg Documented By: Admin: 01/11/25 01:30 Dose: Not Given Documented By: KORI Naloxone HCl (Naloxone 0.4 Mg/Ml Vial) 0.2 mg IV Q2MIN PRN PRN Reason: Opiate Reversal Non-Formulary Medication (Sulfamethoxazole-Trimethoprim) 1 tab PO DAILY [facility] Ondansetron HCl (Ondansetron 4 Mg/2 Ml Inj) 4 mg IV NOW PRN PRN Reason: Nausea And Vomiting Last Admin: 01/10/25 16:42 Dose: 4 mg Documented By: JOSEPH Ondansetron HCl (Ondansetron 4 Mg Odt) 4 mg PO NOW PRN PRN Reason: Nausea And Vomiting Last Admin: 01/11/25 03:44 Dose: 4 mg Documented By: CT Oxycodone HCl (Oxycodone Ir 10 Mg Tablet) 10 mg PO Q8H PRN PRN Reason: pain Polyethylene Glycol (Polyethylene Glycol 3350 17 Gm Powd.Pack) 17 gm PO BID [facility] Last Admin: 01/11/25 12:55 Dose: 17 gm Documented By: Prednisone (Prednisone 5 Mg Tablet) 5 mg PO DAILY [facility] Last Admin: 01/11/25 08:46 Dose: 5 mg Documented By: Sodium Biphosphate/Sodium Phosphate (Fleets Enema) 1 each TN DAILY PRN PRN Reason: Constipation Tacrolimus (Tacrolimus 0.5 Mg Capsule) 2 mg PO BID [facility] Last Admin: 01/10/25 23:07 Dose: 2 mg Documented By: JOVON Tacrolimus (Tacrolimus 0.5 Mg Capsule) 0.5 mg PO BID [facility] Last Admin: 01/10/25 23:06 Dose: 0.5 mg Documented By: JOVON Tacrolimus (Tacrolimus 0.5 Mg Capsule) 2.5 mg PO BID [facility] Last Admin: 01/11/25 08:09 Dose: 2.5 mg Documented By: Tamsulosin HCl (Tamsulosin 0.4 Mg Capsule) 0.8 mg PO BID [facility] Last Admin: 01/11/25 08:09 Dose: 0.8 mg Documented By: Admin: 01/10/25 23:06 Dose: 0.8 mg Documented By: JOVON Trimethoprim/Sulfamethoxazole (Trimeth/Sulfa 160/800 (Ds) Tablet) 0.5 tab PO DAILY [facility] Last Admin: 01/11/25 08:46 Dose: 0.5 tab Documented By: Zolpidem Tartrate (Zolpidem 5 Mg Tablet) 15 mg PO BEDTIME PRN PRN Reason: Insomnia Last Admin: 01/10/25 23:07 Dose: 15 mg Documented By: JOVON Vital Signs Vital signs: Vital Signs - 8 hr 01/10/25 15:52 01/10/25 16:05 01/10/25 16:06 Temperature 99 F Pulse Rate 114 H 105 H Respiratory Rate 20 24 Blood Pressure 142/80 H 134/83 Pulse Oximetry 99 100 Oxygen Delivery Method Room Air 01/10/25 16:06 01/10/25 16:30 01/10/25 16:30 Temperature Pulse Rate 105 H 69 Respiratory Rate 21 Blood Pressure 126/75 Pulse Oximetry 99 98 Oxygen Delivery Method 01/10/25 17:06 04/23/25 17:30 Temperature Pulse Rate 70 70 Respiratory Rate 23 Blood Pressure Pulse Oximetry 98 99 Oxygen Delivery Method <Flaquito Martin, DO - Last Filed: 01/10/25 19:17> Orders Ordered: Discontinued Medications Acetaminophen (Acetaminophen 325 Mg Tablet) 650 mg PO Q6H PRN PRN Reason: Fever/Mild Pain (1-3) Hydrocodone Bitart/Acetaminophen (Hydrocodone/Acet 5/325 Tablet) 1 tab PO Q4H PRN PRN Reason: Pain, Moderate (4-6) Last Admin: 01/10/25 22:55 Dose: 1 tab Documented By: JOVON Hydrocodone Bitart/Acetaminophen (Hydrocodone/Acet 5/325 Tablet) 2 tab PO Q4H PRN PRN Reason: Pain, Severe (7-10) Atorvastatin Calcium (Atorvastatin 20 Mg Tablet) 20 mg PO DAILY [facility] Atorvastatin Calcium (Atorvastatin 20 Mg Tablet) 20 mg PO 1230 AAKASH Last Admin: 01/11/25 12:55 Dose: 20 mg Documented By: Bisacodyl (Bisacodyl 10 Mg Supp) 10 mg TN NOW ONE Stop: 01/11/25 10:57 Last Admin: 01/11/25 11:16 Dose: 10 mg Documented By: Docusate Sodium (Docusate 100 Mg Capsule) 100 mg PO BID PRN PRN Reason: Constipation Docusate Sodium (Docusate 100 Mg Capsule) 100 mg PO NOW ONE Stop: 01/11/25 15:12 Last Admin: 01/11/25 15:24 Dose: 100 mg Documented By: Hydromorphone HCl (Hydromorphone 1 Mg Inj) 1 mg IV NOW ONE Stop: 01/10/25 19:16 Last Admin: 01/10/25 19:19 Dose: 1 mg Documented By: CE Hydromorphone HCl (Hydromorphone 0.5 Mg Inj) 0.5 mg IV Q2H PRN PRN Reason: Pain, Severe (7-10) Last Admin: 01/11/25 06:54 Dose: 0.5 mg Documented By: CT Hydromorphone HCl (Hydromorphone 1 Mg Inj) 1 mg IV Q2H PRN PRN Reason: Pain, Severe (7-10) Last Admin: 01/11/25 08:10 Dose: 1 mg Documented By: Lactated Ringer's (Lactated Ringers) 1,000 mls @ 500 mls/hr IV BOLUS ONE Stop: 01/10/25 19:43 Last Infusion: 01/10/25 20:11 Dose: Infused Documented By: Admin: 01/10/25 17:54 Dose: 500 mls/hr Documented By: JOSEPH Lactated Ringer's (Lactated Ringers) 1,000 mls @ 120 mls/hr IV CONT [facility] Last Admin: 01/11/25 13:25 Dose: 120 mls/hr Documented By: Infusion: 01/11/25 13:25 Dose: Infused Documented By: Admin: 01/11/25 05:35 Dose: 120 mls/hr Documented By: Infusion: 01/11/25 05:35 Dose: Infused Documented By: Admin: 01/10/25 21:15 Dose: 120 mls/hr Documented By: DEON Ibuprofen (Ibuprofen 600 Mg Tablet) 600 mg PO Q6H PRN PRN Reason: Fever/Mild Pain (1-3) Last Admin: 01/10/25 22:56 Dose: 600 mg Documented By: JOVON Metoclopramide HCl (Metoclopramide 10 Mg/2 Ml Inj) 10 mg IV Q6HR PRN PRN Reason: Nausea And Vomiting Last Admin: 01/11/25 06:08 Dose: 10 mg Documented By: KORI Metoprolol Tartrate (Metoprolol Ir 25 Mg Tablet) 25 mg PO BID [facility] Last Admin: 01/11/25 08:10 Dose: 25 mg Documented By: Admin: 01/10/25 22:56 Dose: 25 mg Documented By: JOVON Morphine Sulfate (Morphine 2 Mg/Ml Inj) 2 mg IV NOW ONE Stop: 01/10/25 16:31 Last Admin: 01/10/25 16:37 Dose: 2 mg Documented By: JOSEPH Mycophenolate Mofetil (Mycophenolate Mofetil 500 Mg Tablet) 1,000 mg PO BID [facility] Last Admin: 01/11/25 08:09 Dose: 1,000 mg Documented By: Admin: 01/11/25 01:30 Dose: Not Given Documented By: KORI Naloxone HCl (Naloxone 0.4 Mg/Ml Vial) 0.2 mg IV Q2MIN PRN PRN Reason: Opiate Reversal Non-Formulary Medication (Sulfamethoxazole-Trimethoprim) 1 tab PO DAILY [facility] Ondansetron HCl (Ondansetron 4 Mg/2 Ml Inj) 4 mg IV NOW PRN PRN Reason: Nausea And Vomiting Last Admin: 01/10/25 16:42 Dose: 4 mg Documented By: JOSEPH Ondansetron HCl (Ondansetron 4 Mg Odt) 4 mg PO NOW PRN PRN Reason: Nausea And Vomiting Last Admin: 01/11/25 03:44 Dose: 4 mg Documented By: KORI Oxycodone HCl (Oxycodone Ir 10 Mg Tablet) 10 mg PO Q8H PRN PRN Reason: pain Polyethylene Glycol (Polyethylene Glycol 3350 17 Gm Powd.Pack) 17 gm PO BID [facility] Last Admin: 01/11/25 12:55 Dose: 17 gm Documented By: Prednisone (Prednisone 5 Mg Tablet) 5 mg PO DAILY [facility] Last Admin: 01/11/25 08:46 Dose: 5 mg Documented By: Sodium Biphosphate/Sodium Phosphate (Fleets Enema) 1 each TN DAILY PRN PRN Reason: Constipation Tacrolimus (Tacrolimus 0.5 Mg Capsule) 2 mg PO BID [facility] Last Admin: 01/10/25 23:07 Dose: 2 mg Documented By: JOVON Tacrolimus (Tacrolimus 0.5 Mg Capsule) 0.5 mg PO BID [facility] Last Admin: 01/10/25 23:06 Dose: 0.5 mg Documented By: JOVON Tacrolimus (Tacrolimus 0.5 Mg Capsule) 2.5 mg PO BID [facility] Last Admin: 01/11/25 08:09 Dose: 2.5 mg Documented By: Tamsulosin HCl (Tamsulosin 0.4 Mg Capsule) 0.8 mg PO BID [facility] Last Admin: 01/11/25 08:09 Dose: 0.8 mg Documented By: Admin: 01/10/25 23:06 Dose: 0.8 mg Documented By: JOVON Trimethoprim/Sulfamethoxazole (Trimeth/Sulfa 160/800 (Ds) Tablet) 0.5 tab PO DAILY [facility] Last Admin: 01/11/25 08:46 Dose: 0.5 tab Documented By: Zolpidem Tartrate (Zolpidem 5 Mg Tablet) 15 mg PO BEDTIME PRN PRN Reason: Insomnia Last Admin: 01/10/25 23:07 Dose: 15 mg Documented By: JOVON Vital Signs Vital signs: Vital Signs - 8 hr 01/10/25 15:52 01/10/25 16:05 01/10/25 16:06 Temperature 99 F Pulse Rate 114 H 105 H Respiratory Rate 20 24 Blood Pressure 142/80 H 134/83 Pulse Oximetry 99 100 Oxygen Delivery Method Room Air 01/10/25 16:06 01/10/25 16:30 01/10/25 16:30 Temperature Pulse Rate 105 H 69 Respiratory Rate 21 Blood Pressure 126/75 Pulse Oximetry 99 98 Oxygen Delivery Method 01/10/25 17:06 01/10/25 17:30 Temperature Pulse Rate 70 70 Respiratory Rate 23 Blood Pressure Pulse Oximetry 98 99 Oxygen Delivery Method MDM - Abdominal Pain <Leo Dexter MD - Last Filed: 02/16/25 00:09> Lab Data Lab results narrative: I reviewed patient's laboratory data which was overall reassuring patient has no significant leukocytosis no significant anemia hemoglobin found to be 10.1 no thrombocytopenia that will require emergent ED administration of platelets Patient is kidney function appears to have mild bump with creatinine of 1.7 Patient's bilirubin found to be 1.9 but no significant elevations in LFTs or alkaline phosphatase no elevation in lipase 01/11/25 05:54 01/11/25 05:54 Labs: Lab Results 01/10/25 Range/Units 16:14 WBC 4.2 L (4.5-11.0) X10^3/uL RBC 5.34 (4.5-5.9) X10^6/uL Hgb 10.1 L (13.5-17.5) g/dL Hct 32.1 L (41-53) % MCV 60.2 L (80-100) fL MCH 18.8 L (26-34) PG MCHC 31.3 (30-36) % RDW 17.4 H (11.6-14.8) % Plt Count 160 (150-400) X10^3/uL Neut % (Auto) Not Reportable Lymph % (Auto) Not Reportable [place] % (Auto) Not Reportable Eos % (Auto) Not Reportable Baso % (Auto) Not Reportable Lymph # (Auto) Not Reportable [place] # (Auto) Not Reportable Baso # (Auto) Not Reportable Total Counted 100 Seg Neutrophils % 69.0 (38-70) % Lymphocytes % (Manual) 18.0 L (25-45) % Monocytes % (Manual) 8.0 (2-11) % Eosinophils % (Manual) 5.0 H (2-4) % Neutrophils # (Manual) 2898 L (0948-8346) /uL RBC Morphology See below Anisocytosis 2+ H Schistocytes 3+ H Sodium 135 L (137-145) mmol/L Potassium 5.0 (3.4-5.1) mmol/L Chloride 102 (98-107) mmol/L Carbon Dioxide 21 L (22-32) mmol/L BUN 43 H (9-20) mg/dL Creatinine 1.73 H (0.66-1.25) mg/dL Estimated GFR 44 L (>60) mL/min BUN/Creatinine Ratio 24.9 H (6-22) Glucose 145 H (70-99) mg/dL Calcium 9.6 (8.4-10.2) mg/dL Total Bilirubin 1.9 H (0.2-1.3) mg/dL AST 43 (17-59) IU/L ALT 28 (<50) IU/L Alkaline Phosphatase 63 (38-126) U/L Total Creatine Kinase 22 L (55-170) U/L Troponin I < 0.012 (0.01-0.034) ng/mL Total Protein 7.1 (6.3-8.2) g/dL Albumin 4.6 (3.5-5.0) g/dL Globulin 2.5 (1.7-4.1) g/dL Albumin/Globulin Ratio 1.8 (1.0-2.8) Lipase 30 (23-300) U/L ECG Data Attestation: I personally reviewed and interpreted this ECG as follows: Interpretation: I reviewed patient's EKG that shows atrial fibrillation with a rate of 108 patient's QRS appears to be narrow with no significant widening, patient's QTC is 447 no signs of significant ST elevation depression or significant abnormalities meeting STEMI criteria patient has a known history of atrial fibrillation for which he is on metoprolol MDM Narrative Medical decision making narrative: INITIAL EVALUATION AND PLAN: - Abdominal imaging to evaluate for post-surgical complications. - Laboratory tests to assess biliary tract function. - Pain management for abdominal and shoulder pain. - Monitor for signs of infection or other complications related to the cholecystectomy. Differential diagnosis includes but is not limited to: biliary tract dysfunction, post-surgical adhesions, residual gallbladder disease, or referred pain from the shoulder. Patient is signed out to me at shift change pending final disposition by . All lab work EKG vital signs nurse triage note medication list previous visits and all imaging modalities all reviewed. Patient given lactated ringer 500ml bolus IV, morphine 2 mg IV and 4 of Zofran IV. Case discussed the discussed with Dr. Javier Dorado surgeon transportation project manager who will graciously admit him to his service for IV hydration and observation. <Flaquito Martin, DO - Last Filed: 01/10/25 19:17> Lab Data Labs: Lab Results 01/10/25 Range/Units 16:14 WBC 4.2 L (4.5-11.0) X10^3/uL RBC 5.34 (4.5-5.9) X10^6/uL Hgb 10.1 L (13.5-17.5) g/dL Hct 32.1 L (41-53) % MCV 60.2 L (80-100) fL MCH 18.8 L (26-34) PG MCHC 31.3 (30-36) % RDW 17.4 H (11.6-14.8) % Plt Count 160 (150-400) X10^3/uL Neut % (Auto) Not Reportable Lymph % (Auto) Not Reportable [place] % (Auto) Not Reportable Eos % (Auto) Not Reportable Baso % (Auto) Not Reportable Lymph # (Auto) Not Reportable [place] # (Auto) Not Reportable Baso # (Auto) Not Reportable Total Counted 100 Seg Neutrophils % 69.0 (38-70) % Lymphocytes % (Manual) 18.0 L (25-45) % Monocytes % (Manual) 8.0 (2-11) % Eosinophils % (Manual) 5.0 H (2-4) % Neutrophils # (Manual) 2898 L (2638-0764) /uL RBC Morphology See below Anisocytosis 2+ H Schistocytes 3+ H Sodium 135 L (137-145) mmol/L Potassium 5.0 (3.4-5.1) mmol/L Chloride 102 (98-107) mmol/L Carbon Dioxide 21 L (22-32) mmol/L BUN 43 H (9-20) mg/dL Creatinine 1.73 H (0.66-1.25) mg/dL Estimated GFR 44 L (>60) mL/min BUN/Creatinine Ratio 24.9 H (6-22) Glucose 145 H (70-99) mg/dL Calcium 9.6 (8.4-10.2) mg/dL Total Bilirubin 1.9 H (0.2-1.3) mg/dL AST 43 (17-59) IU/L ALT 28 (<50) IU/L Alkaline Phosphatase 63 (38-126) U/L Total Creatine Kinase 22 L (55-170) U/L Troponin I < 0.012 (0.01-0.034) ng/mL Total Protein 7.1 (6.3-8.2) g/dL Albumin 4.6 (3.5-5.0) g/dL Globulin 2.5 (1.7-4.1) g/dL Albumin/Globulin Ratio 1.8 (1.0-2.8) Lipase 30 (23-300) U/L Imaging Data CT scan - abdomen/pelvis: Radiologist's Impression: [place] [address] CT Scan Report Signed Patient: Gatito Randolph MR#: [id number] : 1960 Acct:[id number] Age/Sex: 64 / M Date of Service: 01/10/25 Loc: ED Accession Number: [id number] Procedure: CT abdomen pelvis w con Ordering Provider: Leo Dexter MD PROCEDURE: CT ABDOMEN PELVIS W CON INDICATIONS: Recent cholecystectomy, worsening pain TECHNIQUE: After the administration of intravenous contrast, axial sections acquired from the lung bases to the pubic symphysis. Coronal and sagittal reformats were performed. For radiation dose reduction, the following was used: automated exposure control, adjustment of mA and/or kV according to patient size. COMPARISON: [facility], CT, CT ABDOMEN PELVIS W CON, 01/21/2022, 1:24. FINDINGS: Image quality: Diagnostic. Lower Chest: Minuscule pleural fluid. Calcified right pleural plaques. Inferior sternal wire. Cardiomegaly. ABDOMEN: Liver: Hepatic steatosis. A few areas of heterogeneous enhancement. Gallbladder: Absent. There is trace fluid in the gallbladder fossa measuring at 3 x 0.8 cm. This measures 41 Hounsfield units. Biliary ducts: No biliary dilation. Pancreas: No ductal dilation. Fatty atrophy. A few small cyst near the tail the pancreas. Spleen: Size is within normal limits. Small splenule. Adrenal Glands: No adrenal nodules. Kidneys and Ureters: No hydronephrosis. 3 nonobstructing left kidney stones. No solid mass. No complex renal cystic lesion which requires follow up. Stomach and Bowel: Diverticulosis. Clip anterior to the transverse colon. The appendix is not identified. Small bowel anastomosis in the right lower quadrant. There are a few prominent fluid-filled loops of small bowel. No discrete transition point. The stomach is not distended. Peritoneum: No abnormal intraperitoneal fluid. No free air. Ventral Wall: Fat containing ventral abdominal wall hernias. Abdominal Nodes: No retroperitoneal or mesenteric adenopathy by size criteria. Vessels: Aorta and inferior vena cava are normal in size. Circumferential calcified atherosclerotic plaque. PELVIS: Pelvic Organs: Prostatomegaly. Bladder: No bladder wall thickening, accounting for underdistention. Pelvic Nodes: No enlarged lymph nodes. Miscellaneous: No inguinal hernias are seen. Bones: No aggressive osseous abnormality. IMPRESSION: 1. Post cholecystectomy. Trace fluid in the gallbladder fossa. No drainable collection. 2. Prominent fluid-filled loops of small bowel. No discrete transition point. Findings could be due to adynamic ileus or potentially developing small bowel obstruction. No ascites. No pneumoperitoneum. 3. Nonobstructing left kidney stones. No hydronephrosis. Dictated by: Leonid Goncalves M.D. on 01/10/2025 at 18:25 Approved by: Leonid Goncalves M.D. on 01/10/2025 at 18:38 [facility] Narrative Medical decision making narrative: INITIAL EVALUATION AND PLAN: - Abdominal imaging to evaluate for post-surgical complications. - Laboratory tests to assess biliary tract function. - Pain management for abdominal and shoulder pain. - Monitor for signs of infection or other complications related to the cholecystectomy. Differential diagnosis includes but is not limited to: biliary tract dysfunction, post-surgical adhesions, residual gallbladder disease, or referred pain from the shoulder. Patient is signed out to me at shift change pending final disposition by . All lab work EKG vital signs nurse triage note medication list previous visits and all imaging modalities all reviewed. Patient given lactated ringer 500ml bolus IV, morphine 2 mg IV and 4 of Zofran IV. Case discussed the discussed with Dr. Javier Dorado surgeon transportation project manager who will graciously admit him to his service for IV hydration and observation. Discharge Plan Departure Patient Disposition: Admitted as Observation Clinical Impression: Hyperbilirubinemia Abdominal pain Qualifiers: Abdominal location: right upper quadrant Qualified Code(s): R10.11 - Right upper quadrant pain Admit Date/Time: 01/10/25 19:29 Admit Provider: Stevie Shields
[2025-01-10 16:50] LABS: Neutrophils Absolute Manual 2898 /uL (3000-5900); Total Cells Counted 100
[2025-01-10 16:59] LABS: Anisocytosis 2+; Schistocytes 3+
[2025-01-10] MEDS: LACTATED RINGERS 1,000 ML 500 ML IV (17:54)
[2025-01-10 18:12] LABS: Creatine Kinase 22 U/L (55-170)
[2025-01-10 18:25] LABS: Troponin I < 0.012 ng/mL (0.01-0.034)
[2025-01-10] MEDS: HYDROMORPHONE 1 MG INJ IV (19:19)
--- NOTE | 2025-01-10 20:09 | P.HP_ITS ---
History of Present Illness History of Present Illness Date Patient Seen: 01/10/25 Time Patient Seen: 20:09 Chief complaint: shoulder pain.s/p gallbladder removal Narrative: Gatito is a 64-year-old man who had a laparoscopic cholecystectomy by Dr. Liriano about 10 days ago. Since surgery he has had abdominal pain and nausea along with diarrhea. His pain has not improved and today he came to the ER where a CT scan was performed showing dilated loops of small bowel consistent with an ileus. No evidence of any intra-abdominal postoperative complications. He has been having liquid loose stools since surgery which is not normal for him. He is a lung transplant patient and takes mycophenolate, tacrolimus and prednisone for immunosuppression. [facility] Medical History Laceration of ring finger History of substance abuse Microcytic anemia BPPV (benign paroxysmal positional vertigo) Wears glasses Hearing loss Anxiety Rubella Polio Mumps Measles Herpes Chicken pox Hepatitis C (~2019) Colon polyps Skin cancer Lung cancer History of nonmelanoma skin cancer Chronic low back pain Chronic anticoagulation Paroxysmal atrial fibrillation Pancreatic mass Umbilical hernia without mention of obstruction or gangrene Venous (peripheral) insufficiency Chronic insomnia History of colonic polyps Generalized anxiety disorder Primary osteoarthritis involving multiple joints Impaired fasting glucose Mixed hyperlipidemia Immunosuppression due to drug therapy History of lung cancer History of pulmonary fibrosis Ruptured appendix Surgical History Anesthesia History of knee surgery (~2009) History of rhinoplasty (~1981) History of colonoscopy History of transplantation, lung S/P appendectomy Family History Mother Head injury due to trauma Father Medical history unknown Brother Lung disease Sister Lung disease 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), 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 household members: spouse Smoking Status: Former smoker Tobacco: How many years used: 30 alcohol intake: former Type(s) of exercise: none Meds Home Medications and Allergies Home Medications Medication Instructions Recorded Confirmed Type prednisone 5 mg tablet 5 mg PO QAM 01/21/22 01/05/25 History mycophenolate mofetil 500 mg tablet 1,000 mg PO BID 02/06/23 01/05/25 History tacrolimus 0.5 mg capsule, 0.5 mg PO BID 02/06/23 01/05/25 History immediate-release tacrolimus 1 mg capsule, 2 mg PO BID 02/06/23 01/05/25 History immediate-release azithromycin 250 mg tablet 250 mg PO DAILY 02/25/23 01/05/25 History atorvastatin 20 mg tablet 20 mg PO DAILY #90 tabs 12/16/23 01/05/25 Rx tamsulosin 0.4 mg capsule 0.8 mg (2 x 0.4 mg) PO DAILY #180 11/09/24 01/05/25 Rx caps metoprolol tartrate 25 mg tablet 25 mg PO BID #60 tabs 12/05/24 01/05/25 Rx zolpidem 10 mg tablet 15 mg (1.5 x 10 mg) PO BEDTIME PRN 12/27/24 01/05/25 Rx Insomnia #30 tabs oxycodone 10 mg tablet 10 mg PO Q8H PRN pain #7 tabs 12/30/24 01/05/25 Rx tizanidine 2 mg capsule 2 mg PO Q8H PRN muscle spasticity, 12/30/24 01/05/25 Rx pain #90 caps sulfamethoxazole 400 1 tab PO DAILY 01/05/25 01/05/25 History mg-trimethoprim 80 mg tablet Allergies Allergy/AdvReac Type Severity Reaction Status Date / Time sildenafil AdvReac Severe Palpitation Verified 01/05/25 07:27 s tramadol AdvReac Intermediate dysphoria Verified 01/05/25 07:27 Exam Vital Signs (past 8 hours): - 01/10/25 15:52 01/10/25 16:05 01/10/25 16:06 Temperature 99 F Pulse Rate 114 H 105 H Respiratory Rate 20 24 Blood Pressure 142/80 H 134/83 Pulse Oximetry 99 100 Oxygen Delivery Method Room Air 01/10/25 16:06 01/10/25 16:30 01/10/25 16:30 Temperature Pulse Rate 105 H 69 Respiratory Rate 21 Blood Pressure 126/75 Pulse Oximetry 99 98 Oxygen Delivery Method 01/10/25 17:06 01/10/25 17:30 01/10/25 18:00 Temperature Pulse Rate 70 70 69 Respiratory Rate 23 17 Blood Pressure Pulse Oximetry 98 99 98 Oxygen Delivery Method 01/10/25 18:21 01/10/25 18:21 01/10/25 18:30 Temperature Pulse Rate 67 Respiratory Rate Blood Pressure 128/70 138/75 Pulse Oximetry 100 Oxygen Delivery Method 01/10/25 18:30 Temperature Pulse Rate 70 Respiratory Rate 17 Blood Pressure Pulse Oximetry 98 Oxygen Delivery Method Oxygen Delivery Method Room Air Narrative Exam Narrative: Healing laparoscopic cholecystectomy incisions Abdomen is soft and moderately distended doubt evidence of peritonitis Objective Labs 01/10/25 16:14 01/10/25 16:14 Labs: Laboratory Results - last 24 hr 01/10/25 16:14 WBC 4.2 L RBC 5.34 Hgb 10.1 L Hct 32.1 L MCV 60.2 L MCH 18.8 L MCHC 31.3 RDW 17.4 H Plt Count 160 Neut % (Auto) Not Reportable Lymph % (Auto) Not Reportable [place] % (Auto) Not Reportable Eos % (Auto) Not Reportable Baso % (Auto) Not Reportable Lymph # (Auto) Not Reportable [place] # (Auto) Not Reportable Baso # (Auto) Not Reportable Total Counted 100 Seg Neutrophils % 69.0 Lymphocytes % (Manual) 18.0 L Monocytes % (Manual) 8.0 Eosinophils % (Manual) 5.0 H Neutrophils # (Manual) 2898 L RBC Morphology See below Anisocytosis 2+ H Schistocytes 3+ H Sodium 135 L Potassium 5.0 Chloride 102 Carbon Dioxide 21 L BUN 43 H Creatinine 1.73 H Estimated GFR 44 L BUN/Creatinine Ratio 24.9 H Glucose 145 H Calcium 9.6 Total Bilirubin 1.9 H AST 43 ALT 28 Alkaline Phosphatase 63 Total Creatine Kinase 22 L Troponin I < 0.012 Total Protein 7.1 Albumin 4.6 Globulin 2.5 Albumin/Globulin Ratio 1.8 Lipase 30 Assessment & Plan Assessment and plan (1) Ileus: Status: Acute Plan I suspect a postoperative ileus however it was also possible that he has some condition related to his transplant status and immune suppression. I will have Medicine see him to help with the workup regarding of the possibility of an infectious GI process. Time-Based Coding :: [TOTAL MINUTES] spent with patient and on the chart (including review of chart, obtaining history, exam, reviewing outside data, placing orders, documenting exam and treatment plan, and counseling patient) on [DATE]. PROFEE Molding Supervisor Document charge(s): No
[2025-01-10] MEDS: LACTATED RINGERS 1,000 ML 120 ML IV (21:15)
[2025-01-10] MEDS: HYDROCODONE/ACET 5/325 TABLET 1 TAB PO (22:55)
[2025-01-10] MEDS: METOPROLOL IR 25 MG TABLET PO (22:56)
[2025-01-10] MEDS: IBUPROFEN 600 MG TABLET PO (22:56)
[2025-01-10] MEDS: TAMSULOSIN 0.4 MG CAPSULE 0.8 MG PO (23:06)
[2025-01-10] MEDS: TACROLIMUS 0.5 MG CAPSULE PO (23:06)
[2025-01-10] MEDS: TACROLIMUS 0.5 MG CAPSULE 2 MG PO (23:07)
[2025-01-10] MEDS: ZOLPIDEM 5 MG TABLET 15 MG PO (23:07)
--- NOTE | 2025-01-11 02:55 | P.HP_ITS ---
History of Present Illness History of Present Illness Chief complaint: shoulder pain.s/p gallbladder removal Narrative: 64-year-old male with past medical history of laparoscopic cholecystectomy about 10 days ago, lung transplant on immunosuppressant, chronic anemia, anxiety, hyperlipidemia, BPH and insomnia presents with complaint of abdominal pain, nausea and diarrhea. Per the patient's report, after his laparoscopic cholecystectomy, patient been having moderate abdominal pain is generalized along with nausea and diarrhea. The patient states that his stool is liquidy but denies any blood. The patient also denies any fever, chills, vomiting, chest pain, shortness of breath, dysuria or coughing. In our emergency room, the patient was hemodynamically stable. Labs shows creatinine 1.7 total bili of 1.9 but no signs of sepsis. CT scan shows no signs of acute infection but possible ileus. General surgery was notified and a request for admission. However general surgeon would like medicine to help manage the patient medically. [facility] Medical History Laceration of ring finger History of substance abuse Microcytic anemia BPPV (benign paroxysmal positional vertigo) Wears glasses Hearing loss Anxiety Rubella Polio Mumps Measles Herpes Chicken pox Hepatitis C (~2019) Colon polyps Skin cancer Lung cancer History of nonmelanoma skin cancer Chronic low back pain Chronic anticoagulation Paroxysmal atrial fibrillation Pancreatic mass Umbilical hernia without mention of obstruction or gangrene Venous (peripheral) insufficiency Chronic insomnia History of colonic polyps Generalized anxiety disorder Primary osteoarthritis involving multiple joints Impaired fasting glucose Mixed hyperlipidemia Immunosuppression due to drug therapy History of lung cancer History of pulmonary fibrosis Ruptured appendix Surgical History Anesthesia History of knee surgery (~2009) History of rhinoplasty (~1981) History of colonoscopy History of transplantation, lung S/P appendectomy Family History Mother Head injury due to trauma Father Medical history unknown Brother Lung disease Sister Lung disease 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), 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 household members: spouse Smoking Status: Former smoker Tobacco: How many years used: 30 alcohol intake: former Type(s) of exercise: none Meds Home Medications and Allergies Home Medications Medication Instructions Recorded Confirmed Type prednisone 5 mg tablet 5 mg PO QAM 01/21/22 01/10/25 History mycophenolate mofetil 500 mg tablet 1,000 mg PO BID Lung transplant 02/06/23 01/10/25 History tacrolimus 0.5 mg capsule, 0.5 mg PO BID 02/06/23 01/10/25 History immediate-release tacrolimus 1 mg capsule, 2 mg PO BID 02/06/23 01/10/25 History immediate-release azithromycin 250 mg tablet 250 mg PO DAILY 02/25/23 01/10/25 History atorvastatin 20 mg tablet 20 mg PO DAILY #90 tabs 12/16/23 01/10/25 Rx zolpidem 10 mg tablet 15 mg (1.5 x 10 mg) PO BEDTIME PRN 12/27/24 01/10/25 Rx Insomnia #30 tabs oxycodone 10 mg tablet 10 mg PO Q8H PRN pain #7 tabs 12/30/24 01/10/25 Rx tizanidine 2 mg capsule 2 mg PO Q8H PRN muscle spasticity, 12/30/24 01/10/25 Rx pain #90 caps sulfamethoxazole 400 1 tab PO DAILY 01/05/25 01/10/25 History mg-trimethoprim 80 mg tablet metoprolol tartrate 25 mg tablet 25 mg PO BID Afib 01/10/25 01/10/25 History tamsulosin 0.4 mg capsule 0.8 mg PO BID BPH 01/10/25 01/10/25 History Allergies Allergy/AdvReac Type Severity Reaction Status Date / Time sildenafil AdvReac Severe Palpitation Verified 01/05/25 07:27 s tramadol AdvReac Intermediate dysphoria Verified 01/05/25 07:27 Review of Systems Review of Systems ROS: Yes All systems reviewed with the patient and are negative except as otherwise documented Exam Vital Signs (past 8 hours): - 01/10/25 19:00 01/10/25 19:00 01/10/25 19:30 Temperature Pulse Rate 69 Respiratory Rate 23 Blood Pressure 122/67 121/59 L Pulse Oximetry 99 Oxygen Flow Rate 01/10/25 19:30 01/10/25 20:00 01/10/25 20:00 Temperature Pulse Rate 72 70 Respiratory Rate 17 16 Blood Pressure 116/62 Pulse Oximetry 97 97 Oxygen Flow Rate 01/10/25 20:30 01/10/25 20:30 01/10/25 21:00 Temperature 97.1 F L Pulse Rate 70 74 Respiratory Rate 16 19 Blood Pressure 131/65 145/69 H Pulse Oximetry 97 95 Oxygen Flow Rate 0 Oxygen Delivery Method Room Air Oxygen Flow Rate 0 Narrative Exam Narrative: Physical Exam: GENERAL: The patient is not in any acute distressed. Awake and alert. HEENT: Nonicteric sclerae, PERRLA, EOMI. Oropharynx clear. Moist mucous membranes. Conjunctivae appear well perfused. HEART: Regular rate and rhythm without murmurs. No lower extremities edema. LUNGS: Clear to auscultation bilaterally. No wheezing, crackles or rhonchi ABDOMEN: Soft, positive bowel sounds, nontender. SKIN: No rash, no excessive bruising, petechiae, or purpura. NEUROLOGIC: AxO x 3. Cranial nerves II-XII intact without motor/sensory deficit. Objective Labs 01/10/25 16:14 01/10/25 16:14 Labs: Laboratory Results - last 24 hr 01/10/25 16:14 WBC 4.2 L RBC 5.34 Hgb 10.1 L Hct 32.1 L MCV 60.2 L MCH 18.8 L MCHC 31.3 RDW 17.4 H Plt Count 160 Neut % (Auto) Not Reportable Lymph % (Auto) Not Reportable [place] % (Auto) Not Reportable Eos % (Auto) Not Reportable Baso % (Auto) Not Reportable Lymph # (Auto) Not Reportable [place] # (Auto) Not Reportable Baso # (Auto) Not Reportable Total Counted 100 Seg Neutrophils % 69.0 Lymphocytes % (Manual) 18.0 L Monocytes % (Manual) 8.0 Eosinophils % (Manual) 5.0 H Neutrophils # (Manual) 2898 L RBC Morphology See below Anisocytosis 2+ H Schistocytes 3+ H Sodium 135 L Potassium 5.0 Chloride 102 Carbon Dioxide 21 L BUN 43 H Creatinine 1.73 H Estimated GFR 44 L BUN/Creatinine Ratio 24.9 H Glucose 145 H Calcium 9.6 Total Bilirubin 1.9 H AST 43 ALT 28 Alkaline Phosphatase 63 Total Creatine Kinase 22 L Troponin I < 0.012 Total Protein 7.1 Albumin 4.6 Globulin 2.5 Albumin/Globulin Ratio 1.8 Lipase 30 Assessment & Plan Assessment & Plan narrative: Ileus. The patient was admitted by primary surgical team. Defer all management per general surgeon. CHRISTIAN. Patient's baseline creatinine 1.2. Today creatinine 1.7. Likely due to dehydration from poor oral intake. IV fluid and recheck per renal function. Mild elevated bilirubin. Refer to general surgery input and recommendation. History of lung transplant on immunosuppressive medication. Will need to touch base with patient's oncologist in the morning regarding restarting patient's immunosuppressive medication. Dehydration. IV fluid. Hyperlipidemia. Resume home statin. BPH. Resume home Flomax. DVT prophylaxis Defer to surgical team Thank you for your consultation. We will continue to follow the patient with you. Please call our hospitalist if you have any questions or concerns. - As the provider of this telehealth evaluation, requested by the patient's evaluating physician, I attest that I introduced myself to the patient, provided my credentials and determined that telemedicine via a real-time, 2 way interactive audio and video platform is an appropriate and effective means of providing this service. - I reviewed the patient's chart and had a discussion with the member of the patient's treatment team. - The patient and I mutually agreed with continuation of this evaluation via telemedicine. The patient consented for the telemedicine evaluation. - This virtual encounter was taken place from [place]. The encounter was approximately 35 minutes. The nurse was present during the entire time of the encounter and was able to move the stethoscope in appropriate directions. The patient was evaluated at [facility]. Time-Based Coding :: [TOTAL MINUTES] spent with patient and on the chart (including review of chart, obtaining history, exam, reviewing outside data, placing orders, documenting exam and treatment plan, and counseling patient) on [DATE]. Quality VTE Deep Vein Thrombosis/Pulmonary Embolism Present on Admission: No
[2025-01-11] MEDS: ONDANSETRON 4 MG ODT PO (03:44)
[2025-01-11 04:00] VITALS: BP 121/65; PULSE 60; RESP 17; TEMP 35.9; O2SAT 95
[2025-01-11] MEDS: LACTATED RINGERS 1,000 ML 120 ML IV ×2 (05:35→13:25)
[2025-01-11] MEDS: METOCLOPRAMIDE 10 MG/2 ML INJ IV (06:08)
[2025-01-11 06:13] LABS: Add Manual Diff / Slide Review NO; Basophils Absolute Auto 0 /uL (0-100); Basophils Percent Auto 0.5 % (0-2); Eosinophils Absolute Auto 200 /uL (0-450); Eosinophils Percent Auto 4.5 % (2-4); Hematocrit 27.8 % (41-53); Hemoglobin 8.7 g/dL (13.5-17.5); Lymphocytes Absolute Auto 1100 /uL (1100-4500); Lymphocytes Percent Auto 26.8 % (25-40); Mean Corpuscular HGB Conc 31.5 % (30-36); Mean Corpuscular Hemoglobin 18.9 PG (26-34); Mean Corpuscular Volume 60.1 fL (80-100); Monocytes Absolute Auto 500 /uL (0-900); Monocytes Percent Auto 12.5 % (3-14); Neutrophils Absolute Auto 2200 /uL (1500-7000); Neutrophils Percent Auto 55.7 % (50-75); Platelet Count 144 X10^3/uL (150-400); Red Blood Cell Count 4.62 X10^6/uL (4.5-5.9); Red Cell Distribution Width 17.5 % (11.6-14.8); White Blood Cell Count 3.9 X10^3/uL (4.5-11.0)
[2025-01-11 06:20] LABS: BUN Creatinine Ratio 22.5 (6-22); Blood Urea Nitrogen 46 mg/dL (9-20); Calcium 8.8 mg/dL (8.4-10.2); Carbon Dioxide 23 mmol/L (22-32); Chloride 102 mmol/L (98-107); Estimated Glomerular Filt Rate 36 mL/min (>60); Glucose 124 mg/dL (70-99); HEMOLYSIS < 15 (0-50); Potassium 4.9 mmol/L (3.4-5.1); Sodium 133 mmol/L (137-145)
[2025-01-11 06:43] LABS: Anisocytosis 2+; Microcytosis 1+; Platelet Estimate Adequate on smear; Tear Drop Cells 1+
[2025-01-11 06:44] LABS: Schistocytes 2+; Target Cells 1+
[2025-01-11] MEDS: HYDROMORPHONE 0.5 MG INJ IV (06:54)
--- NOTE | 2025-01-11 07:54 | P.PN_ITS ---
Subjective Subjective Interval history: From night doctor: 64-year-old male with past medical history of laparoscopic cholecystectomy about 10 days ago, lung transplant on immunosuppressant, chronic anemia, anxiety, hyperlipidemia, BPH and insomnia presents with complaint of abdominal pain, nausea and diarrhea. Per the patient's report, after his laparoscopic cholecystectomy, patient been having moderate abdominal pain is generalized along with nausea and diarrhea. The patient states that his stool is liquidy but denies any blood. The patient also denies any fever, chills, vomiting, chest pain, shortness of breath, dysuria or coughing. In our emergency room, the patient was hemodynamically stable. Labs shows creatinine 1.7 total bili of 1.9 but no signs of sepsis. CT scan shows no signs of acute infection but possible ileus. General surgery was notified and a request for admission. However general surgeon would like medicine to help manage the patient medically. He is a lung transplant patient and takes mycophenolate, tacrolimus and prednisone for immunosuppression. S: He was having diarrhea through Wednesday after his cholecystectomy. He was not had any bowel movement since that time. He was having ongoing pain but denies any nausea or vomiting. The pain is mid abdomen and described as constant, and without radiation. Exam Vital Signs (past 8 hours): - 01/11/25 04:00 Temperature 96.6 F L Pulse Rate 60 Respiratory Rate 17 Blood Pressure 121/65 Pulse Oximetry 95 Oxygen Flow Rate 0 Oxygen Delivery Method Room Air Oxygen Flow Rate 0 Narrative Exam Narrative: NAD, alert and oriented. Fluent speech. Lungs are clear, normal rate and effort. Heart is regular, no murmur gallop or rub. Abdomen is soft, non distended. He was tender in the mid abdomen. No guarding or rebound. He was not hypertympanic. Extremities are free of edema. Objective ECG Impression: Intervals [place] Rate: 108 P: OK: QRS: 40 QRSD: 80 T: -26 QT: 334 QTc: 447 Interpretive Statements Atrial fibrillation with rapid ventricular response ST & T wave abnormality, consider inferior ischemia NO SIGNIFICANT CHANGE FROM PRIOR TRACING Imaging CT scan - abdomen: Radiologist's impression: 1. Post cholecystectomy. Trace fluid in the gallbladder fossa. No drainable collection. 2. Prominent fluid-filled loops of small bowel. No discrete transition point. Findings could be due to adynamic ileus or potentially developing small bowel obstruction. No ascites. No pneumoperitoneum. 3. Nonobstructing left kidney stones. No hydronephrosis. Labs 01/11/25 05:54 01/11/25 05:54 Labs: Laboratory Results - last 24 hr 01/10/25 01/11/25 16:14 05:54 WBC 4.2 L 3.9 L RBC 5.34 4.62 Hgb 10.1 L 8.7 L Hct 32.1 L 27.8 L MCV 60.2 L 60.1 L MCH 18.8 L 18.9 L MCHC 31.3 31.5 RDW 17.4 H 17.5 H Plt Count 160 144 L Neut % (Auto) Not Reportable 55.7 Lymph % (Auto) Not Reportable 26.8 [place] % (Auto) Not Reportable 12.5 Eos % (Auto) Not Reportable 4.5 H Baso % (Auto) Not Reportable 0.5 Neut # (Auto) 2200 Lymph # (Auto) Not Reportable 1100 [place] # (Auto) Not Reportable 500 Eos # (Auto) 200 Baso # (Auto) Not Reportable 0 Total Counted 100 Seg Neutrophils % 69.0 Lymphocytes % (Manual) 18.0 L Monocytes % (Manual) 8.0 Eosinophils % (Manual) 5.0 H Neutrophils # (Manual) 2898 L Platelet Estimate Adequate on smear RBC Morphology See below See below Anisocytosis 2+ H 2+ H Microcytosis 1+ H Target Cells 1+ H Tear Drop Cells 1+ H Schistocytes 3+ H 2+ H Sodium 135 L 133 L Potassium 5.0 4.9 Chloride 102 102 Carbon Dioxide 21 L 23 BUN 43 H 46 H Creatinine 1.73 H 2.04 H Estimated GFR 44 L 36 L BUN/Creatinine Ratio 24.9 H 22.5 H Glucose 145 H 124 H Calcium 9.6 8.8 Total Bilirubin 1.9 H AST 43 ALT 28 Alkaline Phosphatase 63 Total Creatine Kinase 22 L Troponin I < 0.012 Total Protein 7.1 Albumin 4.6 Globulin 2.5 Albumin/Globulin Ratio 1.8 Lipase 30 [facility] Medical History Laceration of ring finger History of substance abuse Microcytic anemia BPPV (benign paroxysmal positional vertigo) Wears glasses Hearing loss Anxiety Rubella Polio Mumps Measles Herpes Chicken pox Hepatitis C (~2019) Colon polyps Skin cancer Lung cancer History of nonmelanoma skin cancer Chronic low back pain Chronic anticoagulation Paroxysmal atrial fibrillation Pancreatic mass Umbilical hernia without mention of obstruction or gangrene Venous (peripheral) insufficiency Chronic insomnia History of colonic polyps Generalized anxiety disorder Primary osteoarthritis involving multiple joints Impaired fasting glucose Mixed hyperlipidemia Immunosuppression due to drug therapy History of lung cancer History of pulmonary fibrosis Ruptured appendix Surgical History Anesthesia History of knee surgery (~2009) History of rhinoplasty (~1981) History of colonoscopy History of transplantation, lung S/P appendectomy Family History Mother Head injury due to trauma Father Medical history unknown Brother Lung disease Sister Lung disease 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 Ileus. Present on admission and active. 2. CHRISTIAN. Present on admission and active. 3. Mild elevated bilirubin. Present on admission and active. 4. History of lung transplant on immunosuppressive medication. Present on admission and stable. 5. Dehydration. Present on admission and active. 6. Hyperlipidemia. Present on admission and stable. 7. BPH. Present on admission and stable. PLAN: -continue analgesics and IV fluids. -monitor renal function. -Discuss with surgery. -dulcolax suppository. DVT prophylaxis Defer to surgical team Time-Based Coding :: [TOTAL MINUTES] spent with patient and on the chart (including review of chart, obtaining history, exam, reviewing outside data, placing orders, documenting exam and treatment plan, and counseling patient) on [DATE]. Quality VTE Deep Vein Thrombosis/Pulmonary Embolism Present on Admission: No
[2025-01-11 08:00] VITALS: BP 144/46; PULSE 77; RESP 22; TEMP 36.2; O2SAT 100
[2025-01-11] MEDS: TACROLIMUS 0.5 MG CAPSULE 2.5 MG PO (08:09)
[2025-01-11] MEDS: MYCOPHENOLATE MOFETIL 500 MG TABLET 1000 MG PO (08:09)
[2025-01-11] MEDS: TAMSULOSIN 0.4 MG CAPSULE 0.8 MG PO (08:09)
[2025-01-11] MEDS: METOPROLOL IR 25 MG TABLET PO (08:10)
[2025-01-11] MEDS: HYDROMORPHONE 1 MG INJ IV (08:10)
[2025-01-11] MEDS: predniSONE 5 MG TABLET PO (08:46)
[2025-01-11] MEDS: TRIMETH/SULFA 160/800 (DS) TABLET 0.5 TAB PO (08:46)
[2025-01-11] MEDS: BISACODYL 10 MG SUPP PR (11:16)
[2025-01-11] MEDS: ATORVASTATIN 20 MG TABLET PO (12:55)
[2025-01-11] MEDS: polyethylene glycoL 3350 17 GM POWD.PACK PO (12:55)
[2025-01-11 14:33] LABS: Adenovirus F 40/41 Not Detected (Not Detect); Astrovirus Not Detected (Not Detect); Campylobacter Not Detected (Not Detect); Clostridium difficile toxin AB Not Detected (Not Detect); Cryptosporidium Not Detected (Not Detect); Cyclospora cayetanensis Not Detected (Not Detect); Entamoeba histolytica Not Detected (Not Detect); Enteroaggregative E.coli Not Detected (Not Detect); Enteropathogenic E.coli Not Detected (Not Detect); Enterotoxigenic E.coli It/st Not Detected (Not Detect); Giardia lamblia Not Detected (Not Detect); Norovirus GI/GII Detected (Not Detect); Plesiomonsa shigelloides Not Detected (Not Detect); Rotavirus A Not Detected (Not Detect); Salmonella Not Detected (Not Detect); Sapovirus Not Detected (Not Detect); Shiga-like toxin-prod E.coli Not Detected (Not Detect); Shigella/Enteroinvasive E.coli Not Detected (Not Detect); Vibrio Not Detected (Not Detect); Vibrio cholerae Not Detected (Not Detect); Yersinia enterocolitica Not Detected (Not Detect)
--- NOTE | 2025-01-11 14:52 | CM.DANOTE ---
Initial DCP Assessment Note Pt is a 64 yo male, resident of [place], recent lap baldev now with suspected ileus. PCP: Ely Garcia Payer: Sancho VERDUZCO Reviewed chart, pt discussed in multidisciplinary rounds this morning. IJEOMA 01/13. Surgery consulting. Patient lives independently w/spouse. Patient is at functional and cognitive baseline. No barriers identified at this time to patient's safe discharge home w/family to assist; close outpatient f/u recommended. CM team will plan to follow clinical course closely in case any DC needs or concerns arise. CHANDNI Melvin Discharge Planning/Care Management CM Discharge Assessment Start: 01/11/25 14:51 Freq: Status: Active Protocol: Document 01/11/25 14:51 VADIM (Rec: 01/11/25 14:52 VADIM [id number]) Discharge Planning Assessment Assigned [employer] Maker CHANDNI Wiley DPOA/Assigned Designee Name Yue Daley Contact Information [phone] Advance Directives? Yes Advance Directives on File No History Provided By Patient,Medical Record Has Patient been admitted in last 30 No days? Prior Living Arrangements House Household Members spouse Type of transporation used prior to Drives own vehicle admit Independent with ADL's Yes Is patient alert and oriented? Yes Barriers to Discharge No Discharge Plan Home Transportation Arrangement spouse Referrals Initiated None needed
[2025-01-11] MEDS: DOCUSATE 100 MG CAPSULE PO (15:24)
--- NOTE | 2025-01-11 16:15 | PM.PN.IH.1 ---
Subjective Subjective Date Patient Seen: 01/11/25 Time Patient Seen: 16:15 Interval history: Still experiencing abdominal pain and fullness. He believes he needs an enema. Exam Vital Signs (past 8 hours): Oxygen Delivery Method Room Air Oxygen Flow Rate 0 Narrative Exam Narrative: Ambulating Objective Labs 01/11/25 05:54 01/11/25 05:54 Labs: Laboratory Results - last 24 hr 01/10/25 01/11/25 01/11/25 16:14 05:54 12:39 WBC 4.2 L 3.9 L RBC 5.34 4.62 Hgb 10.1 L 8.7 L Hct 32.1 L 27.8 L MCV 60.2 L 60.1 L MCH 18.8 L 18.9 L MCHC 31.3 31.5 RDW 17.4 H 17.5 H Plt Count 160 144 L Neut % (Auto) Not Reportable 55.7 Lymph % (Auto) Not Reportable 26.8 Sandoval % (Auto) Not Reportable 12.5 Eos % (Auto) Not Reportable 4.5 H Baso % (Auto) Not Reportable 0.5 Neut # (Auto) 2200 Lymph # (Auto) Not Reportable 1100 [place]oval # (Auto) Not Reportable 500 Eos # (Auto) 200 Baso # (Auto) Not Reportable 0 Total Counted 100 Seg Neutrophils % 69.0 Lymphocytes % (Manual) 18.0 L Monocytes % (Manual) 8.0 Eosinophils % (Manual) 5.0 H Neutrophils # (Manual) 2898 L Platelet Estimate Adequate on smear RBC Morphology See below See below Anisocytosis 2+ H 2+ H Microcytosis 1+ H Target Cells 1+ H Tear Drop Cells 1+ H Schistocytes 3+ H 2+ H Sodium 135 L 133 L Potassium 5.0 4.9 Chloride 102 102 Carbon Dioxide 21 L 23 BUN 43 H 46 H Creatinine 1.73 H 2.04 H Estimated GFR 44 L 36 L BUN/Creatinine Ratio 24.9 H 22.5 H Glucose 145 H 124 H Calcium 9.6 8.8 Total Bilirubin 1.9 H AST 43 ALT 28 Alkaline Phosphatase 63 Total Creatine Kinase 22 L Troponin I < 0.012 Total Protein 7.1 Albumin 4.6 Globulin 2.5 Albumin/Globulin Ratio 1.8 Lipase 30 Stl C. cayetanensis PCR Not detected Stool Rotavirus (PCR) Not detected Stool Adenovirus (PCR) Not detected Stool Astrovirus (PCR) Not detected Stool Cryptosporidium PCR Not detected Stl E.coli Shiga Tox PCR Not detected St Sh/Enteroin Ecoli PCR Not detected Stl Enterotoxigenic E PCR Not detected Stool EPEC (PCR) Not detected Stl E. histolytica PCR Not detected Stool Giardia Lamblia PCR Not detected Stool Sapovirus (PCR) Not detected Stl P. shigelloides PCR Not detected St Y.enterocolitica PCR Not detected Stool Vibrio (PCR) Not detected Stl Vibrio cholerae PCR Not detected Stl Enteroaggr Ecoli PCR Not detected Stl Norovirus GI/GII PCR Detected Campylobacter (PCR) Not detected C. difficile Tox (PCR) Not detected Salmonella (PCR) Not detected PFSH Medical History Laceration of ring finger History of substance abuse Microcytic anemia BPPV (benign paroxysmal positional vertigo) Wears glasses Hearing loss Anxiety Rubella Polio Mumps Measles Herpes Chicken pox Hepatitis C (~2019) Colon polyps Skin cancer Lung cancer History of nonmelanoma skin cancer Chronic low back pain Chronic anticoagulation Paroxysmal atrial fibrillation Pancreatic mass Umbilical hernia without mention of obstruction or gangrene Venous (peripheral) insufficiency Chronic insomnia History of colonic polyps Generalized anxiety disorder Primary osteoarthritis involving multiple joints Impaired fasting glucose Mixed hyperlipidemia Immunosuppression due to drug therapy History of lung cancer History of pulmonary fibrosis Ruptured appendix Surgical History Anesthesia History of knee surgery (~2009) History of rhinoplasty (~1981) History of colonoscopy History of transplantation, lung S/P appendectomy Family History Mother Head injury due to trauma Father Medical history unknown Brother Lung disease Sister Lung disease 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
--- NOTE | 2025-01-11 16:52 | PM.DS.1 ---
History of Present Illness History of Present Illness Chief complaint: shoulder pain.s/p gallbladder removal Narrative: From H&P: 64-year-old male with past medical history of laparoscopic cholecystectomy about 10 days ago, lung transplant on immunosuppressant, chronic anemia, anxiety, hyperlipidemia, BPH and insomnia presents with complaint of abdominal pain, nausea and diarrhea. Per the patient's report, after his laparoscopic cholecystectomy, patient been having moderate abdominal pain is generalized along with nausea and diarrhea. The patient states that his stool is liquidy but denies any blood. The patient also denies any fever, chills, vomiting, chest pain, shortness of breath, dysuria or coughing. In our emergency room, the patient was hemodynamically stable. Labs shows creatinine 1.7 total bili of 1.9 but no signs of sepsis. CT scan shows no signs of acute infection but possible ileus. General surgery was notified and a request for admission. However general surgeon would like medicine to help manage the patient medically. He is a lung transplant patient and takes mycophenolate, tacrolimus and prednisone for immunosuppression. Discharge Providers Provider Date of admission: 01/10/25 19:29 Discharge Date: 01/11/25 Primary care physician: Ely Bob DO Consults: Surgery. Discharge provider: Milan Peguero MD Summary Hospital Course Discharge Diagnosis: 1. Abdomen pain and Norovirus. Present on admission and improved. 2. CHRISTIAN. Present on admission and improved. 3. Mild elevated bilirubin. Present on admission and active. 4. History of lung transplant on immunosuppressive medication. Present on admission and stable. 5. Dehydration. Present on admission and active. 6. Hyperlipidemia. Present on admission and stable. 7. BPH. Present on admission and stable. Hospital Course: He was admitted with abdominal pain and x-ray was consistent with ileus. He was able to have a bowel movement with a suppository and was able to ambulate. Ultimately he improved significantly. The patient did have a stool PCR which was positive for norovirus. He requested discharge then of the day was felt to be stable for discharge. Status at Discharge Cognitive/behavioral status at discharge: oriented Functional status at discharge: independent ambulation Overall status at discharge: patient is back to baseline Time Spent with Patient Time spent: Greater than 30 minutes Exam Vital Signs (past 8 hours): Oxygen Delivery Method Room Air Oxygen Flow Rate 0 Narrative Exam Narrative: NAD, alert and oriented. Fluent speech. Lungs are clear, normal rate and effort. Heart is regular, no murmur gallop or rub. Abdomen is soft, non distended. Extremities are free of edema. Objective ECG Impression: ntervals [place] Rate: 108 P: SC: QRS: 40 QRSD: 80 T: -26 QT: 334 QTc: 447 Interpretive Statements Atrial fibrillation with rapid ventricular response ST & T wave abnormality, consider inferior ischemia NO SIGNIFICANT CHANGE FROM PRIOR TRACING Imaging CT scan - abdomen: Radiologist's impression: 1. Post cholecystectomy. Trace fluid in the gallbladder fossa. No drainable collection. 2. Prominent fluid-filled loops of small bowel. No discrete transition point. Findings could be due to adynamic ileus or potentially developing small bowel obstruction. No ascites. No pneumoperitoneum. 3. Nonobstructing left kidney stones. No hydronephrosis. Labs 01/11/25 05:54 01/11/25 05:54 Labs: Laboratory Results - last 24 hr 01/10/25 01/11/25 01/11/25 16:14 05:54 12:39 WBC 3.9 L RBC 4.62 Hgb 8.7 L Hct 27.8 L MCV 60.1 L MCH 18.9 L MCHC 31.5 RDW 17.5 H Plt Count 144 L Neut % (Auto) 55.7 Lymph % (Auto) 26.8 Harmon % (Auto) 12.5 Eos % (Auto) 4.5 H Baso % (Auto) 0.5 Neut # (Auto) 2200 Lymph # (Auto) 1100 Harmon # (Auto) 500 Eos # (Auto) 200 Baso # (Auto) 0 Total Counted 100 Seg Neutrophils % 69.0 Lymphocytes % (Manual) 18.0 L Monocytes % (Manual) 8.0 Eosinophils % (Manual) 5.0 H Neutrophils # (Manual) 2898 L Platelet Estimate Adequate on smear RBC Morphology See below See below Anisocytosis 2+ H 2+ H Microcytosis 1+ H Target Cells 1+ H Tear Drop Cells 1+ H Schistocytes 3+ H 2+ H Sodium 133 L Potassium 4.9 Chloride 102 Carbon Dioxide 23 BUN 46 H Creatinine 2.04 H Estimated GFR 36 L BUN/Creatinine Ratio 22.5 H Glucose 124 H Calcium 8.8 Total Creatine Kinase 22 L Troponin I < 0.012 Stl C. cayetanensis PCR Not detected Stool Rotavirus (PCR) Not detected Stool Adenovirus (PCR) Not detected Stool Astrovirus (PCR) Not detected Stool Cryptosporidium PCR Not detected Stl E.coli Shiga Tox PCR Not detected St Sh/Enteroin Ecoli PCR Not detected Stl Enterotoxigenic E PCR Not detected Stool EPEC (PCR) Not detected Stl E. histolytica PCR Not detected Stool Giardia Lamblia PCR Not detected Stool Sapovirus (PCR) Not detected Stl P. shigelloides PCR Not detected St Y.enterocolitica PCR Not detected Stool Vibrio (PCR) Not detected Stl Vibrio cholerae PCR Not detected Stl Enteroaggr Ecoli PCR Not detected Stl Norovirus GI/GII PCR Detected Campylobacter (PCR) Not detected C. difficile Tox (PCR) Not detected Salmonella (PCR) Not detected PFSH Medical History Laceration of ring finger History of substance abuse Microcytic anemia BPPV (benign paroxysmal positional vertigo) Wears glasses Hearing loss Anxiety Rubella Polio Mumps Measles Herpes Chicken pox Hepatitis C (~2019) Colon polyps Skin cancer Lung cancer History of nonmelanoma skin cancer Chronic low back pain Chronic anticoagulation Paroxysmal atrial fibrillation Pancreatic mass Umbilical hernia without mention of obstruction or gangrene Venous (peripheral) insufficiency Chronic insomnia History of colonic polyps Generalized anxiety disorder Primary osteoarthritis involving multiple joints Impaired fasting glucose Mixed hyperlipidemia Immunosuppression due to drug therapy History of lung cancer History of pulmonary fibrosis Ruptured appendix Surgical History Anesthesia History of knee surgery (~2009) History of rhinoplasty (~1981) History of colonoscopy History of transplantation, lung S/P appendectomy Family History Mother Head injury due to trauma Father Medical history unknown Brother Lung disease Sister Lung disease 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 Abdomen pain and Norovirus. Present on admission and improved. 2. CHRISTIAN. Present on admission and improved. 3. Mild elevated bilirubin. Present on admission and active. 4. History of lung transplant on immunosuppressive medication. Present on admission and stable. 5. Dehydration. Present on admission and active. 6. Hyperlipidemia. Present on admission and stable. 7. BPH. Present on admission and stable. Plan of Treatment: Discharge home as requested. Symptomatic treatment. Discharge Plan Discharge Plan Patient Disposition: Home Discharge orders & Medications Prescriptions: Continued atorvastatin 20 mg tablet 20 mg PO DAILY Qty: 90 3RF Rx Instructions: takes at 1230 daily zolpidem 10 mg tablet 15 mg PO BEDTIME PRN (Reason: Insomnia) Qty: 30 5RF sulfamethoxazole-trimethoprim 400-80 mg tablet 1 tab PO DAILY prednisone 5 mg Tablet 5 mg PO QAM mycophenolate mofetil 500 mg tablet 1,000 mg PO BID tacrolimus 1 mg capsule 2 mg PO BID tacrolimus 0.5 mg capsule 0.5 mg PO BID tizanidine 2 mg capsule 2 mg PO Q8H PRN (Reason: muscle spasticity, pain) Qty: 90 0RF oxycodone 10 mg tablet 10 mg PO Q8H PRN (Reason: pain) Qty: 7 0RF tamsulosin 0.4 mg capsule 0.8 mg PO BID Patient Comments: Per Urologist, take BID. Has taking BID for approx. +/- one month metoprolol tartrate 25 mg tablet 25 mg PO BID Follow up/Referrals: Ely Bbo DO [Primary Care Provider] - Activity Restrictions/Additional Instructions: As tolerated. Diet/Activity/Treatments Diet: Regular Skin/Wound/Dressing Care Report to your healthcare provider any signs of infection, such as:: chills, fever Visit Report/Discharge Packet Instructions: DI for Diarrhea and Traveler's Diarrhea -- Adult Stand Alone Forms: Patient Portal/API Discharge Data Primary Care Provider: Ely Bob Quality VTE Deep Vein Thrombosis/Pulmonary Embolism Present on Admission: No
== END 2025-01-11 17:15 | disposition home or self-care (01) ==
LOC: ED 19:17 → AC 19:54
PROVIDERS: Emergency Medicine; Hospitalist; Surgery; Admitting Provider Internal Medicine; Emergency Provider Family Medicine; PCP Family Medicine; Referring Provider Family Medicine; Visit Provider Internal Medicine
DX: A08.11 Acute gastroenteropathy due to Norwalk agent (principal); R19.7 Diarrhea, unspecified; M25.511 Pain in right shoulder; N17.9 Acute kidney failure, unspecified; E86.0 Dehydration; E78.5 Hyperlipidemia, unspecified; N40.0 Benign prostatic hyperplasia without lower urinary tract symptoms; R17 Unspecified jaundice; D64.89 Other specified anemias; Z94.2 Lung transplant status; Z90.49 Acquired absence of other specified parts of digestive tract; F41.9 Anxiety disorder, unspecified; Z87.891 Personal history of nicotine dependence
CPT/HCPCS: 36415; 74177; 80048; 80053; 82550; 83690; 84484; 85007; 85025; 87507; 93005; 93010; 96361; 96374; 96375; 96376; 99283; 99284; G0378; J1171; J2270; J2405; J2765; J7507; Q9967

== ENCOUNTER 2025-01-12 01:19 | Emergency (ER) | payer MEDICARE, SELFPAY ==
[2025-01-10 21:21] VITALS: BMI 25.0
[2025-01-12] VITALS (13 sets, daily range): BP systolic 80–112; BP diastolic 52–68; PULSE 56–84; RESP 13–27; TEMP 36.9; O2SAT 88–94; BMI 27.2
--- NOTE | 2025-01-12 01:31 | DI.RAD.S_ITS ---
PROCEDURE: XR CHEST 1V INDICATIONS: chest pain TECHNIQUE: One view of the chest was acquired. COMPARISON: [facility], CT, CT ABDOMEN PELVIS W CON, 01/10/2025, 16:59. [facility], CR, XR CHOLANGIOGRAM OPERATIVE, 12/29/2024, 15:17. [facility], CR, XR CHEST 1V, 05/27/2024, 22:57. [facility], CR, XR CHEST 1V, 02/06/2023, 14:58. FINDINGS: Surgical changes and devices: Sternotomy. Surgical clips project heart. Lungs and pleura: Hazy, lower lobe predominant airspace opacities. Mediastinum: Mediastinal contours appear normal. Heart size is enlarged. Bones and chest wall: No suspicious bony lesions. Overlying soft tissues appear unremarkable. IMPRESSION: Hazy, lower lobe predominant airspace opacities concerning for atypical infection. Differential includes atelectasis. Dictated by: Prabhjot Foy M.D. on 01/12/2025 at 2:08 Approved by: Prabhjot Foy M.D. on 01/12/2025 at 2:12
--- NOTE | 2025-01-12 01:34 | ED_ITS ---
HPI - Arrhythmia/Palpitations General Chief Complaint: Arrhythmia/Palpitations Stated Complaint: afib Time Seen by Provider: 01/12/25 01:34 Source: patient Mode of arrival: Ambulatory History of Present Illness HPI narrative: 64-year-old male patient history of atrial fibrillation, lung transplant on immunosuppresant, anxiety, chronic anemia, dyslipidemia, BPH, and insomnia had surgery 12 days ago admitted for observation of ileus discharged earlier today with norovirus was about to go to bed when he took Ambien and began to feel her palpitations and came in to be evaluated thinking he was in atrial fibrillation again. Other than what is stated 14 point review of system is negative. Related Data Home Medications Medication Instructions Recorded Confirmed prednisone 5 mg tablet 5 mg PO QAM 01/21/22 01/11/25 mycophenolate mofetil 500 mg tablet 1,000 mg PO BID Lung transplant 02/06/23 01/11/25 tacrolimus 0.5 mg capsule, 0.5 mg PO BID 02/06/23 01/11/25 immediate-release tacrolimus 1 mg capsule, 2 mg PO BID 02/06/23 01/11/25 immediate-release sulfamethoxazole 400 1 tab PO DAILY 01/05/25 01/11/25 mg-trimethoprim 80 mg tablet metoprolol tartrate 25 mg tablet 25 mg PO BID Afib 01/10/25 01/11/25 tamsulosin 0.4 mg capsule 0.8 mg PO BID BPH 01/10/25 01/11/25 Previous Rx's Medication Instructions Recorded atorvastatin 20 mg tablet 20 mg PO DAILY #90 tabs 12/16/23 zolpidem 10 mg tablet 15 mg (1.5 x 10 mg) PO BEDTIME PRN 12/27/24 Insomnia #30 tabs oxycodone 10 mg tablet 10 mg PO Q8H PRN pain #7 tabs 12/30/24 tizanidine 2 mg capsule 2 mg PO Q8H PRN muscle spasticity, 12/30/24 pain #90 caps amoxicillin 875 mg-potassium 1 tab PO Q12H #14 tabs 01/12/25 clavulanate 125 mg tablet azithromycin 250 mg tablet 250 mg PO DAILY 4 days #4 tabs 01/12/25 Allergies Allergy/AdvReac Type Severity Reaction Status Date / Time sildenafil AdvReac Severe Palpitation Verified 01/11/25 07:58 s tramadol AdvReac Intermediate dysphoria Verified 01/11/25 07:58 Review of Systems Review of Systems ROS Unobtainable: All systems reviewed & are unremarkable except as noted in HPI and below Patient History Medical History Laceration of ring finger History of substance abuse Microcytic anemia BPPV (benign paroxysmal positional vertigo) Wears glasses Hearing loss Anxiety Rubella Polio Mumps Measles Herpes Chicken pox Hepatitis C (~2019) Colon polyps Skin cancer Lung cancer History of nonmelanoma skin cancer Chronic low back pain Chronic anticoagulation Paroxysmal atrial fibrillation Pancreatic mass Umbilical hernia without mention of obstruction or gangrene Venous (peripheral) insufficiency Chronic insomnia History of colonic polyps Generalized anxiety disorder Primary osteoarthritis involving multiple joints Impaired fasting glucose Mixed hyperlipidemia Immunosuppression due to drug therapy History of lung cancer History of pulmonary fibrosis Ruptured appendix Surgical History Anesthesia History of knee surgery (~2009) History of rhinoplasty (~1981) History of colonoscopy History of transplantation, lung S/P appendectomy Family History Mother Head injury due to trauma Father Medical history unknown Brother Lung disease Sister Lung disease 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 Well-developed patient, in mild distress. HEAD: Atraumatic. Normocephalic. EYES: Pupils equal round and reactive. Extraocular motions intact. No scleral icterus. No injection or drainage. ENT: Nose without bleeding, purulent drainage. Throat without erythema, tonsillar hypertrophy or exudate. Airway patent. NECK: Trachea midline. Non tender CARDIOVASCULAR: Regular rate and rhythm without murmurs, gallops, or rubs. LUNG: Diminished b/s b/l with crackles at bases. GASTROINTESTINAL: Abdomen soft, non-tender, mild distended. Healing surgical scar EXTREMITIES: No edema or joint tenderness. BACK: Nontender without deformity or crepitance. No flank tenderness. NEURO: AOx3. SKIN: No rash or erythema of visible areas Initial Vital Signs Initial Vital Signs: Vital Signs Temperature 98.4 F 01/12/25 01:23 Pulse Rate 84 01/12/25 01:23 Respiratory Rate 16 01/12/25 01:23 Blood Pressure 96/52 L 01/12/25 01:23 Pulse Oximetry 94 01/12/25 01:23 Oxygen Delivery Method Room Air 01/12/25 01:23 Course Orders Ordered: ED Orders 01/12/25 01:31 XR chest 1V Stat Complete Blood Count AUTO DIFF Stat Comprehensive Metabolic Panel Stat Creatinine & eGFR Stat Lipase Stat Magnesium Stat NT-proBNP (BNP-Adult 18+) Stat PTT Partial Thromboplastin William Stat Prothrombin Time INR Stat Troponin & CK Cardiac Panel Stat EKG-12 Lead Stat Discontinued Medications Aspirin (Aspirin 81 Mg Chew Tab) 324 mg PO NOW ONE Stop: 01/12/25 01:31 Vital Signs Vital signs: Vital Signs - 8 hr 01/12/25 01:23 Temperature 98.4 F Pulse Rate 84 Respiratory Rate 16 Blood Pressure 96/52 L Pulse Oximetry 94 Oxygen Delivery Method Room Air MDM - Arrhythmia/Palpitations Imaging Data Chest x-ray: Radiologist's Impresson: [place] [address] XRay Report Signed Patient: Gatito Randolph MR#: [id number] : 1960 Acct:[id number] Age/Sex: 64 / M Date of Service: 01/12/25 Loc: ED Accession Number: [id number] Procedure: XR chest 1V Ordering Provider: Flaquito Martin D.O. PROCEDURE: XR CHEST 1V INDICATIONS: chest pain TECHNIQUE: One view of the chest was acquired. COMPARISON: [facility], CT, CT ABDOMEN PELVIS W CON, 01/10/2025, 16:59. [facility], CR, XR CHOLANGIOGRAM OPERATIVE, 12/29/2024, 15:17. [facility], CR, XR CHEST 1V, 05/27/2024, 22:57. [facility], CR, XR CHEST 1V, 02/06/2023, 14:58. FINDINGS: Surgical changes and devices: Sternotomy. Surgical clips project heart. Lungs and pleura: Hazy, lower lobe predominant airspace opacities. Mediastinum: Mediastinal contours appear normal. Heart size is enlarged. Bones and chest wall: No suspicious bony lesions. Overlying soft tissues appear unremarkable. IMPRESSION: Hazy, lower lobe predominant airspace opacities concerning for atypical infection. Differential includes atelectasis. ECG Data Interpretation: NSR HR 67 CO 170 QRS [address]-t wave change Change from 01/10/25 with Afib RVR previously MDM Narrative Medical decision making narrative: All lab work, vital signs, nurse triage note, medication list, imaging studies, and all previous visits reviewed. Patient given Rocephin and Zithromax here and Mag oxide. Patient will be discharged home on Augmentin and Zithromax. Differential diagnosis includes atrial fibrillation, STEMI, NSTEMI, pneumothorax, pneumonia, COVID, flu, and RSV. Follow up with PCP in 1-2 weeks to ensure resolution of pneumonia Discharge Plan Departure Patient Disposition: Home Clinical Impression: Hypomagnesemia Pneumonia Qualifiers: Pneumonia type: due to unspecified organism Laterality: bilateral Lung location: lower lobe of lung Qualified Code(s): J18.9 - Pneumonia, unspecified organism Instructions: DI for Pneumonia -- Adult Activity Restrictions/Additional Instructions: Return with new or worsening symptoms. Take your medicines as directed. Follow up with PCP in 1-2 weeks for resolution of pneumonia Prescriptions: New amoxicillin-pot clavulanate 875-125 mg tablet 1 tab PO Q12H Qty: 14 0RF azithromycin 250 mg tablet 250 mg PO DAILY 4 Days Qty: 4 0RF Rx Instructions: start on day 2 of therapy No Action atorvastatin 20 mg tablet 20 mg PO DAILY Qty: 90 3RF Rx Instructions: takes at 1230 daily zolpidem 10 mg tablet 15 mg PO BEDTIME PRN (Reason: Insomnia) Qty: 30 5RF sulfamethoxazole-trimethoprim 400-80 mg tablet 1 tab PO DAILY prednisone 5 mg Tablet 5 mg PO QAM mycophenolate mofetil 500 mg tablet 1,000 mg PO BID tacrolimus 1 mg capsule 2 mg PO BID tacrolimus 0.5 mg capsule 0.5 mg PO BID tizanidine 2 mg capsule 2 mg PO Q8H PRN (Reason: muscle spasticity, pain) Qty: 90 0RF oxycodone 10 mg tablet 10 mg PO Q8H PRN (Reason: pain) Qty: 7 0RF tamsulosin 0.4 mg capsule 0.8 mg PO BID Patient Comments: Per Urologist, take BID. Has taking BID for approx. +/- one month metoprolol tartrate 25 mg tablet 25 mg PO BID Referrals: Ely Bob DO [Primary Care Provider] - Stand Alone Forms: Patient Portal/API/Survey
--- NOTE | 2025-01-12 01:41 | EKG_ITS ---
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
[2025-01-12 01:53] LABS: Mean Corpuscular Hemoglobin 19.4 PG (26-34); White Blood Cell Count 3.5 X10^3/uL (4.5-11.0)
[2025-01-12] MEDS: ASPIRIN 81 MG CHEW TAB 324 MG PO (01:56)
[2025-01-12 01:58] LABS: Hematocrit 24.8 % (41-53); Hemoglobin 8.2 g/dL (13.5-17.5); Mean Corpuscular Volume 58.7 fL (80-100); Platelet Count 159 X10^3/uL (150-400); Red Blood Cell Count 4.22 X10^6/uL (4.5-5.9); Red Cell Distribution Width 17.8 % (11.6-14.8)
[2025-01-12 01:59] LABS: INR 1.2 (0.9-1.3); Prothrombin Time 14.1 SECONDS (9.4-12.5)
[2025-01-12 02:00] LABS: Add Manual Diff / Slide Review YES
[2025-01-12 02:02] LABS: PTT Partial Thromboplastin Tim 32 SECONDS (25.1-36.5)
[2025-01-12 02:05] LABS: Alanine Aminotransferase 23 IU/L (<50); Albumin 3.8 g/dL (3.5-5.0); Albumin Globulin Ratio 1.8 (1.0-2.8); Alkaline Phosphatase 51 U/L (38-126); Aspartate Aminotransferase 38 IU/L (17-59); BUN Creatinine Ratio 24.7 (6-22); Bilirubin Total 1.6 mg/dL (0.2-1.3); Blood Urea Nitrogen 39 mg/dL (9-20); Calcium 8.5 mg/dL (8.4-10.2); Carbon Dioxide 23 mmol/L (22-32); Chloride 101 mmol/L (98-107); Creatine Kinase 65 U/L (55-170); Estimated Glomerular Filt Rate 49 mL/min (>60); Globulin 2.1 g/dL (1.7-4.1); Glucose 138 mg/dL (70-99); HEMOLYSIS < 15 (0-50); Lipase 28 U/L (23-300); Magnesium 1.4 mg/dL (1.6-2.3); Sodium 133 mmol/L (137-145); Total Protein 5.9 g/dL (6.3-8.2)
[2025-01-12 02:16] LABS: NT-proBNP (BNP-Adult 18+) 1990 pg/mL (<125); Troponin I 0.032 ng/mL (0.01-0.034)
[2025-01-12 02:26] LABS: Anisocytosis 2+; Microcytosis 2+; Neutrophils Absolute Manual 2660 /uL (3000-5900); Ovalocytes 1+; Schistocytes 2+; Tear Drop Cells 1+; Total Cells Counted 100
[2025-01-12 02:27] LABS: Hypochromasia 1+
[2025-01-12 02:28] LABS: Target Cells 1+
[2025-01-12] MEDS: cefTRIAXone 1,000 MG in SODIUM CHLORIDE 0.9% 100 ML 200 MG IV (03:12)
[2025-01-12] MEDS: MAGNESIUM OXIDE 400 MG TABLET 800 MG PO (03:13)
[2025-01-12] MEDS: AZITHROMYCIN 500 MG in DEXTROSE 5% IN WATER 250 ML 250 MG IV (03:50)
== END 2025-01-12 05:10 | disposition home or self-care (01) ==
PROVIDERS: Emergency Provider Family Medicine; PCP Family Medicine
DX: E83.42 Hypomagnesemia (principal); J18.9 Pneumonia, unspecified organism
CPT/HCPCS: 36415; 71045; 80053; 82550; 83690; 83735; 83880; 84484; 85007; 85025; 85610; 85730; 93005; 93010; 96365; 96367; 99284; J0696

== ENCOUNTER → 2025-04-18 08:35 | Outpatient (CLI) | payer MEDICARE, SELFPAY ==
[2025-01-10 21:21] VITALS: BMI 25.0
[2025-04-18 09:41] LABS: Influenza A - CEPHEID Flu A NEGATIVE (NEGATIVE); Influenza B - CEPHEID Flu B NEGATIVE (NEGATIVE)
[2025-04-18 09:47] LABS: COVID-19 CEPHEID 4-PLEX PCR Negative (Negative)
== END ==
PROVIDERS: PCP Family Medicine; Visit Provider Family Medicine
DX: R05.9 Cough, unspecified (principal)
CPT/HCPCS: 87637

== ENCOUNTER → 2025-06-19 08:53 | Outpatient (CLI) | payer MEDICARE, SELFPAY ==
[2025-01-10 21:21] VITALS: BMI 25.0
--- NOTE | 2025-06-19 08:54 | DI.US.S_ITS ---
PROCEDURE: US SCROTUM INDICATIONS: testicular pain TECHNIQUE: Real-time scanning was performed of the scrotum and testicles, with image documentation. Color and pulse Doppler interrogation was performed of both testicles. COMPARISON: None. FINDINGS: Right: Testicle is normal in size at 4 x 2.8 x 2.7 cm, and homogenous in echotexture. Epididymis is normal in overall size and morphology. Small hydrocele. No varicoceles. Overlying scrotal skin is normal in thickness. A 0.8 cm epididymal heads cyst/spermatocele. Left: Testicle is normal in size at 3.5 x 2.9 x 2.6 cm, and homogeneous in echotexture. Epididymis is normal in overall size and morphology. Small hydrocele. No varicoceles. Overlying scrotal skin is normal in thickness. Doppler: Color and pulse Doppler demonstrate normal and symmetric arterial flow in both testicles. IMPRESSION: 1. No evidence of testicular torsion. 2. Small bilateral hydroceles. Dictated by: Jeramy Tinoco M.D. on 06/19/2025 at 12:52 Approved by: Jeramy Tinoco M.D. on 06/19/2025 at 12:54
== END ==
LOC: US 08:54
PROVIDERS: PCP Family Medicine; Referring Provider Family Medicine; Visit Provider Family Medicine
DX: N50.819 Testicular pain, unspecified (principal); N43.3 Hydrocele, unspecified
CPT/HCPCS: 76830; 76870; 93975